=== PATIENT | female | born 1965 | race Caucasian/White ===

== ENCOUNTER 2017-01-22 14:15 | Inpatient (IN) ==
[2017-01-22] MEDS ORDERED: Nitroglycerin 0.4 MG TAB.SUBL SL ONE (14:22)
[2017-01-22 14:42] LABS: Basophils % 0.5 %; Eosinophils # 0.2 K/mcL (0.0-0.6); Eosinophils % 2.8 %; Hematocrit 45.9 % (35.3-44.9); Hemoglobin 15.2 g/dL (11.5-15.4); Immature Granulocytes % 0.4 % (0-4); Lymphocytes # 2.2 K/mcL (0.6-4.6); Lymphocytes % 29.7 %; Mean Corpuscular HGB Conc 33.1 g/dL (31.6-35.5); Mean Corpuscular Hemoglobin 29.3 pg (28.0-33.3); Mean Corpuscular Volume 88.6 fL (83.0-100.0); Mean Platelet Volume 9.5 fL (9.4-12.4); Monocytes # 0.4 K/mcL (0.0-1.3); Monocytes % 5.9 %; Neutrophils # 4.5 K/mcL (1.6-8.9); Platelet Count 253 K/mcL (140-400); Red Blood Count 5.18 M/mcL (3.82-4.97); Red Cell Distribution Width 12.3 % (11.5-14.5); Segmented Neutrophils % 60.7 %
[2017-01-22 14:50] LABS: Prothrombin Time 10.5 Seconds (9.4-12.1)
[2017-01-22 14:53] LABS: Activated Partial Thrombo Time 28.2 Seconds (26.0-36.0)
[2017-01-22 14:57] LABS: BUN/Creatinine Ratio 13 (6-26); Blood Urea Nitrogen 12 mg/dL (7-20); Calcium 9.2 mg/dL (8.6-10.8); Carbon Dioxide 30 mEq/L (19-29); Chloride 104 mEq/L (98-109); Glucose 290 mg/dL (70-99); Osmolality,Calculated 294 (280-300); Potassium 3.9 mEq/L (3.5-4.5); Sodium 137 mEq/L (136-145); eGFR For African Americans > 60 (> 60); eGFR For Non-African Americans > 60 (> 60)
--- NOTE | 2017-01-22 15:24 | Emergency Department Note ---
Disposition Clinical Impression: Chest pain Qualifiers: Chest pain type: unspecified Qualified Code(s): R07.9 - Chest pain, unspecified Disposition: Admitted As Inpatient Condition: Fair Referrals: Ketty Cade CNP [Primary Care Provider] - Forms: ED Satisfaction Letter Time of Disposition: 15:47 Chest Pain HPI - General Chief Complaint: ED Chest Pain Stated Complaint: Chest Pain Time Seen by Provider: 01/22/17 14:19 Source: patient, EMS Limitations: no limitations Vital Signs Reviewed: Yes Nursing Notes Reviewed: Yes - History of Present Illness HPI Narrative: Patient is a 51-year-old female past medical history of hypertension, diabetes, and high cholesterol to the emergency department with intermittent chest pain that has been going on for 2 weeks. The chest pain is a sharp stabbing substernal chest pain that lasts for minutes is worsened by exertion and improves with rest except for today she noticed that the chest pain lingered after resting. States she has had some diaphoresis, nausea, one episode of vomiting, and shortness of breath with exertion. She states she does not have a cardiac history, she has had a stress test in the past but does not remember why or remember the results. Pt complaint: chest pain Onset (ago): week(s) Duration: intermittent Onset: during exertion Pain Location: substernal Severity: moderate Severity scale (1-10): 2 Quality: sharp Pain Radiation: none Improves with: rest Worsens with: exertion Associated symptoms: Reports: nausea, vomiting, diaphoresis, dyspnea. Denies: syncope, palpitations, fever, cough Treatments prior to arrival chest pain: aspirin - Related Data Home Medications Medication Instructions Recorded Confirmed Atorvastatin [Lipitor] 40 mg PO 02/06/16 01/22/17 Lansoprazole [Prevacid] 30 mg PO [facility] 02/06/16 01/22/17 Lisinopril [Zestril] 20 mg PO DAILY 02/06/16 01/22/17 NIFEdipine [Nifedical Xl] 30 mg PO DAILY 02/06/16 01/22/17 Alogliptin Keon/Metformin HCl 1 each PO BID 01/22/17 01/22/17 [Kazano 12.5-1,000 mg Tablet] Insulin Glargine,Hum.rec.anlog 62 unit SQ 01/22/17 01/22/17 [Bakariaglhong Winkler U-100] hydroCHLOROthiazide 12.5 mg PO DAILY 01/22/17 01/22/17 [Hydrochlorothiazide] Allergies Allergy/AdvReac Type Severity Reaction Status Date / Time No Known Allergies Allergy Verified 02/23/16 13:11 All systems ED: reviewed and negative except as stated. Constitutional: Denies: fever, chills Cardiovascular: Reports: chest pain, palpitations, dyspnea on exertion. Denies : orthopnea, edema, paroxysmal nocturnal dyspnea Respiratory: Reports: dyspnea. Denies: cough, wheezes, hemoptysis, sputum production Gastrointestinal: Denies: abdominal pain, nausea, vomiting, diarrhea Genitourinary: Denies: urgency, dysuria Musculoskeletal: Denies: back pain, neck pain Integumentary: Denies: rash Chest Pain PMH - Past Medical History Medical history: Reports: diabetes, GERD, hypertension Surgical history: Reports: orthopedic, other, ADA/BSO Psychiatric history: Reports: no psych history - Social History Smoking Status: Never smoker Alcohol use: Reports: occasionally Drug use: Reports: none Physical Exam Pt is sitting comfortably in bed. - General Limitations: no limitations General appearance: alert, in no apparent distress - Head Head exam: atraumatic, normocephalic - Eye Eye exam: Present: normal appearance, PERRL, EOMI - ENT ENT exam: normal exam, normal oropharynx, mucous membranes moist - Neck Neck exam: Present: normal inspection, full ROM, trachea midline. Absent: tenderness - Chest Chest inspection: Present: normal inspection, symmetric chest wall rise. Absent : tenderness - Respiratory Respiratory exam: Present: normal lung sounds bilaterally. Absent: respiratory distress, wheezes - Cardiovascular Cardiovascular exam: Present: regular rate, normal rhythm - Expanded Cardiovascular Exam Peripheral pulses: 2+: radial (R), radial (L), dorsalis pedis (R), dorsalis pedis (L) - Abdominal Exam Abdominal exam: Present: soft, Non-Tender, normal bowel sounds. Absent: tenderness - Extremities Exam Extremities exam: Present: normal inspection, full ROM. Absent: tenderness, pedal edema, calf tenderness - Back Exam Back exam: Present: normal inspection, full ROM. Absent: tenderness - Neurological Exam Neurological exam: Present: alert, oriented X3 - Psychiatric Psychiatric exam: Present: normal affect, normal mood - Skin Skin exam: Present: warm, dry, intact. Absent: cyanosis, diaphoresis, pallor Course Course Narrative: Patient is a 51-year-old female presents with a complaint of intermittent chest pain that is worse with exertion and normally improves with rest however today it did not improve with rest. She did a cardiac workup on the patient. - Reevaluation(s) Reevaluation #1: The patient's chest pain improved after the nitroglycerin. I discussed that her EKG is unchanged from her prior EKG she did not have elevated troponin. Discussed plan to admit the patient for further ACS rule out. The pt agrees with the plan. Vital Signs Temperature 97.7 F 01/22/17 14:17 Pulse Rate 91 01/22/17 14:17 Respiratory Rate 16 01/22/17 14:17 Blood Pressure 176/103 01/22/17 14:17 O2 Sat by Pulse Oximetry 96 01/22/17 14:17 Temperature 97.7 F 01/22/17 14:17 Pulse Rate 91 01/22/17 16:04 Respiratory Rate 16 01/22/17 16:04 Blood Pressure 174/96 01/22/17 16:04 O2 Sat by Pulse Oximetry 96 01/22/17 16:04 Oxygen Delivery Oxygen Delivery Room Air Chest Pain - Medical Records Medical records reviewed: Yes I reviewed the patient's medical records. - Lab Data Lab results reviewed: Yes I reviewed the patient's lab results. Result diagrams: 01/22/17 14:33 01/22/17 14:33 Lab Results 01/22/17 01/22/17 01/22/17 Range/Units 14:33 14:33 14:33 WBC 7.5 (4.3-11.1) K/mcL RBC 5.18 H (3.82-4.97) M/mcL Hgb 15.2 (11.5-15.4) g/dL Hct 45.9 H (35.3-44.9) % MCV 88.6 (83.0-100.0) fL MCH 29.3 (28.0-33.3) pg MCHC 33.1 (31.6-35.5) g/dL RDW 12.3 (11.5-14.5) % Plt Count 253 (140-400) K/mcL MPV 9.5 (9.4-12.4) fL Immature Gran % 0.4 (0-4) % Seg Neutrophils % 60.7 % Lymphocytes % 29.7 % Monocytes % 5.9 % Eosinophils % 2.8 % Basophils % 0.5 % Neutrophils # 4.5 (1.6-8.9) K/mcL Lymphocytes # 2.2 (0.6-4.6) K/mcL Monocytes # 0.4 (0.0-1.3) K/mcL Eosinophils # 0.2 (0.0-0.6) K/mcL Basophils # 0.0 (0.0-0.2) K/mcL PT 10.5 (9.4-12.1) Seconds INR 1.0 APTT 28.2 (26.0-36.0) Seconds Sodium 137 (136-145) mEq/L Potassium 3.9 (3.5-4.5) mEq/L Chloride 104 (98-109) mEq/L Carbon Dioxide 30 H (19-29) mEq/L BUN 12 (7-20) mg/dL Creatinine 0.96 (0.57-1.11) mg/dL Est GFR ( Amer) > 60 (> 60) Est GFR (Non-Af Amer) > 60 (> 60) BUN/Creatinine Ratio 13 (6-26) Glucose 290 H (70-99) mg/dL Calculated Osmolality 294 (280-300) Calcium 9.2 (8.6-10.8) mg/dL Troponin I (0-0.03) ng/mL 01/22/17 Range/Units 14:33 WBC (4.3-11.1) K/mcL RBC (3.82-4.97) M/mcL Hgb (11.5-15.4) g/dL Hct (35.3-44.9) % MCV (83.0-100.0) fL MCH (28.0-33.3) pg MCHC (31.6-35.5) g/dL RDW (11.5-14.5) % Plt Count (140-400) K/mcL MPV (9.4-12.4) fL Immature Gran % (0-4) % Seg Neutrophils % % Lymphocytes % % Monocytes % % Eosinophils % % Basophils % % Neutrophils # (1.6-8.9) K/mcL Lymphocytes # (0.6-4.6) K/mcL Monocytes # (0.0-1.3) K/mcL Eosinophils # (0.0-0.6) K/mcL Basophils # (0.0-0.2) K/mcL PT (9.4-12.1) Seconds INR APTT (26.0-36.0) Seconds Sodium (136-145) mEq/L Potassium (3.5-4.5) mEq/L Chloride (98-109) mEq/L Carbon Dioxide (19-29) mEq/L BUN (7-20) mg/dL Creatinine (0.57-1.11) mg/dL Est GFR ( Amer) (> 60) Est GFR (Non-Af Amer) (> 60) BUN/Creatinine Ratio (6-26) Glucose (70-99) mg/dL Calculated Osmolality (280-300) Calcium (8.6-10.8) mg/dL Troponin I 0.01 (0-0.03) ng/mL - Radiology Data Radiology results reviewed: Yes I reviewed the patient's radiology results. Chest X-Ray 01/22/17 14:22 IMPRESSION: No acute cardiopulmonary disease. D/ / Reji Wade MD / Reji Wade MD Interpreting Provider: Reji Wade MD - EKG Data EKG attestation: Yes I reviewed and interpreted this EKG. EKG results narrative: I interpreted the EKG. Sinus rhythm with rate of 96. Normal axis. Normal intervals: MN 156, QRS 112, QT/QTc 338/391. Patient has ST changed in lead III that are unchanged from an ekg done one 01/26/2016. EKG shows normal: sinus rhythm Rate: normal Interpretation: unchanged when compared to prior tracing (date) Heart Score - Score History: Moderately Suspicious EKG: Non Specific repolarisation Disturbance Age: 45-65 Risk Factors: 1-2 risk factors Troponin: Less than normal limit HEART Score Total: 4 Attestation Statement - Attestation Attestation: I examined this patient and my medical decision-making was reviewed with the Resident Physician. I agree with the documented findings, disposition and treatment plan as described except to the extent set forth below. Patient presents to the emergency department with a chief complaint of chest pain. Sharp substernal. She has been having intermittent episodes with exertion over the past couple of weeks. Today it was worse. Did not resolve spontaneously so she comes for evaluation. She also admits to some nausea and vomiting and diaphoresis. On exam she is in no acute distress. Heart regular rate and rhythm lungs are clear. Plan. Workup was unremarkable. Her pain resolved with nitroglycerin. She will be admitted for further cardiac workup.
[2017-01-22] MEDS ORDERED: Naloxone 0.4 MG/ML INJ IVP PRN (17:55)
[2017-01-22] MEDS ORDERED: *HR* Morphine 2 MG/ML SYRINGE IVP PRN (17:55)
[2017-01-22] MEDS ORDERED: Acetaminophen 325 MG TABLET PO PRN (17:55)
[2017-01-22] MEDS ORDERED: *HR* HYDROcodone/Acet 5/325 mg TABLET PO PRN (17:55)
[2017-01-22] MEDS ORDERED: Ondansetron 4 MG/2 ML VIAL IVP PRN (17:55)
[2017-01-22] MEDS ORDERED: D5% in Water 1,000 ML IVC PRN (18:04)
[2017-01-22] MEDS ORDERED: *HR* Dextrose 50 % in Water (Syg) 50 ML SYRINGE IVP PRN (18:04)
[2017-01-22] MEDS ORDERED: Dextrose Gel 15 GM PO PRN ×2 (18:04)
[2017-01-22] MEDS ORDERED: Nitroglycerin 0.4 MG TAB.SUBL SL PRN (18:07)
[2017-01-22] MEDS: Pantoprazole 40 MG VIAL IVP SCH (18:16)
--- NOTE | 2017-01-22 18:43 | Internal Med History&Physical ---
<Andrés Snow - Last Filed: 01/22/17 19:18> Date of Encounter: 01/22/17 Time of Encounter: 15:00 Assessment and Plan (1) Chest pain Current visit: Yes Status: Acute Patient presents with acute chest pain that she states has been occurring for the past two weeks and has become progressively worse. She describes the pain as constant stabbing and is accompanied with nausea. Pain becomes with exertion. Patient denies previous cardiac history or issues. She reports she had a stress test quite a while ago and cannot recall where or when. Patient placed on continuous cardiac telemetry with supplemental O2 and continuous SPO2 monitoring. Will trend troponins x2. Nitroglycerin PRN ordered. EV echocardiogram and nuclear stress test ordered. Patient to be placed as nothing by mouth status after midnight for a.m. testing. Will consider cardiology consult based on echocardiogram and stress test results. Will continue patient's statin and hypertension medications. Qualifiers: Chest pain type: unspecified Qualified Code(s): R07.9 - Chest pain, unspecified (2) SOB (shortness of breath) Current visit: Yes Status: Acute Patient presents with acute SOB related to current chest pain symptoms. She states the SOB worsens with exertion like the chest pain. Supplemental O2 with titration if SpO2 < 92% and continuous SpO2 monitoring ordered. DuoNebs Q4 PRN ordered. Patient to be placed as bed rest with bathroom privileges. (3) Nausea Current visit: Yes Status: Acute Patient presents with acute nausea related to current chest pain symptoms. IV Zofran ordered PRN. (4) Diabetes Current visit: Yes Status: Chronic Patient presents with history of chronic diabetes. Will hold patient's home hyperglycemic medications and order low-dose correction insulin sliding scale and hypoglycemic protocol. Blood glucose monitoring ACHS. A1c ordered. Qualifiers: Diabetes mellitus type: type 2 Diabetes mellitus complication status: with unspecified complications Diabetes mellitus automation qa lead insulin use: with automation qa lead use Qualified Code(s): E11.8 - Type 2 diabetes mellitus with unspecified complications; Z79.4 - assisted (current) use of insulin (5) GERD (gastroesophageal reflux disease) Current visit: Yes Status: Chronic Patient presents with history of chronic GERD. IVP Protonix 40 mg daily ordered. Qualifiers: Esophagitis presence: esophagitis presence not specified Qualified Code(s) : K21.9 - Gastro-esophageal reflux disease without esophagitis (6) HTN (hypertension) Current visit: Yes Status: Chronic Patient presents with history of chronic hypertension. Will continue patient's lisinopril, nifedipine, and hydrochlorothiazide. Will monitor patient vital signs. Qualifiers: Hypertension type: essential hypertension Qualified Code(s): I10 - Essential (primary) hypertension (7) HLD (hyperlipidemia) Current visit: Yes Status: Chronic Patient presents with history of chronic hyperlipidemia. Lipid panel ordered. Will continue patient's Lipitor. Qualifiers: Hyperlipidemia type: pure hypercholesterolemia Qualified Code(s): E78.00 - Pure hypercholesterolemia, unspecified; E78.0 - Pure hypercholesterolemia (8) DVT prophylaxis Current visit: Yes Status: Acute Patient to be placed on DVT prophylaxis due to admission protocol and current symptomatology. Heparin 5000 units SQ every 8 ordered. Internal Medicine - H&P: HPI Chief complaint: Chest pain Admitted From: Emergency Dept Plans for Post Hospital Care: Home History of present illness: Mrs. Coyne is a 51 year old female who presents from the ED with chief complaint of chest pain that she reports as occurring for the past two weeks and has become progressively worse. Patient describes the pain as constant and stabbing is accompanied with nausea but no vomiting. She also states that the chest pain becomes worse with exertion. She also reports experiencing shortness of breath and pain that radiates to the mid central back. Patient denies any previous cardiac history or issues. Patient also denies palpitations , orthopnea, edema, cough, abdominal pain, diarrhea, presyncope, syncope, or generalized weakness. Patient states she had a stress test done quite some time ago but cannot remember when or where. Patient has a medical history that includes diabetes with insulin dependency, GERD, hypertension, hyperlipidemia. Patient denies smoking, reports occasional alcohol use, denies illicit drug use. Patient is at moderate risk for cardiac event based on risk factors of obesity, diabetes, hypertension, and hyperlipidemia and will be placed as observation status with continuous cardiac telemetry, supplemental O2 with titration if SPO2 less than 92%, continuous SPO2 monitoring, trending troponins 2, nitroglycerin when necessary, and EV echocardiogram. Patient to be monitored closely for continued signs of cardiac and/or respiratory distress. Will consider cardiology consult based on echocardiogram results. Time spent with patient > 40 minutes. Past Med Surg Social Fam HX - Past Medical History Source: patient Medical history: diabetes, GERD, hyperlipidemia, hypertension Psychiatric history: no psych history - Past Surgical History Surgical History: cholecystectomy, orthopedic, other, ADA/BSO, other (Tubal ligation, tonsillectomy, adenoidectomy) - Social History Smoking Status: Never smoker Smokeless Tobacco Status: No Alcohol use: occasionally Drug use: none Current living situation: Home, With Family Activity Level: Independent ambulation Recent Out of Country Travel Within the Last 8 Weeks: No Exposure or Possible Exposure to Illness During Travel: No - Family History Father Race: Family Member Ethnicity: Non- Living Status: Still Living Hx Family Cardiac Disorders: Yes (HTN) Hx Family Respiratory Disorders: Yes (Asthma) Mother Race: Family Member Ethnicity: Non- Living Status: Still Living Hx Family Cardiac Disorders: Yes (HLD, HTN) Brother Race: Family Member Ethnicity: Non- Living Status: Still Living Hx Family Medical Disorders: No Sister Race: Family Member Ethnicity: Non- Living Status: Still Living Hx Family Cardiac Disorders: Yes (HLD) Hx Family Respiratory Disorders: Yes (Asthma) Hx Family Cancer: Yes (Breast) Internal Medicine - H&P: Meds Atorvastatin [Lipitor] 40 mg PO HS 02/06/16 [History] Lansoprazole [Prevacid] 30 mg PO QAM 02/06/16 [History] Lisinopril [Zestril] 20 mg PO DAILY 02/06/16 [History] NIFEdipine [Nifedical Xl] 30 mg PO DAILY 02/06/16 [History] Alogliptin Keon/Metformin HCl [Kazano 12.5-1,000 mg Tablet] 1 each PO BID [History] Insulin Glargine,Hum.rec.anlog [Basaglar Kwikpen U-100] 62 unit SQ HS 01/22/17 [ History] hydroCHLOROthiazide [Hydrochlorothiazide] 12.5 mg PO DAILY 01/22/17 [History] Allergies No Known Allergies Allergy (Verified 02/23/16 13:11) All Systems PM: A 10-system review of systems was performed and is negative for pertinent findings except as documented above in the HPI. - Constitutional Constitutional: no chills, no fever(s), no night sweats - EENT Eyes: no change in vision, no discharge, no pain, no photophobia Ears: no ear discharge, no ear pain, no tinnitus Nose, mouth and throat: no dysphagia, no nasal discharge, no neck pain, no sore throat - Breasts Breasts: as per HPI - Cardiovascular Cardiovascular ROS IM: as per HPI, chest pain, dyspnea - Respiratory Respiratory: as per HPI, dyspnea - Gastrointestinal Gastrointestinal: as per HPI, nausea, no abdominal pain, no diarrhea, no hematemesis, no hematochezia, no melena, no vomiting - Genitourinary Genitourinary: no change in urinary stream, no dysuria, no flank pain, no hematuria Menstruation: as per HPI - Musculoskeletal Musculoskeletal ROS IM: no numbness, no tingling - Integumentary Integumentary IM: no rash, no unusual bruising - Neurological Neurological ROS: no confusion, no convulsions, no focal weakness, no numbness, no tingling, no tremor(s) - Psychiatric Psychiatric: as per HPI - Endocrine Endocrine IM: as per HPI - Hematologic/Lymphatic Hematologic/Lymphatic: no easy bruising - Allergic/Immunologic Allergic/Immunologic: as per HPI - Constitutional Vitals: Temp Pulse Resp BP Pulse Ox 98.0 F 89 17 166/94 95 01/22/17 17:40 01/22/17 17:40 01/22/17 17:40 01/22/17 17:40 01/22/17 17:40 General appearance: Present: cooperative, A&O X 3, pleasant, no acute distress, obese, answers questions appropriately - Head Head exam: Present: atraumatic, normocephalic - Eye Eye exam: Present: PERRL, conjuntiva pink, sclera anicteric Pupils: Present: PERRL - ENT ENT exam: Present: normal exam, normal external ear exam - Neck Neck exam general surgery: Present: normal inspection, supple, trachea midline - Respiratory Respiratory exam: Present: CTAB. Absent: accessory muscle use, rales, rhonchi, wheezes - Cardiovascular Cardiovascular exam: Present: RRR, +S1, +S2. Absent: diastolic murmur, gallop, rubs, systolic murmur - GI/Abdominal GI/Abdominal exam: Present: normal bowel sounds, soft, no peritoneal signs. Absent: distended, tenderness - Rectal Rectal exam: Present: deferred - Additional comments: exam deferred. - Extremities Exam Extremities exam: Present: warm, radial pulses palpable and symetrical. Absent : calf tenderness, cyanotic, pedal edema - Back Exam Back exam: Present: normal inspection - Neurological Exam Neurological exam: Present: CN II-XII intact, oriented X3, no focal deficits. Absent: pronater drift, facial droop, speech deficit - Psychiatric Psychiatric exam: Present: normal affect, normal mood - Skin Skin exam: Present: dry, intact Internal Med - H&P Results - Labs CBC & Chem 7: 01/22/17 14:33 01/22/17 14:33 - EKG Data EKG shows normal: sinus rhythm - EKG Data Prior EKG available for review: yes When compared to previous EKG: there is no significant change EKG comments: 01/22/17 18:57 EKG dated 01/26/16 shows sinus rhythm with inferior myocardial infarction of indeterminate age. EKG dated 01/22/17 shows sinus rhythm with moderate intraventricular conduction delay and ST deviation and moderate T-wave abnormality. Consider inferior ischemia. - Diagnostic Studies Chest x-ray Additional comments: Impressions Chest X-Ray 01/22/17 14:22 IMPRESSION: No acute cardiopulmonary disease. D/ / Reji Wade MD / Reji Wade MD Interpreting Provider: Reji Wade MD <Jose GuadalupeStella - Last Filed: 01/22/17 19:39> Date of Encounter: 01/22/17 Internal Medicine - H&P: HPI History of present illness: Ms. Coyne is a 51 year old female All Systems PM: A 10-system review of systems was performed and is negative for pertinent findings except as documented above in the HPI. - Constitutional Vitals: Temp Pulse Resp BP Pulse Ox 98.0 F 89 17 166/94 95 01/22/17 17:40 01/22/17 17:40 01/22/17 17:40 01/22/17 17:40 01/22/17 17:40 Internal Med - H&P Results - Labs CBC & Chem 7: 01/22/17 14:33 01/22/17 14:33 - Attending Attestation I have seen and examined pt. I discussed with CHARTERED FINANCIAL ANALYST regarding the management plan. I agree with the documentation. Pt has on and off chest pain. Chest pain improved now. Will check Echo, and stress test in am. Will consult cardio as needed.
[2017-01-22] MEDS ORDERED: Ipratropium/Albuterol Neb 3 ML IH PRN (19:11)
[2017-01-22] MEDS: Insulin LISPRO 300 UNITS/3 ML VIAL SQ SCH (21:33)
[2017-01-23 06:02] LABS: Basophils # 0.1 K/mcL (0.0-0.2); Basophils % 0.6 %; Eosinophils # 0.3 K/mcL (0.0-0.6); Eosinophils % 3.4 %; Immature Granulocytes % 0.5 % (0-4); Lymphocytes # 3.4 K/mcL (0.6-4.6); Lymphocytes % 39.1 %; Mean Corpuscular HGB Conc 33.3 g/dL (31.6-35.5); Mean Corpuscular Hemoglobin 29.7 pg (28.0-33.3); Mean Corpuscular Volume 89.1 fL (83.0-100.0); Mean Platelet Volume 9.7 fL (9.4-12.4); Monocytes # 0.7 K/mcL (0.0-1.3); Monocytes % 7.9 %; Neutrophils # 4.2 K/mcL (1.6-8.9); Platelet Count 268 K/mcL (140-400); Red Blood Count 5.05 M/mcL (3.82-4.97); Red Cell Distribution Width 12.6 % (11.5-14.5); Segmented Neutrophils % 48.5 %
[2017-01-23 06:17] LABS: BUN/Creatinine Ratio 14 (6-26); Blood Urea Nitrogen 10 mg/dL (7-20); Calcium 8.8 mg/dL (8.6-10.8); Carbon Dioxide 31 mEq/L (19-29); Chloride 105 mEq/L (98-109); Chol/HDL Ratio 3.2 (0-4.9); Cholesterol 136 mg/dL (< 200); Glucose 96 mg/dL (70-99); HDL Cholesterol 43 mg/dL (40-59); LDL Cholesterol,Calculated 74 mg/dL (0-99); Magnesium 1.6 mg/dL (1.6-2.6); Osmolality,Calculated 285 (280-300); Potassium 3.6 mEq/L (3.5-4.5); Sodium 138 mEq/L (136-145); Triglycerides 95 mg/dL (< 150); eGFR For African Americans > 60 (> 60); eGFR For Non-African Americans > 60 (> 60)
[2017-01-23] MEDS ORDERED: Regadenoson 0.4 MG/5 ML SYRINGE IVP ONE (07:32)
[2017-01-23] MEDS: Pantoprazole 40 MG VIAL IVP SCH (09:12)
[2017-01-23] MEDS: NIFEdipine XL (24 HR) 30 MG TAB.ER.24 PO SCH (09:12)
[2017-01-23] MEDS: Lisinopril 20 MG TABLET PO SCH (09:12)
[2017-01-23] MEDS: hydroCHLOROthiazide 25 MG TABLET PO SCH (09:12)
[2017-01-23] MEDS: Insulin LISPRO 300 UNITS/3 ML VIAL SQ SCH ×4 (09:16→20:28)
--- NOTE | 2017-01-23 11:19 | Nuclear Medicine Stress Report ---
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 Pharmacologic ECG was non diagnostic for ischemia. Patient had 3/10 chest pain with exercise. Normal hemodynamic response. No arrhythmias noted with stress. Gated EF = 59%. There is visual evidence of TID. Findings communicated to ordering provider. History: Hypertension Diabetes Hypercholesteremia Stress Test Summary: Stress Test Type: Treadmill Protocol: Frandy Baseline Information: Initial Heart Rate: 71 Blood Pressure: 164/88 Stress Information: Stress Time: 6 min 00 sec Test Terminated Due to (primary): Fatigue Maximum Blood Pressure: 174/92 Maximum Heart Rate: 147 Percent Maximum Heart Rate Achieved: 87 Double Product: [id number] METS Reached: 7 Symptoms: Chest pain Nuclear Summary: SPECT myocardial perfusion imaging using [id number] Sestamibi given intravenously was performed at rest and following cardiac stress testing. The resting images were obtained following initial dose of 11.3 mCi. Following stress an additional dose of 31.6 mCi was given at peak exercise or 30 seconds post regadenoson infusion. Medication Given: Time Medication Dose Units Route Findings: Stress Note * Resting ECG demonstrated normal sinus rhythm with IVCD nonspecific ST abnormalities and possible inferior OH appearing old. * Exercise ECG is non diagnostic for ischemia due to non-specific ST and T wave changes. * No arrhythmias were noted during stress. * Patient had 3/10 chest pain during exercise. * The exercise capacity was fair. Hemodynamic responses * Normal hemodynamic responses to exercise. Study Quality * Study quality is good. Gated EF % * Gated EF = 59%. Left Ventricle * The left ventricle is not dilated. TID * There is transient ischemic dilatation. Lung Uptake * There is no evidence of increase lung uptake. PERFUSION * There is a medium sized, mixed perfusion defect demonstrating lack of perfusion in the basal to mid inferior wall and inferoseptum. In the mid to distal segments on stress imaging, perfusion is mild to moderately worse. Findings represent infarct with mild to moderate jony-infarct ischemia. * Other segments demonstrate normal rest and stress perfusion. Updated by Lexy Mendoza on 01/23/2017 11:09:17 AM electronically signed on 01/23/2017 11:14:25 AM with status of Final
--- NOTE | 2017-01-23 11:57 | Cardiology Consult Note ---
Date of Encounter: 01/23/17 Time of Encounter: 11:30 Assessment and Plan (1) Chest pain Current Visit: Yes Status: Acute Per cardiology: -2 week history of intermittent chest pain, mostly with excertion. States chest pain relieved by rest. -Echo 01/23/17 with LVEF 50%, mild LV systolic dysfunction with regional abnormalities, mild LV diastolic dysfunction with borderline elevated in filling pressures, no significant valvular dysfunction, the mid inferior and basal inferior septal mcdonald hypokinetic, basal inferior wall aneurysmal, all other wall segments with normal motion. -Nuclear stress 01/23/17 with inferior and inferoseptal infarct with mild to moderate per-infarct ischemia. Gated EF 59%. Visual evidence of TID. -On statin. -Discussed at length with patient and family regarding chest pain, abnormal test results. -Discussed recommendations for LHC. Educated patient and family regarding risks versus benefits of LHC. Patient states understanding and agreeable to proceed with LHC. -NO ECG to personally review. -Will undergo LHC today. Of note, patient did have a few michelle crackers and water after stress test. updated on oral intake and states ok to proceed with LHC. -Will start asa 81mg. -ECG ordered. -FUrther recommendations pending LHC. Qualifiers: Chest pain type: unspecified Qualified Code(s): R07.9 - Chest pain, unspecified (2) HTN (hypertension) Current Visit: Yes Status: Chronic Per cardiology: -Known HTN. -ON lisinopril and procardia. -BP 120-150s systolic. -Average HR previous 12 hours noted to be 64, minimum noted to be 53 at 0534. -Further recommendations pending LHC. Can consider addition of low dose beta marko. Qualifiers: Hypertension type: essential hypertension Qualified Code(s): I10 - Essential (primary) hypertension Discussion w patient/family: The assessment and plan as outlined above was discussed with the patient and/or family members who expressed understanding and agreement. All questions were answered. Thank you for involving us in the care of your patient. Please call with any questions. Discussed and reviewed with . History of Present Illness Consult date: 01/23/17 Requesting physician: Liset Spann Consult reason: chest pain, abnormal echo and stress Chief complaint: chest pain History of present illness: Ms. Coyne is a 51 year old female with a relevant past medical history of HTN , previous smoking, and DM. Patient presented to [facility] with complaints of chest pain. Patient states pain has been intermittent for the past 2 weeks. Patient states pain typically started during excertion. 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 Patient states pain was midsternal with radiation to back. Patient states pain was typically relieved with rest, however episode prior to admission was not relieved with rest. Patient denies current chest pain. Patient also admits to increased shortness of breath and increased fatigue. Patient states she can perform her normal activities, but becomes extremely fatigued with her normal activities. Past Med Surg Social Fam HX - Past Medical History Attestation: Yes The following information was validated with the patient. Source: patient, obtained from family Medical history: diabetes, GERD, hypertension Psychiatric history: no psych history - Past Surgical History Surgical History: cholecystectomy, orthopedic, other, ADA/BSO, other (Tubal ligation, tonsillectomy, adenoidectomy) - Social History Smoking Status: Never smoker Smokeless Tobacco Status: No Alcohol use: occasionally Drug use: none - Family History Father Race: Family Member Ethnicity: Non- Living Status: Still Living Hx Family Cardiac Disorders: Yes (HTN) Hx Family Respiratory Disorders: Yes (Asthma) Mother Race: Family Member Ethnicity: Non- Living Status: Still Living Hx Family Cardiac Disorders: Yes (HLD, HTN) Brother Race: Family Member Ethnicity: Non- Living Status: Still Living Hx Family Medical Disorders: No Sister Race: Family Member Ethnicity: Non- Living Status: Still Living Hx Family Cardiac Disorders: Yes (HLD) Hx Family Respiratory Disorders: Yes (Asthma) Hx Family Cancer: Yes (Breast) Medications and Allergies Atorvastatin [Lipitor] 40 mg PO HS 02/06/16 [History] Lansoprazole [Prevacid] 30 mg PO QAM 02/06/16 [History] Lisinopril [Zestril] 20 mg PO DAILY 02/06/16 [History] NIFEdipine [Nifedical Xl] 30 mg PO DAILY 02/06/16 [History] Alogliptin Keon/Metformin HCl [Kazano 12.5-1,000 mg Tablet] 1 each PO BID [History] Insulin Glargine,Hum.rec.anlog [Bakariaglhong Winkler U-100] 62 unit SQ HS 01/22/17 [ History] hydroCHLOROthiazide [Hydrochlorothiazide] 12.5 mg PO DAILY 01/22/17 [History] Allergies No Known Allergies Allergy (Verified 02/23/16 13:11) All Systems Review: A 10-system review of systems was performed and is negative for pertinent findings except as documented above in the HPI. - Constitutional Constitutional: fatigue - Cardiovascular Cardiovascular: as per HPI, chest pain at rest, chest pain with exertion, dyspnea on exertion Physical Examination Vital Signs, Last 4 Hours Temp Pulse Resp BP Pulse Ox 01/23/17 09:22 97.6 F 63 16 155/86 97 General: Conversant, No Apparent Distress HEENT: Atraumatic, Normocephaly, Mucus Membranes Moist Neck: No JVD, Normal carotid pulses Cardiac: Reg Rate and Rhythm, Normal S1 and S2, No Murmur Lungs: Normal Breath Sounds, No Wheeze, Rales, Rhonchi Neuro: Alert and responsive, No focal deficits noted Abdomen: Soft, Non-Tender Skin: No rashes noted on visualized skin Musculoskeletal: No Chest Wall Tenderness Extremities: No Clubbing, No Cyanosis, No Edema, Normal Pulses Results 01/23/17 05:22 01/23/17 05:22 Lab Results Impressions Chest X-Ray 01/22/17 14:22 IMPRESSION: No acute cardiopulmonary disease. D/ / Reji Wade MD / Reji Wade MD Interpreting Provider: Reji Wade MD Active Medications Acetaminophen (Tylenol) 650 mg PO Q6HR PRN PRN Reason: Mild Pain (1-3) Stop: 07/24/17 17:56 Hydrocodone Bitart/Acetaminophen ([place] 5-325 Mg) 1 tab PO Q4HR PRN PRN Reason: Moderate Pain (4-6) Stop: 07/24/17 17:56 Albuterol/Ipratropium (Duoneb) 3 ml IH [id number] PRN; Protocol PRN Reason: Shortness Of Breath/Wheezing Stop: 07/24/17 19:12 Atorvastatin Calcium (Lipitor) 40 mg PO HS [facility] Stop: 07/24/17 21:01 Last Admin: 01/22/17 21:34 Dose: 40 mg Dextrose/Water (Dextrose 50% (Syg)) 25 ml IVP AD PRN PRN Reason: Hypoglycemia Stop: 07/24/17 18:05 Glucagon (Glucagen) 1 mg IM ONCE PRN PRN Reason: Hypoglycemia Stop: 07/24/17 18:05 Glucose (Gluctose) 15 gm PO ONCE PRN PRN Reason: Hypoglycemia Stop: 07/24/17 18:05 Glucose (Gluctose) 30 gm PO ONCE PRN PRN Reason: Hypoglycemia Stop: 07/24/17 18:05 Hydrochlorothiazide (Hydrochlorothiazide) 12.5 mg PO DAILY [facility] Stop: 07/25/17 09:01 Last Admin: 01/23/17 09:12 Dose: 12.5 mg Dextrose (Dextrose 5%) 1,000 mls @ 100 mls/hr IVC .Q10H PRN PRN Reason: HYPOGLYCEMIA Stop: 07/24/17 18:05 Insulin Human Lispro (Humalog) 0 units SQ TIDAC [facility] PRN Reason: Protocol Stop: 07/25/17 07:31 Last Admin: 01/23/17 09:16 Dose: Not Given Insulin Human Lispro (Humalog) 0 units SQ [facility] PRN Reason: Protocol Stop: 07/24/17 21:01 Last Admin: 01/22/17 21:33 Dose: 4 units Lisinopril (Zestril) 20 mg PO DAILY [facility] PRN Reason: Protocol Stop: 07/25/17 09:01 Last Admin: 01/23/17 09:12 Dose: 20 mg Morphine Sulfate (Morphine Sulfate) 2 mg IVP Q4HR PRN PRN Reason: Severe Pain (7-10) Stop: 07/24/17 17:56 Naloxone HCl (Narcan) 0.4 mg IVP Q2MIN PRN PRN Reason: Opioid Reversal Stop: 07/24/17 17:56 Nifedipine (Procardia Xl) 30 mg PO DAILY [facility] Stop: 07/25/17 09:01 Last Admin: 01/23/17 09:12 Dose: 30 mg Nitroglycerin (Nitroglycerin) 0.4 mg SL Q5MIN PRN PRN Reason: Chest Pain Stop: 01/18/18 18:08 Ondansetron HCl (Zofran) 4 mg IVP Q8HR PRN PRN Reason: Nausea And Vomiting Stop: 07/24/17 17:56 Pantoprazole Sodium (Protonix) 40 mg IVP DAILY [facility] Stop: 07/24/17 18:01 Last Admin: 01/23/17 09:12 Dose: 40 mg Laboratory Tests 01/22/17 01/22/17 01/23/17 14:33 19:53 05:22 Hgb Potassium Creatinine Troponin I 0.01 0.01 0.01 Triglycerides Cholesterol LDL Cholesterol, Calc HDL Cholesterol 01/23/17 01/23/17 05:22 05:22 Hgb 15.0 Potassium 3.6 Creatinine 0.74 Troponin I Triglycerides 95 Cholesterol 136 LDL Cholesterol, Calc 74 HDL Cholesterol 43 - Imaging and Cardiology Chest Xray: report reviewed Stress Test: report reviewed Echo: report reviewed - EKG Interpretation EKG results cardiology: personally reviewed (NO ECG to personally review, ECG ordered.), other (Telemetry reviewed with average HR 64, sinus rhythm. PVCs and PACs noted. Minimum HR noted to be 53 and 0534.) Consult Discharge Plan - Plan Referrals: Ketty Cade, INTEGRATED CIRCUIT DESIGN ENGINEER [Primary Care Provider] -
[2017-01-23] MEDS ORDERED: 0.9 % Sodium Chloride 1,000 ML ONE ×2 (12:32→12:54)
[2017-01-23] MEDS ORDERED: Verapamil 5 MG/2 ML VIAL ONE (12:32)
[2017-01-23] MEDS ORDERED: Nitroglycerin 1,000 MCG/10 ML VIAL IV ONE (12:32)
[2017-01-23] MEDS ORDERED: *HR* Heparin 10,000 UNIT/10 ML VIAL ONE (12:32)
[2017-01-23] MEDS ORDERED: Heparin 1,000 UNITS/500 mL NS 500 ML ONE (12:32)
[2017-01-23] MEDS ORDERED: *HR* FentaNYL (PF) 100 MCG/2 ML VIAL ONE (12:54)
[2017-01-23] MEDS ORDERED: *HR* Midazolam HCl 2 MG/2 ML VIAL ONE ×2 (12:54→13:13)
--- NOTE | 2017-01-23 13:36 | Pre-Sedation Evaluation ---
Pre-sedation evaluation - Pre-sedation checklist Date of procedure: 01/23/17 Procedure: C Recent Vitals: Last Vital Signs Temp 97.3 F L 01/23/17 11:58 Pulse 73 01/23/17 11:58 Resp 15 01/23/17 11:58 BP 115/71 01/23/17 11:58 Pulse Ox 97 01/23/17 11:58 Previous reaction to sedatives/anesthetics: Unknown Dietary Status: NPO after Midnight Airway Assessment: Patient can open mouth completely, TMJ function normal ASA Classification *see protocol: CLASS II-Mild systemic disease Plan of Care: Pt appropriate candidate for procedure/moderate/conscious sedation , Risks/benefits of procedure/sedation discussed w/ patient/family
--- NOTE | 2017-01-23 13:53 | Invasive Diagnostic Lab Proc ---
Name: Aracely Coyne Date of Study: 01/23/2017 Date: 1965 Ht: 61.0in Medical Record#: [id number] Age: 51 Wt: 196.21lb Gender: Female BSA: 1.87 Order #: [id number] BMI: 37.04 Physicians Procedure Physician: Frandy Escobar MD, [facility] Referring MD: Referring MD: Staff Name Position Time In Sites, Allison RT (R) Scrub 12:29 PM Allison Forman RT (R) Monitor 12:29 PM Micheline Toussaint RN [place] Sewer 12:29 PM Stephanie Ren RN [place] Sewer 12:29 PM Chantale Maxwell RN Nurse 12:29 PM Indications Indication Abnormal Test - Stress Abnormal Test - ECHO Procedures Performed Procedure L HRT ARTERY/VENTRICLE ANGIO Pre-Procedure Checklist Informed consent is complete signed and on chart. H&P is on chart. ID band is on and ID verified with patient. Patient NPO for procedure The procedure was described for the patient and questions were answered. Blood Pressure: 115/71 ECG is on chart. Plan of Care Patient will tolerate the procedure without complications. Adequate level of comfort will be maintained. Hemodynamics will remain stable Patient will recover from procedure without complications. Respiratory function will be maintained. Cardiac rhythm will remain stable. Patient temperature will be maintained. Patient and/or family have verbalized understanding of the procedure. Patient Education Chief Complaint/Reason for Test: Cardiac Cath Developmental Category: Adult (18-64 years) Developmentally Appropriate for Age: Yes Learning Barriers: None Education Needs: Procedure Education Method: Verbal Information Taught: Cardiac Cath Educational Evaluation: Able to repeat information Intravenous Access Time IV Size Location DC'd Fluid/Drip Rate Units RN 12:50 PM 20g 1 1/" Patent On Arrival Lt Hand 0.9NaCl 25 ml/hr Micheline Toussaint RN Allergies No Known Allergies Vital Signs Time BP (mmHg) HR (bpm) O2 Sat. RR (bpm) LOC 115 / 71 73 97 % 16 5 = Fully awake and oriented or at pre-proc level 01:03 PM / % 5 = Fully awake and oriented or at pre-proc level 01:03 PM / % 3 = Answers simple questions/follows commands 01:04 PM 130 / 79 67 95 % 18 12:58 PM 135 / 88 73 98 % 20 01:08 PM 116 / 75 69 96 % 17 01:13 PM 112 / 77 68 96 % 19 01:18 PM 112 / 73 70 96 % 17 01:23 PM 111 / 71 70 97 % 20 01:28 PM 109 / 73 74 95 % 17 01:33 PM 112 / 77 78 99 % 13 01:45 PM / % Procedural Medications Time Medication Dose Units Method Given By 01:02 PM Oxygen 2 L/min nasal cannula Stephanie Ren RN 01:02 PM Versed 2 mg Intravenous Stephanie Ren RN 01:03 PM Fentanyl 50 mcg Intravenous Stephanie Ren RN 01:13 PM Lidocaine 2% 20 ml Subcutaneous Frandy Escobar MD, FACC 01:14 PM Versed 1 mg Intravenous Stephanie Ren RN ASA Classification: CLASS II- Mild systemic disease (i.e. well-controlled diabetes, hypertension, asthma, cigarette smoking) Anneliese Score Preprocedure Postprocedure Activity 2- Moves 4 extremities sustained head lift Activity 2- Moves 4 extremities sustained head lift Circulation 2- SBP +/= 20 points of pre-anesthetic level Circulation 2- SBP +/= 20 points of pre-anesthetic level Consciousness 2- Awake and alert oriented x 3 Consciousness 2- Awake and alert oriented x 3 O2 Saturation 2- Able to maintain O2 satruation of 92% on room air O2 Saturation 2- Able to maintain O2 satruation of 92% on room air Respiratory 2- Able to deep breathe and cough well Respiratory 2- Able to deep breathe and cough well Total Score 10 Total Score 10 Contrast Agent: Isovue Diagnostic Contrast: 62 ml Total Contrast: 62 ml Fluoro Dose: 171 mGy Procedure Log Time Note Enter By 01:04 PM HR=67 bpm, WEOM=255/79 mmhg, SpO2=95.0 %, Resp=18 B/min, Anneliese=2, Comment=Sinus Rhythm 12:29 PM Allison Lloyd RT (R) Position: Scrub Time in: 12:29 tsites 12:29 PM Allison Forman RT (R) Position: Monitor Time in: 12:29 tsites 12:29 PM Micheline Toussaint RN Position: [place]veredge Sewer Time in: 12:29 tsites 12:29 PM Stephanie Ren RN Position: [place] Sewer Time in: 12:29 tsites 12:29 PM Chantale Maxwell RN Position:Monitor/ Nurse Time in: 12:29 tsites 12:29 PM Patient charges- Angio tray pack, Navilyst 3mm J, Pulse Oximetry and ACIST tubing and transducer tsites 12:29 PM Clinical Presentation: Unstable angina tsites 12:30 PM CathStat 12:57 PM Vitals capture started with the following parameters, Patient=Adult, Interval=5 min, Initial Iquqicfu=673 mmHg, Deflation Rate=5 mmHg, Cuff placed on Left Arm 12:58 PM HR=73 bpm, EKUJ=776/88 mmhg, SpO2=98.0 %, Resp=20 B/min, Anneliese=2, Comment=Sinus Rhythm 01:00 PM Pt arrived to laboratory development technician 2 at 12:50 pvannoy 01:00 PM Case Delayed pvannoy 01:01 PM Hair removed from procedure site in procedure lab using clippers. Bilateral groin prepped with Chloraprep by Allison Forman), safety strap applied then patient was draped. Skin intact. pvannoy 01:01 PM Physican paged/called 12:50. pvannoy 01:01 PM Physician arrived 12:55 pvannoy 01:02 PM ASA Class CLASS II- Mild systemic disease (i.e. well-controlled diabetes, hypertension, asthma, cigarette smoking) pvannoy 01:02 PM Sign in performed according to hospital policy. pvannoy 01:02 PM Procedure start 12:26 pvannoy 01:02 PM Time: 13:02 Oxygen on at 2 L/min per nasal cannula by Stephanie Ren RN pvannoy 01:03 PM Time: 13:02 Versed 2 mg Intravenous Given by Stephanie Ren RN pvannoy 01:03 PM Time: 13:03 Fentanyl 50 mcg Intravenous Given by Stephanie Ren RN pvannoy 01:03 PM Time: 13:03 Patient comfortable and pain free: Yes pvannoy 01:03 PM Time: 13:03 LOC: 5 = Fully awake and oriented or at pre-proc level pvannoy 01:07 PM Recorded ECG: HR=71 Condition=Condition 1 01:08 PM HR=69 bpm, CLTA=656/75 mmhg, SpO2=96.0 %, Resp=17 B/min, Comment=Sinus Rhythm 01:10 PM [ Select Channel To Zero ] 01:13 PM Time out performed according to hospital policy pvannoy 01:13 PM Time: 13:13 20 ml Lidocaine 2% to right groin Subcutaneous Given by Frandy Escobar MD, [facility] pvannoy 01:13 PM HR=68 bpm, QFJY=157/77 mmhg, SpO2=96.0 %, Resp=19 B/min, Anneliese=2, Comment=Sinus Rhythm 01:14 PM Time: 13:14 Versed 1 mg Intravenous Given by Stephanie Ren RN pvannoy 01:14 PM Access obtained by percutaneous puncture. 5Fr 10cm Terumo [place] sheath placed in right Femoral artery. [id number] pvannoy 01:14 PM 5Fr FL 4 catheter inserted over the wire [facility] pvannoy 01:15 PM Recorded Pressure: Ao, HR=75, Condition=Condition 1 (Aorta) Ao 97/75/87 01:16 PM LCA angiography performed in multiple views. [email or web address] 01:18 PM Catheter removed pvannoy 01:18 PM 5Fr FR 4 catheter inserted over the wire [facility] pvannoy 01:18 PM HR=70 bpm, PXQU=441/73 mmhg, SpO2=96.0 %, Resp=17 B/min, Anneliese=2, Comment=Sinus Rhythm 01:18 PM Time: 13:03 Patient comfortable and pain free: Yes pvannoy 01:18 PM Time: 13:03LOC: 3 = Answers simple questions/follows commands pvannoy 01:18 PM RCA angiography performed in multiple views. [email or web address] 01:19 PM Catheter removed pvannoy 01:19 PM 5Fr Pigtail catheter inserted over the wire [facility] pvannoy 01:19 PM Catheter selectively placed in left ventricle pvannoy 01:20 PM Recorded Pressure: LV, HR=67, Condition=Condition 1 (Left Ventricle) LV 108/2/19 01:21 PM Recorded Pressure: LV, Ao, HR=72, Condition=Condition 1 (Left Ventricle) LV 117/45/41, (Aorta) Ao 106/70/85 01:21 PM Recorded Pressure: LV, Ao, HR=69, Condition=Condition 1 (Left Ventricle) LV ?/?/?, (Aorta) Ao 6/3/4 01:21 PM Bolus angiogram of left Ventricle complete: 10 ml/sec for a total of 30 mls pvannoy 01:21 PM Catheter removed pvannoy 01:23 PM HR=70 bpm, KHMX=189/71 mmhg, SpO2=97.0 %, Resp=20 B/min, Anneliese=2, Comment=Sinus Rhythm 01:25 PM Procedure completed at 13:25 pvannoy 01:26 PM Arterial sheath pulled, Mynx closure device used and was Successful S/N. pvannoy 01:27 PM Sign out completed: Radiation Dose 171.49 mGy Fluoro Time: 1.6 Isovue 370 - 200ml contrast 62 ml given by Frandy Escobar MD, [facility]. Complications: NoneCardiac Rehab Consult needed: YesConfirmed administered medications: Yes pvannoy 01:27 PM Isovue 370 - 200ml,1 Bottle(s) used. pvannoy 01:27 PM Post ECG NSR pvannoy 01:27 PM Post Blood Pressure 111/71 pvannoy 01:28 PM HR=74 bpm, CLTZ=046/73 mmhg, SpO2=95.0 %, Resp=17 B/min 01:29 PM 13:28 Post Pulses Bilateral DP & PT 1+ pvannoy 01:29 PM Education needs Procedure, Plan of Care, Responsibilities of Patient in Care, and Disease Process pvannoy 01:29 PM Information taught Cardiac Cath and Mynx pvannoy 01:29 PM Learning barriers :None pvannoy 01:29 PM Education Methods Verbal pvannoy 01:29 PM Education evaluation Able to repeat information pvannoy 01:30 PM Site status No bleeding/hematoma - Rt Groin as reported by Sites, Allison RT (R) at 13:30 pvannoy 01:30 PM Opsite applied pvannoy 01:30 PM Family placed in consult room. pvannoy 01:31 PM Coronary Dominance: right pvannoy 01:32 PM Lesion found in Ostial RCA. Pre Stenosis: 90 Pre FEI Flow: pvannoy 01:32 PM Lesion found in Mid RCA. Pre Stenosis: 70 Pre FEI Flow: pvannoy 01:33 PM Lesion found in Ostial LAD. Pre Stenosis: 90 Pre FEI Flow: pvannoy 01:33 PM Lesion found in Mid LAD. Pre Stenosis: 95 Pre FEI Flow: pvannoy 01:33 PM Lesion found in Proximal Circumflex. Pre Stenosis: 90 Pre FEI Flow: pvannoy 01:33 PM HR=78 bpm, ZXRX=663/77 mmhg, SpO2=99 %, Resp=13 B/min 01:33 PM Time: 13:18 Patient comfortable and pain free: Yes pvannoy 01:34 PM Proximal Left Anterior Descending Coronary Artery with 90% stenosis. If graft is supplying this territory, % stenosis. pvannoy 01:34 PM Mid/Distal Left Anterior Descending Coronary Artery and diagonal branches with 95% stenosis. If graft is supplying this area, % stenosis pvannoy 01:34 PM Circumflex, Obtuse Marginal, Left Posterior Descending, and Left Posterolateral Coronary Arteries with 90 % stenosis. If graft is supplying this area, % stenosis pvannoy 01:35 PM Right Coronary, Right Posterior Descending Arteries with Right Posterolateral and Acute Marginal branches with 99 % stenosis. If graft is supplying this area, % stenosis pvannoy 01:45 PM Time: 13:33 Patient comfortable and pain free: pvannoy 01:45 PM Time: 13:45LOC: pvannoy 01:46 PM Report given to Maria Luisa MILLS Pt taken to Room #14. 13:45 pvannoy 01:46 PM Patient out of room: 13:46 pvannoy Complications Complication None Hemodynamics Pressures Site Systolic/A Wave Diastolic/V Wave Mean AO 97 75 87 LV 108 2 19 LV AO 6 3 4 LV 117 45 41 AO 106 70 85 Post Procedure Information Blood Pressure: 111/71 mmHg Rhythm: NSR Post procedural instructions were given Surgery consult for CABG Closure Device Time Device Success/Fail 01/23/2017 1:26:00 PM MynxGrip Successful Site Checks Time Location Status Staff Sheath In? Note 01:30 PM Rt Groin No bleeding/hematoma Sites, Allison RT (R) Pulses Time Site Pre-Procedure Post-Procedure Note 01/23/2017 12:55:00 PM Bilateral DP & PT 1+ 01/23/2017 12:55:00 PM Bilateral radial 2+ 1:28:00 PM Bilateral DP & PT 1+ Updated by Chantale Maxwell RN on 01/23/2017 1:47:53 PM electronically signed on 01/23/2017 1:48:54 PM with status of Final
--- NOTE | 2017-01-23 14:32 | Invasive Diagnostic Lab ---
Name: Aracely Coyne Date of Study: 01/23/2017 Date: 1965 Ht: 155.0 cm /61.0 in Medical Record#: [id number] Age: 51 Wt: 89. kg / 196.21 lb Account/Order#: [id number] Gender: Female BSA: 1.87 Order #: [id number] Fluoro Dose: 171 mGy BMI: 37.04 Procedure Physician: Frandy Escobar MD, FACC Referring MD: Referring MD: Procedures Performed: LEFT HEART CATH Iliofemoral angiography with cath Indications: Abnormal Test - Stress, Abnormal Test - ECHO Impressions: There is severe three vessel coronary artery disease. The left ventricle is normal and has normal contractility EF 60% Diabetes Recommendations: Optimal medical therapy of patient's disease. Aggressive risk factor modification. Suggest patient have Urgent coronary artery bypass surgery. History/Risk Factors: Diabetes Hypertension Dyslipidemia Procedure Access obtained in the right Femoral artery by percutaneous puncture. Iliofemoral angioograhy via sheath. Complications: None Contrast: Isovue 62ml Closure Device: MynxGrip Hemodynamics: Pressures Site Systolic/ A Wave Diastolic/ V Wave End Diastolic/ Mean HR AO 97 75 87 75 LV 108 2 19 67 LV 0 AO 6 3 4 69 LV 117 45 41 72 AO 106 70 85 72 LV Ventriculography Ejection Method: LV Gram Ejection Fraction: 60% Wall Motion: MCGARRY Anterobasal Normal Anterolateral Normal Apical: Normal Inferoapical Normal Inferobasal Normal Coronary Dominance: right Lesion Findings/Interventions * Left Main Coronary Artery The LMCA is angiographically free of disease. * Left Anterior Descending There is a 80% stenosis in the Ostial LAD. There is a 95% stenosis in the Mid LAD. * Circumflex There is a 90% stenosis in the Proximal Circumflex. * Right Coronary Artery There is a 80-90% stenosis in the Ostial RCA. There is a 70% stenosis in the Mid RCA. R iliofemoral angiography shows appropriate sheath placement for closure device. 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 Updated by Chantale Maxwell RN on 01/23/2017 1:47:09 PM Frandy Escobar MD, FACC electronically signed on 01/23/2017 2:27:32 PM with status of Final
[2017-01-23] MEDS: Aspirin Enteric Coated 81 MG Tablet PO SCH (14:35)
--- NOTE | 2017-01-23 15:07 | Electrocardiograph Report ---
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
[2017-01-23 17:37] LABS: Hemoglobin A1C 9.6 %
[2017-01-23] MEDS: Chlorhexidine Rinse 15 ML MOUTHWASH MM SCH (20:28)
[2017-01-24 04:28] LABS: Basophils # 0.1 K/mcL (0.0-0.2); Basophils % 0.5 %; Eosinophils # 0.2 K/mcL (0.0-0.6); Eosinophils % 1.9 %; Immature Granulocytes % 0.5 % (0-4); Lymphocytes # 3.4 K/mcL (0.6-4.6); Lymphocytes % 32.7 %; Mean Corpuscular HGB Conc 32.6 g/dL (31.6-35.5); Mean Corpuscular Hemoglobin 29.4 pg (28.0-33.3); Mean Corpuscular Volume 90.2 fL (83.0-100.0); Mean Platelet Volume 9.7 fL (9.4-12.4); Monocytes # 0.8 K/mcL (0.0-1.3); Monocytes % 7.6 %; Neutrophils # 5.9 K/mcL (1.6-8.9); Platelet Count 275 K/mcL (140-400); Red Cell Distribution Width 12.4 % (11.5-14.5); Segmented Neutrophils % 56.8 %
[2017-01-24 04:39] LABS: BUN/Creatinine Ratio 19 (6-26); Blood Urea Nitrogen 17 mg/dL (7-20); Carbon Dioxide 30 mEq/L (19-29); Chloride 104 mEq/L (98-109); Glucose 189 mg/dL (70-99); Osmolality,Calculated 295 (280-300); Potassium 3.9 mEq/L (3.5-4.5); Sodium 139 mEq/L (136-145); eGFR For African Americans > 60 (> 60); eGFR For Non-African Americans > 60 (> 60)
[2017-01-24] MEDS ORDERED: Aspirin 81 MG TAB.CHEW PO ONE (06:00)
[2017-01-24] MEDS: Chlorhexidine Rinse 15 ML MOUTHWASH MM SCH ×2 (06:13→20:22)
[2017-01-24] MEDS ORDERED: Nitroglycerin 25 MG/250 ML INFUS..BTL IVC ONE ×2 (06:19→08:53)
[2017-01-24] MEDS ORDERED: NiCARdipine 2.5 MG/10 ML Syringe IVPB ONE (06:20)
[2017-01-24] MEDS ORDERED: *HR* Rocuronium Bromide 50 MG/5 ML VIAL ONE (06:25)
[2017-01-24] MEDS ORDERED: *HR* Norepinephrine 4 MG/4 ML VIAL IVC ONE (06:25)
[2017-01-24] MEDS ORDERED: *HR* Phenylephrine 10 MG/ML VIAL ONE (06:25)
[2017-01-24] MEDS ORDERED: Famotidine 20 MG/2 ML VIAL ONE (06:28)
[2017-01-24] MEDS ORDERED: *HR* Etomidate 20 MG/10 ML AMPUL IVP ONE (06:28)
[2017-01-24] MEDS ORDERED: Tranexamic Acid 1,000 MG/10 ML VIAL ONE ×2 (06:30→09:57)
[2017-01-24] MEDS ORDERED: Protamine Sulfate 250 MG/25 ML VIAL IVP ONE (06:30)
[2017-01-24] MEDS ORDERED: *HR* FentaNYL (PF) 1,000 MCG/20 ML VIAL ONE (06:33)
[2017-01-24] MEDS ORDERED: *HR* Midazolam HCl 5 MG/5 ML VIAL IVP ONE (06:33)
[2017-01-24] MEDS ORDERED: D5% in Water 250 ML ONE (06:38)
[2017-01-24] MEDS ORDERED: ceFAZolin 2,000 MG in D5% in Water 100 ML IVPB ONE (07:00)
--- NOTE | 2017-01-24 08:01 | Anesthesia Evaluation PreOp ---
Date of Encounter: 01/24/17 Time of Encounter: 07:59 - Past History Planned Operation: CABG Cardiac History: Angina (unstable), HTN Pulmonary History: Former smoker REGISTERED ART THERAPIST History: Denies Any Significant HX Other Medical History: Diabetes Type II, GERD Anesthesia History: Past Anesthesia (courtney, ADA, ortho, T&A), Problems (PONV) : No Alcohol Use: occasionally Drug use: none Medications and Allergies Atorvastatin [Lipitor] 40 mg PO HS 02/06/16 [History] Lansoprazole [Prevacid] 30 mg PO QAM 02/06/16 [History] Lisinopril [Zestril] 20 mg PO DAILY 02/06/16 [History] NIFEdipine [Nifedical Xl] 30 mg PO DAILY 02/06/16 [History] Alogliptin Keon/Metformin HCl [Kazano 12.5-1,000 mg Tablet] 1 each PO BID [History] Insulin Glargine,Hum.rec.anlog [Basaglar Kwikpen U-100] 62 unit SQ HS 01/22/17 [ History] hydroCHLOROthiazide [Hydrochlorothiazide] 12.5 mg PO DAILY 01/22/17 [History] Allergies No Known Allergies Allergy (Verified 02/23/16 13:11) - Meds/Allergy Pre-op Review Medications Reviewed: Yes Allergies Reviewed: Yes Beta Blockers on Current Med List: Yes If Beta Blockers taken, Date/Time (Last Dose taken): 01/23 @ 2027 Anesthesia Results - Labs 01/24/17 03:41 01/24/17 03:41 - Imaging EKG: report reviewed Additional studies: Stress test shows inferior and inferior septal ischemia, Cath shows severe 3 vessel disease with EF 60% Anesthesia Exam Selected Entries 01/24/17 05:01 Temperature 97.7 F Pulse Rate 64 Respiratory Rate 16 Blood Pressure 120/80 O2 Sat by Pulse Oximetry 98 Oxygen Delivery Method Room Air Weight: 91kg NPO (# of Hours): 8 Pain Scale: 0 Pain Scale Used: Numeric (1 - 10) - HEENT Pupil (Motor): EOMI Mallampati: II Teeth: Normal Oral Opening: Greater than 3 - REGISTERED ART THERAPIST LOC: Oriented REGISTERED ART THERAPIST Motor: Normal RUE, Normal LUE, Normal RLE, Normal LLE, Normal Face REGISTERED ART THERAPIST Sensory: Normal: RUE, LUE, RLE, LLE, Face - Cardiac Rhythm: Regular Murmur: None - Pulmonary Breath Sounds: bilateral Clear Respiratory Effort: Symmetrical Anesthesia Assess/Plan ASA Score: 4 Modified Farnam Scale for Level of Consciousness: Cooperative, oriented, and tranquil Anesthetic Plan: General Monitoring Plan: Standard Monitors, A-Line, PAC, SHER Recovery Plan: ICU (Discussed risks of GA, lines, SHER and blood products. Questions answered and agrees to proceed.)
[2017-01-24] MEDS ORDERED: 0.9 % Sodium Chloride 500 ML ONE (08:53)
[2017-01-24] MEDS ORDERED: *HR* Metoprolol 5 MG/5 ML VIAL IVP ONE (09:07)
--- NOTE | 2017-01-24 10:03 | Anesthesia Procedures ---
Date of Encounter: 01/24/17 Time of Encounter: 08:15 Procedures: Anesthesia - Arterial Line Consent obtained: written consent Time out performed: Yes Sedation: Versed (mg): 2 Sedation: Fentanyl (mcg): 100 Supplemental Oxygen via Nasal Cannula (L/min): 2 Local Anesthetic: Lidocaine 1% Amount of Anesthetic used (mls): 1 Size (Gauge): 20 Length (inches): 5 Technique Used: sterile prep, guide wire technique, direct puncture technique Post-Procedure: line taped into place, dry sterile dressing placed Patient tolerated procedure: well, no complications Complications: none Site: Brachial L (attempted left radial, able to access artery but unable to advance guidewire. Placed a-line in left brachial without issue.) - Central Line Placement Right IJ Consent obtained: written consent Time out performed: Yes Patient placed on monitor/pulse ox: Yes prep: mask, gown, gloves Central line prep: Chlorhexidine scrub Ultrasound used for placement: Yes Technique: Seldinger Lumen Inserted: Introducer Post procedure: sutured in place, good blood return, all ports aspirated, flushed, capped Patient tolerated procedure: well, no complications (attempt x 1, introducer placed easily. [place] passed easily with arrythmia and wedge approx 52cm)
[2017-01-24] MEDS ORDERED: *HR* Amiodarone 150 MG/3 ML VIAL IVPB ONE (10:40)
[2017-01-24] MEDS ORDERED: Amiodarone Premix 360 MG/200 ML BAG IVC ONE (10:40)
[2017-01-24] MEDS: Amiodarone Premix 360 MG/200 ML BAG IVC SCH (10:45)
--- NOTE | 2017-01-24 11:55 | Operative Note ---
Date of procedure: 01/24/17 Pre-op diagnosis: CAD Post-op diagnosis: same Procedure: 1. CABG 4 (FLORES to LAD, sequential SVG to D2 then OM1, SVG to PDA). 2. Endoscopic vein harvesting, greater saphenous vein from right lower extremity. Implants: None. Complications: None. Anesthesia: GENOVEVA Surgeon: Sallie Reynolds [employer] Et[employer] Developer: Gray Simmons Specimen: None. Condition: stable Disposition: ICU Procedure in Detail: INDICATIONS FOR OPERATION: The patient is a 51-year-old type II diabetic, hypertensive, moderately obese lady with a 2 week history of progressive, exertional substernal chest pain rating to the back associated shortness of breath, dyspnea on exertion, diaphoresis, and nausea. She was evaluated [facility] and admitted for further cardiac workup. The exercise nuclear stress test revealed inferior and inferolateral septal ischemia. Subsequent cardiac catheterization revealed severe 3 vessel CAD and an LVEF 60%. She has been recommended for CABG. FINDING AT OPERATION: The aorta was of normal caliber without calcification. The coronary arteries measure approximately 2-3 mm in diameter had mild distal disease. The greater saphenous vein was harvested endoscopically from the right lower extremity from the knee to the groin and was of good quality. The total bypass time was 68 minutes, cross-clamp time 40 minutes, intentional hypothermia of 34C. DESCRIPTION OF OPERATION: After obtaining informed consent from the patient, she was taken to the operating room and satisfactory general endotracheal anesthetic was induced. Appropriate monitoring lines were placed, the patient's chest, abdomen, and lower extremities were prepped and draped in a sterile fashion. The greater saphenous vein was harvested endoscopically from the right lower extremity from the knee to the groin. The vein was removed, distended, and found to be of good quality. The subcutaneous tissue and skin edges were reapproximated using running Vicryl sutures. Simultaneously a standard median sternotomy incision was made and the sternum divided. The FLORES was taken out from its bed and side branches divided between hemoclips. The sternum was and the pericardium opened and reflected laterally. The patient was prepared for cannulation by placing pursestring sutures in the distal ascending aorta, mid-ascending aorta, and right atrial appendage. The patient was heparinized when the ACT was created and 200 seconds , the distal ascending aorta was cannulated followed by placement of a dual stage venous cannula through the right atrial appendage and into the inferior vena cava. A stab-in antegrade metabolic was placed in the mid-ascending aorta. The patient was placed on bypass and the temperature allowed to drift to 34C. The distal targets were identified and the aorta was crossclamped. The patient received 700 mL of cold antegrade crystalloid cardioplegia through the aortic root and the patient's heart obtain rapid diastolic arrest. The PDA was opened to be ablated and the vein was anastomosed in an end-to-side fashion using a running 7-0 Prolene suture. The anastomosis found to be hemostatic. This process was then repeated for the OM1 branch. The anastomosis was found to be hemostatic and the patient stated a final dose cold antegrade crystalloid cardioplegia through the aortic root. The D2 branch was opened with a [place] blade and the vein was opened in longitudinal fashion so the side-to- side anastomosis could be completed using a running 7-0 Prolene suture. The anastomosis were found to be hemostatic. The LAD was opened with a [place] blade and the FLORES was anastomosed in an end-to-side fashion using a running 7-0 Prolene suture. The anastomosis was found to be hemostatic and the mammary pedicle was tacked to the epicardium using interrupted 5-0 silk suture. Rewarming was begun during this anastomosis. The aortic cross-clamp was released and the heart distended. The veins were then measured and cut at appropriate lengths. A partial occluding clamp placed across the midascending aorta and the antegrade cardioplegia cannula was removed. An additional aortotomy incision was made with 11 blade and both sides were enlarged with a 4 mm punch. The veins were anastomosed in an end-to-side fashion to the aorta using a running 5-0 Prolene suture. The vein grafts were occluded with bulldog clamp and de-aired with a 25-gauge needle prior to removing the partial occluding clamp. The proximal distal anastomoses were found to be hemostatic, proximal anastomoses were marked with radiopaque loops. During rewarming the patient's heart rhythm degenerated to ventricular fibrillation and she required two 10 J direct current shocks followed by a 20 J direct current shock in order to regain normal sinus rhythm. The patient received an amiodarone bolus followed by an amiodarone drip. Two right ventricular temporary epicardial pacing leads were placed, and 3 chest suture placed, 2 in the mediastinum and one into the left pleural space. When the patient's systemic temperature reached 36C, she was ventilated and received volume. She was then weaned from bypass required no inotropic support. Protamine was administered and the aortic and venous cannulae were removed. The pursestring sutures were secured. The venous cannulation site was reinforced with a running 4-0 Prolene suture. The pericardium was loosely approximated over the pulmonary artery; however, there was too much tension to reapproximate the pericardium over the right ventricle. The sternum was reapproximated using sternal wires. The pectoralis major fascia, rectus abdominis fascia, subcutaneous tissue, and skin edges were reapproximated using running Vicryl sutures. A negative pressure sterile dressing was applied to the sternotomy incision. The patient was transferred to the ICU in satisfactory postoperative condition. There were no intraoperative complications, and the instrument, needle, and sponge count were correct at end of operation. - Open Heart Detail ЕКАТЕРИНА (Internal Mammary Artery) Usage: Yes Cardiopulmonary Bypass Time (mins): 60 Aortic Cross Clamp Time (mins): 48 Intentional Hypothermia Temperature (C.): 34
[2017-01-24] MEDS: Insulin Human Regular 100 UNIT in 0.9 % Sodium Chloride 100 ML IVC SCH (12:00)
[2017-01-24] MEDS: Albumin Human 5% 50.0 GM/1,000 ML VIAL ONE ×2 (12:35→13:00)
[2017-01-24] MEDS ORDERED: niCARdipine 40 MG/200 ML MLS IVC ONE (12:48)
[2017-01-24] MEDS: Nitroglycerin 25 MG/250 ML INFUS..BTL IVC SCH (12:50)
[2017-01-24 13:09] LABS: ABG Base Excess 0.5 mEq/L (-2.0 to 3.0); ABG Glucose 157 mg/dL (60-95); ABG Hematocrit 43 % (35-51); ABG Ionized Calcium 1.01 mmol/L (1.15-1.35); ABG Oxygen Saturation 100 % (95-98); ABG PCO2 50 mmHg (35-45); ABG PH 7.34 pH Units (7.32-7.45); ABG PO2 288 mmHg (85-104); ABG TCO2 28.5 mEq/L (20-26)
[2017-01-24 13:11] LABS: ABG PCO2 30 mmHg (35-45); ABG PH 7.35 pH Units (7.32-7.45); ABG PO2 68 mmHg (85-104)
[2017-01-24 13:12] LABS: ABG Base Excess -8.1 mEq/L (-2.0 to 3.0); ABG HCO3 16.6 mEQ/L (21-27); ABG Hematocrit 27 % (35-51); ABG Oxygen Saturation 92 % (95-98); ABG TCO2 17.5 mEq/L (20-26)
[2017-01-24 13:13] LABS: ABG Glucose 158 mg/dL (60-95)
[2017-01-24 13:15] LABS: ABG PCO2 33 mmHg (35-45); ABG PH 7.51 pH Units (7.32-7.45); ABG PO2 481 mmHg (85-104)
[2017-01-24 13:16] LABS: ABG Base Excess 3.3 mEq/L (-2.0 to 3.0); ABG Glucose 251 mg/dL (60-95); ABG HCO3 26.3 mEQ/L (21-27); ABG Hematocrit 29 % (35-51); ABG Ionized Calcium 0.92 mmol/L (1.15-1.35); ABG Oxygen Saturation 100 % (95-98); ABG TCO2 27.3 mEq/L (20-26)
[2017-01-24 13:18] LABS: ABG Base Excess 1.6 mEq/L (-2.0 to 3.0); ABG Glucose 228 mg/dL (60-95); ABG HCO3 26.6 mEQ/L (21-27); ABG Hematocrit 27 % (35-51); ABG Ionized Calcium 0.97 mmol/L (1.15-1.35); ABG Oxygen Saturation 100 % (95-98); ABG PCO2 43 mmHg (35-45); ABG PO2 359 mmHg (85-104); ABG TCO2 27.9 mEq/L (20-26)
[2017-01-24 13:20] LABS: ABG Base Excess -0.2 mEq/L (-2.0 to 3.0); ABG Glucose 175 mg/dL (60-95); ABG HCO3 24.8 mEQ/L (21-27); ABG Hematocrit 26 % (35-51); ABG Oxygen Saturation 99 % (95-98); ABG PCO2 41 mmHg (35-45); ABG PH 7.39 pH Units (7.32-7.45); ABG PO2 127 mmHg (85-104); ABG TCO2 26.1 mEq/L (20-26)
[2017-01-24] MEDS ORDERED: *HR* Dextrose 50 % in Water (Syg) 50 ML SYRINGE IVP PRN (13:28)
[2017-01-24] MEDS ORDERED: Potassium Chloride 40 MEQ/200 ML BAG IVPB PRN (13:28)
[2017-01-24] MEDS ORDERED: Insulin Regular, Human 100 UNIT/ML IV PRN (13:28)
[2017-01-24] MEDS ORDERED: Ondansetron 4 MG/2 ML VIAL IVP PRN (13:28)
[2017-01-24] MEDS ORDERED: Calcium Chloride 1,000 MG in 0.9 % Sodium Chloride 100 ML IVPB PRN (13:28)
[2017-01-24] MEDS ORDERED: Amiodarone Premix 360 MG/200 ML BAG IVC SCH (13:30)
[2017-01-24 13:32] LABS: Activated Partial Thrombo Time 29.9 Seconds (26.0-36.0); Basophils # 0.1 K/mcL (0.0-0.2); Basophils % 0.3 %; Eosinophils # 0.2 K/mcL (0.0-0.6); Eosinophils % 0.9 %; Hematocrit 39.1 % (35.3-44.9); Hemoglobin 13.3 g/dL (11.5-15.4); Immature Granulocytes % 0.9 % (0-4); Lymphocytes # 4.2 K/mcL (0.6-4.6); Lymphocytes % 21.1 %; Mean Corpuscular Hemoglobin 29.9 pg (28.0-33.3); Mean Corpuscular Volume 87.9 fL (83.0-100.0); Mean Platelet Volume 9.8 fL (9.4-12.4); Monocytes # 0.4 K/mcL (0.0-1.3); Platelet Count 182 K/mcL (140-400); Red Blood Count 4.45 M/mcL (3.82-4.97); Red Cell Distribution Width 12.4 % (11.5-14.5); Segmented Neutrophils % 74.8 %
[2017-01-24 13:41] LABS: INR 1.5
--- NOTE | 2017-01-24 13:41 | Anesthesia Evaluation Post Op ---
Date of Encounter: 01/24/17 Time of Encounter: 13:38 - Vital Signs Vital Signs: Selected Entries 01/24/17 13:32 Respiratory Rate 14 O2 Sat by Pulse Oximetry 100 Fraction of Inspired Oxygen 50 Oxygen Delivery Method Mechanical Ventilation - Lungs Lungs: Clear Ascult./Percussion (still intubated and ventilated) - Airway Airway: Intubated - Cardiovascular Regular Rate - Mental Status Mental Status: Sedated - Pain Pain Scale: 0 Pain Scale used: Numeric (1 - 10) - Nausea Vomiting Nausea Vomiting: Unable to assess - Hydration Hydration: NPO, Malave catheter Notes: 01/24/17 13:39 Patient is currently intubated and ventilated. Is still sedated. On no pressors or anti hypertensives. Bleeding from chest tubes is minimal. Still receiving amiodarone drip.
[2017-01-24 13:42] LABS: BUN/Creatinine Ratio 18 (6-26); Blood Urea Nitrogen 15 mg/dL (7-20); Calcium 8.7 mg/dL (8.6-10.8); Carbon Dioxide 24 mEq/L (19-29); Chloride 104 mEq/L (98-109); Glucose 190 mg/dL (70-99); Osmolality,Calculated 288 (280-300); Potassium 3.5 mEq/L (3.5-4.5); Prothrombin Time 16.1 Seconds (9.4-12.1); eGFR For African Americans > 60 (> 60); eGFR For Non-African Americans > 60 (> 60)
[2017-01-24 13:45] LABS: Sodium 136 mEq/L (136-145)
[2017-01-24 13:50] LABS: ABG Base Excess 2.4 mEq/L (-2.0 to 3.0); ABG HCO3 26.4 mEQ/L (21-27); ABG Oxygen Saturation 100 % (95-98); ABG PCO2 38 mmHg (35-45); ABG PH 7.45 pH Units (7.32-7.45); ABG PO2 235 mmHg (85-104); ABG TCO2 27.6 mEq/L (20-26)
[2017-01-24 13:51] LABS: Blood Gas FiO2 100 %
[2017-01-24] MEDS ORDERED: Albumin Human 25% 25 GM/100 ML IV.SOLN IV ONE (15:00)
[2017-01-24] MEDS ORDERED: *HR* Heparin 10,000 UNIT/10 ML VIAL IV ONE (15:00)
[2017-01-24] MEDS ORDERED: Lidocaine 2% Syringe 100 MG/5 ML IV ONE (15:00)
[2017-01-24] MEDS ORDERED: *HR* Phenylephrine 10 MG/ML VIAL IVC ONE (15:00)
[2017-01-24] MEDS ORDERED: Sodium Bicarbonate 50 MEQ/50 ML VIAL IVC ONE (15:00)
[2017-01-24] MEDS ORDERED: Mannitol 25% vial 12.5 GM/50 ML VIAL IVP ONE (15:00)
[2017-01-24] MEDS ORDERED: *HR* Magnesium Sulfate 2 GM/50 ML PIGGYBACK IVPB ONE (15:00)
[2017-01-24] MEDS ORDERED: *HR* Acetaminophen w/Cod 300-30 mg 1 TAB TABLET PO PRN (15:21)
--- NOTE | 2017-01-24 16:02 | Electrocardiograph Report ---
[place] [id number] Test Date: 2017-01-24 Pat Name: Aracely Coyne Department: 109 Room: [facility] Gender: F [employer]: YOMI : 1965 Requested By: Nimco Ta Order Number: [id number] Reading MD: Lexy Mendoza Measurements Intervals [place] Rate: 83 P: 44 ID: [id number] QRS: -7 QRSD: 116 T: -11 QT: 409 QTc: 449 Interpretive Statements SINUS RHYTHM INFERIOR MYOCARDIAL INFARCTION, OF INDETERMINATE AGE Electronically Signed On 01-24-2017 16:00:59 EDT by Lexy Mendoza
[2017-01-24] MEDS: 0.9 % Sodium Chloride w KCl 20 MEQ/1,000 ML MLS IVC SCH (16:21)
[2017-01-24 16:23] LABS: ABG Base Excess 6.2 mEq/L (-2.0 to 3.0); ABG HCO3 29.5 mEQ/L (21-27); ABG Oxygen Saturation 99 % (95-98); ABG PCO2 37 mmHg (35-45); ABG PH 7.51 pH Units (7.32-7.45); ABG PO2 129 mmHg (85-104); ABG TCO2 30.6 mEq/L (20-26)
[2017-01-24] MEDS: *HR* Morphine 2 MG/ML SYRINGE IVP PRN ×2 (16:23→22:24)
[2017-01-24 16:24] LABS: Blood Gas FiO2 28 %
[2017-01-24] MEDS: Aspirin Enteric Coated 81 MG Tablet PO SCH (16:29)
[2017-01-24] MEDS: hydroCHLOROthiazide 25 MG TABLET PO SCH (16:29)
[2017-01-24] MEDS: Lisinopril 20 MG TABLET PO SCH (16:29)
[2017-01-24] MEDS: NIFEdipine XL (24 HR) 30 MG TAB.ER.24 PO SCH (16:29)
[2017-01-24] MEDS: Pantoprazole 40 MG VIAL IVP SCH (16:29)
[2017-01-24] MEDS: Ketorolac 15 MG/ML VIAL IVP SCH ×2 (17:37→23:14)
[2017-01-24] MEDS: Metoclopramide 10 MG/2 ML VIAL IVP SCH ×2 (17:37→23:14)
[2017-01-24] MEDS: ceFAZolin 2,000 MG in D5% in Water 100 ML IVPB SCH ×2 (17:38→23:31)
[2017-01-24] MEDS: Magnesium Sulfate 2 GM in D5% in Water 100 ML IVPB PRN (17:39)
--- NOTE | 2017-01-24 19:17 | Internal Med Progress Note ---
Date of Encounter: 01/24/17 Time of Encounter: 07:00 - Assessment and plan (1) Chest pain Current Visit: Yes Status: Acute Assessment and plan: Patient reports 2 week history of chest pain with any exertion. Troponin was negative 3. EKG was unremarkable. 01/23: Stress test showed inferior wall and inferoseptal infarct with mild to moderate jony-infarct ischemia and patient had 3/10 chest pain with exercise. Echocardiogram showed LVEF of 50% with mild diastolic dysfunction and mild systolic dysfunction with regional abnormalities. 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 01/23: Patient underwent left heart catheterization showed severe three-vessel coronary artery disease and urgent CABG was recommended. 01/24: Appreciate cardiothoracic and cardiology services input. Plan for CABG today. Qualifiers: Chest pain type: unspecified Qualified Code(s): R07.9 - Chest pain, unspecified (2) Diabetes Current Visit: Yes Status: Chronic Assessment and plan: A1c is 9.6. continue Sliding scale insulin, before meals at bedtime Accu-Cheks, diabetic cardiac diet. 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 Continue to monitor. Antihypertensive medications home dose. Qualifiers: Hypertension type: essential hypertension Qualified Code(s): I10 - Essential (primary) hypertension - Subjective Interval history: patient denies any chest pain or shortness of breath. - Constitutional Vitals: Temp Pulse Resp BP Pulse Ox 97.7 F 64 14 120/80 99 01/24/17 05:01 01/24/17 05:01 01/24/17 16:26 01/24/17 05:01 01/24/17 16:26 General appearance: Present: cooperative, A&O X 3, pleasant, no acute distress, obese, answers questions appropriately - Neck Neck exam general surgery: Present: supple, trachea midline. Absent: lymphadenopathy - Respiratory Respiratory exam: Present: CTAB - Cardiovascular Cardiovascular exam: Present: RRR - GI/Abdominal GI/Abdominal exam: Present: normal bowel sounds, soft. Absent: distended, tenderness - Extremities Exam Extremities exam: Absent: pedal edema - Neurological Exam Neurological exam: Present: alert, oriented X3 Internal Medicine: Result - Labs CBC & Chem 7: 01/24/17 11:21 01/24/17 11:21 Labs: Short CBC 01/24/17 Range/Units 11:21 WBC 20.1 H D (4.3-11.1) K/mcL Hgb 13.3 D (11.5-15.4) g/dL Hct 39.1 (35.3-44.9) % Plt Count 182 (140-400) K/mcL Neutrophils # 15.0 H (1.6-8.9) K/mcL BMP 01/24/17 11:21 Sodium 136 Potassium 3.5 Chloride 104 Carbon Dioxide 24 BUN 15 Creatinine 0.85 Glucose 190 H Calcium 8.7 - ABG Interpretation ABG results: ABG ABG pH 7.51 pH Units (7.32-7.45) H 01/24/17 16:16 ABG pCO2 37 mmHg (35-45) 01/24/17 16:16 ABG pO2 129 mmHg (85-104) H 01/24/17 16:16 ABG O2 Saturation 99 % (95-98) H 01/24/17 16:16 PT/INR, D-dimer PT 16.1 Seconds (9.4-12.1) H D 01/24/17 11:21 - Impressions Impressions Chest X-Ray 01/24/17 12:11 IMPRESSION: 1. Endotracheal tube in place and its tip appears to be in the right mainstem bronchus proximally 2. Status post median sternotomy 3. Pulmonary vascular congestion The findings were sent to the Radiology Results Communication Center at 12:27 pm on 01/24/2017to be communicated to a licensed caregiver. D/ / Gene Spencer MD / Gene Spencre MD Interpreting Provider: Gene Spencer MD X-Ray 01/24/17 12:17 IMPRESSION: Nasogastric tube in appropriate position with tip in the gastric antrum. D/ / Khai Del Angel MD / Khai Del Angel MD Interpreting Provider: Khai Del Angel MD - VTE Reasons for not Prescribing Prophylaxis: Treatment not Indicated - Low risk for VTE Documentation of Mechanical Device: Graduated compression elastic hosiery Consult Discharge Plan - Plan Referrals: Jeffrey Bolden CNP [Advanced Practice Nurse] - 02/07/17 3:30 pm Sallie Reynolds MD [Partnered Physician] - 02/20/17 1:50 pm Ketty Cade CNP [Primary Care Provider] - (WILL NOT MAKE AN APPOINTMENT UNTIL WE HAVE D/C ORDERS)
[2017-01-24] MEDS: Insulin LISPRO 300 UNITS/3 ML VIAL SQ SCH (20:06)
[2017-01-24 21:58] LABS: ABG Base Excess 5.1 mEq/L (-2.0 to 3.0); ABG HCO3 30.5 mEQ/L (21-27); ABG Oxygen Saturation 97 % (95-98); ABG PCO2 47 mmHg (35-45); ABG PH 7.42 pH Units (7.32-7.45); ABG PO2 91 mmHg (85-104); ABG TCO2 31.9 mEq/L (20-26); Blood Gas FiO2 28 %
[2017-01-24 22:30] LABS: Magnesium 2.3 mg/dL (1.6-2.6); Potassium 3.9 mEq/L (3.5-4.5)
[2017-01-25] MEDS: Magnesium Sulfate 2 GM in D5% in Water 100 ML IVPB PRN (02:42)
[2017-01-25 04:15] LABS: Basophils # 0.1 K/mcL (0.0-0.2); Basophils % 0.3 %; Eosinophils % 0.1 %; Hematocrit 38.3 % (35.3-44.9); Immature Granulocytes % 0.7 % (0-4); Lymphocytes # 1.3 K/mcL (0.6-4.6); Lymphocytes % 7.3 %; Mean Corpuscular HGB Conc 33.9 g/dL (31.6-35.5); Mean Corpuscular Hemoglobin 30.5 pg (28.0-33.3); Mean Corpuscular Volume 89.9 fL (83.0-100.0); Mean Platelet Volume 9.5 fL (9.4-12.4); Monocytes # 1.1 K/mcL (0.0-1.3); Neutrophils # 15.7 K/mcL (1.6-8.9); Platelet Count 184 K/mcL (140-400); Red Blood Count 4.26 M/mcL (3.82-4.97); Red Cell Distribution Width 12.9 % (11.5-14.5); Segmented Neutrophils % 85.6 %
[2017-01-25 04:23] LABS: INR 1.2
[2017-01-25 04:27] LABS: Prothrombin Time 12.5 Seconds (9.4-12.1)
[2017-01-25 04:29] LABS: BUN/Creatinine Ratio 19 (6-26); Blood Urea Nitrogen 16 mg/dL (7-20); Carbon Dioxide 25 mEq/L (19-29); Chloride 104 mEq/L (98-109); Glucose 165 mg/dL (70-99); Osmolality,Calculated 289 (280-300); eGFR For African Americans > 60 (> 60); eGFR For Non-African Americans > 60 (> 60)
[2017-01-25 04:30] LABS: Calcium 8.3 mg/dL (8.6-10.8)
[2017-01-25 04:32] LABS: Sodium 137 mEq/L (136-145)
[2017-01-25] MEDS: *HR* Morphine 2 MG/ML SYRINGE IVP PRN ×4 (04:39→20:49)
[2017-01-25] MEDS: Amiodarone Premix 360 MG/200 ML BAG IVC SCH (05:19)
[2017-01-25] MEDS: Insulin Human Regular 100 UNIT in 0.9 % Sodium Chloride 100 ML IVC SCH (05:25)
[2017-01-25] MEDS: Metoclopramide 10 MG/2 ML VIAL IVP SCH ×3 (06:37→18:24)
[2017-01-25] MEDS: Ketorolac 15 MG/ML VIAL IVP SCH ×3 (06:37→20:35)
--- NOTE | 2017-01-25 07:00 | Cardiothoracic Progress Note ---
Date of Encounter: 01/25/17 Time of Encounter: 06:58 - Assessment and plan (1) CAD (coronary artery disease) Current Visit: Yes Status: Acute The patient is recovering well from her CABG4. She remained hemodynamically stable overnight. She is extubated and breathing comfortably. She has no complaints. The arterial line, [place] catheter, and [place] catheter will be removed. She will be transferred to the stepdown unit later today. The assessment and plan as outlined above was discussed with the patient and/or family members who expressed understanding and agreement. All questions were answered. Qualifiers: Coronary Disease-Associated Artery/Lesion type: [place] artery [place] vs. transplanted heart: [place] heart Associated angina: with unstable angina Qualified Code(s): I25.110 - Atherosclerotic heart disease of [place] coronary artery with unstable angina pectoris - Subjective Procedure(s) Performed: POD#1 S/P CABG4 Interval history: The patient remained hemodynamically stable overnight. She is extubated and breathing comfortably. She has no complaints. Vital Signs, Last 4 Hours Temp Pulse Resp BP Pulse Ox 01/25/17 06:00 97.9 F 81 16 132/70 96 01/25/17 05:00 97.9 F 81 16 104/61 94 01/25/17 04:06 12 115/66 94 01/25/17 04:00 97.7 F 86 12 127/68 94 01/25/17 03:10 80 01/25/17 03:00 97.7 F 80 16 123/68 95 Oxgyen Flow Rate Oxygen Flow Rate (LPM) 4 Clinical Data, last 8 Hours Output, Chest Tube Drainage 90 Amount [Mediastinal #1] Output, Chest Tube Drainage 5 Amount [Mediastinal #1] Output, Chest Tube Drainage 65 Amount [Mediastinal #2] Output, Chest Tube Drainage 5 Amount [Mediastinal #2] Weight 01/23/17 01/24/17 01/25/17 23:59 23:59 23:59 Weight 93.25 kg - Physical Examination General: Conversant, No Apparent Distress Neck: No JVD, Normal carotid pulses Cardiac: Reg Rate and Rhythm, Normal S1 and S2, No Murmur Incision: No signs of infection, Dry/intact dressing Sternum: Stable Chest tubes: Minimal drainage, Other (No air leak.) Lungs: Normal Breath Sounds, No Wheeze, Rales, Rhonchi Neuro: Alert and responsive, No focal deficits noted Vascular: Normal capillary refill Extremities: No Clubbing, No Cyanosis, No Edema, Normal Pulses - Labs 01/25/17 03:48 01/25/17 03:48 Lab Results, Last 24 hours 01/24/17 01/24/17 01/24/17 11:20 11:21 11:21 WBC 20.1 H D Hgb 13.3 D Hct 39.1 Plt Count 182 INR APTT Sodium 136 Potassium 3.5 Chloride 104 Carbon Dioxide 24 BUN 15 Creatinine 0.85 Glucose 190 H Calcium 8.7 Magnesium 2.2 01/24/17 01/24/17 01/25/17 11:21 22:00 03:48 WBC 18.3 H Hgb 13.0 Hct 38.3 Plt Count 184 INR 1.5 APTT 29.9 Sodium Potassium 3.9 Chloride Carbon Dioxide BUN Creatinine Glucose Calcium Magnesium 2.3 01/25/17 01/25/17 03:48 03:48 WBC Hgb Hct Plt Count INR 1.2 APTT 30.0 Sodium 137 Potassium 4.0 Chloride 104 Carbon Dioxide 25 BUN 16 Creatinine 0.86 Glucose 165 H Calcium 8.3 L Magnesium - Imaging Chest Xray: report reviewed (No pneumothorax. Minimal atelectasis/infiltrates.) - VTE Reasons for not Prescribing Prophylaxis: Treatment not Indicated - Low risk for VTE Documentation of Mechanical Device: Graduated compression elastic hosiery Consult Discharge Plan - Plan Referrals: Jeffrey Bolden CNP [Advanced Practice Nurse] - 02/07/17 3:30 pm Sallie Reynolds MD [Partnered Physician] - 02/20/17 1:50 pm Ketty Cade CNP [Primary Care Provider] - (WILL NOT MAKE AN APPOINTMENT UNTIL WE HAVE D/C ORDERS)
[2017-01-25] MEDS: hydroCHLOROthiazide 25 MG TABLET PO SCH (08:17)
[2017-01-25] MEDS: Aspirin Enteric Coated 81 MG Tablet PO SCH (08:17)
[2017-01-25] MEDS: Lisinopril 20 MG TABLET PO SCH (08:17)
[2017-01-25] MEDS: Pantoprazole 40 MG VIAL IVP SCH (08:17)
[2017-01-25] MEDS: Chlorhexidine Rinse 15 ML MOUTHWASH MM SCH ×2 (08:17→20:31)
[2017-01-25] MEDS: NIFEdipine XL (24 HR) 30 MG TAB.ER.24 PO SCH (08:18)
[2017-01-25] MEDS ORDERED: Heparin 1,000 UNITS/500 mL NS 500 ML ONE (08:21)
[2017-01-25] MEDS ORDERED: Naloxone 0.4 MG/ML INJ IVP PRN (10:39)
[2017-01-25] MEDS ORDERED: *HR* Morphine 2 MG/ML SYRINGE IVP PRN (10:39)
[2017-01-25] MEDS ORDERED: Insulin Regular, Human 100 UNIT/ML IV PRN (10:39)
[2017-01-25] MEDS ORDERED: Amiodarone Premix 360 MG/200 ML BAG IVC SCH ×2 (10:39)
[2017-01-25] MEDS ORDERED: Ondansetron 4 MG/2 ML VIAL IVP PRN (10:39)
[2017-01-25] MEDS ORDERED: D5% in Water 1,000 ML IVC PRN (10:39)
[2017-01-25] MEDS ORDERED: Dextrose Gel 15 GM PO PRN ×2 (10:39)
[2017-01-25] MEDS ORDERED: *HR* Dextrose 50 % in Water (Syg) 50 ML SYRINGE IVP PRN (10:39)
[2017-01-25] MEDS ORDERED: Acetaminophen 325 MG TABLET PO PRN (10:39)
[2017-01-25] MEDS ORDERED: Nitroglycerin 0.4 MG TAB.SUBL SL PRN (10:39)
[2017-01-25] MEDS: Furosemide 20 MG/2 ML VIAL IVP SCH ×2 (12:26→20:49)
[2017-01-25] MEDS: *HR* Heparin 5,000 UNIT/ML VIAL SQ SCH ×2 (12:26→20:31)
[2017-01-25] MEDS: ALOGLIPTIN BENZ PO SCH ×2 (12:26→20:31)
[2017-01-25] MEDS: METFORMIN HCL PO SCH ×2 (12:26→20:31)
[2017-01-25] MEDS: Insulin LISPRO 300 UNITS/3 ML VIAL SQ SCH ×5 (12:27→20:48)
[2017-01-25] MEDS: Norepinephrine 4 MG in D5% in Water 250 ML IVC SCH ×3 (13:00→20:38)
[2017-01-25 13:59] LABS: ABG Base Excess 0.8 mEq/L (-2.0 to 3.0); ABG HCO3 25.3 mEQ/L (21-27); ABG Oxygen Saturation 98 % (95-98); ABG PCO2 39 mmHg (35-45); ABG PH 7.42 pH Units (7.32-7.45); ABG PO2 95 mmHg (85-104); ABG TCO2 26.5 mEq/L (20-26)
[2017-01-25] MEDS ORDERED: Furosemide 40 MG/4 ML VIAL ONE (15:57)
[2017-01-25] MEDS: Furosemide 40 MG/4 ML VIAL IVP ONE ×2 (15:59→16:16)
--- NOTE | 2017-01-25 16:07 | Pulmonology Consult Note ---
Date of Encounter: 01/25/17 Time of Encounter: 16:04 Assessment and Plan (1) Hypoxemia Current Visit: Yes Status: Acute Postoperative hypoxemia in this obese female is likely due to atelectasis. A follow-up blood gases currently pending (to verify or refute discrepancy between the calculated saturation value from arterial sample versus pulse oximetry). If the sample from the arterial specimen truly verifies acceptable PaO2 and saturation value then the pulse oximetry saturation value should not be utilized in order to manage the patient. Occasionally, discrepancies in saturation value via pulse oximetry versus arterial blood specimen may be due to inaccuracies in pulse detection (cool extremities, poor peripheral perfusion, nail romanian, tachycardia) but do not of these factors seem to be applicable to this case. In addition methemoglobinemia tends to produce saturation values via pulse oximetry in the mid 80s, discrepant to the saturation values noted from arterial specimen. Continue postoperative measures for enhancement of pulmonary hygiene and minimization for atelectasis. If the patient does in fact have significant hypoxemia verified from arterial bypass, BiPAP can be utilized periodically during the day and at night in order to enhance recovery from postoperative state and restrictive pulmonary physiology. Code(s): R09.02 - Hypoxemia SNOMED Code(s): 930491605 History of Present Illness Consult date: 01/25/17 Chief complaint: Hypoxemia History of present illness: 51-year-old female status post coronary artery bypass graft surgery, nonsmoker, uneventful post operative course extubated earlier today and subsequently noted to display hypoxemia as evidenced by low oxygen saturation values via pulse oximetry determination (note suspect waveform in need for multiple probe changes as well as placement on various appendages and forehead in order to obtain a pulse tracking waveform). Furthermore, an arterial blood gas reportedly obtained commensurate with pulse ox reading of approximately 82% revealed and oxygen saturation calculated value of 98% and a PaO2 of approximately 90 mmHg. Pulmonary consultation requested to assist with evaluation of hypoxemia and respiratory status. Review of the patient's history, she is not receiving any medications that would likely produce methemoglobinemia. Past Med Surg Social Fam HX - Past Medical History Medical history: coronary artery disease, diabetes, GERD, hypertension Psychiatric history: no psych history - Past Surgical History Surgical History: cholecystectomy, orthopedic, other, ADA/BSO, other (Tubal ligation, tonsillectomy/adenoidectomy) - Social History Smoking Status: Former smoker Smokeless Tobacco Status: No Alcohol use: occasionally Drug use: none - Family History Father Race: Family Member Ethnicity: Non- Living Status: Still Living Hx Family Cardiac Disorders: Yes (HTN) Hx Family Respiratory Disorders: Yes (Asthma) Mother Race: Family Member Ethnicity: Non- Living Status: Still Living Hx Family Cardiac Disorders: Yes (HLD, HTN) Brother Race: Family Member Ethnicity: Non- Living Status: Still Living Hx Family Medical Disorders: No Sister Race: Family Member Ethnicity: Non- Living Status: Still Living Hx Family Cardiac Disorders: Yes (HLD) Hx Family Respiratory Disorders: Yes (Asthma) Hx Family Cancer: Yes (Breast) Medications and Allergies Atorvastatin [Lipitor] 40 mg PO HS 02/06/16 [History] Lansoprazole [Prevacid] 30 mg PO QAM 02/06/16 [History] Lisinopril [Zestril] 20 mg PO DAILY 02/06/16 [History] NIFEdipine [Nifedical Xl] 30 mg PO DAILY 02/06/16 [History] Alogliptin Keon/Metformin HCl [Kazano 12.5-1,000 mg Tablet] 1 each PO BID [History] Insulin Glargine,Hum.rec.anlog [Basaglar Kwikpen U-100] 62 unit SQ HS 01/22/17 [ History] hydroCHLOROthiazide [Hydrochlorothiazide] 12.5 mg PO DAILY 01/22/17 [History] Allergies No Known Allergies Allergy (Verified 02/23/16 13:11) All Systems: A 10-system review of systems was performed and is negative for pertinent findings except as documented above in the HPI. - Respiratory Respiratory: other (Patient admits to mild chest discomfort (incisional) denies significant breathlessness, cough.) Physical Examination Vital Signs: Vital Signs, Last 4 Hours Pulse Resp BP Pulse Ox 01/25/17 15:00 80 16 103/82 85 01/25/17 14:00 76 16 76/55 86 General appearance: no acute distress, other (Moderately obese female appears older than her stated age of 51 years she is awake alert and in no acute distress vitals reviewed) Eyes: nonicteric ENT: oropharynx moist Neck: supple Effort: normal, other (The patient is not labored, there is no use of accessory respiratory muscles.) Inspection: kyphosis, other (Healing sternotomy, mediastinal tubes in place) Auscultation: bilateral: diminished breath sounds, rales (Most pronounced over the left base to left mid lung sound.) Cardiovascular: regular rate and rhythm Gastrointestinal: normoactive bowel sounds, non-distended Extremities: no cyanosis, other (The extremities are warm and pulses are intact. ) normal mental status, non-focal exam Results - Laboratory Findings CBC and BMP: 01/25/17 03:48 01/25/17 03:48 ABG ABG pH 7.42 pH Units (7.32-7.45) 01/25/17 Unknown ABG pCO2 39 mmHg (35-45) 01/25/17 Unknown ABG pO2 95 mmHg (85-104) 01/25/17 Unknown ABG O2 Saturation 98 % (95-98) 01/25/17 Unknown PT/INR, D-dimer PT 12.5 Seconds (9.4-12.1) H 01/25/17 03:48 Abnormal lab findings: Abnormal lab results WBC 18.3 K/mcL (4.3-11.1) H 01/25/17 03:48 Neutrophils # 15.7 K/mcL (1.6-8.9) H 01/25/17 03:48 PT 12.5 Seconds (9.4-12.1) H 01/25/17 03:48 ABG Total CO2 26.5 mEq/L (20-26) H 01/25/17 Unknown ABG Hematocrit 26 % (35-51) L 01/24/17 10:49 Potassium 3.3 mEq/L (3.5-5.3) L 01/24/17 10:49 Glucose 175 mg/dL (60-95) H 01/24/17 10:49 Glucose 165 mg/dL (70-99) H 01/25/17 03:48 POC Glucose 126 (58-89) H 01/25/17 12:19 Hemoglobin A1c 9.6 % (-5.6) H 01/23/17 16:30 Calcium 8.3 mg/dL (8.6-10.8) L 01/25/17 03:48 - Diagnostic Findings Chest x-ray: image reviewed (The chest x-ray reveals low lung volumes, mild cardiomegaly, opacity behind the left heart likely atelectasis) Additional studies: Focused bedside ultrasound evaluation of the chest reveals a very small left pleural effusion and atelectasis. Minimal atelectasis of the right base, no significant effusion. - Clinical Findings Intake & Output: Intake & Output 01/25/17 01/25/17 01/25/17 07:59 15:59 23:59 Intake Total 666 / 666 1010 / 1010 Output Total 405 / 405 140 / 140 Balance 261 / 261 870 / 870 Consult Discharge Plan - Plan Referrals: Jeffrey Bolden CNP [Advanced Practice Nurse] - 02/07/17 3:30 pm Sallie Reynolds MD [Partnered Physician] - 02/20/17 1:50 pm Ketty Cade CNP [Primary Care Provider] - (WILL NOT MAKE AN APPOINTMENT UNTIL WE HAVE D/C ORDERS)
[2017-01-25 16:20] LABS: ABG Base Excess -0.8 mEq/L (-2.0 to 3.0); ABG HCO3 24.3 mEQ/L (21-27); ABG Oxygen Saturation 84 % (95-98); ABG PCO2 41 mmHg (35-45); ABG PH 7.38 pH Units (7.32-7.45); ABG TCO2 25.6 mEq/L (20-26)
[2017-01-25 16:22] LABS: ABG PO2 50 mmHg (85-104); Blood Gas FiO2 98 %
[2017-01-25] MEDS: 0.9 % Sodium Chloride w KCl 20 MEQ/1,000 ML MLS IVC SCH (20:35)
[2017-01-25] MEDS: niCARdipine 40 MG/200 ML MLS IVC SCH ×3 (20:36→20:38)
[2017-01-25] MEDS: Nitroglycerin 25 MG/250 ML INFUS..BTL IVC SCH (20:37)
[2017-01-26] MEDS: Metoclopramide 10 MG/2 ML VIAL IVP SCH ×4 (00:08→17:14)
[2017-01-26] MEDS: Ketorolac 15 MG/ML VIAL IVP SCH ×4 (00:09→17:13)
[2017-01-26 04:26] LABS: BUN/Creatinine Ratio 26 (6-26); Blood Urea Nitrogen 24 mg/dL (7-20); Calcium 8.2 mg/dL (8.6-10.8); Carbon Dioxide 31 mEq/L (19-29); Chloride 98 mEq/L (98-109); Glucose 208 mg/dL (70-99); Osmolality,Calculated 290 (280-300); Potassium 3.8 mEq/L (3.5-4.5); Sodium 135 mEq/L (136-145); eGFR For African Americans > 60 (> 60); eGFR For Non-African Americans > 60 (> 60)
[2017-01-26] MEDS: *HR* Heparin 5,000 UNIT/ML VIAL SQ SCH ×2 (05:54→17:14)
--- NOTE | 2017-01-26 08:01 | Cardiothoracic Progress Note ---
Date of Encounter: 01/26/17 Time of Encounter: 07:59 - Assessment and plan (1) CAD (coronary artery disease) Current Visit: Yes Status: Acute The patient is recovering well from her CABG4. She remained hemodynamically stable overnight and the Levophed drip has been weaned off. Her respiratory status is improved although she remains on BiPAP. Her oxygen saturations or improving with less supplemental oxygen need. She will have aggressive pulmonary toilet today. She will be sitting in a chair and walking throughout the day to decrease the atelectasis. The chest tubes were removed. She will be monitored in the ICU today. The assessment and plan as outlined above was discussed with the patient and/or family members who expressed understanding and agreement. All questions were answered. Qualifiers: Coronary Disease-Associated Artery/Lesion type: [place] artery [place] vs. transplanted heart: [place] heart Associated angina: with unstable angina Qualified Code(s): I25.110 - Atherosclerotic heart disease of [place] coronary artery with unstable angina pectoris - Subjective Procedure(s) Performed: POD#2 S/P CABG4 Interval history: The patient remained hemodynamically stable overnight and is off the Levophed drip which had been restarted. She remains on BiPAP; however, her breathing and oxygen saturations have improved. She has no complaints. Vital Signs, Last 4 Hours Temp Pulse Resp BP Pulse Ox 01/26/17 06:00 95 24 125/77 99 01/26/17 05:00 87 19 103/59 100 01/26/17 04:20 23 98/57 100 01/26/17 04:00 98.8 F 72 19 121/84 100 Oxgyen Flow Rate Oxygen Flow Rate (LPM) 15 Clinical Data, last 8 Hours Output, Chest Tube Drainage 30 Amount [Mediastinal #1] Output, Chest Tube Drainage 8 Amount [Mediastinal #2] Weight 01/24/17 01/25/17 01/26/17 23:59 23:59 23:59 Weight 93.25 kg 90.7 kg - Physical Examination General: Conversant, No Apparent Distress Neck: No JVD, Normal carotid pulses Cardiac: Reg Rate and Rhythm, Normal S1 and S2, No Murmur Incision: No signs of infection, Dry/intact dressing Sternum: Stable Chest tubes: Minimal drainage, Other (No air leak.) Lungs: Normal Breath Sounds, No Wheeze, Rales, Rhonchi Neuro: Alert and responsive, No focal deficits noted Vascular: Normal capillary refill Musculoskeletal: No Chest Wall Tenderness Extremities: No Clubbing, No Cyanosis, No Edema - Labs 01/25/17 03:48 01/26/17 04:05 Lab Results, Last 24 hours 01/26/17 04:05 Sodium 135 L Potassium 3.8 Chloride 98 Carbon Dioxide 31 H BUN 24 H Creatinine 0.93 Glucose 208 H Calcium 8.2 L - VTE Reasons for not Prescribing Prophylaxis: Treatment not Indicated - Low risk for VTE Documentation of Mechanical Device: Graduated compression elastic hosiery Consult Discharge Plan - Plan Referrals: Jeffrey Bolden CNP [Advanced Practice Nurse] - 02/07/17 3:30 pm Sallie Reynolds MD [Partnered Physician] - 02/20/17 1:50 pm Ketty Cade CNP [Primary Care Provider] - (WILL NOT MAKE AN APPOINTMENT UNTIL WE HAVE D/C ORDERS)
[2017-01-26] MEDS: Aspirin Enteric Coated 81 MG Tablet PO SCH (08:35)
[2017-01-26] MEDS: Pantoprazole 40 MG VIAL IVP SCH (08:35)
[2017-01-26] MEDS: Furosemide 20 MG/2 ML VIAL IVP SCH ×2 (08:35→19:57)
[2017-01-26] MEDS: Chlorhexidine Rinse 15 ML MOUTHWASH MM SCH ×2 (08:35→19:57)
[2017-01-26] MEDS: ALOGLIPTIN BENZ PO SCH ×2 (08:36→19:52)
[2017-01-26] MEDS: METFORMIN HCL PO SCH ×2 (08:36→19:52)
[2017-01-26] MEDS: Lisinopril 20 MG TABLET PO SCH (08:39)
[2017-01-26] MEDS: Insulin LISPRO 300 UNITS/3 ML VIAL SQ SCH ×4 (08:40→19:52)
--- NOTE | 2017-01-26 08:57 | Pulmonology Progress Note ---
Date of Encounter: 01/26/17 Time of Encounter: 08:53 Assessment and Plan (1) Hypoxemia Current Visit: Yes Status: Acute Patient had postoperative hypoxemia status post coronary bypass surgery. Likely related to atelectasis in the postoperative setting. There is some discrepancy between the pulse oximeter and oxygenation on the ABG. Pulse oximeter changed and patient is satting in the high 90s. Patient has tolerated BiPAP well. Continue BiPAP as needed, particularly at night. Methemoglobin was unremarkable, this is unlikely related to methemoglobinemia. Continue pulmonary hygiene and encourage incentive spirometer if the patient is not wearing BiPAP. Subjective Principal diagnosis: CAD Interval history: Patient seen and examined at bedside. Patient is currently on BiPAP and appears to be resting comfortably. She has no complaints at this time. No acute events overnight. Objective PUL Vital signs: Last Vital Signs Temp 99.4 F 01/26/17 08:00 Pulse 94 01/26/17 08:00 Resp 16 01/26/17 08:08 BP 96/62 01/26/17 08:00 Pulse Ox 94 01/26/17 08:08 General appearance: no acute distress ENT: oropharynx moist Effort: normal Auscultation: left: rales, bilateral: diminished breath sounds Cardiovascular: regular rate and rhythm Gastrointestinal: normoactive bowel sounds, soft, non-tender Extremities: no cyanosis, no clubbing normal mental status, non-focal exam Results - Laboratory Findings CBC and BMP: 01/25/17 03:48 01/26/17 04:05 ABG ABG pH 7.42 pH Units (7.32-7.45) 01/25/17 Unknown ABG pCO2 39 mmHg (35-45) 01/25/17 Unknown ABG pO2 95 mmHg (85-104) 01/25/17 Unknown ABG O2 Saturation 98 % (95-98) 01/25/17 Unknown PT/INR, D-dimer PT 12.5 Seconds (9.4-12.1) H 01/25/17 03:48 Abnormal lab findings: Abnormal lab results WBC 18.3 K/mcL (4.3-11.1) H 01/25/17 03:48 Neutrophils # 15.7 K/mcL (1.6-8.9) H 01/25/17 03:48 PT 12.5 Seconds (9.4-12.1) H 01/25/17 03:48 ABG Total CO2 26.5 mEq/L (20-26) H 01/25/17 Unknown ABG Hematocrit 26 % (35-51) L 01/24/17 10:49 Potassium 3.3 mEq/L (3.5-5.3) L 01/24/17 10:49 Glucose 175 mg/dL (60-95) H 01/24/17 10:49 Sodium 135 mEq/L (136-145) L 01/26/17 04:05 Carbon Dioxide 31 mEq/L (19-29) H 01/26/17 04:05 BUN 24 mg/dL (7-20) H 01/26/17 04:05 Glucose 208 mg/dL (70-99) H 01/26/17 04:05 POC Glucose 206 (58-89) H 01/26/17 07:54 Hemoglobin A1c 9.6 % (-5.6) H 01/23/17 16:30 Calcium 8.2 mg/dL (8.6-10.8) L 01/26/17 04:05 - Clinical Findings Intake & Output: Intake & Output 01/25/17 01/26/17 01/26/17 23:59 07:59 15:59 Intake Total 485 / 485 33 / 33 Output Total 1658 / 1658 538 / 538 Balance -1173 / -1173 -505 / -505 Weight 90.7 kg - VTE Reasons for not Prescribing Prophylaxis: Treatment not Indicated - Low risk for VTE Documentation of Mechanical Device: Graduated compression elastic hosiery Consult Discharge Plan - Plan Referrals: Jeffrey Bolden CNP [Advanced Practice Nurse] - 02/07/17 3:30 pm Sallie Reynolds MD [Partnered Physician] - 02/20/17 1:50 pm Ketty Cade CNP [Primary Care Provider] - (WILL NOT MAKE AN APPOINTMENT UNTIL WE HAVE D/C ORDERS)
--- NOTE | 2017-01-26 08:59 | Pulmonology Progress Note ---
Date of Encounter: 01/26/17 Time of Encounter: 08:57 Assessment and Plan (1) Hypoxemia Current Visit: Yes Status: Acute Hypoxemia in this particular individual is secondary to postoperative atelectasis. The patient will transition off BiPAP to physiologic tolerance. Aggressive pulmonary hygiene measures will be provided including early mobilization and use of volurex. An EZPAP device for lung recruitment may also provide benefit if available. Otherwise, intermittent BiPAP can be utilized throughout the daytime and overnight in order to maintain lung recruitment and mitigate hypoxemia. Continue all other medical measures as provided by primary service. Management was reviewed with the primary service as well as the nursing and respiratory therapy staff. Code(s): R09.02 - Hypoxemia SNOMED Code(s): 782674641 Subjective Principal diagnosis: Acute respiratory failure with hypoxia Interval history: No new events were reported overnight per discussion with the nursing staff. Patient is on BiPAP late afternoon yesterday and has tolerated use of the same overnight. With the use of BiPAP, the patient's FiO2 requirement has fallen to 30% (pulse oximetry saturation 98% with appropriate wave form). The patient's hemodynamics remain acceptable and she is currently free of pressor agent. The patient has had a favorable response to diuretic therapy. As morning, the patient admits to mild fatigue chest discomfort over the anterior sternum at site of recent sternotomy but no other specific complaints per comprehensive review of systems. Objective PUL Vital signs: Last Vital Signs Temp 99.4 F 01/26/17 08:00 Pulse 94 01/26/17 08:00 Resp 16 01/26/17 08:08 BP 96/62 01/26/17 08:00 Pulse Ox 94 01/26/17 08:08 General appearance: no acute distress, other (Obese female extenuation of kyphotic curvature awake no distress vitals reviewed no sinus rhythm.) Eyes: nonicteric ENT: other (Unable to perform oral pharyngeal examination due to presence of facemask device) Neck: no JVD, other (Right IJ CVC) Auscultation: bilateral: diminished breath sounds, rales (Especially over the left base to mid lung zone, improved versus prior auscultatory examination.), other (Healing sternotomy, mediastinal tubes remain in place.) Cardiovascular: regular rate and rhythm Gastrointestinal: normoactive bowel sounds, non-distended Extremities: no cyanosis, no edema, pink and warm normal mental status, non-focal exam Results - Laboratory Findings CBC and BMP: 01/25/17 03:48 01/26/17 04:05 ABG ABG pH 7.42 pH Units (7.32-7.45) 01/25/17 Unknown ABG pCO2 39 mmHg (35-45) 01/25/17 Unknown ABG pO2 95 mmHg (85-104) 01/25/17 Unknown ABG O2 Saturation 98 % (95-98) 01/25/17 Unknown PT/INR, D-dimer PT 12.5 Seconds (9.4-12.1) H 01/25/17 03:48 Abnormal lab findings: Abnormal lab results WBC 18.3 K/mcL (4.3-11.1) H 01/25/17 03:48 Neutrophils # 15.7 K/mcL (1.6-8.9) H 01/25/17 03:48 PT 12.5 Seconds (9.4-12.1) H 01/25/17 03:48 ABG Total CO2 26.5 mEq/L (20-26) H 01/25/17 Unknown ABG Hematocrit 26 % (35-51) L 01/24/17 10:49 Potassium 3.3 mEq/L (3.5-5.3) L 01/24/17 10:49 Glucose 175 mg/dL (60-95) H 01/24/17 10:49 Sodium 135 mEq/L (136-145) L 01/26/17 04:05 Carbon Dioxide 31 mEq/L (19-29) H 01/26/17 04:05 BUN 24 mg/dL (7-20) H 01/26/17 04:05 Glucose 208 mg/dL (70-99) H 01/26/17 04:05 POC Glucose 206 (58-89) H 01/26/17 07:54 Hemoglobin A1c 9.6 % (-5.6) H 01/23/17 16:30 Calcium 8.2 mg/dL (8.6-10.8) L 01/26/17 04:05 - Clinical Findings Intake & Output: Intake & Output 01/25/17 01/26/17 01/26/17 23:59 07:59 15:59 Intake Total 485 / 485 33 / 33 Output Total 1658 / 1658 538 / 538 Balance -1173 / -1173 -505 / -505 Weight 90.7 kg - VTE Reasons for not Prescribing Prophylaxis: Treatment not Indicated - Low risk for VTE Documentation of Mechanical Device: Graduated compression elastic hosiery Consult Discharge Plan - Plan Referrals: Jeffrey Bolden CNP [Advanced Practice Nurse] - 02/07/17 3:30 pm Sallie Reynolds MD [Partnered Physician] - 02/20/17 1:50 pm Ketty Cade CNP [Primary Care Provider] - (WILL NOT MAKE AN APPOINTMENT UNTIL WE HAVE D/C ORDERS)
[2017-01-26] MEDS: *HR* HYDROcodone/Acet 5/325 mg TABLET PO PRN (15:33)
[2017-01-26] MEDS: Norepinephrine 4 MG in D5% in Water 250 ML IVC SCH (19:51)
[2017-01-27] MEDS: Ketorolac 15 MG/ML VIAL IVP SCH ×4 (00:01→18:25)
[2017-01-27] MEDS: Metoclopramide 10 MG/2 ML VIAL IVP SCH ×4 (00:01→18:25)
[2017-01-27 03:16] LABS: Basophils % 0.4 %; Eosinophils # 0.3 K/mcL (0.0-0.6); Eosinophils % 2.3 %; Hematocrit 34.4 % (35.3-44.9); Hemoglobin 11.2 g/dL (11.5-15.4); Immature Granulocytes % 0.5 % (0-4); Immature Platelets 3.1 % (1.1-6.1); Lymphocytes # 1.5 K/mcL (0.6-4.6); Lymphocytes % 13.5 %; Mean Corpuscular HGB Conc 32.6 g/dL (31.6-35.5); Mean Corpuscular Hemoglobin 30.1 pg (28.0-33.3); Mean Corpuscular Volume 92.5 fL (83.0-100.0); Mean Platelet Volume 10.1 fL (9.4-12.4); Monocytes # 0.9 K/mcL (0.0-1.3); Monocytes % 7.9 %; Neutrophils # 8.4 K/mcL (1.6-8.9); Platelet Count 152 K/mcL (140-400); Red Blood Count 3.72 M/mcL (3.82-4.97); Red Cell Distribution Width 12.5 % (11.5-14.5); Segmented Neutrophils % 75.4 %
[2017-01-27 03:48] LABS: BUN/Creatinine Ratio 38 (6-26); Blood Urea Nitrogen 30 mg/dL (7-20); Calcium 8.2 mg/dL (8.6-10.8); Carbon Dioxide 27 mEq/L (19-29); Chloride 101 mEq/L (98-109); Glucose 204 mg/dL (70-99); Osmolality,Calculated 294 (280-300); Potassium 3.9 mEq/L (3.5-4.5); Sodium 136 mEq/L (136-145); eGFR For African Americans > 60 (> 60); eGFR For Non-African Americans > 60 (> 60)
[2017-01-27] MEDS: *HR* Heparin 5,000 UNIT/ML VIAL SQ SCH ×2 (05:03→18:27)
[2017-01-27] MEDS: *HR* HYDROcodone/Acet 5/325 mg TABLET PO PRN ×3 (06:37→23:15)
--- NOTE | 2017-01-27 07:21 | Cardiothoracic Progress Note ---
Date of Encounter: 01/27/17 Time of Encounter: 07:19 - Assessment and plan (1) CAD (coronary artery disease) Current Visit: Yes Status: Acute The patient is recovering well from her CABG4. Her respiratory status is improved to her baseline. Currently she is on supplemental oxygen 4 L/m via nasal cannula and saturating well. She will be transferred to the stepdown unit later today. The assessment and plan as outlined above was discussed with the patient and/or family members who expressed understanding and agreement. All questions were answered. Qualifiers: Coronary Disease-Associated Artery/Lesion type: [place] artery [place] vs. transplanted heart: [place] heart Associated angina: with unstable angina Qualified Code(s): I25.110 - Atherosclerotic heart disease of [place] coronary artery with unstable angina pectoris - Subjective Procedure(s) Performed: POD#3 S/P CABG4 Interval history: The patient remained hemodynamically stable overnight. Her breathing has returned to her baseline. Currently she is on 4 L oxygen via nasal cannula and is saturating well. She has no complaints. Vital Signs, Last 4 Hours Temp Pulse Resp BP Pulse Ox 01/27/17 06:52 95 16 130/81 90 01/27/17 05:54 92 16 109/65 95 01/27/17 04:53 83 18 113/66 96 01/27/17 03:54 98.5 F 92 20 97/65 97 01/27/17 03:47 98.8 F Oxgyen Flow Rate Oxygen Flow Rate (LPM) 4 Clinical Data, last 8 Hours Output, Urine Amount 200 Weight 01/25/17 01/26/17 01/27/17 23:59 23:59 23:59 Weight 90.7 kg 90.8 kg - Physical Examination General: Conversant, No Apparent Distress Neck: No JVD, Normal carotid pulses Cardiac: Reg Rate and Rhythm, Normal S1 and S2, No Murmur Incision: No signs of infection, Dry/intact dressing Sternum: Stable Pacing Wires: In place Lungs: Normal Breath Sounds, No Wheeze, Rales, Rhonchi Neuro: Alert and responsive, No focal deficits noted Vascular: Normal capillary refill Musculoskeletal: No Chest Wall Tenderness Extremities: No Clubbing, No Cyanosis, No Edema - Labs 01/27/17 03:07 01/27/17 03:07 Lab Results, Last 24 hours 07/24/17 07/24/17 03:07 03:07 WBC 11.1 Hgb 11.2 L D Hct 34.4 L Plt Count 152 Sodium 136 Potassium 3.9 Chloride 101 Carbon Dioxide 27 BUN 30 H Creatinine 0.78 Glucose 204 H Calcium 8.2 L - Imaging Chest Xray: image reviewed (No pneumothorax. Improved aeration in both bases.) - VTE Reasons for not Prescribing Prophylaxis: Treatment not Indicated - Low risk for VTE Documentation of Mechanical Device: Graduated compression elastic hosiery Consult Discharge Plan - Plan Referrals: Jeffrey Bolden CNP [Advanced Practice Nurse] - 02/07/17 3:30 pm Sallie Reynolds MD [Partnered Physician] - 02/20/17 1:50 pm Ketty Cade CNP [Primary Care Provider] - (WILL NOT MAKE AN APPOINTMENT UNTIL WE HAVE D/C ORDERS)
--- NOTE | 2017-01-27 07:52 | Pulmonology Progress Note ---
<Gene Ray - Last Filed: 01/27/17 07:51> Date of Encounter: 01/27/17 Time of Encounter: 07:51 Assessment and Plan (1) Hypoxemia Current Visit: Yes Status: Acute Patient had postoperative hypoxemia status post coronary bypass surgery. Likely related to atelectasis in the postoperative setting. There is some discrepancy between the pulse oximeter and oxygenation on the ABG. Pulse oximeter changed and patient is satting in the high 90s. Patient has tolerated BiPAP well. Continue BiPAP as needed, particularly at night. Methemoglobin was unremarkable, this is unlikely related to methemoglobinemia. Continue pulmonary hygiene and encourage incentive spirometer if the patient is not wearing BiPAP. Subjective Principal diagnosis: Acute respiratory failure with hypoxia Interval history: Patient seen and examined at bedside. Patient is currently on BiPAP and appears to be resting comfortably. She has no complaints at this time. No acute events overnight. Objective PUL Vital signs: Last Vital Signs Temp 98.5 F 01/27/17 03:54 Pulse 95 01/27/17 06:52 Resp 16 01/27/17 06:52 BP 130/81 01/27/17 06:52 Pulse Ox 90 01/27/17 06:52 Results - Laboratory Findings CBC and BMP: 01/27/17 03:07 01/27/17 03:07 ABG ABG pH 7.42 pH Units (7.32-7.45) 01/25/17 Unknown ABG pCO2 39 mmHg (35-45) 01/25/17 Unknown ABG pO2 95 mmHg (85-104) 01/25/17 Unknown ABG O2 Saturation 98 % (95-98) 01/25/17 Unknown PT/INR, D-dimer PT 12.5 Seconds (9.4-12.1) H 01/25/17 03:48 Abnormal lab findings: Abnormal lab results RBC 3.72 M/mcL (3.82-4.97) L 01/27/17 03:07 Hgb 11.2 g/dL (11.5-15.4) L D 01/27/17 03:07 Hct 34.4 % (35.3-44.9) L 01/27/17 03:07 PT 12.5 Seconds (9.4-12.1) H 01/25/17 03:48 ABG Total CO2 26.5 mEq/L (20-26) H 01/25/17 Unknown ABG Hematocrit 26 % (35-51) L 01/24/17 10:49 Potassium 3.3 mEq/L (3.5-5.3) L 01/24/17 10:49 Glucose 175 mg/dL (60-95) H 01/24/17 10:49 BUN 30 mg/dL (7-20) H 01/27/17 03:07 BUN/Creatinine Ratio 38 (6-26) H 01/27/17 03:07 Glucose 204 mg/dL (70-99) H 01/27/17 03:07 POC Glucose 188 (58-89) H 01/27/17 07:42 Hemoglobin A1c 9.6 % (-5.6) H 01/23/17 16:30 Calcium 8.2 mg/dL (8.6-10.8) L 01/27/17 03:07 - Clinical Findings Intake & Output: Intake & Output 01/26/17 01/26/17 01/27/17 15:59 23:59 07:59 Intake Total 120 / 120 360 / 360 0 / 0 Output Total 600 / 600 400 / 400 500 / 500 Balance -480 / -480 -40 / -40 -500 / -500 Weight 90.8 kg - VTE Reasons for not Prescribing Prophylaxis: Treatment not Indicated - Low risk for VTE Documentation of Mechanical Device: Graduated compression elastic hosiery Consult Discharge Plan - Plan Referrals: Jeffrey Bolden CNP [Advanced Practice Nurse] - 02/07/17 3:30 pm Sallie Reynolds MD [Partnered Physician] - 02/20/17 1:50 pm Ketty Cade CNP [Primary Care Provider] - (WILL NOT MAKE AN APPOINTMENT UNTIL WE HAVE D/C ORDERS) <Cyril Gracia W - Last Filed: 01/27/17 13:24> Date of Encounter: 01/27/17 Objective PUL Vital signs: Last Vital Signs Temp 98.2 F 01/27/17 08:07 Pulse 95 01/27/17 06:52 Resp 18 01/27/17 08:28 BP 130/81 01/27/17 06:52 Pulse Ox 97 01/27/17 08:28 Results - Laboratory Findings CBC and BMP: 01/27/17 03:07 01/27/17 03:07 ABG ABG pH 7.42 pH Units (7.32-7.45) 01/25/17 Unknown ABG pCO2 39 mmHg (35-45) 01/25/17 Unknown ABG pO2 95 mmHg (85-104) 01/25/17 Unknown ABG O2 Saturation 98 % (95-98) 01/25/17 Unknown PT/INR, D-dimer PT 12.5 Seconds (9.4-12.1) H 01/25/17 03:48 Abnormal lab findings: Abnormal lab results RBC 3.72 M/mcL (3.82-4.97) L 01/27/17 03:07 Hgb 11.2 g/dL (11.5-15.4) L D 01/27/17 03:07 Hct 34.4 % (35.3-44.9) L 01/27/17 03:07 PT 12.5 Seconds (9.4-12.1) H 01/25/17 03:48 ABG Total CO2 26.5 mEq/L (20-26) H 01/25/17 Unknown ABG Hematocrit 26 % (35-51) L 01/24/17 10:49 Potassium 3.3 mEq/L (3.5-5.3) L 01/24/17 10:49 Glucose 175 mg/dL (60-95) H 01/24/17 10:49 BUN 30 mg/dL (7-20) H 01/27/17 03:07 BUN/Creatinine Ratio 38 (6-26) H 01/27/17 03:07 Glucose 204 mg/dL (70-99) H 01/27/17 03:07 POC Glucose 188 (58-89) H 01/27/17 07:42 Hemoglobin A1c 9.6 % (-5.6) H 01/23/17 16:30 Calcium 8.2 mg/dL (8.6-10.8) L 01/27/17 03:07 - Clinical Findings Intake & Output: Intake & Output 01/26/17 01/27/17 01/27/17 23:59 07:59 15:59 Intake Total 360 / 360 0 / 0 480 / 480 Output Total 400 / 400 500 / 500 Balance -40 / -40 -500 / -500 480 / 480 Weight 90.8 kg - Attending Attestation I examined this patient and my medical decision-making was reviewed with the Resident Physician. I agree with the documented findings, disposition and treatment plan as described except to the extent set forth below. Patient seen and examined at bedside Labs, radiology, chart personally reviewed. All lines examined without evidence of infection. Management was reviewed during multidisciplinary critical care rounds. Patient presenting status post CABG with postoperative hypoxia likely secondary to atelectasis with minor component of cardiogenic pulmonary edema. Overall she continues to improve and can be weaned off supplemental oxygen. Would continue aggressive incentive spirometry and out of bed to chair and ambulation as tolerated. May need gentle diuresis down the line do not feel that this represents an intrinsic lung pathology.
[2017-01-27] MEDS: Insulin LISPRO 300 UNITS/3 ML VIAL SQ SCH ×4 (08:15→20:17)
[2017-01-27] MEDS: Chlorhexidine Rinse 15 ML MOUTHWASH MM SCH ×2 (08:16→20:17)
[2017-01-27] MEDS: Pantoprazole 40 MG VIAL IVP SCH (08:16)
[2017-01-27] MEDS: Aspirin Enteric Coated 81 MG Tablet PO SCH (08:16)
[2017-01-27] MEDS: Lisinopril 20 MG TABLET PO SCH (08:17)
[2017-01-27] MEDS: METFORMIN HCL PO SCH ×2 (08:29→20:18)
[2017-01-27] MEDS: ALOGLIPTIN BENZ PO SCH ×2 (08:29→20:18)
[2017-01-27] MEDS: Furosemide 20 MG/2 ML VIAL IVP SCH ×2 (11:00→20:17)
[2017-01-27] MEDS: Norepinephrine 4 MG in D5% in Water 250 ML IVC SCH (19:17)
[2017-01-28] MEDS: Ketorolac 15 MG/ML VIAL IVP SCH ×5 (00:08→23:42)
[2017-01-28] MEDS: *HR* HYDROcodone/Acet 5/325 mg TABLET PO PRN ×4 (04:02→20:00)
[2017-01-28] MEDS: *HR* Heparin 5,000 UNIT/ML VIAL SQ SCH ×2 (06:19→16:46)
[2017-01-28] MEDS ORDERED: Insulin DETEMIR 100 UNIT/ML X5UNITS SQ ONE (07:43)
[2017-01-28] MEDS: Chlorhexidine Rinse 15 ML MOUTHWASH MM SCH ×2 (08:24→20:00)
[2017-01-28] MEDS: Aspirin Enteric Coated 81 MG Tablet PO SCH (08:24)
[2017-01-28] MEDS: METFORMIN HCL PO SCH (08:28)
[2017-01-28] MEDS: ALOGLIPTIN BENZ PO SCH (08:28)
[2017-01-28] MEDS: Lisinopril 20 MG TABLET PO SCH (08:28)
[2017-01-28] MEDS: Insulin LISPRO 300 UNITS/3 ML VIAL SQ SCH ×4 (08:28→20:17)
--- NOTE | 2017-01-28 08:37 | Cardiothoracic Progress Note ---
Date of Encounter: 01/28/17 Time of Encounter: 08:35 - Assessment and plan (1) CAD (coronary artery disease) Current Visit: Yes Status: Acute The patient is recovering well from her CABG4. Her respiratory status is improved to her baseline. She has begun ambulating in her room without difficulty. Aggressive pulmonary toilet will continue. The assessment and plan as outlined above was discussed with the patient and/or family members who expressed understanding and agreement. All questions were answered. Qualifiers: Coronary Disease-Associated Artery/Lesion type: [place] artery [place] vs. transplanted heart: [place] heart Associated angina: with unstable angina Qualified Code(s): I25.110 - Atherosclerotic heart disease of [place] coronary artery with unstable angina pectoris - Subjective Procedure(s) Performed: POD#4 S/P CABG4 Interval history: The patient remained hemodynamically stable overnight. Her breathing has returned to her baseline. Currently she is on room air without respiratory complaints. She was able to walk in her room yesterday without difficulty. Vital Signs, Last 4 Hours Temp Pulse Resp BP Pulse Ox 01/28/17 08:19 98.4 F 88 18 122/94 94 Oxgyen Flow Rate Oxygen Flow Rate (LPM) 0 Weight 01/26/17 01/27/17 01/28/17 23:59 23:59 23:59 Weight 90.7 kg 90.8 kg 89.2 kg - Physical Examination General: Conversant, No Apparent Distress Neck: No JVD, Normal carotid pulses Cardiac: Reg Rate and Rhythm, Normal S1 and S2, No Murmur Incision: No signs of infection, Dry/intact dressing Sternum: Stable Pacing Wires: In place Lungs: Normal Breath Sounds (Right lung chavez.), Decreased breath sounds (Left lung base.), No Wheeze, Rales, Rhonchi Neuro: Alert and responsive, No focal deficits noted Vascular: Normal capillary refill Musculoskeletal: No Chest Wall Tenderness Extremities: No Clubbing, No Cyanosis, No Edema - Labs 01/27/17 03:07 01/27/17 03:07 - VTE Reasons for not Prescribing Prophylaxis: Treatment not Indicated - Low risk for VTE Documentation of Mechanical Device: Graduated compression elastic hosiery Consult Discharge Plan - Plan Referrals: Jeffrey Bolden CNP [Advanced Practice Nurse] - 02/07/17 3:30 pm Sallie Reynolds MD [Partnered Physician] - 02/20/17 1:50 pm Ketty Cade, RESPIRATORY THERAPY ASSISTANT [Primary Care Provider] - (WILL NOT MAKE AN APPOINTMENT UNTIL WE HAVE D/C ORDERS)
[2017-01-28] MEDS: *HR* Morphine 2 MG/ML SYRINGE IVP PRN ×2 (10:08→17:47)
[2017-01-28] MEDS: Norepinephrine 4 MG in D5% in Water 250 ML IVC SCH (11:30)
--- NOTE | 2017-01-28 13:23 | Internal Med Progress Note ---
Date of Encounter: 01/28/17 Time of Encounter: 10:00 - Assessment and plan (1) Chest pain Current Visit: Yes Status: Acute Assessment and plan: Patient reports 2 week history of chest pain with any exertion. Troponin was negative 3. EKG was unremarkable. 01/23: Stress test showed inferior wall and inferoseptal infarct with mild to moderate jony-infarct ischemia and patient had 3/10 chest pain with exercise. Echocardiogram showed LVEF of 50% with mild diastolic dysfunction and mild systolic dysfunction with regional abnormalities. 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 Patient underwent left heart catheterization showed severe three-vessel coronary artery disease and urgent CABG was recommended. Post CABG. No further chest pain. Qualifiers: Chest pain type: chest pain due to myocardial ischemia Ischemic chest pain type: unstable angina pectoris Qualified Code(s): I20.0 - Unstable angina (2) Diabetes Current Visit: Yes Status: Chronic Assessment and plan: A1c is 9.6. continue basal insulin and Sliding scale insulin, before meals at bedtime Accu-Cheks, diabetic cardiac diet. Qualifiers: Diabetes mellitus type: type 2 Diabetes mellitus complication status: with unspecified complications Diabetes mellitus bed bug exterminator insulin use: with bed bug exterminator use Qualified Code(s): E11.8 - Type 2 diabetes mellitus with unspecified complications; Z79.4 - shelter (current) use of insulin (3) HTN (hypertension) Current Visit: Yes Status: Chronic Assessment and plan: Chronic. Continue to monitor. Antihypertensive medications home dose. Qualifiers: Hypertension type: essential hypertension Qualified Code(s): I10 - Essential (primary) hypertension (4) DVT prophylaxis Current Visit: Yes Status: Acute Assessment and plan: Heparin subcutaneously (5) CAD (coronary artery disease) Current Visit: Yes Status: Acute Assessment and plan: S/P CABG, continue aspirin, Statin, add beta marko Qualifiers: Coronary Disease-Associated Artery/Lesion type: [place] artery [place] vs. transplanted heart: [place] heart Associated angina: with unstable angina Qualified Code(s): I25.110 - Atherosclerotic heart disease of [place] coronary artery with unstable angina pectoris - Time Spent With Patient 25 - 35 minutes - Subjective Interval history: Patient is a 51-year-old female admitted for chest pain. LHC shows stenosis. CABG has been done. Patient was seen and examined. Denies chest pain or shortness of breath. Minimal incision pain. Vitals are stable. Chest tube has been removed. Elevated glucose level, insulin regimen has been adjusted. - Constitutional Vitals: Temp Pulse Resp BP Pulse Ox 98.3 F 87 16 99/69 90 01/28/17 11:14 01/28/17 11:14 01/28/17 11:14 01/28/17 11:14 01/28/17 11:14 General appearance: Present: cooperative, A&O X 3, pleasant, no acute distress, obese, answers questions appropriately - Head Head exam: Present: atraumatic, normocephalic - Eye Eye exam: Present: PERRL, conjuntiva pink, sclera anicteric Pupils: Present: PERRL - Neck Neck exam general surgery: Present: supple, trachea midline. Absent: lymphadenopathy - Respiratory Respiratory exam: Present: CTAB. Absent: accessory muscle use, rales, rhonchi, wheezes Additional comments: Mid chest incision, well dressed. - Cardiovascular Cardiovascular exam: Present: RRR, +S1, +S2. Absent: diastolic murmur, gallop, rubs, systolic murmur - GI/Abdominal GI/Abdominal exam: Present: normal bowel sounds, soft, no peritoneal signs. Absent: distended, tenderness - Extremities Exam Extremities exam: Present: warm, radial pulses palpable and symetrical. Absent : calf tenderness, cyanotic, pedal edema - Neurological Exam Neurological exam: Present: CN II-XII intact, oriented X3, no focal deficits. Absent: pronater drift, facial droop, speech deficit - Skin Skin exam: Present: dry, intact Internal Medicine: Result - Labs CBC & Chem 7: 01/27/17 03:07 01/27/17 03:07 - ABG Interpretation ABG results: ABG ABG pH 7.42 pH Units (7.32-7.45) 01/25/17 Unknown ABG pCO2 39 mmHg (35-45) 01/25/17 Unknown ABG pO2 95 mmHg (85-104) 01/25/17 Unknown ABG O2 Saturation 98 % (95-98) 01/25/17 Unknown PT/INR, D-dimer PT 12.5 Seconds (9.4-12.1) H 01/25/17 03:48 - VTE Reasons for not Prescribing Prophylaxis: Treatment not Indicated - Low risk for VTE Documentation of Mechanical Device: Graduated compression elastic hosiery Consult Discharge Plan - Plan Referrals: Jeffrey Bolden CNP [Advanced Practice Nurse] - 02/07/17 3:30 pm Sallie Reynolds MD [Partnered Physician] - 02/20/17 1:50 pm Ketty Cade CNP [Primary Care Provider] - (WILL NOT MAKE AN APPOINTMENT UNTIL WE HAVE D/C ORDERS)
[2017-01-28] MEDS: Metoprolol XL (24 HR) Succ 25 MG TAB.ER.24H PO SCH (14:28)
[2017-01-28] MEDS ORDERED: Insulin DETEMIR 100 UNIT/ML X5UNITS SQ SCH (21:00)
[2017-01-29] MEDS: *HR* HYDROcodone/Acet 5/325 mg TABLET PO PRN ×5 (01:44→21:33)
[2017-01-29] MEDS: *HR* Morphine 2 MG/ML SYRINGE IVP PRN ×3 (03:56→15:58)
[2017-01-29] MEDS: Ketorolac 15 MG/ML VIAL IVP SCH (06:10)
[2017-01-29] MEDS: *HR* Heparin 5,000 UNIT/ML VIAL SQ SCH ×2 (06:11→16:05)
[2017-01-29 06:33] LABS: Basophils % 0.6 %; Eosinophils # 0.4 K/mcL (0.0-0.6); Eosinophils % 4.9 %; Hematocrit 29.4 % (35.3-44.9); Hemoglobin 9.6 g/dL (11.5-15.4); Immature Granulocytes % 0.8 % (0-4); Lymphocytes % 22.9 %; Mean Corpuscular HGB Conc 32.7 g/dL (31.6-35.5); Mean Corpuscular Hemoglobin 29.9 pg (28.0-33.3); Mean Corpuscular Volume 91.6 fL (83.0-100.0); Mean Platelet Volume 9.7 fL (9.4-12.4); Monocytes # 0.6 K/mcL (0.0-1.3); Monocytes % 8.7 %; Platelet Count 193 K/mcL (140-400); Red Blood Count 3.21 M/mcL (3.82-4.97); Red Cell Distribution Width 12.4 % (11.5-14.5); Segmented Neutrophils % 62.1 %
[2017-01-29 06:38] LABS: BUN/Creatinine Ratio 42 (6-26); Blood Urea Nitrogen 26 mg/dL (7-20); Calcium 7.4 mg/dL (8.6-10.8); Carbon Dioxide 28 mEq/L (19-29); Chloride 108 mEq/L (98-109); Glucose 116 mg/dL (70-99); Osmolality,Calculated 294 (280-300); Potassium 3.2 mEq/L (3.5-4.5); Sodium 139 mEq/L (136-145); eGFR For African Americans > 60 (> 60); eGFR For Non-African Americans > 60 (> 60)
[2017-01-29 06:46] LABS: Lymphocytes # 1.7 K/mcL (0.6-4.6); Neutrophils # 4.5 K/mcL (1.6-8.9)
[2017-01-29] MEDS: Chlorhexidine Rinse 15 ML MOUTHWASH MM SCH ×2 (07:31→20:46)
[2017-01-29] MEDS: Metoprolol XL (24 HR) Succ 25 MG TAB.ER.24H PO SCH (07:32)
[2017-01-29] MEDS: Aspirin Enteric Coated 81 MG Tablet PO SCH (07:32)
[2017-01-29] MEDS: Lisinopril 20 MG TABLET PO SCH (07:32)
[2017-01-29] MEDS: Insulin LISPRO 300 UNITS/3 ML VIAL SQ SCH ×4 (07:35→20:47)
--- NOTE | 2017-01-29 09:14 | Cardiothoracic Progress Note ---
Date of Encounter: 01/29/17 Time of Encounter: 09:12 - Assessment and plan (1) CAD (coronary artery disease) Current Visit: Yes Status: Acute The patient is recovering well from her CABG4. Her respiratory status is improved to her baseline. She is ambulating without difficulty. The assessment and plan as outlined above was discussed with the patient and/or family members who expressed understanding and agreement. All questions were answered. Qualifiers: Coronary Disease-Associated Artery/Lesion type: [place] artery [place] vs. transplanted heart: [place] heart Associated angina: with unstable angina Qualified Code(s): I25.110 - Atherosclerotic heart disease of [place] coronary artery with unstable angina pectoris - Subjective Procedure(s) Performed: POD#5 S/P CABG4 Interval history: The patient remained hemodynamically stable overnight. She was able to walk in her room yesterday without difficulty. Vital Signs, Last 4 Hours Temp Pulse Resp BP Pulse Ox 01/29/17 08:28 97.8 F 82 16 124/87 92 01/29/17 07:50 19 91 Oxgyen Flow Rate Oxygen Flow Rate (LPM) 2 Clinical Data, last 8 Hours Output, Urine Amount 0 Output, Urine Amount 75 Weight 01/27/17 01/28/17 01/29/17 23:59 23:59 23:59 Weight 90.8 kg 89.2 kg 90.4 kg - Physical Examination General: Conversant, No Apparent Distress Neck: No JVD, Normal carotid pulses Cardiac: Reg Rate and Rhythm, Normal S1 and S2, No Murmur Incision: No signs of infection, Dry/intact dressing Sternum: Stable Pacing Wires: In place Lungs: Normal Breath Sounds (Right lung chavez), Decreased breath sounds (Left lung base.) Neuro: Alert and responsive, No focal deficits noted Vascular: Normal capillary refill Musculoskeletal: No Chest Wall Tenderness Extremities: No Clubbing, No Cyanosis, No Edema - Labs 01/29/17 06:10 01/29/17 06:10 Lab Results, Last 24 hours 01/29/17 01/29/17 06:10 06:10 WBC 7.2 Hgb 9.6 L D Hct 29.4 L Plt Count 193 Sodium 139 Potassium 3.2 L Chloride 108 Carbon Dioxide 28 BUN 26 H Creatinine 0.62 Glucose 116 H Calcium 7.4 L - Imaging Chest Xray: image reviewed (No pneumothorax. Left lower lobe atelectasis/small effusion.) - VTE Reasons for not Prescribing Prophylaxis: Treatment not Indicated - Low risk for VTE Documentation of Mechanical Device: Graduated compression elastic hosiery Consult Discharge Plan - Plan Referrals: Jeffrey Bolden CNP [Advanced Practice Nurse] - 02/07/17 3:30 pm Sallie Reynolds MD [Partnered Physician] - 02/20/17 1:50 pm Ketty Cade CNP [Primary Care Provider] - (WILL NOT MAKE AN APPOINTMENT UNTIL WE HAVE D/C ORDERS)
--- NOTE | 2017-01-29 15:12 | Internal Med Progress Note ---
Date of Encounter: 01/29/17 Time of Encounter: 10:00 - Assessment and plan (1) Chest pain Current Visit: Yes Status: Acute Assessment and plan: Patient reports 2 week history of chest pain with any exertion. Troponin was negative 3. EKG was unremarkable. 01/23: Stress test showed inferior wall and inferoseptal infarct with mild to moderate jony-infarct ischemia and patient had 3/10 chest pain with exercise. Echocardiogram showed LVEF of 50% with mild diastolic dysfunction and mild systolic dysfunction with regional abnormalities. 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 Patient underwent left heart catheterization showed severe three-vessel coronary artery disease and urgent CABG was recommended. Post CABG. No further chest pain. Qualifiers: Chest pain type: chest pain due to myocardial ischemia Ischemic chest pain type: unstable angina pectoris Qualified Code(s): I20.0 - Unstable angina (2) Diabetes Current Visit: Yes Status: Chronic Assessment and plan: A1c is 9.6. continue basal insulin and Sliding scale insulin, before meals at bedtime Accu-Cheks, diabetic cardiac diet. 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 Continue to monitor. Antihypertensive medications home dose. Qualifiers: Hypertension type: essential hypertension Qualified Code(s): I10 - Essential (primary) hypertension (4) DVT prophylaxis Current Visit: Yes Status: Acute Assessment and plan: Heparin subcutaneously (5) CAD (coronary artery disease) Current Visit: Yes Status: Acute Assessment and plan: S/P CABG, continue aspirin, Statin, add beta marko Qualifiers: Coronary Disease-Associated Artery/Lesion type: [place] artery [place] vs. transplanted heart: [place] heart Associated angina: with unstable angina Qualified Code(s): I25.110 - Atherosclerotic heart disease of [place] coronary artery with unstable angina pectoris - Time Spent With Patient 25 - 35 minutes - Subjective Interval history: Patient is a 51-year-old female admitted for chest pain. LHC shows stenosis. CABG has been done. Patient was seen and examined. Denies chest pain or shortness of breath. Minimal incision pain. Vitals are stable. Chest tube has been removed. Patient can Ambulate in room. - Constitutional Vitals: Temp Pulse Resp BP Pulse Ox 98.1 F 79 18 139/87 97 01/29/17 12:06 01/29/17 12:06 01/29/17 12:06 01/29/17 12:06 01/29/17 12:06 General appearance: Present: cooperative, A&O X 3, pleasant, no acute distress, obese, answers questions appropriately - Head Head exam: Present: atraumatic, normocephalic - Eye Eye exam: Present: PERRL, conjuntiva pink, sclera anicteric Pupils: Present: PERRL - Neck Neck exam general surgery: Present: supple, trachea midline. Absent: lymphadenopathy - Respiratory Respiratory exam: Present: CTAB. Absent: accessory muscle use, rales, rhonchi, wheezes - Cardiovascular Cardiovascular exam: Present: RRR, +S1, +S2. Absent: diastolic murmur, gallop, rubs, systolic murmur - GI/Abdominal GI/Abdominal exam: Present: normal bowel sounds, soft, no peritoneal signs. Absent: distended, tenderness - Extremities Exam Extremities exam: Present: warm, radial pulses palpable and symetrical. Absent : calf tenderness, cyanotic, pedal edema - Neurological Exam Neurological exam: Present: CN II-XII intact, oriented X3, no focal deficits. Absent: pronater drift, facial droop, speech deficit - Skin Skin exam: Present: dry, intact Internal Medicine: Result - Labs CBC & Chem 7: 01/29/17 06:10 01/29/17 06:10 Labs: Short CBC 01/29/17 Range/Units 06:10 WBC 7.2 (4.3-11.1) K/mcL Hgb 9.6 L D (11.5-15.4) g/dL Hct 29.4 L (35.3-44.9) % Plt Count 193 (140-400) K/mcL Neutrophils # 4.5 (1.6-8.9) K/mcL BMP 01/29/17 06:10 Sodium 139 Potassium 3.2 L Chloride 108 Carbon Dioxide 28 BUN 26 H Creatinine 0.62 Glucose 116 H Calcium 7.4 L - ABG Interpretation ABG results: ABG ABG pH 7.42 pH Units (7.32-7.45) 01/25/17 Unknown ABG pCO2 39 mmHg (35-45) 01/25/17 Unknown ABG pO2 95 mmHg (85-104) 01/25/17 Unknown ABG O2 Saturation 98 % (95-98) 01/25/17 Unknown PT/INR, D-dimer PT 12.5 Seconds (9.4-12.1) H 01/25/17 03:48 - Impressions Impressions Chest X-Ray 01/29/17 06:00 IMPRESSION: Progression of left lower lobe opacification and probable effusion. No pneumothorax. D/ / Khai Del Angel MD / Khai Del Angel MD Interpreting Provider: Khai Del Angel MD - VTE Reasons for not Prescribing Prophylaxis: Treatment not Indicated - Low risk for VTE Documentation of Mechanical Device: Graduated compression elastic hosiery Consult Discharge Plan - Plan Referrals: Jeffrey Bolden CNP [Advanced Practice Nurse] - 02/07/17 3:30 pm Sallie Reynolds MD [Partnered Physician] - 02/20/17 1:50 pm Ketty Cade CNP [Primary Care Provider] - (WILL NOT MAKE AN APPOINTMENT UNTIL WE HAVE D/C ORDERS)
[2017-01-29] MEDS ORDERED: Insulin DETEMIR 100 UNIT/ML X5UNITS SQ SCH (21:00)
[2017-01-30] MEDS: *HR* HYDROcodone/Acet 5/325 mg TABLET PO PRN ×3 (01:22→10:11)
[2017-01-30 04:36] LABS: Basophils # 0.1 K/mcL (0.0-0.2); Basophils % 0.6 %; Eosinophils # 0.4 K/mcL (0.0-0.6); Eosinophils % 4.6 %; Hematocrit 37.1 % (35.3-44.9); Immature Granulocytes % 0.7 % (0-4); Lymphocytes # 1.8 K/mcL (0.6-4.6); Mean Corpuscular HGB Conc 31.8 g/dL (31.6-35.5); Mean Corpuscular Hemoglobin 29.1 pg (28.0-33.3); Mean Corpuscular Volume 91.6 fL (83.0-100.0); Mean Platelet Volume 9.8 fL (9.4-12.4); Monocytes # 0.8 K/mcL (0.0-1.3); Monocytes % 8.7 %; Neutrophils # 5.9 K/mcL (1.6-8.9); Platelet Count 257 K/mcL (140-400); Red Blood Count 4.05 M/mcL (3.82-4.97); Red Cell Distribution Width 12.4 % (11.5-14.5); Segmented Neutrophils % 65.4 %
[2017-01-30 04:50] LABS: BUN/Creatinine Ratio 33 (6-26); Blood Urea Nitrogen 26 mg/dL (7-20); Carbon Dioxide 29 mEq/L (19-29); Chloride 104 mEq/L (98-109); Glucose 172 mg/dL (70-99); Osmolality,Calculated 295 (280-300); Sodium 138 mEq/L (136-145); eGFR For African Americans > 60 (> 60); eGFR For Non-African Americans > 60 (> 60)
[2017-01-30] MEDS: *HR* Heparin 5,000 UNIT/ML VIAL SQ SCH (04:51)
[2017-01-30 04:52] LABS: Hemoglobin 11.8 g/dL (11.5-15.4)
[2017-01-30 04:55] LABS: Calcium 9.1 mg/dL (8.6-10.8); Potassium 4.5 mEq/L (3.5-4.5)
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
[2017-01-30 07:32] VITALS: BP 131/84
[2017-01-30] MEDS: Chlorhexidine Rinse 15 ML MOUTHWASH MM SCH (07:44)
[2017-01-30] MEDS: Aspirin Enteric Coated 81 MG Tablet PO SCH (07:45)
[2017-01-30] MEDS: Lisinopril 20 MG TABLET PO SCH (07:45)
[2017-01-30] MEDS: Metoprolol XL (24 HR) Succ 25 MG TAB.ER.24H PO SCH (07:45)
[2017-01-30] MEDS: Insulin LISPRO 300 UNITS/3 ML VIAL SQ SCH (07:48)
--- NOTE | 2017-01-30 10:38 | Internal Med Progress Note ---
Date of Encounter: 01/30/17 Time of Encounter: 09:00 - Assessment and plan (1) Chest pain Current Visit: Yes Status: Acute Assessment and plan: Patient reports 2 week history of chest pain with any exertion. Troponin was negative 3. EKG was unremarkable. 01/23: Stress test showed inferior wall and inferoseptal infarct with mild to moderate jony-infarct ischemia and patient had 3/10 chest pain with exercise. Echocardiogram showed LVEF of 50% with mild diastolic dysfunction and mild systolic dysfunction with regional abnormalities. 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 Patient underwent left heart catheterization showed severe three-vessel coronary artery disease and urgent CABG was recommended. Post CABG. No further chest pain. Will be discharged home today Qualifiers: Chest pain type: chest pain due to myocardial ischemia Ischemic chest pain type: unstable angina pectoris Qualified Code(s): I20.0 - Unstable angina (2) Diabetes Current Visit: Yes Status: Chronic Assessment and plan: A1c is 9.6. continue basal insulin and Sliding scale insulin, before meals at bedtime Accu-Cheks, diabetic cardiac diet. 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 Continue to monitor. Antihypertensive medications home dose. Qualifiers: Hypertension type: essential hypertension Qualified Code(s): I10 - Essential (primary) hypertension (4) DVT prophylaxis Current Visit: Yes Status: Acute Assessment and plan: Heparin subcutaneously (5) CAD (coronary artery disease) Current Visit: Yes Status: Acute Assessment and plan: S/P CABG, continue aspirin, Statin, add beta marko Qualifiers: Coronary Disease-Associated Artery/Lesion type: [place] artery [place] vs. transplanted heart: [place] heart Associated angina: with unstable angina Qualified Code(s): I25.110 - Atherosclerotic heart disease of [place] coronary artery with unstable angina pectoris - Subjective Interval history: Patient is a 51-year-old female admitted for chest pain. LHC shows stenosis. CABG has been done. Patient was seen and examined. Denies chest pain or shortness of breath. Vitals are stable. Patient will be discharged by cardiothoracic surgeon. - Constitutional Vitals: Temp Pulse Resp BP Pulse Ox 98.3 F 85 20 131/84 95 01/30/17 07:55 01/30/17 07:55 01/30/17 07:55 01/30/17 07:55 01/30/17 07:55 General appearance: Present: cooperative, A&O X 3, pleasant, no acute distress, obese, answers questions appropriately - Head Head exam: Present: atraumatic, normocephalic - Eye Eye exam: Present: PERRL, conjuntiva pink, sclera anicteric Pupils: Present: PERRL - Neck Neck exam general surgery: Present: supple, trachea midline. Absent: lymphadenopathy - Respiratory Respiratory exam: Present: CTAB. Absent: accessory muscle use, rales, rhonchi, wheezes - Cardiovascular Cardiovascular exam: Present: RRR, +S1, +S2. Absent: diastolic murmur, gallop, rubs, systolic murmur - GI/Abdominal GI/Abdominal exam: Present: normal bowel sounds, soft, no peritoneal signs. Absent: distended, tenderness - Extremities Exam Extremities exam: Present: warm, radial pulses palpable and symetrical. Absent : calf tenderness, cyanotic, pedal edema - Neurological Exam Neurological exam: Present: CN II-XII intact, oriented X3, no focal deficits. Absent: pronater drift, facial droop, speech deficit - Skin Skin exam: Present: dry, intact Internal Medicine: Result - Labs CBC & Chem 7: 01/30/17 03:43 01/30/17 03:43 Labs: Short CBC 01/30/17 Range/Units 03:43 WBC 9.0 (4.3-11.1) K/mcL Hgb 11.8 D (11.5-15.4) g/dL Hct 37.1 (35.3-44.9) % Plt Count 257 (140-400) K/mcL Neutrophils # 5.9 (1.6-8.9) K/mcL BMP 01/30/17 03:43 Sodium 138 Potassium 4.5 D Chloride 104 Carbon Dioxide 29 BUN 26 H Creatinine 0.79 Glucose 172 H Calcium 9.1 D - ABG Interpretation ABG results: ABG ABG pH 7.42 pH Units (7.32-7.45) 07/22/17 Unknown ABG pCO2 39 mmHg (35-45) 01/25/17 Unknown ABG pO2 95 mmHg (85-104) 01/25/17 Unknown ABG O2 Saturation 98 % (95-98) 01/25/17 Unknown PT/INR, D-dimer PT 12.5 Seconds (9.4-12.1) H 01/25/17 03:48 - VTE Reasons for not Prescribing Prophylaxis: Treatment not Indicated - Low risk for VTE Documentation of Mechanical Device: Graduated compression elastic hosiery Consult Discharge Plan - Plan Instructions: Metoprolol (By mouth), Hydrocodone/Acetaminophen (By mouth), Coronary Artery Bypass Graft (DC), Diabetes Mellitus Type 2 in Adults (DC), Sternal Precautions, Base Filler (GEN) Referrals: Jeffrey Bolden CNP [Advanced Practice Nurse] - 02/07/17 3:30 pm Sallie Reynolds MD [Partnered Physician] - 02/20/17 1:50 pm Ketty Cade CNP [Primary Care Provider] - 02/11/17 8:00 am () Prescriptions: RX: HYDROcodone/Acet 5/325 mg [[place] 5-325 mg] 1 tab PO Q4HR PRN #50 tab PRN Reason: Moderate Pain (4-6) RX: Metoprolol XL (24 HR) Succ [Toprol Xl] 25 mg PO DAILY #30
== END 2017-01-30 10:26 | disposition home or self-care (01) | DRG 233 ==
LOC: EMEROO 14:15 → 3BNU 14:15 → SUATTDRO 16:40 → 3BNU 17:28 → 2NNU 01-23 13:47 → ICNU 01-24 08:34 → SUATTDRO 01-24 08:43 → 2NNU 01-27 10:41
PROVIDERS: ADMIT Thoracic Surgery (Cardiothoracic Vascular Surgery); ATTEND Internal Medicine

== ENCOUNTER 2017-02-25 10:25 | Inpatient (IN) ==
[2017-02-25] MEDS ORDERED: Vancomycin 1,000 MG in D5% in Water 250 ML IVPB ONE (10:47)
[2017-02-25] MEDS ORDERED: Piperacillin/Tazobactam 3.375 GM in D5% in Water (Mini-Bag+) 100 ML IVPB ONE (10:47)
[2017-02-25] MEDS ORDERED: 0.9 % Sodium Chloride 1,000 ML IVC ONE (10:47)
--- NOTE | 2017-02-25 11:05 | Emergency Department Note ---
Disposition Clinical Impression: Sepsis Qualifiers: Sepsis type: sepsis due to unspecified organism Qualified Code(s): A41.9 - Sepsis, unspecified organism Disposition: Home, Self-Care Condition: Fair Referrals: NONE,PCP [Primary Care Provider] - Forms: ED Satisfaction Letter Time of Disposition: 11:18 General Adult HPI - General Chief complaint: ED Recheck/Abnormal Lab/Rx Stated complaint: Hypotension from [place] office Time Seen by Provider: 02/25/17 10:42 Source: patient Mode of arrival: ambulatory Limitations: no limitations Nursing Notes Reviewed: Yes Vital Signs Reviewed: Yes - History of Present Illness HPI Narrative: 51-year-old ill-appearing female presents to the emergency department from her primary care provider's office for evaluation of hypotension and weakness. The patient was sent directly to the emergency department after vitals were obtained in her PCPs office. The patient complains of ongoing generalized weakness and chills. She underwent a CABG by Dr. Reynolds here at this hospital on 01/24/17. She complains of drainage that is seeping from the incisions where her drain tubes were placed from her sternotomy status post cabbage. She states that she has followed up with her primary care provider as well as her surgeon however has not been yet placed on antibiotics. She denies any abdominal pain, nausea, or vomiting but does complain of several episodes of diarrhea over the past several days. Pain Scale: 0 Associated symptoms: Reports: fever/chills, weakness, other (Low blood pressure) - Related Data Home Medications Medication Instructions Recorded Confirmed Atorvastatin [Lipitor] 40 mg PO HS 02/06/16 01/22/17 Lansoprazole [Prevacid] 30 mg PO [facility] 02/06/16 01/22/17 Lisinopril [Zestril] 20 mg PO DAILY 02/06/16 01/22/17 NIFEdipine [Nifedical Xl] 30 mg PO DAILY 02/06/16 01/22/17 Alogliptin Keon/Metformin HCl 1 each PO BID 01/22/17 01/22/17 [Kazano 12.5-1,000 mg Tablet] Insulin Glargine,Hum.rec.anlog 62 unit SQ 01/22/17 01/22/17 [Basaglar Kwikpen U-100] hydroCHLOROthiazide 12.5 mg PO DAILY 01/22/17 01/22/17 [Hydrochlorothiazide] Previous Rx's Medication Instructions Recorded HYDROcodone/Acet 5/325 mg [[place] 1 tab PO Q4HR PRN #50 tab 01/30/17 5-325 mg] Metoprolol XL (24 HR) Succ [Toprol 25 mg PO DAILY #30 01/30/17 Xl] Allergies Allergy/AdvReac Type Severity Reaction Status Date / Time No Known Allergies Allergy Verified 02/25/17 10:33 All systems ED: reviewed and negative except as stated. Constitutional: Reports: as per HPI, chills. Denies: fever, weakness, weight change Eyes: Denies: eye pain, eye discharge, vision change ENT ED: Denies: ear pain, throat pain, dental pain, hearing loss, epistaxis, congestion, dysphagia Cardiovascular: Denies: chest pain, palpitations, dyspnea on exertion, edema, syncope Respiratory: Denies: cough, dyspnea, wheezes, hemoptysis, stridor Gastrointestinal: Denies: abdominal pain, nausea, vomiting, diarrhea, constipation, hematemesis, melena, hematochezia Genitourinary: Denies: dysuria, frequency, hematuria, discharge Musculoskeletal: Denies: back pain, neck pain, arthralgia, myalgia Integumentary: Reports: as per HPI, other (Drainage from surgical site). Denies : rash, abrasion, lesions Neurological: Reports: as per HPI, weakness (Generalized). Denies: headache, numbness, paresthesias, confusion, abnormal gait, vertigo Psychiatric: Denies: anxiety, depression, suicidal thoughts, homicidal thoughts , auditory hallucinations, visual hallucinations Endocrine: Denies: fatigue Hematological/Lymphatic: Denies: easy bleeding, easy bruising Allergic/Immunologic: Denies: facial swelling, urticaria Past Medical History - Past Medical History Attestation: Yes The following information was validated with the patient. Source: patient, nursing notes reviewed Medical history: Reports: coronary artery disease, diabetes, GERD, hypertension Surgical history: Reports: cholecystectomy, orthopedic, other, ADA/BSO, other ( Tubal ligation, tonsillectomy/adenoidectomy) Psychiatric history: Reports: no psych history - Social History Smoking Status: Former smoker Smokeless Tobacco Status: No Alcohol use: Reports: occasionally Drug use: Reports: none Physical Exam - General Limitations: no limitations General appearance: alert, in no apparent distress - Head Head exam: atraumatic, normocephalic, normal inspection - Eye Eye exam: Present: normal appearance, PERRL, EOMI. Absent: nystagmus - ENT ENT exam: mucous membranes moist - Neck Neck exam: Present: normal inspection, full ROM, trachea midline - Chest Chest inspection: Present: symmetric chest wall rise, other (Healing sternotomy incision noted.) - Respiratory Respiratory exam: Present: normal lung sounds bilaterally. Absent: respiratory distress, wheezes, stridor, accessory muscle use, prolonged expiratory phase - Cardiovascular Cardiovascular exam: Present: normal rhythm, tachycardia, normal heart sounds - Abdominal Exam Abdominal exam: Present: soft, Non-Tender, normal bowel sounds, other (Multiple surgical incisions noted to the patient's abdomen. All incisions are surrounded with a mild degree of erythema. At least to the incisions are draining a yellowish/greenish or yellow discharge) - Extremities Exam Extremities exam: Present: normal inspection, full ROM. Absent: tenderness, pedal edema - Neurological Exam Neurological exam: Present: alert, oriented X3 - Psychiatric Psychiatric exam: Present: normal affect, normal mood - Skin Skin exam: Present: warm, dry, intact, normal color Course Vital Signs Temperature 100.5 F H 02/25/17 10:31 Pulse Rate 147 02/25/17 10:31 Respiratory Rate 18 02/25/17 10:31 Blood Pressure 119/76 02/25/17 10:31 O2 Sat by Pulse Oximetry 95 02/25/17 10:31 Temperature 100.5 F H 02/25/17 10:31 Pulse Rate 141 02/25/17 11:00 Respiratory Rate 20 02/25/17 11:00 Blood Pressure 98/69 02/25/17 11:00 O2 Sat by Pulse Oximetry 97 02/25/17 11:11 Oxygen Delivery Oxygen Delivery Room Air Medical Decision Making - Medical Records Medical records reviewed: Yes I reviewed the patient's medical records. [place] - S.[place] Situation: Demographics, MOA Background: Presenting Complaint, Relevant PMH, Meds, & Allergies Assessment: Vital Signs, Course and respsone to treatment, Exam Concerns, Patient/Family Expectation, Pertinant Lab Results, Outstanding Labs Recommendation: Barrier(s) to disposition, Recommendation based on pending studies, treatments, or consults S.B.A.R. Report Given to: Dr. Nuha Guillaume Repor Time: 11:18 (Care of this patient will be assumed by Dr. Rg due to mid-level shift change.)
[2017-02-25 11:33] LABS: INR 1.3; Prothrombin Time 14.4 Seconds (9.4-12.1)
[2017-02-25 11:35] LABS: Activated Partial Thrombo Time 29.2 Seconds (26.0-36.0)
[2017-02-25 11:41] LABS: Hematocrit 36.5 % (35.3-44.9); Hemoglobin 11.8 g/dL (11.5-15.4); Mean Corpuscular HGB Conc 32.3 g/dL (31.6-35.5); Mean Corpuscular Hemoglobin 28.8 pg (28.0-33.3); Mean Platelet Volume 10.2 fL (9.4-12.4); Platelet Count 154 K/mcL (140-400); Red Cell Distribution Width 12.5 % (11.5-14.5)
[2017-02-25 11:43] LABS: Albumin 2.4 g/dL (3.5-5.0); Albumin/Globulin Ratio 0.5 (1.1-2.2); Bilirubin,Direct 0.6 mg/dL (0.0-0.5); Bilirubin,Indirect 0.4 mg/dL (0.0-1.2); Calcium 9.2 mg/dL (8.6-10.8); Globulin 5.3 g/dL (2.4-3.5); Potassium 4.5 mEq/L (3.5-4.5); Total Protein 7.7 g/dL (6.0-8.3)
[2017-02-25] MEDS ORDERED: Aspirin 325 MG TABLET PO ONE (12:06)
--- NOTE | 2017-02-25 12:21 | Emergency Department Note ---
Disposition Clinical Impression: Splenic infarct Sepsis Qualifiers: Sepsis type: sepsis due to unspecified organism Qualified Code(s): A41.9 - Sepsis, unspecified organism Infected sternotomy closure wire Qualifiers: Encounter type: initial encounter Qualified Code(s): T84.7XXA - Infection and inflammatory reaction due to other internal orthopedic prosthetic devices, implants and grafts, initial encounter Adrenal adenoma Qualifiers: Laterality: unspecified laterality Qualified Code(s): D35.00 - Benign neoplasm of unspecified adrenal gland Disposition: Admitted As Inpatient Condition: Fair Referrals: NONE,PCP [Non-Partnered Physician] - Forms: ED Satisfaction Letter Time of Disposition: 13:45 General Adult HPI - General Chief complaint: ED Recheck/Abnormal Lab/Rx Stated complaint: Hypotension from [place] office Time Seen by Provider: 02/25/17 10:42 Source: patient Mode of arrival: ambulatory Limitations: no limitations Nursing Notes Reviewed: Yes Vital Signs Reviewed: Yes - History of Present Illness HPI Narrative: 51 year old female s/p CABG from Dr. Jones on January 24, 2017. I accepted sign out from the PA (Christal). Shanice is likley in severe sepsis secondary to infection in her chest/abdomen from drainage of where her previous drains were placed status post surgery. Ptinets and family at bedside states that she most recently followed up Dr. Jones office this past and it had minimal drainage then howevr now there are great deal more of drainage with a foul smell and she had been feverish with chills and decreased appetite at home. Shanice states that she has also been nauseated without vomitting. She is denies chest pain or abdominla pain at this time. She is ill-appearing my I agree with the previous assessment for severe sepsis. Shanice states that she tried cleaning the wounds with peroxide as recommedned but it has not helped. Pain Scale: 0 Associated symptoms: Reports: fever/chills, weakness, other (Low blood pressure) - Related Data Home Medications Medication Instructions Recorded Confirmed Atorvastatin [Lipitor] 40 mg PO HS 02/06/16 01/22/17 Lansoprazole [Prevacid] 30 mg PO QAM 02/06/16 01/22/17 Lisinopril [Zestril] 20 mg PO DAILY 02/06/16 01/22/17 NIFEdipine [Nifedical Xl] 30 mg PO DAILY 02/06/16 01/22/17 Alogliptin Keon/Metformin HCl 1 each PO BID 01/22/17 01/22/17 [Kazano 12.5-1,000 mg Tablet] Insulin Glargine,Hum.rec.anlog 62 unit SQ HS 01/22/17 01/22/17 [Basaglar Kwikpen U-100] hydroCHLOROthiazide 12.5 mg PO DAILY 01/22/17 01/22/17 [Hydrochlorothiazide] Previous Rx's Medication Instructions Recorded HYDROcodone/Acet 5/325 mg [[place] 1 tab PO Q4HR PRN #50 tab 01/30/17 5-325 mg] Metoprolol XL (24 HR) Succ [Toprol 25 mg PO DAILY #30 01/30/17 Xl] Allergies Allergy/AdvReac Type Severity Reaction Status Date / Time No Known Allergies Allergy Verified 02/25/17 10:33 Constitutional: Reports: as per HPI, chills. Denies: fever, weakness, weight change Eyes: Denies: eye pain, eye discharge, vision change ENT ED: Denies: ear pain, throat pain, dental pain, hearing loss, epistaxis, congestion, dysphagia Cardiovascular: Denies: chest pain, palpitations, dyspnea on exertion, edema, syncope Respiratory: Denies: cough, dyspnea, wheezes, hemoptysis, stridor Gastrointestinal: Denies: abdominal pain, nausea, vomiting, diarrhea, constipation, hematemesis, melena, hematochezia Genitourinary: Denies: dysuria, frequency, hematuria, discharge Musculoskeletal: Denies: back pain, neck pain, arthralgia, myalgia Integumentary: Reports: as per HPI, other (Drainage from surgical site). Denies : rash, abrasion, lesions Neurological: Reports: as per HPI, weakness (Generalized). Denies: headache, numbness, paresthesias, confusion, abnormal gait, vertigo Psychiatric: Denies: anxiety, depression, suicidal thoughts, homicidal thoughts , auditory hallucinations, visual hallucinations Endocrine: Denies: fatigue Hematological/Lymphatic: Denies: easy bleeding, easy bruising Allergic/Immunologic: Denies: facial swelling, urticaria Past Medical History - Past Medical History Medical history: Reports: coronary artery disease, diabetes, GERD, hypertension Surgical history: Reports: cholecystectomy, orthopedic, other, ADA/BSO, other ( Tubal ligation, tonsillectomy/adenoidectomy) Psychiatric history: Reports: no psych history - Social History Smoking Status: Former smoker Smokeless Tobacco Status: No Alcohol use: Reports: occasionally Drug use: Reports: none Physical Exam - General Limitations: no limitations General appearance: alert, in no apparent distress, other (ill-appearing) - Head Head exam: atraumatic, normocephalic, normal inspection - Eye Eye exam: Present: normal appearance, PERRL, EOMI - Expanded Eye Exam Pupils: Left: reactive - ENT ENT exam: normal exam, normal oropharynx, mucous membranes moist - Expanded ENT Exam External ear exam: Present: normal external inspection Mouth exam: Present: normal external inspection Teeth exam: Present: normal inspection Throat exam: Present: normal inspection - Neck Neck exam: Present: normal inspection, full ROM, trachea midline - Chest Chest inspection: Present: normal inspection, symmetric chest wall rise - Respiratory Respiratory exam: Present: normal lung sounds bilaterally - Cardiovascular Cardiovascular exam: Present: normal rhythm, tachycardia, normal heart sounds - Abdominal Exam Abdominal exam: Present: soft, Non-Tender, other (four areas of drainge in th epigatrium what appear to have increased green-yellow drainainge and foul smell with surrounding cellulitis. ). Absent: tenderness, distention, guarding, rebound, rigidity - Extremities Exam Extremities exam: Present: normal inspection, full ROM. Absent: tenderness, pedal edema - Expanded Upper Extremity Exam Shoulder exam: Present: normal inspection, full ROM Arm exam: Present: normal inspection, full ROM Elbow exam: Present: normal inspection, full ROM Forearm/Wrist exam: Present: normal inspection, full ROM Hand exam: Present: normal inspection, full ROM Vascular exam: Normal: capillary refill, radial pulse - Expanded Lower Extremity Exam Hip/Pelvis exam: Present: normal inspection, full ROM Upper leg exam: Present: normal inspection, full ROM Knee exam: Present: normal inspection, full ROM Lower leg exam: Present: normal inspection, full ROM Ankle exam: Present: normal inspection, full ROM Foot/toe exam: Present: normal inspection, full ROM Neurovascular/Tendon exam: Absent: motor deficit, sensory deficit, tendon deficit - Back Exam Back exam: Present: normal inspection, full ROM. Absent: tenderness - Neurological Exam Neurological exam: Present: alert, oriented X3 - Expanded Neurological Exam Patient oriented to: Present: person, place, time Coma Scale Eye Opening: Spontaneous Coma Scale Motor Response: Obeys Commands Coma Scale Verbal Response: Oriented Coma Scale Total: 15 - Psychiatric Psychiatric exam: Present: normal affect, normal mood - Skin Skin exam: Present: warm, dry, intact, normal color, other (As describe with the four drain site, no active bleeding but there is active drainage) Course Course Narrative: we will admit to medicine for severe sepsis and continue IVF and ABX therapy. Patient will also recieve cardizem 10IV push to bring HR down from 140s. ASA therapy for elevated troponin and CT of chest of [facility] for absecss assessment. - Consultations Consultation #1: discussed case with Dr. Zambrano (CT surgeon) and he acceps patient as consult ith admission to medicine. He would like an ID consult added. Time: 13:33 Vital Signs Temperature 100.5 F H 02/25/17 10:31 Pulse Rate 147 02/25/17 10:31 Respiratory Rate 18 02/25/17 10:31 Blood Pressure 119/76 02/25/17 10:31 O2 Sat by Pulse Oximetry 95 02/25/17 10:31 Temperature 100.5 F H 02/25/17 10:31 Pulse Rate 139 02/25/17 13:30 Respiratory Rate 20 02/25/17 13:30 Blood Pressure 116/78 02/25/17 13:30 O2 Sat by Pulse Oximetry 96 02/25/17 13:30 Oxygen Delivery Oxygen Delivery Room Air Medical Decision Making - Lab Data Result diagrams: 02/25/17 11:10 02/25/17 11:10 Lab Results 02/25/17 02/25/17 02/25/17 Range/Units 11:10 11:10 11:10 WBC 11.2 H (4.3-11.1) K/mcL RBC 4.10 (3.82-4.97) M/mcL Hgb 11.8 (11.5-15.4) g/dL Hct 36.5 (35.3-44.9) % MCV 89.0 (83.0-100.0) fL MCH 28.8 (28.0-33.3) pg MCHC 32.3 (31.6-35.5) g/dL RDW 12.5 (11.5-14.5) % Plt Count 154 (140-400) K/mcL MPV 10.2 (9.4-12.4) fL Seg Neutrophils % 92.0 % Band Neutrophils % 6.0 H (0-4) % Lymphocytes % 2.0 % Neutrophils # 11.0 H (1.6-8.9) K/mcL Lymphocytes # 0.2 L (0.6-4.6) K/mcL Platelet Estimate Normal (Normal) PT 14.4 H (9.4-12.1) Seconds INR 1.3 APTT 29.2 (26.0-36.0) Seconds Sodium 126 L (136-145) mEq/L Potassium 4.5 (3.5-4.5) mEq/L Chloride 90 L (98-109) mEq/L Carbon Dioxide 22 (19-29) mEq/L BUN 31 H (7-20) mg/dL Creatinine 1.36 H (0.57-1.11) mg/dL Est GFR ( Amer) 50 L (> 60) Est GFR (Non-Af Amer) 41 L (> 60) BUN/Creatinine Ratio 23 (6-26) Glucose 367 H (70-99) mg/dL Calculated Osmolality 283 (280-300) Lactic Acid (0.5-2.2) mmol/L Calcium 9.2 (8.6-10.8) mg/dL Total Bilirubin 1.0 (0.2-1.2) mg/dL Direct Bilirubin 0.6 H (0.0-0.5) mg/dL Indirect Bilirubin 0.4 (0.0-1.2) mg/dL AST 60 H (5-34) Units/L ALT 25 (0-55) Units/L Alkaline Phosphatase 140 H (38-126) Units/L Troponin I (0-0.03) ng/mL Serum Total Protein 7.7 (6.0-8.3) g/dL Albumin 2.4 L (3.5-5.0) g/dL Globulin 5.3 H (2.4-3.5) g/dL Albumin/Globulin Ratio 0.5 L (1.1-2.2) Lipase 10 (8-78) Units/L 02/25/17 02/25/17 Range/Units 11:10 11:10 WBC (4.3-11.1) K/mcL RBC (3.82-4.97) M/mcL Hgb (11.5-15.4) g/dL Hct (35.3-44.9) % MCV (83.0-100.0) fL MCH (28.0-33.3) pg MCHC (31.6-35.5) g/dL RDW (11.5-14.5) % Plt Count (140-400) K/mcL MPV (9.4-12.4) fL Seg Neutrophils % % Band Neutrophils % (0-4) % Lymphocytes % % Neutrophils # (1.6-8.9) K/mcL Lymphocytes # (0.6-4.6) K/mcL Platelet Estimate (Normal) PT (9.4-12.1) Seconds INR APTT (26.0-36.0) Seconds Sodium (136-145) mEq/L Potassium (3.5-4.5) mEq/L Chloride (98-109) mEq/L Carbon Dioxide (19-29) mEq/L BUN (7-20) mg/dL Creatinine (0.57-1.11) mg/dL Est GFR ( Amer) (> 60) Est GFR (Non-Af Amer) (> 60) BUN/Creatinine Ratio (6-26) Glucose (70-99) mg/dL Calculated Osmolality (280-300) Lactic Acid 2.9 H (0.5-2.2) mmol/L Calcium (8.6-10.8) mg/dL Total Bilirubin (0.2-1.2) mg/dL Direct Bilirubin (0.0-0.5) mg/dL Indirect Bilirubin (0.0-1.2) mg/dL AST (5-34) Units/L ALT (0-55) Units/L Alkaline Phosphatase (38-126) Units/L Troponin I 0.39 H* (0-0.03) ng/mL Serum Total Protein (6.0-8.3) g/dL Albumin (3.5-5.0) g/dL Globulin (2.4-3.5) g/dL Albumin/Globulin Ratio (1.1-2.2) Lipase (8-78) Units/L - EKG Data EKG #1 EKG attestation: Yes I reviewed and interpreted this EKG. EKG results narrative: sinus tachycardia with rate of 141. NO STEMI. normal intervals. changed from . 1049
[2017-02-25 13:31] LABS: Lymphocytes # 0.2 K/mcL (0.6-4.6); Platelet Estimate Normal (Normal)
[2017-02-25] MEDS: 0.9 % Sodium Chloride 1,000 ML IVC SCH ×3 (13:44→17:37)
[2017-02-25] MEDS ORDERED: Ondansetron 4 MG/2 ML VIAL IVP PRN (14:16)
[2017-02-25] MEDS ORDERED: *HR* Morphine 2 MG/ML SYRINGE IVP PRN (14:16)
[2017-02-25] MEDS ORDERED: Naloxone 0.4 MG/ML INJ IVP PRN (14:16)
[2017-02-25 14:22] LABS: Bilirubin,Urine Small (Negative); Blood,Urine Small (Negative); Clarity,Urine Turbid (Clear); Color,Urine Dark Yellow (Yellow); Glucose,Urine (UA) >=1000 mg/dL (Normal); Ketones,Urine 15 mg/dL (Negative); Leukocyte Esterase,Urine Trace (Negative); Nitrite,Urine Negative (Negative); PH,Urine 5.5 pH Units (5.0-8.0); Protein,Urine 100 mg/dL (Neg-Trace); Specific Gravity,Urine > 1.030 (1.010-1.025); Urobilinogen,Urine Normal (Normal)
[2017-02-25 14:24] LABS: Bacteria,Urine Few per hpf (None-Few); Squamous Epithelial Cell,Urine Many per lpf (None-Few); WBC,Urine 15-30 per hpf (0-3)
[2017-02-25] MEDS ORDERED: *HR* Heparin 5,000 UNIT/ML VIAL IVP ONE (14:26)
[2017-02-25] MEDS ORDERED: *HR* Heparin 5,000 UNIT/ML VIAL IVP PRN ×2 (14:26)
[2017-02-25] MEDS ORDERED: 0.9 % Sodium Chloride 1,000 ML IVC SCH (14:30)
[2017-02-25] MEDS ORDERED: Heparin 25,000 UNIT/500 ML D5W 25,000 UNIT/500 ML MLS IVC SCH (14:30)
[2017-02-25 14:38] LABS: RBC,Urine 0-3 per hpf (0-3)
[2017-02-25 14:40] LABS: Amorphous Sediment,Urine Few (Few); Granular Casts,Urine Few per lpf (None Seen)
--- NOTE | 2017-02-25 14:59 | Cardiothoracic Consult Note ---
Date of Encounter: 02/25/17 Time of Encounter: 14:56 Assessment and Plan (1) Diabetes Current Visit: No Status: Chronic The assessment and plan as outlined above was discussed with the patient and/or family members who expressed understanding and agreement. All questions were answered. The CT scan of the chest Eales an abscess of the manubrium she will require IV antibiotics. I will schedule her for tomorrow for sternal debridement and rewiring. She may also require a wound VAC. If we're unable to close the sternum and soft tissue she may eventually require muscle flaps. We will culture the area at the time of surgery. The procedure, its risks benefits and alternatives were explained and she does wish to proceed. Risks of surgery include , recurrent infection, myocardial infarction, stroke, sepsis, renal or respiratory failure and an inability to close the wound. The patient and her family are agreeable and have no questions. We will schedule her for tomorrow. 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 Coyne is a 51 year old female History of present illness. The patient is a 51-year-old female who underwent coronary artery bypass grafting by Dr. Reynolds on January 24, 2017. He had seen her approximately 1 week ago when she was doing well. However she developed some drainage from the lower part of the incision. She also had hypotension and low grade fever. In the emergency room her temperature was 100.5. CT scan of the chest revealed dehiscence of the manubrium of the sternum with a sternal abscess. The body of the sternum is intact. She is being admitted for IV antibiotics and will require sternal debridement, drainage and rewiring. Past medical history is notable for diabetes on insulin and oral agents. No history of angina since the surgery. Social history. She lives in [place] with her daughter. Does not smoke and does not drink. Family history is negative for coronary artery disease. Review of systems is negative for stroke or TIA. Past Med Surg Social Fam HX - Past Medical History Medical history: coronary artery disease, diabetes, GERD, hypertension Psychiatric history: no psych history - Past Surgical History Surgical History: cholecystectomy, orthopedic, other, ADA/BSO, other (Tubal ligation, tonsillectomy/adenoidectomy) - Social History Smoking Status: Former smoker Smokeless Tobacco Status: No Alcohol use: occasionally Drug use: none - Family History Father Family Member Ethnicity: Non- Living Status: Still Living Hx Family Cardiac Disorders: Yes (HTN) Hx Family Respiratory Disorders: Yes (Asthma) Mother Family Member Ethnicity: Non- Living Status: Still Living Hx Family Cardiac Disorders: Yes (HLD, HTN) Brother Family Member Ethnicity: Non- Living Status: Still Living Sister Family Member Ethnicity: Non- Living Status: Still Living Hx Family Cardiac Disorders: Yes (HLD) Hx Family Respiratory Disorders: Yes (Asthma) Hx Family Cancer: Yes (Breast) Medications and Allergies Atorvastatin [Lipitor] 40 mg PO HS 02/06/16 [History] Lansoprazole [Prevacid] 30 mg PO QAM 02/06/16 [History] Alogliptin Keon/Metformin HCl [[place] 12.5-1,000 mg Tablet] 1 each PO BID [History] Insulin Glargine,Hum.rec.anlog [Basaglar Kwikpen U-100] 62 unit SQ HS 01/22/17 [ History] hydroCHLOROthiazide [Hydrochlorothiazide] 12.5 mg PO DAILY 01/22/17 [History] HYDROcodone/Acet 5/325 mg [[place] 5-325 mg] 1 tab PO Q4HR PRN #50 tab 01/30/17 [ Rx] Metoprolol XL (24 HR) Succ [Toprol Xl] 25 mg PO DAILY #30 01/30/17 [Rx] Lisinopril [Zestril] 10 mg PO DAILY 02/25/17 [History] 3 Allergy/AdvReac Type Severity Reaction Status Date / Time No Known Allergies Allergy Verified 02/25/17 10:33 All Systems Review: A 10-system review of systems was performed and is negative for pertinent findings except as documented above in the HPI. Physical Examination Pupils are equal, round and reactive to light and accommodation. No oral lesions. Neck is supple. Trachea in the midline. No thyromegaly or carotid bruits. Lungs are clear to percussion and auscultation. Heart is in a sinus tachycardia. No murmurs, gallops or rubs. There appears to be faint cellulitis over the manubrium of the sternum. The body of the sternum feels intact. There are several small open areas over the lower part of the incision that appear purulent. The chest tube sites appear well healed. Abdomen is benign. No tenderness, rebound or guarding. Extremities without edema. 1+ pulses. Cranial nerves, motor and sensory intact. Results 02/25/17 11:10 02/25/17 11:10 Consult Discharge Plan - Plan Referrals: Ketty Cade, [employer] ENGINEER [Primary Care Provider] -
[2017-02-25] MEDS ORDERED: *HR* Dextrose 50 % in Water (Syg) 50 ML SYRINGE IVP PRN (15:02)
[2017-02-25] MEDS ORDERED: D5% in Water 1,000 ML IVC PRN (15:02)
[2017-02-25] MEDS ORDERED: Dextrose Gel 15 GM PO PRN ×2 (15:02)
--- NOTE | 2017-02-25 15:13 | Cardiology Consult Note ---
Date of Encounter: 02/25/17 Time of Encounter: 15:11 Assessment and Plan (1) Elevated troponin Current Visit: Yes Status: Acute Troponin elevation at 0.39. Likely demand ischemia in the setting of sepsis rather than ACS. Continue to trend. S/p recent 4V CABG. 01/24/17. (2) CAD (coronary artery disease) Current Visit: Yes Status: Acute S/p CABG 01/24/[address] Reynolds. Denies chest pain. Continue asa, statin, and bb. Cardiac rehab once able from CT surgery standpoint. Qualifiers: Coronary Disease-Associated Artery/Lesion type: [place] artery [place] vs. transplanted heart: [place] heart Associated angina: without angina Qualified Code(s): I25.10 - Atherosclerotic heart disease of [place] coronary artery without angina pectoris (3) Infected surgical wound Current Visit: Yes Status: Acute Sternal wound with drainage and redness starting over the last week. Discussed with Dr. Zambrano, planning for sternal wound debridement and re-wiring. Qualifiers: Encounter type: initial encounter Qualified Code(s): T81.4XXA - Infection following a procedure, initial encounter Discussion w patient/family: The assessment and plan as outlined above was discussed with the patient and/or family members who expressed understanding and agreement. All questions were answered. Thank you for involving us in the care of your patient. Please call with any questions. History of Present Illness Consult date: 02/25/17 Requesting physician: Vivien Beal Consult reason: Elevated troponin Chief complaint: sternal wound History of present illness: Ms. Coyne is a 51 year old female with past medical history significant for CABG (FLORES-LAD, SVG-D1-OM1, SVG-PDA) with Dr. Reynolds on 01/24/17, DM type II, HTN , tobacco use and HLD who presented with sternal wound and low grade fever and fatigue for the last two days. Reports she was doinq well until one week ago. Cardiology consulted for elevated troponin at 0.39. She denies chest pain. Denies palpitation, dizziness, or syncope. Previous cardiac testing: Echo 01/23/17 with LVEF 50%, mild LV systolic dysfunction with regional abnormalities, mild LV diastolic dysfunction with borderline elevated in filling pressures, no significant valvular dysfunction, the mid inferior and basal inferior septal mcdonald hypokinetic, basal inferior wall aneurysmal, all other wall segments with normal motion. Nuclear stress 01/23/17 with inferior and inferoseptal infarct with mild to moderate per-infarct ischemia. Gated EF 59%. Visual evidence of TID. [facility] 01/23/17- severe three vessel CAD. EF 60%. Past Med Surg Social Fam HX - Past Medical History Medical history: coronary artery disease, diabetes, GERD, hypertension Psychiatric history: no psych history - Past Surgical History Surgical History: cholecystectomy, coronary bypass (CABG), orthopedic, other, ADA/BSO, other (Tubal ligation, tonsillectomy/adenoidectomy) - Social History Smoking Status: Former smoker Smokeless Tobacco Status: No Alcohol use: occasionally Drug use: none - Family History Father Family Member Ethnicity: Non- Living Status: Still Living Hx Family Cardiac Disorders: Yes (HTN) Hx Family Respiratory Disorders: Yes (Asthma) Mother Family Member Ethnicity: Non- Living Status: Still Living Hx Family Cardiac Disorders: Yes (HLD, HTN) Brother Family Member Ethnicity: Non- Living Status: Still Living Sister Family Member Ethnicity: Non- Living Status: Still Living Hx Family Cardiac Disorders: Yes (HLD) Hx Family Respiratory Disorders: Yes (Asthma) Hx Family Cancer: Yes (Breast) Medications and Allergies Atorvastatin [Lipitor] 40 mg PO HS 02/06/16 [History] Lansoprazole [Prevacid] 30 mg PO QAM 02/06/16 [History] Alogliptin Keon/Metformin HCl [[place] 12.5-1,000 mg Tablet] 1 each PO BID [History] Insulin Glargine,Hum.rec.anlog [Basaglar Kwikpen U-100] 62 unit SQ HS 01/22/17 [ History] hydroCHLOROthiazide [Hydrochlorothiazide] 12.5 mg PO DAILY 01/22/17 [History] HYDROcodone/Acet 5/325 mg [[place] 5-325 mg] 1 tab PO Q4HR PRN #50 tab 01/30/17 [ Rx] Metoprolol XL (24 HR) Succ [Toprol Xl] 25 mg PO DAILY #30 01/30/17 [Rx] Lisinopril [Zestril] 10 mg PO DAILY 02/25/17 [History] 3 Allergy/AdvReac Type Severity Reaction Status Date / Time No Known Allergies Allergy Verified 02/25/17 10:33 All Systems Review: A 10-system review of systems was performed and is negative for pertinent findings except as documented above in the HPI. Physical Examination Vital Signs Temp Pulse Resp BP Pulse Ox 02/25/17 15:25 20 115/64 02/25/17 13:30 139 20 116/78 96 02/25/17 13:15 137 20 116/73 96 02/25/17 13:00 137 20 141/75 95 02/25/17 12:45 139 20 137/80 96 02/25/17 12:30 139 20 132/78 96 02/25/17 12:02 133 20 123/77 95 02/25/17 11:45 141 20 128/82 99 02/25/17 11:30 144 20 120/76 98 02/25/17 11:15 142 20 117/70 99 02/25/17 11:11 97 02/25/17 11:00 141 20 98/69 98 02/25/17 10:45 141 20 107/74 98 02/25/17 10:38 139 20 99/74 98 02/25/17 10:31 100.5 F H 147 18 119/76 95 Intake and Output 02/24/17 02/25/17 02/25/17 23:59 07:59 15:59 Intake Total 2350 / 2350 Balance 2350 / 2350 Intake: IV Fluids 2350 / 2350 0.9 % Sodium Chloride 1, 2000 / 2000 000 ML @ 3750 mls/hr IVC .Q16M [facility] Rx#:[id number] Zosyn 3.375 GM In 100 / 100 Dextrose 5% (Minibag+) 100 ML 100 ML @ 25 mls/hr IVPB ONCE ONE Rx#: [id number] Vancocin 1,000 MG In 250 / 250 Dextrose 5% 250 ML @ 167 mls/hr IVPB ONCE ONE Rx#: [id number] Other: Weight 82.554 kg Patient Weight 02/25/17 23:59 Weight 82.554 kg General: Conversant, No Apparent Distress, Other (Ill appearing) HEENT: Atraumatic, Normocephaly, Mucus Membranes Moist Neck: No JVD, Normal carotid pulses Cardiac: Reg Rate and Rhythm, Normal S1 and S2, No Murmur, Other (tachycardia) Lungs: Normal Breath Sounds, No Wheeze, Rales, Rhonchi Neuro: Alert and responsive, No focal deficits noted Abdomen: Soft, Non-Tender Skin: No rashes noted on visualized skin Musculoskeletal: No Chest Wall Tenderness, Other (genral weakness. ) Extremities: No Clubbing, No Cyanosis, No Edema, Normal Pulses Results 02/25/17 11:10 02/25/17 11:10 - Imaging and Cardiology Stress Test: report reviewed Echo: report reviewed Cardiac cath: report reviewed - EKG Interpretation EKG results cardiology: personally reviewed (St with HR 140, PVC) Consult Discharge Plan - Plan Referrals: Ketty Cade, TIER OVER [Primary Care Provider] -
--- NOTE | 2017-02-25 15:15 | Internal Med History&Physical ---
Date of Encounter: 02/25/17 Time of Encounter: 14:10 Assessment and Plan (1) Sepsis Current visit: Yes Status: Acute Secondary to infected surgical site (s/p CABG on 01/24/17), substernal incision site draining purulent discharge continue IV abx IV fluids follow up blood and wound cultures cardiothoracic surgery consultation appreciated-scheduled for sternal debridement in am NPO after midnight pain control ID consultation requested Qualifiers: Sepsis type: sepsis due to unspecified organism Qualified Code(s): A41.9 - Sepsis, unspecified organism (2) Infected surgical wound Current visit: Yes Status: Acute plan as listed above Qualifiers: Encounter type: initial encounter Qualified Code(s): T81.4XXA - Infection following a procedure, initial encounter (3) NSTEMI (non-ST elevated myocardial infarction) Current visit: Yes Status: Acute Elevated TNI with Aflutter started on Heparin gtt cardiology evaluation requested will monitor serial TNI continue ASA, statin, BB (4) Diabetes Current visit: No Status: Chronic continue home insulin dosage sliding scale insulin algorithm as needed monitor FS and BG ADA diet Qualifiers: Diabetes mellitus type: type 2 Diabetes mellitus complication status: with unspecified complications Diabetes mellitus 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 insulin use: with 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 use Qualified Code(s): E11.8 - Type 2 diabetes mellitus with unspecified complications; Z79.4 - adjunct faculty for medical terminology (current) use of insulin (5) HTN (hypertension) Current visit: No Status: Chronic BP within acceptable range continue home medications Qualifiers: Hypertension type: essential hypertension Qualified Code(s): I10 - Essential (primary) hypertension (6) Hyponatremia Current visit: Yes Status: Acute Euvolemic hyponatremia IV fluids given sepsis will closely monitor Na (do not correct Na levels more than 6-8meq in 24 hours) (7) HLD (hyperlipidemia) Current visit: No Status: Chronic continue statin therapy Qualifiers: Hyperlipidemia type: pure hypercholesterolemia Qualified Code(s): E78.00 - Pure hypercholesterolemia, unspecified; E78.0 - Pure hypercholesterolemia (8) DVT prophylaxis Current visit: No Status: Acute anticoagulation with heparin (9) Acute kidney injury Current visit: Yes Status: Acute secondary to underlying infection hold nephrotoxic agents at this time monitor renal function closely Internal Medicine - H&P: HPI Chief complaint: sent by PCP for infected surgical wound Admitted From: Home Plans for Post Hospital Care: Home History of present illness: Ms. Coyne is a 51 year old female with PMH of CAD, s/p CABG, DM, HTN, obesity admitted for management of sepsis secondary to infected surgical site. Patient underwent coronary artery bypass grafting on January 24, 2017 and is noted to have developed drainage from the lower part of the incision. She was also noted to have elevated TNI along with tachycardia in the ER. She is resting in bed and states her wound has been draining for over a week. She was initially noted to have Aflutter, however currently is in sinus rhythm. Patient states she is feeling better since her hospitalization and denies any chest pain, shortness of breath, abd pain, n/v, fever, or chills. Given her elevated TNI, cardiology consultation was requested. As per cardiology , heparin gtt was recommended due to her elevated TNI given her cardiac history. Cardiothoracic surgery consultation was requested due to infected surgical wound. Pt is scheduled for sternal debridement in am. Past Med Surg Social Fam HX - Past Medical History Medical history: coronary artery disease, diabetes, GERD, hypertension Psychiatric history: no psych history - Past Surgical History Surgical History: cholecystectomy, orthopedic, other, ADA/BSO, other (Tubal ligation, tonsillectomy/adenoidectomy) - Social History Smoking Status: Former smoker Smokeless Tobacco Status: No Alcohol use: occasionally Drug use: none - Family History Father Family Member Ethnicity: Non- Living Status: Still Living Hx Family Cardiac Disorders: Yes (HTN) Hx Family Respiratory Disorders: Yes (Asthma) Mother Family Member Ethnicity: Non- Living Status: Still Living Hx Family Cardiac Disorders: Yes (HLD, HTN) Brother Family Member Ethnicity: Non- Living Status: Still Living Sister Family Member Ethnicity: Non- Living Status: Still Living Hx Family Cardiac Disorders: Yes (HLD) Hx Family Respiratory Disorders: Yes (Asthma) Hx Family Cancer: Yes (Breast) Internal Medicine - H&P: Meds Atorvastatin [Lipitor] 40 mg PO HS 02/06/16 [History] Lansoprazole [Prevacid] 30 mg PO QAM 02/06/16 [History] Alogliptin Keon/Metformin HCl [[place]az[place] 12.5-1,000 mg Tablet] 1 each PO BID [History] Insulin Glargine,Hum.rec.anlog [Basaglar Kwikpen U-100] 62 unit SQ HS 01/22/17 [ History] hydroCHLOROthiazide [Hydrochlorothiazide] 12.5 mg PO DAILY 01/22/17 [History] HYDROcodone/Acet 5/325 mg [[place] 5-325 mg] 1 tab PO Q4HR PRN #50 tab 01/30/17 [ Rx] Metoprolol XL (24 HR) Succ [Toprol Xl] 25 mg PO DAILY #30 01/30/17 [Rx] Lisinopril [Zestril] 10 mg PO DAILY 02/25/17 [History] 3 Allergy/AdvReac Type Severity Reaction Status Date / Time No Known Allergies Allergy Verified 02/25/17 10:33 All Systems PM: A 10-system review of systems was performed and is negative for pertinent findings except as documented above in the HPI. - Constitutional Constitutional: as per HPI - Constitutional Vitals: Temp Pulse Resp BP Pulse Ox 100.5 F H 139 20 116/78 96 02/25/17 10:31 02/25/17 13:30 02/25/17 13:30 02/25/17 13:30 02/25/17 13:30 General appearance: Present: A&O X 3, no acute distress, obese, answers questions appropriately - Head Head exam: Present: atraumatic, normocephalic - Eye Eye exam: Present: conjuntiva pink, sclera anicteric - Respiratory Respiratory exam: Absent: respiratory distress, wheezes - Cardiovascular Cardiovascular exam: Present: +S1, +S2, tachycardia Additional comments: lower incision site draining purulent discharge. chest tube sites-healed scars - GI/Abdominal GI/Abdominal exam: Present: normal bowel sounds, soft, no peritoneal signs. Absent: distended, tenderness - Extremities Exam Extremities exam: Present: warm, radial pulses palpable and symmetrical. Absent : calf tenderness - Neurological Exam Neurological exam: Present: alert, oriented X3 - Psychiatric Psychiatric exam: Present: normal affect, normal mood Internal Med - H&P Results - Labs CBC & Chem 7: 02/25/17 11:10 02/25/17 11:10
[2017-02-25 16:09] LABS: Hematocrit 30.2 % (35.3-44.9); Mean Corpuscular HGB Conc 33.4 g/dL (31.6-35.5); Mean Corpuscular Hemoglobin 29.8 pg (28.0-33.3); Mean Corpuscular Volume 89.1 fL (83.0-100.0); Mean Platelet Volume 10.2 fL (9.4-12.4); Platelet Count 118 K/mcL (140-400); Red Blood Count 3.39 M/mcL (3.82-4.97); Red Cell Distribution Width 12.5 % (11.5-14.5)
[2017-02-25] MEDS: Piperacillin/Tazobactam 3.375 GM in D5% in Water (Mini-Bag+) 100 ML IVPB SCH ×2 (16:15→23:37)
[2017-02-25] MEDS: Insulin LISPRO 300 UNITS/3 ML VIAL SQ SCH ×2 (16:15→20:49)
[2017-02-25 16:18] LABS: Hemoglobin 10.1 g/dL (11.5-15.4)
[2017-02-25 16:20] LABS: INR 1.4; Prothrombin Time 15.4 Seconds (9.4-12.1)
[2017-02-25 16:21] LABS: BUN/Creatinine Ratio 26 (6-26); Blood Urea Nitrogen 26 mg/dL (7-20); Carbon Dioxide 22 mEq/L (19-29); Chloride 99 mEq/L (98-109); Glucose 303 mg/dL (70-99); Osmolality,Calculated 282 (280-300); Potassium 3.7 mEq/L (3.5-4.5); Sodium 128 mEq/L (136-145); eGFR For African Americans > 60 (> 60); eGFR For Non-African Americans 59 (> 60)
[2017-02-25 16:26] LABS: Calcium 7.4 mg/dL (8.6-10.8)
[2017-02-25] MEDS ORDERED: Acetaminophen 325 MG TABLET PO PRN (16:48)
[2017-02-25] MEDS ORDERED: Insulin DETEMIR 100 UNIT/ML X5UNITS SQ SCH (21:00)
[2017-02-25] MEDS ORDERED: Vancomycin 1,000 MG in D5% in Water 250 ML IVPB SCH (22:00)
[2017-02-25 22:11] LABS: Acinetobacter baumannii by PCR Not Detected (Not Detect); Candida albicans by PCR Not Detected (Not Detect); Candida glabrata by PCR Not Detected (Not Detect); Candida krusei by PCR Not Detected (Not Detect); Candida parapsilosis by PCR Not Detected (Not Detect); Candida tropicalis by PCR Not Detected (Not Detect); Enterococcus by PCR Not Detected (Not Detect); Escherichia coli by PCR Not Detected (Not Detect); Klebsiella oxytoca by PCR Not Detected (Not Detect); Klebsiella pneumoniae by PCR Not Detected (Not Detect); Pseudomonas aeruginosa by PCR Not Detected (Not Detect); Serratia marcescens by PCR Not Detected (Not Detect); Staphylococcus aureus by PCR ***DETECTED*** (Not Detect); Streptococcus agalactiae(B)PCR Not Detected (Not Detect); Streptococcus by PCR Not Detected (Not Detect); Streptococcus pneumoniae PCR Not Detected (Not Detect); Streptococcus pyogenes (A) PCR Not Detected (Not Detect); blaKPC Carbapenem-Resist Gene Not Detected (Not Detect); mecA Methicillin-Resist Gene Not Detected (Not Detect); vanA/B Vancomycin-Resist Genes Not Detected (Not Detect)
[2017-02-25] MEDS ORDERED: 0.9 % Sodium Chloride 500 ML IVC ONE (22:17)
[2017-02-26] MEDS ORDERED: ceFAZolin 2,000 MG in D5% in Water (Mini-Bag+) 100 ML IVPB ONE (07:00)
[2017-02-26] MEDS ORDERED: *HR* Rocuronium Bromide 50 MG/5 ML VIAL ONE (07:13)
[2017-02-26] MEDS ORDERED: *HR* Phenylephrine 10 MG/ML VIAL ONE (07:13)
[2017-02-26] MEDS ORDERED: *HR* Propofol 200 MG/20 ML VIAL IVP ONE (07:14)
[2017-02-26] MEDS ORDERED: Lidocaine 2% Syringe 100 MG/5 ML ONE (07:15)
[2017-02-26] MEDS ORDERED: Heparin 1,000 UNITS/500 mL NS 500 ML ONE (07:35)
--- NOTE | 2017-02-26 07:37 | Anesthesia Evaluation PreOp ---
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 obesity) Anesthesia History: No Prior Anesthetic Complications Alcohol Use: occasionally Drug use: none Medications and Allergies Atorvastatin [Lipitor] 40 mg PO HS 02/06/16 [History] Lansoprazole [Prevacid] 30 mg PO QAM 02/06/16 [History] Alogliptin Keon/Metformin HCl [Kazano 12.5-1,000 mg Tablet] 1 each PO BID [History] Insulin Glargine,Hum.rec.anlog [Basaglar Kwikpen U-100] 62 unit SQ HS 01/22/17 [ History] hydroCHLOROthiazide [Hydrochlorothiazide] 12.5 mg PO DAILY 01/22/17 [History] HYDROcodone/Acet 5/325 mg [[place] 5-325 mg] 1 tab PO Q4HR PRN #50 tab 01/30/17 [ Rx] Metoprolol XL (24 HR) Succ [Toprol Xl] 25 mg PO DAILY #30 01/30/17 [Rx] Lisinopril [Zestril] 10 mg PO DAILY 02/25/17 [History] 3 Allergy/AdvReac Type Severity Reaction Status Date / Time No Known Allergies Allergy Verified 02/25/17 10:33 - Meds/Allergy Pre-op Review Medications Reviewed: Yes Allergies Reviewed: Yes Beta Blockers on Current Med List: Yes If Beta Blockers taken, Date/Time (Last Dose taken): 1615 02/25/2017 Anesthesia Results - Labs 02/25/17 15:59 02/25/17 15:59 Laboratory Tests 01/25/17 02/25/17 02/25/17 Unknown 11:10 15:59 WBC 11.2 H 9.5 Hgb 11.8 PT ABG pH 7.42 Sodium 02/25/17 02/25/17 15:59 15:59 WBC Hgb PT 15.4 H ABG pH Sodium 128 L - Imaging Additional studies: 01/25/2017 Echo Impressions: Technically sub-optimal due to clinical status and limited echo windows. LVEF 50-55%. The basal inferior wall is akinetic. Not all myocardial segments were well visualized. Atypical septal motion consistent with prior cardiac surgery. Mild concentric left ventricular hypertrophy. Moderate left ventricular diastolic dysfunction. Normal right ventricular size. Low-normal RV systolic function. No significant valvular dysfunction. No evidence of pulmonary hypertension. There is no pericardial effusion present. Anesthesia Exam Vital Signs/O2 Sat/Glucose, Most Recent Temp Pulse Resp BP Pulse Ox 101.0 F H 128 19 119/77 93 02/26/17 04:02/26/17 04:02/26/17 04:02/26/17 04:02/26/17 04:19 Blood Glucose* 226 Height: 1.55 m Weight: 83 kg NPO (# of Hours): > 8 hours - HEENT Mallampati: I Teeth: Normal Oral Opening: Greater than 3 - MATHEMATICS TEACHER LOC: Oriented MATHEMATICS TEACHER Motor: Normal RUE, Normal LUE, Normal RLE, Normal LLE, Normal Face MATHEMATICS TEACHER Sensory: Normal: RUE, LUE, RLE, LLE, Face - Cardiac Rhythm: Regular Murmur: None JVD: No Carotid Bruit: No - Pulmonary Breath Sounds: bilateral Clear Respiratory Effort: Symmetrical Anesthesia Assess/Plan ASA Score: 4 Modified [place] Scale for Level of Consciousness: Cooperative, oriented, and tranquil Anesthetic Plan: General Autologous Blood: No Monitoring Plan: A-Line Recovery Plan: ICU
[2017-02-26] MEDS ORDERED: *HR* FentaNYL (PF) 250 MCG/5 ML VIAL ONE (07:51)
[2017-02-26] MEDS ORDERED: *HR* Midazolam HCl 5 MG/5 ML VIAL IVP ONE (07:52)
--- NOTE | 2017-02-26 08:09 | Electrocardiograph Report ---
[address] [place], [place] [address] Test Date: 2017-02-25 Pat Name: Aracely Coyne Department: 102 Room: 2N15 Gender: F Maintainer Operator: : 1965 Requested By: Mauricio Garrett Order Number: [id number] Reading MD: Frandy Escobar MD Measurements Intervals [place] Rate: 141 P: 17 VT: 108 QRS: -19 QRSD: 112 T: -14 QT: 279 QTc: 361 Interpretive Statements SINUS TACHYCARDIA WITH SHORT VT INTERVAL WITH FREQUENT ECTOPIC PREMATURE COMPLEXES Poor R wave progression INFERIOR MYOCARDIAL INFARCTION, OF INDETERMINATE AGE Electronically Signed On 02-26-2017 8:07:23 EDT by Frandy Escobar MD
[2017-02-26] MEDS ORDERED: Insulin Regular, Human 100 UNIT/ML ONE (08:24)
[2017-02-26] MEDS ORDERED: Ondansetron 4 MG/2 ML VIAL ONE (08:46)
[2017-02-26] MEDS ORDERED: Dexamethasone 4 MG/ML VIAL ONE (08:46)
[2017-02-26] MEDS ORDERED: *HR* OxyCODONE/APAP 5/325 TABLET PO PRN (10:02)
[2017-02-26] MEDS ORDERED: Naloxone 0.4 MG/ML INJ IVP PRN (10:02)
--- NOTE | 2017-02-26 10:13 | Operative Note ---
Date of procedure: 02/26/17 Procedure in Detail: Preoperative diagnosis. Sternal infection. Postoperative diagnosis. Same. Procedures. Incision and drainage of sternal abscess with debridement of the sternum and sternal rewiring. Surgeon. Dr. Bruno Zambrano. The patient is a 51- year-old female with history of diabetes who underwent open heart surgery on January 24, 2017. She had done well but was admitted yesterday with hypotension and low grade fever. CT scan of the chest done in the emergency room revealed dehiscence of the manubrium of the sternum with a sternal abscess. She was started on IV antibiotics and referred for surgery. She was brought to the operating room today where she underwent a general anesthetic. The incision was prepped and draped in standard fashion. The old incision was opened. The area over the manubrium was opened and a large amount of creamy, yellow pus was obtained. This was cultured both aerobically and anaerobically and also was cultured for TB and fungus. Lower down there was similar pus over the body of the sternum. This was also cultured. All lesions sternal wires were removed and the sternum fell apart easily. There were several fractures on either side area and the mediastinum appeared to be clear of infection. The sternum was debrided and I used a curet to debride the marrow. 2 chest tubes were left including a 32 right angle chest tube to the right pleural space which was opened and a 42 mediastinal chest tube. The sternum was closed using a combination of simple and figure of 8 sutures with heavy wire. The soft tissues above the sternum were debrided. The deep layer was closed with a #1 Vicryl. The subcutaneous case tissues with a 2-0 Vicryl. Skin was closed with a 3-0 Vicryl subcuticular stitch. The patient tolerated procedure well and was returned intensive care unit in improved condition.
[2017-02-26] MEDS: Piperacillin/Tazobactam 3.375 GM in D5% in Water (Mini-Bag+) 100 ML IVPB SCH ×2 (10:17→15:45)
[2017-02-26] MEDS: Insulin LISPRO 300 UNITS/3 ML VIAL SQ SCH ×4 (10:17→22:47)
--- NOTE | 2017-02-26 10:21 | Anesthesia Procedures ---
Date of Encounter: 02/26/17 Time of Encounter: 08:00 Procedures: Anesthesia - Arterial Line Consent obtained: written consent Time out performed: Yes Sedation: Versed (mg): 3 Sedation: Fentanyl (mcg): 150 Local Anesthetic: Lidocaine 1% Amount of Anesthetic used (mls): 0.1 Size (Gauge): 20 Length (inches): 1 3/4 Technique Used: sterile prep Post-Procedure: dry sterile dressing placed Patient tolerated procedure: no complications Complications: none Site: Radial R
--- NOTE | 2017-02-26 10:25 | Anesthesia Evaluation Post Op ---
Date of Encounter: 02/26/17 Time of Encounter: 10:15 - Vital Signs Vital Signs: Vital Signs/O2 Sat/Glucose, Most Recent Temp Pulse Resp BP Pulse Ox 98.5 F 118 18 122/51 90 02/26/17 10:00 02/26/17 10:15 02/26/17 10:15 02/26/17 10:15 02/26/17 10:15 blood glucose 86 - Lungs Lungs: Clear Ascult./Percussion - Airway Airway: Non-obstructed - Cardiovascular Regular Rate - Mental Status Mental Status: Sedated - Pain Pain Scale: 4 - Nausea Vomiting Nausea Vomiting: Not Present - Hydration Hydration: Unable to tolerate oral fluids (sedated) - Discharge PostOp Status: Transfer Patient to floor (ICU) Attestation: Patient transported to ICU with cardiac team. vital signs monitored and stable. Handoff given to ICU team.
[2017-02-26 10:33] LABS: ABG Base Excess -2.2 mEq/L (-2.0 to 3.0); ABG HCO3 23.2 mEQ/L (21-27); ABG Oxygen Saturation 84 % (95-98); ABG PCO2 41 mmHg (35-45); ABG PH 7.36 pH Units (7.32-7.45); ABG PO2 51 mmHg (85-104); ABG TCO2 24.5 mEq/L (20-26)
[2017-02-26 10:36] LABS: Blood Gas Liter Flow 4 L/MIN
--- NOTE | 2017-02-26 10:41 | Event Note ---
Date of Encounter: 02/26/17 Time of Encounter: 10:38 Patient has been to OR for sternal infection. Mild, flat troponin elevated likely secondary to infection/sepsis. Recommend continue aspirin, statin, ACEi, and BB as tolerated. Heparin drip has been stopped. Will start DVT prophylaxis. No further cardiology intervention appears necessary at this time. Cardiology will sign off if no significant changes on limited TTE. Call with questions or concerns. Thanks, Jose Love
[2017-02-26 10:54] LABS: Hematocrit 29.5 % (35.3-44.9); Hemoglobin 9.6 g/dL (11.5-15.4); Mean Corpuscular HGB Conc 32.5 g/dL (31.6-35.5); Mean Corpuscular Hemoglobin 29.3 pg (28.0-33.3); Mean Corpuscular Volume 89.9 fL (83.0-100.0); Mean Platelet Volume 10.6 fL (9.4-12.4); Platelet Count 107 K/mcL (140-400); Red Blood Count 3.28 M/mcL (3.82-4.97); Red Cell Distribution Width 12.9 % (11.5-14.5)
[2017-02-26] MEDS ORDERED: Vancomycin 1,250 MG in D5% in Water 250 ML IVPB SCH (11:00)
[2017-02-26 11:07] LABS: BUN/Creatinine Ratio 23 (6-26); Blood Urea Nitrogen 18 mg/dL (7-20); Calcium 7.7 mg/dL (8.6-10.8); Carbon Dioxide 25 mEq/L (19-29); Chloride 103 mEq/L (98-109); Glucose 100 mg/dL (70-99); LDL Cholesterol,Calculated 14 mg/dL (0-99); Magnesium 1.5 mg/dL (1.6-2.6); Osmolality,Calculated 278 (280-300); Phosphorous 1.9 mg/dL (2.3-4.7); Potassium 3.3 mEq/L (3.5-4.5); Sodium 133 mEq/L (136-145); Triglycerides 135 mg/dL (< 150); eGFR For African Americans > 60 (> 60); eGFR For Non-African Americans > 60 (> 60)
[2017-02-26 11:08] LABS: Cholesterol 46 mg/dL (< 200); HDL Cholesterol < 5 mg/dL (40-59)
[2017-02-26] MEDS: Albuterol 2.5 MG/3 ML NEBULIZER IH SCH ×4 (11:08→23:31)
[2017-02-26 11:46] LABS: Lymphocytes # 0.4 K/mcL (0.6-4.6); Monocytes # 0.8 K/mcL (0.0-1.3); Neutrophils # 8.5 K/mcL (1.6-8.9); Platelet Estimate Decreased (Normal)
--- NOTE | 2017-02-26 12:00 | Infectious Disease Consult ---
Date of Encounter: 02/26/17 Time of Encounter: 11:58 Assessment and Plan (1) Severe sepsis Status: Acute Assessment and plan: The patient had three SIRS criteria with lactic acidosis plus hypotension responsive to IVF resuscitation. Likely secondary to bacteremia and sternal wound infection. Improved. Patient is less tachycardic. She continues to have bandemia and fevers. Lactic acid has normalized. Blood cultures drawn 02/25/17 are positive 2/2 sets for MSSA. (2) Bacteremia Status: Acute Assessment and plan: Causative organism: MSSA. Source: Sternal wound infection. Complicated due to the presence of sternal wires. Unsure if the patient has any additional hardware. Blood cultures drawn 02/25/17 are positive 2/2 sets for GPC. No endocarditis stigmata noted on exam. The patient has one major and one minor Modified Jessica's Criteria. TTE completed and report is pending. If negative, the patient will likely require SHER prior to discharge. Repeat blood cultures x 2 sets in the AM. Continue Vancomycin IV for now. Pharmacy to dose. Goal trough ~15. Continue Zosyn 3.375 grams IV Q8H for now. Duration of treatment depends on the clinical picture. Monitor renal function and dose-adjust antibiotics. (3) Sternal wound infection Status: Acute Assessment and plan: Causative organism likely MSSA. Secondary to recent surgical procedure. CT of the chest showed dehiscence of the intact manubrial sternal wires with widening of the sternotomy. There was also an abscess within the open manubrial portion of the sternotomy. CTS team consulted. Status post incision and drainage of sternal abscess with debridement of the sternum and sternal re-wiring. Operative note reviewed. Pus noted over the manubrium and over the body of the sternum. No mention of bone abnormalities on the intra-op report. Will discuss with Dr. Zambrano. Intra- operative cultures obtained and are pending (aerobic, anaerobic, TB, fungal). Await culture results. Continue wound care as outlined by the CTS team. Continue antibiotics as above for now. Will de-escalate if/when able based on culture results. (4) Acute kidney injury Status: Resolved Assessment and plan: Likely secondary to sepsis. Resolved. (5) Lactic acidosis Status: Resolved Assessment and plan: Secondary to sepsis. Resolved. (6) Hyponatremia Status: Acute Assessment and plan: Euvolemic hyponatremia. Improved. Management per the primary team. (7) Elevated troponin Status: Acute Assessment and plan: Cardiology consulted --> likes demand ischemia. (8) CAD (coronary artery disease) Status: Acute Assessment and plan: Status post CABG 01/24/[address] Reynolds. Qualifiers: Coronary Disease-Associated Artery/Lesion type: [place] artery [place] vs. transplanted heart: [place] heart Associated angina: without angina Qualified Code(s): I25.10 - Atherosclerotic heart disease of [place] coronary artery without angina pectoris Infectious Disease HPI - Data of Consult Patient: new to practice Consult date: 02/26/17 Requesting Physician: Vero Olmos MD Primary Care Provider: Ketty Cade CNP - Consult Narrative Reason for consult: Sternotomy infection History of present illness: Ms. Coyne is a 51 year old female with a past medical history of CAD status post CABG on January 24, 2017, diabetes, GERD, and hypertension. The patient was admitted to the hospital February 25 for sternal wound infection. We are consulted February 26 for further evaluation and treatment recommendations regarding sternal wound infection. The patient is a 51-year-old female with past medical history as stated above. She returned to the ICU after surgery and is somewhat still sedated. She is unable to provide me with much information, therefore, most of the information is obtained from the medical record. The patient underwent a CABG 4 (FLORES to the LAD, sequential SVG to D2 and OM1, SVG to PDA) [address] Reynolds. The patient and well postoperatively until a couple of days prior to admission she began to experience some drainage from the wound. She was seen at her PCPs office earlier that day and was subsequently advised to go to the emergency department for low blood pressure. Upon arrival, the patient was febrile and tachycardic and hypotensive. Laboratory studies revealed a mildly elevated white blood cell count with bandemia. She also had an acute kidney injury and lactic acidosis. Her troponin was elevated. His started on IV fluids to which her blood pressure responded. A chest x-ray showed cardiomegaly with left basilar atelectasis. A CT the abdomen and pelvis and chest showed dehiscence of the intact manubrial sternal wires with widening of the sternotomy. There is also noted to be an abscess within the open manubrial portion of the sternotomy. Blood cultures were obtained 2 sets. The patient was started empiric on IV vancomycin and IV Zosyn. She was admitted to the hospital for further evaluation and treatment. Since admission, the patient continues to have intermittent fevers with a MAXIMUM TEMPERATURE of 102.1. Her WBC has normalized, but she continues to have bandemia and tachycardia. Cardiothoracic surgery was consulted and saw the patient took the patient to the operating room today where she underwent incision and drainage of sternal abscess with debridement of the sternum and sternal rewiring. Intra-operative cultures were collected and are pending. Early , the patient is on IV vancomycin and IV Zosyn. We've been asked to evaluate and make further recommendations. During my exam today, the patient remained somewhat sedated postoperatively. She is unable to provide me with very much information regarding her current status with events leading up to her hospitalization. The patient does complain of pain at the midsternal incision. She is unable to provide me with any information. CC: Vero Olmos MD Past Med Surg Social Fam HX - Past Medical History Source: patient, old records reviewed, nursing notes reviewed Medical history: coronary artery disease, diabetes, GERD, hypertension Psychiatric history: no psych history - Past Surgical History Surgical History: cholecystectomy, coronary bypass (CABG), orthopedic, other, ADA/BSO, other (Tubal ligation, tonsillectomy/adenoidectomy) - Social History Smoking Status: Former smoker Smokeless Tobacco Status: No Alcohol use: occasionally Drug use: none - Family History Father Family Member Ethnicity: Non- Living Status: Still Living Hx Family Cardiac Disorders: Yes (HTN) Hx Family Respiratory Disorders: Yes (Asthma) Mother Family Member Ethnicity: Non- Living Status: Still Living Hx Family Cardiac Disorders: Yes (HLD, HTN) Brother Family Member Ethnicity: Non- Living Status: Still Living Sister Family Member Ethnicity: Non- Living Status: Still Living Hx Family Cardiac Disorders: Yes (HLD) Hx Family Respiratory Disorders: Yes (Asthma) Hx Family Cancer: Yes (Breast) Infectious Disease-CN:Meds Atorvastatin [Lipitor] 40 mg PO HS 02/06/16 [History] Lansoprazole [Prevacid] 30 mg PO QAM 02/06/16 [History] Alogliptin Keon/Metformin HCl [[place]azano 12.5-1,000 mg Tablet] 1 each PO BID [History] Insulin Glargine,Hum.rec.anlog [Bakariaglar Pr[place] U-100] 62 unit SQ HS 01/22/17 [ History] hydroCHLOROthiazide [Hydrochlorothiazide] 12.5 mg PO DAILY 01/22/17 [History] HYDROcodone/Acet 5/325 mg [[place] 5-325 mg] 1 tab PO Q4HR PRN #50 tab 01/30/17 [ Rx] Metoprolol XL (24 HR) Succ [Toprol Xl] 25 mg PO DAILY #30 01/30/17 [Rx] Lisinopril [Zestril] 10 mg PO DAILY 02/25/17 [History] 3 Allergy/AdvReac Type Severity Reaction Status Date / Time No Known Allergies Allergy Verified 02/25/17 10:33 ROS unobtainable: due to mental status (Patient is post-op and is somewhat sedated. She is unable to provide me with much information.) Exam - Constitutional Vitals: Temp Pulse Resp BP Pulse Ox 97.8 F 117 18 120/59 90 02/26/17 11:54 02/26/17 11:00 02/26/17 11:00 02/26/17 11:00 02/26/17 11:00 General appearance: cooperative, no acute distress, obese - Head Head exam: Present: atraumatic, normal inspection, normocephalic - Eye Eye exam: Present: EOMI, normal appearance, PERRL Pupils: Present: normal accommodation Additional comments: No subconjunctival hemorrhage noted. - ENT ENT exam: Present: mucous membranes dry - Neck Neck exam: Present: normal inspection - Respiratory Respiratory exam: Present: CTAB. Absent: rales, respiratory distress, rhonchi, wheezes Additional comments: Substernal chest tubes x 2 noted with sanguinous drainage. No crepitus or air leak noted. - Cardiovascular Cardiovascular exam: Present: +S1, +S2, tachycardia. Absent: irregular rhythm Additional comments: Midline sternotomy incision with SAMIRA dressing C/D/I. - GI/Abdominal GI/Abdominal exam: Present: normal bowel sounds, soft. Absent: distended, tenderness Additional comments: Malave catheter noted to be draining clear yellow urine. - Extremities Exam Extremities exam: Present: normal inspection. Absent: joint swelling, pedal edema, tenderness - Back Exam Additional comments: Unable to assess at this time. Patient denies back pain. - Neurological Exam Neurological exam: Present: alert, altered, oriented X3, no focal deficits - Psychiatric Psychiatric exam: Present: normal affect, normal mood - Skin Skin exam: Present: dry, intact, normal color, warm - Additional findings Additional findings: A-line noted to the right radial artery. Infectious Disease CN: Results - Labs CBC & Chem 7: 02/26/17 10:17 02/26/17 10:17 Cultures: Cultures 02/25/17 11:17 Blood Culture - Preliminary Peripheral Venipuncture Gram Positive Cocci 02/25/17 11:10 Blood Culture - Preliminary Peripheral Venipuncture Gram Positive Cocci Consult Discharge Plan - Plan Referrals: Ketty Cade, SMALL ENGINE MECHANIC [Primary Care Provider] -
[2017-02-26] MEDS: *HR* HYDROcodone/Acet 5/325 mg TABLET PO PRN ×2 (14:06→18:09)
[2017-02-26] MEDS: hydroCHLOROthiazide 25 MG TABLET PO SCH (14:07)
[2017-02-26] MEDS: Aspirin Enteric Coated 81 MG Tablet PO SCH (14:07)
[2017-02-26] MEDS: 0.9 % Sodium Chloride 1,000 ML IVC SCH ×11 (14:10→22:48)
[2017-02-26] MEDS: *HR* Heparin 5,000 UNIT/ML VIAL SQ SCH ×2 (14:13→22:46)
[2017-02-26] MEDS: Vancomycin 1,000 MG in D5% in Water 250 ML IVPB SCH (15:52)
[2017-02-26] MEDS: ceFAZolin 2,000 MG in D5% in Water 100 ML IVPB SCH ×2 (17:41→23:14)
[2017-02-26] MEDS ORDERED: Albumin Human 5% 25.0 GM/500 ML VIAL ONE (20:26)
[2017-02-26] MEDS ORDERED: 0.9 % Sodium Chloride 500 ML IVC ONE (21:00)
[2017-02-26] MEDS: Norepinephrine 4 MG in D5% in Water 250 ML IVC SCH (22:46)
[2017-02-26] MEDS: *HR* Morphine 2 MG/ML SYRINGE IVP PRN (22:46)
--- NOTE | 2017-02-26 23:16 | Event Note ---
Date of Encounter: 02/26/17 Time of Encounter: 23:10 Procedure note: Right internal jugular CVC placement Indication: Persistent hypotension, need for pressors, possible septic shock Consent: Consent was obtained from the patient after discussing the risks benefits and alternatives of this procedure. Timeout was performed at 2159 A time-out was completed verifying correct patient, procedure, site, positioning , and special equipment including SonoSite ultrasound machine. The patient was placed in a supine position and Trendelenburg. The patients right anterior cervical area was prepped and draped in sterile fashion. 1% Lidocaine was used to anesthetize the surrounding skin area. The right internal jugular vein was identified and visualized on the ultrasound. A triple lumen catheter was introduced into the the right internal jugular vein using the Seldinger technique under ultrasound guidance. The catheter was threaded smoothly over the guide wire and appropriate blood return was obtained. Each lumen of the catheter was evacuated of air and flushed with sterile saline. The catheter was then sutured in place to the skin and a sterile dressing applied. Estimated Blood Loss: 5 mL The patient tolerated the procedure well and there were no complications. A chest x-ray was obtained and personally reviewed at the bedside. Chest x-ray shows right IJ central line with tip ending in the SVC. There is no pneumothorax.
[2017-02-27] MEDS: Piperacillin/Tazobactam 3.375 GM in D5% in Water (Mini-Bag+) 100 ML IVPB SCH ×2 (00:02→08:46)
[2017-02-27] MEDS: *HR* HYDROcodone/Acet 5/325 mg TABLET PO PRN ×3 (02:55→20:24)
[2017-02-27] MEDS: Albuterol 2.5 MG/3 ML NEBULIZER IH SCH ×6 (04:17→23:28)
[2017-02-27 04:26] LABS: ABG Base Excess -9.4 mEq/L (-2.0 to 3.0); ABG HCO3 17.1 mEQ/L (21-27); ABG Oxygen Saturation 88 % (95-98); ABG PCO2 39 mmHg (35-45); ABG PH 7.25 pH Units (7.32-7.45); ABG PO2 64 mmHg (85-104); ABG TCO2 18.3 mEq/L (20-26)
[2017-02-27 04:27] LABS: Blood Gas FiO2 44 %; Blood Gas Liter Flow 6 L/MIN
[2017-02-27] MEDS: Vancomycin 1,000 MG in D5% in Water 250 ML IVPB SCH (04:27)
[2017-02-27] MEDS: 0.9 % Sodium Chloride 1,000 ML IVC SCH ×3 (04:27→15:31)
[2017-02-27 05:12] LABS: Hematocrit 25.5 % (35.3-44.9); Hemoglobin 8.3 g/dL (11.5-15.4); Mean Corpuscular HGB Conc 32.5 g/dL (31.6-35.5); Mean Corpuscular Hemoglobin 29.5 pg (28.0-33.3); Mean Corpuscular Volume 90.7 fL (83.0-100.0); Mean Platelet Volume 10.6 fL (9.4-12.4); Platelet Count 130 K/mcL (140-400); Red Blood Count 2.81 M/mcL (3.82-4.97); Red Cell Distribution Width 13.4 % (11.5-14.5)
[2017-02-27] MEDS: *HR* Heparin 5,000 UNIT/ML VIAL SQ SCH ×3 (05:35→20:22)
[2017-02-27] MEDS: Norepinephrine 4 MG in D5% in Water 250 ML IVC SCH ×2 (05:36→21:56)
[2017-02-27 05:45] LABS: Calcium 7.2 mg/dL (8.6-10.8); Potassium 3.8 mEq/L (3.5-4.5)
[2017-02-27 06:34] LABS: Hypochromasia Present (Not Present); Lymphocytes # 0.4 K/mcL (0.6-4.6); Microcytosis Present (Not Present); Monocytes # 0.4 K/mcL (0.0-1.3); Neutrophils # 17.8 K/mcL (1.6-8.9); Platelet Estimate Slight Decrease (Normal)
[2017-02-27] MEDS ORDERED: Aminoglycoside Consult 1 EACH MC ONE (07:27)
[2017-02-27] MEDS: Insulin LISPRO 300 UNITS/3 ML VIAL SQ SCH ×4 (08:46→20:22)
[2017-02-27] MEDS: Aspirin Enteric Coated 81 MG Tablet PO SCH (08:47)
[2017-02-27] MEDS: *HR* Morphine 2 MG/ML SYRINGE IVP PRN (08:47)
--- NOTE | 2017-02-27 09:00 | Cardiothoracic Progress Note ---
Date of Encounter: 02/27/17 Time of Encounter: 08:57 - Assessment and plan (1) Diabetes Current Visit: No Status: Chronic The patient had hypotension last evening and required IV fluid boluses and low- dose norepinephrine. This is most likely due to drainage of her abscess. We will restart her on Levemir insulin 20 mg subcutaneous twice a day. We will transfer her to the floor. We will leave her Malave until the chest tubes are removed. Qualifiers: Diabetes mellitus type: type 2 Diabetes mellitus complication status: with unspecified complications Diabetes mellitus termite control servicer insulin use: with halfway use Qualified Code(s): E11.8 - Type 2 diabetes mellitus with unspecified complications; Z79.4 - group home (current) use of insulin - Subjective Interval history: The patient has no complaints. She does request that we leave her Malave until the chest tubes are out. Vital Signs, Last 4 Hours Temp Pulse Resp BP Pulse Ox 02/27/17 07:57 97.7 F 02/27/17 07:56 16 98 02/27/17 05:57 85 20 115/44 96 02/27/17 05:00 91 28 112/42 94 Oxgyen Flow Rate Oxygen Flow Rate (LPM) 6 Clinical Data, last 8 Hours Output, Chest Tube Drainage 12 Amount [Mediastinal #1] Output, Chest Tube Drainage 15 Amount [Mediastinal #2] Weight 02/25/17 02/26/17 02/27/17 23:59 23:59 23:59 Weight 83.2 kg 91.2 kg Lungs are clear to percussion and auscultation. Heart is in a normal sinus rhythm. Her incision is healing well without signs of infection and her sternum is stable. Chest tube drainage is minimal and is serosanguineous. - Labs 02/27/17 04:53 02/27/17 04:53 Lab Results, Last 24 hours 02/26/17 02/26/17 02/26/17 10:17 10:17 10:17 WBC Hgb Hct Plt Count APTT 36.2 H D Sodium 133 L Potassium 3.3 L Chloride 103 Carbon Dioxide 25 BUN 18 Creatinine 0.80 Glucose 100 H Calcium 7.7 L Magnesium 1.5 L Troponin I 0.41 H* 02/26/17 02/27/17 02/27/17 10:17 04:53 04:53 WBC 9.7 18.5 H D Hgb 9.6 L 8.3 L Hct 29.5 L 25.5 L Plt Count 107 L 130 L APTT Sodium 127 L Potassium 3.8 Chloride 100 Carbon Dioxide 16 L BUN 29 H D Creatinine 1.35 H D Glucose 426 H Calcium 7.2 L Magnesium Troponin I - VTE Documentation of Mechanical Device: Graduated compression elastic hosiery Consult Discharge Plan - Plan Referrals: Ketty Cade, CUSTOMER SPECIALIST [Primary Care Provider] -
--- NOTE | 2017-02-27 12:00 | Infectious Disease Progress No ---
Date of Encounter: 02/27/17 Time of Encounter: 11:57 - Assessment and Plan (1) Severe sepsis Current Visit: Yes Status: Acute The patient had three SIRS criteria with lactic acidosis plus hypotension responsive to IVF resuscitation. Overnight, she required low-dose vasopressores , but these have been weaned off this morning. Likely secondary to bacteremia and sternal wound infection. Improved. Tachycardia has resolved. She has been afebrile overnight. Her WBC is worse this morning, but this is likely reactive from her recent surgical procedure. Bandemia is improved. Blood cultures drawn 02/25/17 are positive 2/2 sets for MSSA. Repeat blood cultures ordered to be drawn now. (2) Bacteremia Current Visit: Yes Status: Acute Causative organism: MSSA. Source: Sternal wound infection. Complicated due to the presence of sternal wires. Blood cultures drawn 02/25/17 are positive 2/2 sets for MSSA. No endocarditis stigmata noted on exam. The patient has one major and one minor Modified Jessica's Criteria. TTE completed. No mention of valvular vegetations. The patient will likely require SHER prior to discharge. Repeat blood cultures x 2 sets now. Discontinue Vanc and Zosyn. Start cefazolin 2 grams IV Q8H. Duration of treatment depends on the clinical picture, but likely at least 4-6 weeks of IV antibiotics. Monitor renal function and dose-adjust antibiotics. (3) Sternal wound infection Current Visit: Yes Status: Acute Causative organism MSSA. Secondary to recent surgical procedure. CT of the chest showed dehiscence of the intact manubrial sternal wires with widening of the sternotomy. There was also an abscess within the open manubrial portion of the sternotomy. CTS team consulted. Status post incision and drainage of sternal abscess with debridement of the sternum and sternal re-wiring. Operative note reviewed. Pus noted over the manubrium and over the body of the sternum. No mention of bone abnormalities on the intra-op report. Will discuss with Dr. Zambrano. Intra- operative cultures obtained and are pending (aerobic, anaerobic, TB, fungal). Intra-operative cultures positive for MSSA. Continue wound care as outlined by the CTS team. Continue antibiotics as above. (4) Acute kidney injury Current Visit: Yes Status: Resolved Likely secondary to sepsis. Serum creatinine back up this morning, but likely secondary to hypotension and poor renal perfusion. Continue to trend. Dose-adjust antibiotics. Avoid nephrotoxins as able. (5) Lactic acidosis Current Visit: Yes Status: Resolved Secondary to sepsis. Resolved. (6) Hyponatremia Current Visit: Yes Status: Acute Euvolemic hyponatremia. Improved. Management per the primary team. (7) Elevated troponin Current Visit: Yes Status: Acute Cardiology consulted --> likes demand ischemia. (8) CAD (coronary artery disease) Current Visit: Yes Status: Acute Status post CABG 01/24/[address] Reynolds. Qualifiers: Coronary Disease-Associated Artery/Lesion type: [place] artery [place] vs. transplanted heart: [place] heart Associated angina: without angina Qualified Code(s): I25.10 - Atherosclerotic heart disease of [place] coronary artery without angina pectoris - Subjective Interval history: Patient seen and examined. Patient became hypotensive and required placement of a central line and administration of low-dose Levophed overnight. She denies any fevers or chills or rigors. She complains of pain at the surgical site, denies any shortness of breath. She does report a dry cough. She denies any nausea, vomiting, diarrhea, or constipation. She denies any abdominal pain and states she ate a little bit of cereal this morning. She is a Malave catheter that remains patent and she denies any urinary complaints at this time. She denies any oral thrush or new skin lesions. Infect Dis PN-Objective Data - Labs CBC & Chem 7: 02/27/17 04:53 02/27/17 04:53 Labs: Laboratory Results - last 24 hr 02/26/17 02/26/17 02/27/17 15:49 20:04 04:19 WBC RBC Hgb Hct MCV MCH MCHC RDW Plt Count MPV Seg Neutrophils % Band Neutrophils % Lymphocytes % Monocytes % Neutrophils # Lymphocytes # Monocytes # Platelet Estimate Hypochromasia Microcytosis ABG pH 7.25 L ABG pCO2 39 ABG pO2 64 L ABG HCO3 17.1 L ABG Total CO2 18.3 L ABG O2 Saturation 88 L ABG Base Excess -9.4 L Liter Flow 6 Blood Gas Modality [place] Inspired O2 44 Sodium Potassium Chloride Carbon Dioxide BUN Creatinine Est GFR ( Amer) Est GFR (Non-Af Amer) BUN/Creatinine Ratio Glucose POC Glucose 159 H 283 H Calculated Osmolality Calcium 02/27/17 02/27/17 02/27/17 04:53 04:53 07:36 WBC 18.5 H D RBC 2.81 L Hgb 8.3 L Hct 25.5 L MCV 90.7 MCH 29.5 MCHC 32.5 RDW 13.4 Plt Count 130 L MPV 10.6 Seg Neutrophils % 94.0 Band Neutrophils % 2.0 Lymphocytes % 2.0 Monocytes % 2.0 Neutrophils # 17.8 H Lymphocytes # 0.4 L Monocytes # 0.4 Platelet Estimate Slight Decrease L Hypochromasia Present A Microcytosis Present A ABG pH ABG pCO2 ABG pO2 ABG HCO3 ABG Total CO2 ABG O2 Saturation ABG Base Excess Liter Flow Blood Gas Modality Inspired O2 Sodium 127 L Potassium 3.8 Chloride 100 Carbon Dioxide 16 L BUN 29 H D Creatinine 1.35 H D Est GFR ( Amer) 50 L Est GFR (Non-Af Amer) 41 L BUN/Creatinine Ratio 21 Glucose 426 H POC Glucose 389 H Calculated Osmolality 288 Calcium 7.2 L 02/27/17 11:05 WBC RBC Hgb Hct MCV MCH MCHC RDW Plt Count MPV Seg Neutrophils % Band Neutrophils % Lymphocytes % Monocytes % Neutrophils # Lymphocytes # Monocytes # Platelet Estimate Hypochromasia Microcytosis ABG pH ABG pCO2 ABG pO2 ABG HCO3 ABG Total CO2 ABG O2 Saturation ABG Base Excess Liter Flow Blood Gas Modality Inspired O2 Sodium Potassium Chloride Carbon Dioxide BUN Creatinine Est GFR ( Amer) Est GFR (Non-Af Amer) BUN/Creatinine Ratio Glucose POC Glucose 373 H Calculated Osmolality Calcium Cultures: Cultures 02/25/17 11:17 Wound Culture - Final Abdomen Staphylococcus aureus 02/25/17 11:10 Blood Culture - Preliminary Peripheral Venipuncture Staphylococcus aureus 02/25/17 11:17 Blood Culture - Preliminary Peripheral Venipuncture Gram Positive Cocci 02/25/17 14:06 Urine Culture - Final Urine,Clean Catch - Impressions Impressions Chest X-Ray 02/26/17 22:19 IMPRESSION: A right internal jugular venous catheter has been placed in good position. Interval/recent sternal splitting procedure with mediastinal tube and right chest tube. No pneumothorax. [id number]-right bibasilar postoperative atelectasis with left retrocardiac consolidation. D/ / Joseph Pan MD / Joseph Pan MD Interpreting Provider: Jospeh Pan MD Chest X-Ray 02/27/17 06:00 IMPRESSION: Stable portable chest. D/ / Pako Gonzáles MD / Pako Gonzáles MD Interpreting Provider: Pako Gonzáles MD Exam - Constitutional Vitals: Temp Pulse Resp BP Pulse Ox 97.7 F 95 16 102/46 97 02/27/17 07:57 02/27/17 09:00 02/27/17 11:25 02/27/17 09:00 02/27/17 11:25 General appearance: cooperative, no acute distress, obese - Head Head exam: Present: atraumatic, normal inspection, normocephalic - Eye Eye exam: Present: EOMI, normal appearance, PERRL Pupils: Present: normal accommodation Additional comments: No subconjunctival hemorrhage noted. - ENT ENT exam: Present: mucous membranes moist - Neck Neck exam: Present: normal inspection Additional comments: Triple lumen right IJ CVC noted with transparent dressing intact. Small amount of bloody discharge noted. - Respiratory Respiratory exam: Present: CTAB. Absent: rales, respiratory distress, rhonchi, wheezes Additional comments: Midline sternotomy incision with SAMIRA dressing with scant amount of sanguinous drainage noted. Mediastinal chest tubes x 2 with sanguinous drainage noted in the [place]. No crepitus or air leak noted. - Cardiovascular Cardiovascular exam: Present: RRR, +S1, +S2 - GI/Abdominal GI/Abdominal exam: Present: normal bowel sounds, soft. Absent: distended, tenderness Additional comments: Malave catheter noted to be draining clear yellow urine. - Extremities Exam Extremities exam: Present: normal inspection. Absent: joint swelling, pedal edema, tenderness Additional comments: No endocarditis stigmata noted. - Back Exam Additional comments: Unable to assess at this time. - Neurological Exam Neurological exam: Present: alert, oriented X3, no focal deficits - Psychiatric Psychiatric exam: Present: normal affect, normal mood - Skin Skin exam: Present: dry, intact, normal color, warm - VTE Documentation of Mechanical Device: Graduated compression elastic hosiery Consult Discharge Plan - Plan Referrals: Ketty Cade, MILITARY SCIENCE TEACHER [Primary Care Provider] -
[2017-02-27] MEDS: Insulin DETEMIR 100 UNIT/ML X5UNITS SQ SCH ×2 (12:56→21:56)
[2017-02-27] MEDS: hydroCHLOROthiazide 25 MG TABLET PO SCH (12:56)
[2017-02-27] MEDS: ceFAZolin 2,000 MG in D5% in Water 100 ML IVPB SCH ×2 (15:31→23:15)
[2017-02-27] MEDS ORDERED: Amiodarone 150 MG in D5% in Water 100 ML IVPB ONE (23:04)
[2017-02-27] MEDS ORDERED: Amiodarone Premix 360 MG/200 ML BAG IVC ONE (23:10)
[2017-02-27] MEDS ORDERED: Amiodarone Premix 150 MG/100 ML BAG IVPB ONE (23:15)
[2017-02-28 01:16] LABS: Basophils % 0.1 %; Eosinophils # 0.1 K/mcL (0.0-0.6); Eosinophils % 0.5 %; Hematocrit 26.8 % (35.3-44.9); Hemoglobin 8.8 g/dL (11.5-15.4); Immature Granulocytes % 1.3 % (0-4); Lymphocytes # 1.5 K/mcL (0.6-4.6); Lymphocytes % 6.3 %; Mean Corpuscular HGB Conc 32.8 g/dL (31.6-35.5); Mean Corpuscular Hemoglobin 29.5 pg (28.0-33.3); Mean Corpuscular Volume 89.9 fL (83.0-100.0); Mean Platelet Volume 10.5 fL (9.4-12.4); Monocytes # 1.3 K/mcL (0.0-1.3); Monocytes % 5.4 %; Neutrophils # 20.8 K/mcL (1.6-8.9); Platelet Count 174 K/mcL (140-400); Red Blood Count 2.98 M/mcL (3.82-4.97); Red Cell Distribution Width 13.7 % (11.5-14.5); Segmented Neutrophils % 86.4 %
[2017-02-28 01:27] LABS: Calcium 7.3 mg/dL (8.6-10.8)
[2017-02-28] MEDS: Albuterol 2.5 MG/3 ML NEBULIZER IH SCH ×6 (03:46→23:47)
[2017-02-28] MEDS: Amiodarone Premix 360 MG/200 ML BAG IVC SCH ×3 (05:10→17:48)
[2017-02-28] MEDS: 0.9 % Sodium Chloride 1,000 ML IVC SCH ×2 (05:13→17:47)
[2017-02-28] MEDS: *HR* Heparin 5,000 UNIT/ML VIAL SQ SCH ×3 (05:13→22:35)
[2017-02-28] MEDS: Norepinephrine 4 MG in D5% in Water 250 ML IVC SCH ×2 (06:58→16:54)
[2017-02-28] MEDS: Insulin DETEMIR 100 UNIT/ML X5UNITS SQ SCH (08:13)
[2017-02-28] MEDS: Insulin LISPRO 300 UNITS/3 ML VIAL SQ SCH ×4 (08:13→19:57)
[2017-02-28] MEDS: ceFAZolin 2,000 MG in D5% in Water 100 ML IVPB SCH (08:14)
[2017-02-28] MEDS: Aspirin Enteric Coated 81 MG Tablet PO SCH (08:14)
[2017-02-28] MEDS: *HR* HYDROcodone/Acet 5/325 mg TABLET PO PRN ×2 (08:24→13:04)
--- NOTE | 2017-02-28 09:17 | Cardiothoracic Progress Note ---
Date of Encounter: 02/28/17 Time of Encounter: 09:14 - Assessment and plan (1) Sternal wound infection Current Visit: Yes Status: Acute The patient is recovering well from her sternal debridement with rewiring. She had an episode of ventricular tachycardia last night which converted to normal sinus rhythm with amiodarone drip. She remains on a Levophed drip for vascular tone and this is being slowly weaned. The chest tube output is minimal. The patient will remain in the ICU today for close observation of her cardiac rhythm and respiratory status. The assessment and plan as outlined above was discussed with the patient and/or family members who expressed understanding and agreement. All questions were answered. - Subjective Procedure(s) Performed: POD#2 S/P Sternal debridement with rewiring Interval history: The patient remained hemodynamically stable overnight, though she did have an episode of ventricular tachycardia which converted to sinus rhythm with amiodarone. She has no complaints. Vital Signs, Last 4 Hours Temp Pulse Resp BP Pulse Ox 02/28/17 08:27 16 99 02/28/17 08:16 94.3 F L 02/28/17 08:00 81 20 114/68 100 02/28/17 07:00 67 16 107/50 99 02/28/17 05:50 72 20 105/41 98 Oxgyen Flow Rate Oxygen Flow Rate (LPM) 5 Clinical Data, last 8 Hours Output, Chest Tube Drainage 0 Amount [Mediastinal #1] Output, Chest Tube Drainage 15 Amount [Mediastinal #1] Output, Chest Tube Drainage 0 Amount [Mediastinal #1] Output, Chest Tube Drainage 0 Amount [Mediastinal #2] Output, Chest Tube Drainage 40 Amount [Mediastinal #2] Output, Chest Tube Drainage 0 Amount [Mediastinal #2] Weight 02/26/17 02/27/17 02/28/17 23:59 23:59 23:59 Weight 83.2 kg 91.2 kg - Physical Examination General: Conversant, No Apparent Distress Neck: No JVD, Normal carotid pulses Cardiac: Reg Rate and Rhythm, Normal S1 and S2, No Murmur Incision: Dry/intact dressing Sternum: Stable Chest tubes: Minimal drainage, Other (No air leak.) Lungs: Normal Breath Sounds, No Wheeze, Rales, Rhonchi Neuro: Alert and responsive, No focal deficits noted Vascular: Normal capillary refill Extremities: No Clubbing, No Cyanosis, No Edema - Labs 02/28/17 01:00 02/28/17 01:00 Lab Results, Last 24 hours 02/28/17 02/28/17 01:00 01:00 WBC 24.1 H Hgb 8.8 L Hct 26.8 L Plt Count 174 Sodium 127 L Potassium 3.0 L Chloride 101 Carbon Dioxide 18 L BUN 36 H Creatinine 1.74 H Glucose 342 H Calcium 7.3 L - VTE Documentation of Mechanical Device: Intermittent pneumatic compression device Consult Discharge Plan - Plan Referrals: Ketty Cade, FIELD NURSE [Primary Care Provider] -
[2017-02-28] MEDS ORDERED: Insulin DETEMIR 100 UNIT/ML X5UNITS SQ ONE (09:30)
[2017-02-28] MEDS ORDERED: Potassium Chloride 40 MEQ/200 ML BAG IVPB PRN (09:50)
--- NOTE | 2017-02-28 10:44 | Infectious Disease Progress No ---
Date of Encounter: 02/28/17 Time of Encounter: 10:42 - Assessment and Plan (1) Severe sepsis Current Visit: Yes Status: Acute The patient had three SIRS criteria with lactic acidosis plus hypotension responsive to IVF resuscitation. She has required the initiation of vasopressor support post-operatively. Likely secondary to bacteremia and sternal wound infection. Improved. Tachycardia has resolved. She has been afebrile, but has had one episode of hypothermia, but there is a fan blowing directly on her so I'm not sure how accurate this is.. Her WBC is worse this morning, but this is likely reactive from her recent surgical procedure. Bandemia has resolved. Blood cultures drawn 02/25/17 are positive 2/2 sets for MSSA. Repeat blood cultures drawn 02/28/17 are pending x 2 sets. (2) Bacteremia Current Visit: Yes Status: Acute Causative organism: MSSA. Source: Sternal wound infection. Complicated due to the presence of sternal wires. Blood cultures drawn 02/25/17 are positive 2/2 sets for MSSA. No endocarditis stigmata noted on exam. The patient has one major and one minor Modified Jessica's Criteria. TTE completed. No mention of valvular vegetations. The patient will likely require SHER prior to discharge. Repeat blood cultures x 2 sets drawn 02/28/17 are pending x 2 sets. Continue cefazolin 2 grams IV Q12H, dose-adjusted for decreased CrCl. Duration of treatment depends on the clinical picture, but likely at least 4-6 weeks of IV antibiotics. Monitor renal function and dose-adjust antibiotics. (3) Sternal wound infection Current Visit: Yes Status: Acute Causative organism MSSA. Secondary to recent surgical procedure. CT of the chest showed dehiscence of the intact manubrial sternal wires with widening of the sternotomy. There was also an abscess within the open manubrial portion of the sternotomy. CTS team consulted. Status post incision and drainage of sternal abscess with debridement of the sternum and sternal re-wiring. Operative note reviewed. Pus noted over the manubrium and over the body of the sternum. No mention of bone abnormalities on the intra-op report. Will discuss with Dr. Zambrano. Intra- operative cultures obtained and are positive for MSSA. Anaerobic and fungal cultures are pending. AFB negative. Intra-operative cultures positive for MSSA. Continue wound care as outlined by the CTS team. Continue antibiotics as above. (4) Acute kidney injury Current Visit: Yes Status: Resolved Likely secondary to sepsis initially. Serum creatinine continues to trend up this morning. Likely secondary to hypotension and poor renal perfusion. Continue to trend. Dose-adjust antibiotics. Avoid nephrotoxins as able. (5) Lactic acidosis Current Visit: Yes Status: Resolved Secondary to sepsis. Resolved. (6) Hyponatremia Current Visit: Yes Status: Acute Euvolemic hyponatremia. Persists. Management per the primary team. (7) Elevated troponin Current Visit: Yes Status: Acute Cardiology consulted --> likes demand ischemia. (8) CAD (coronary artery disease) Current Visit: Yes Status: Acute Status post CABG 01/24/[address] Reynolds. Qualifiers: Coronary Disease-Associated Artery/Lesion type: [place] artery [place] vs. transplanted heart: [place] heart Associated angina: without angina Qualified Code(s): I25.10 - Atherosclerotic heart disease of [place] coronary artery without angina pectoris - Subjective Interval history: Patient seen and examined. Review of the record reveals that the patient has had sustained, asymptomatic v-tach overnight requiring the initiated of amiodarone. She continues to require low-dose vasopressors. She has had intermittent hypothermia overnight as well, but the patient is noted to have a fan blowing directly on her during my exam. She denies any fevers or chills or rigors. She denies pain or surgical site pain. She does report a dry cough. She denies any nausea, vomiting, diarrhea, or constipation. She denies any abdominal pain and states she ate a little bit of breakfast this morning despite not having much of an appetite. She is a Malave catheter that remains patent and she denies any urinary complaints at this time. She denies any oral thrush or new skin lesions. Infect Dis PN-Objective Data - Labs CBC & Chem 7: 02/28/17 01:00 02/28/17 01:00 Labs: Laboratory Results - last 24 hr 02/27/17 02/27/17 02/27/17 11:05 15:10 20:02 WBC RBC Hgb Hct MCV MCH MCHC RDW Plt Count MPV Immature Gran % Seg Neutrophils % Lymphocytes % Monocytes % Eosinophils % Basophils % Neutrophils # Lymphocytes # Monocytes # Eosinophils # Basophils # Sodium Potassium Chloride Carbon Dioxide BUN Creatinine Est GFR ( Amer) Est GFR (Non-Af Amer) BUN/Creatinine Ratio Glucose POC Glucose 373 H 369 H 364 H Calculated Osmolality Calcium Magnesium 02/27/17 02/28/17 02/28/17 22:53 01:00 01:00 WBC 24.1 H RBC 2.98 L Hgb 8.8 L Hct 26.8 L MCV 89.9 MCH 29.5 MCHC 32.8 RDW 13.7 Plt Count 174 MPV 10.5 Immature Gran % 1.3 Seg Neutrophils % 86.4 Lymphocytes % 6.3 Monocytes % 5.4 Eosinophils % 0.5 Basophils % 0.1 Neutrophils # 20.8 H Lymphocytes # 1.5 Monocytes # 1.3 Eosinophils # 0.1 Basophils # 0.0 Sodium 127 L Potassium 3.0 L Chloride 101 Carbon Dioxide 18 L BUN 36 H Creatinine 1.74 H Est GFR ( Amer) 37 L Est GFR (Non-Af Amer) 31 L BUN/Creatinine Ratio 21 Glucose 342 H POC Glucose 304 H Calculated Osmolality 286 Calcium 7.3 L Magnesium 02/28/17 02/28/17 07:48 09:54 WBC RBC Hgb Hct MCV MCH MCHC RDW Plt Count MPV Immature Gran % Seg Neutrophils % Lymphocytes % Monocytes % Eosinophils % Basophils % Neutrophils # Lymphocytes # Monocytes # Eosinophils # Basophils # Sodium Potassium Chloride Carbon Dioxide BUN Creatinine Est GFR ( Amer) Est GFR (Non-Af Amer) BUN/Creatinine Ratio Glucose POC Glucose 298 H Calculated Osmolality Calcium Magnesium 2.1 Cultures: Cultures 02/26/17 08:42 Acid Fast Stain - Final Other-Specify in Comments 02/26/17 08:30 Wound Culture - Preliminary Other-Specify in Comments Staphylococcus aureus Exam - Constitutional Vitals: Temp Pulse Resp BP Pulse Ox 94.3 F L 83 20 102/50 97 02/28/17 08:16 02/28/17 10:00 02/28/17 10:00 02/28/17 10:00 02/28/17 10:00 General appearance: cooperative, no acute distress, obese - Head Head exam: Present: atraumatic, normal inspection, normocephalic - Eye Eye exam: Present: EOMI, normal appearance, PERRL Pupils: Present: normal accommodation Additional comments: No subconjunctival hemorrhage noted. - ENT ENT exam: Present: mucous membranes moist - Neck Neck exam: Present: normal inspection Additional comments: Triple lumen CVC noted to the right IJ with transparent dressing intact. - Respiratory Respiratory exam: Present: CTAB. Absent: rales, respiratory distress, rhonchi, wheezes Additional comments: Midsternal incision with SAMIRA dressing with scant old bloody drainage noted. No erythema or warmth of the skin surrounding the dressing. Mediastinal chest tubes x 2 noted with be draining serosanguinous drainage. - Cardiovascular Cardiovascular exam: Present: irregular rhythm. Absent: tachycardia - GI/Abdominal GI/Abdominal exam: Present: distended (obese), normal bowel sounds, soft. Absent: tenderness Additional comments: Malave catheter noted to be draining clear yellow urine. - Extremities Exam Extremities exam: Present: normal inspection. Absent: joint swelling, pedal edema, tenderness Additional comments: No endocarditis stigmata noted. - Back Exam Back exam: Present: normal inspection. Absent: paraspinal tenderness, vertebral tenderness - Neurological Exam Neurological exam: Present: alert, oriented X3, no focal deficits - Psychiatric Psychiatric exam: Present: normal affect, normal mood - Skin Skin exam: Present: dry, intact, normal color, warm - VTE Documentation of Mechanical Device: Intermittent pneumatic compression device Consult Discharge Plan - Plan Referrals: Ketty Cade, GRUBBER [Primary Care Provider] -
[2017-02-28] MEDS ORDERED: ceFAZolin 2,000 MG in D5% in Water 100 ML IVPB SCH (20:00)
[2017-02-28] MEDS ORDERED: Insulin DETEMIR 100 UNIT/ML X5UNITS SQ SCH (21:00)
[2017-02-28] MEDS ORDERED: Dextrose Gel 15 GM PO PRN ×2 (22:39)
[2017-02-28] MEDS ORDERED: Ondansetron 4 MG/2 ML VIAL IVP PRN (22:39)
[2017-02-28] MEDS ORDERED: *HR* Morphine 2 MG/ML SYRINGE IVP PRN ×2 (22:39)
[2017-02-28] MEDS ORDERED: *HR* Dextrose 50 % in Water (Syg) 50 ML SYRINGE IVP PRN (22:39)
[2017-02-28] MEDS ORDERED: D5% in Water 1,000 ML IVC PRN (22:39)
[2017-02-28] MEDS ORDERED: Naloxone 0.4 MG/ML INJ IVP PRN (22:39)
[2017-03-01] MEDS: Albuterol 2.5 MG/3 ML NEBULIZER IH SCH ×6 (03:58→23:52)
[2017-03-01] MEDS: Norepinephrine 4 MG in D5% in Water 250 ML IVC SCH (05:08)
[2017-03-01 05:20] LABS: Basophils % 0.1 %; Eosinophils # 0.2 K/mcL (0.0-0.6); Eosinophils % 0.9 %; Hematocrit 24.1 % (35.3-44.9); Hemoglobin 8.1 g/dL (11.5-15.4); Immature Granulocytes % 1.5 % (0-4); Lymphocytes # 1.3 K/mcL (0.6-4.6); Lymphocytes % 7.5 %; Mean Corpuscular HGB Conc 33.6 g/dL (31.6-35.5); Mean Corpuscular Hemoglobin 29.7 pg (28.0-33.3); Mean Corpuscular Volume 88.3 fL (83.0-100.0); Mean Platelet Volume 10.3 fL (9.4-12.4); Monocytes # 0.7 K/mcL (0.0-1.3); Monocytes % 3.7 %; Platelet Count 138 K/mcL (140-400); Red Blood Count 2.73 M/mcL (3.82-4.97); Red Cell Distribution Width 13.8 % (11.5-14.5); Segmented Neutrophils % 86.3 %
[2017-03-01] MEDS: *HR* Heparin 5,000 UNIT/ML VIAL SQ SCH ×3 (05:56→21:09)
[2017-03-01] MEDS: Insulin LISPRO 300 UNITS/3 ML VIAL SQ SCH ×4 (07:36→19:46)
[2017-03-01] MEDS: hydroCHLOROthiazide 25 MG TABLET PO SCH (07:36)
[2017-03-01] MEDS: 0.9 % Sodium Chloride 1,000 ML IVC SCH (07:53)
[2017-03-01] MEDS: Aspirin Enteric Coated 81 MG Tablet PO SCH (07:53)
[2017-03-01 08:37] LABS: Calcium 7.4 mg/dL (8.6-10.8); Potassium 3.3 mEq/L (3.5-4.5)
[2017-03-01] MEDS ORDERED: Magnesium Sulfate 2 GM in D5% in Water 100 ML IVPB ONE (09:17)
[2017-03-01] MEDS ORDERED: Potassium Chloride 40 MEQ/200 ML BAG IVPB PRN (09:17)
--- NOTE | 2017-03-01 09:30 | Cardiothoracic Progress Note ---
Date of Encounter: 03/01/17 Time of Encounter: 09:28 - Assessment and plan (1) Sternal wound infection Current Visit: Yes Status: Acute The patient is recovering well from her sternal debridement with rewiring. The Levophed drip has been discontinued and the patient is maintaining a normal blood pressure. Her renal function is improving. The chest tube output is minimal. The patient will remain in the ICU today for close observation of her cardiac rhythm and respiratory status. The assessment and plan as outlined above was discussed with the patient and/or family members who expressed understanding and agreement. All questions were answered. - Subjective Procedure(s) Performed: POD#3 S/P Sternal debridement with rewiring Interval history: The patient remained hemodynamically stable overnight. She is off the Levophed drip currently. She has no complaints. Vital Signs, Last 4 Hours Temp Pulse Resp BP Pulse Ox 03/01/17 08:00 114 20 123/54 100 03/01/17 07:45 16 99 03/01/17 07:30 98.3 F 03/01/17 07:00 113 20 97/49 100 03/01/17 06:00 115 16 98/50 97 Oxgyen Flow Rate Oxygen Flow Rate (LPM) 3 Clinical Data, last 8 Hours Output, Chest Tube Drainage 0 Amount [Mediastinal #1] Output, Chest Tube Drainage 0 Amount [Mediastinal #1] Output, Chest Tube Drainage 0 Amount [Mediastinal #2] Output, Chest Tube Drainage 10 Amount [Mediastinal #2] Output, Chest Tube Drainage 0 Amount [Mediastinal #2] Weight 02/27/17 02/28/17 03/01/17 23:59 23:59 23:59 Weight 91.2 kg 99 kg - Physical Examination General: Conversant, No Apparent Distress Neck: No JVD, Normal carotid pulses Cardiac: Reg Rate and Rhythm, Normal S1 and S2, No Murmur Incision: No signs of infection, Dry/intact dressing Sternum: Stable Chest tubes: Minimal drainage, Other (No airleak.) Lungs: Normal Breath Sounds, No Wheeze, Rales, Rhonchi Neuro: Alert and responsive, No focal deficits noted Vascular: Normal capillary refill Extremities: No Clubbing, No Cyanosis, No Edema - Labs 03/01/17 04:55 03/01/17 04:55 Lab Results, Last 24 hours 02/28/17 03/01/17 03/01/17 09:54 04:55 04:55 WBC 17.4 H Hgb 8.1 L Hct 24.1 L Plt Count 138 L Sodium Potassium Chloride Carbon Dioxide BUN Creatinine Glucose Calcium Magnesium 2.1 1.5 L 03/01/17 04:55 WBC Hgb Hct Plt Count Sodium 130 L Potassium 3.3 L Chloride 104 Carbon Dioxide 20 BUN 36 H Creatinine 1.52 H Glucose 47 L Calcium 7.4 L Magnesium - VTE Documentation of Mechanical Device: Intermittent pneumatic compression device Consult Discharge Plan - Plan Referrals: Ketty Cade, [employer] [Primary Care Provider] -
[2017-03-01] MEDS: *HR* HYDROcodone/Acet 5/325 mg TABLET PO PRN ×2 (10:02→21:09)
[2017-03-01] MEDS: ceFAZolin 2,000 MG in D5% in Water 100 ML IVPB SCH ×2 (10:28→16:44)
[2017-03-02] MEDS: 0.9 % Sodium Chloride 1,000 ML IVC SCH (00:01)
[2017-03-02] MEDS: ceFAZolin 2,000 MG in D5% in Water 100 ML IVPB SCH ×3 (00:02→15:14)
[2017-03-02 03:41] LABS: Basophils % 0.1 %; Eosinophils # 0.1 K/mcL (0.0-0.6); Eosinophils % 0.9 %; Hematocrit 23.4 % (35.3-44.9); Hemoglobin 7.6 g/dL (11.5-15.4); Immature Granulocytes % 1.8 % (0-4); Immature Platelets 2.8 % (1.1-6.1); Lymphocytes # 1.9 K/mcL (0.6-4.6); Lymphocytes % 13.4 %; Mean Corpuscular HGB Conc 32.5 g/dL (31.6-35.5); Mean Corpuscular Hemoglobin 28.9 pg (28.0-33.3); Mean Platelet Volume 9.8 fL (9.4-12.4); Monocytes # 0.8 K/mcL (0.0-1.3); Monocytes % 5.5 %; Neutrophils # 10.9 K/mcL (1.6-8.9); Platelet Count 179 K/mcL (140-400); Red Blood Count 2.63 M/mcL (3.82-4.97); Red Cell Distribution Width 14.1 % (11.5-14.5); Segmented Neutrophils % 78.3 %
[2017-03-02] MEDS: Albuterol 2.5 MG/3 ML NEBULIZER IH SCH ×5 (03:49→20:26)
[2017-03-02 03:53] LABS: Calcium 7.6 mg/dL (8.6-10.8); Potassium 3.8 mEq/L (3.5-4.5)
[2017-03-02] MEDS: *HR* Heparin 5,000 UNIT/ML VIAL SQ SCH ×3 (06:20→21:38)
[2017-03-02] MEDS: *HR* HYDROcodone/Acet 5/325 mg TABLET PO PRN (07:07)
[2017-03-02] MEDS: Insulin LISPRO 300 UNITS/3 ML VIAL SQ SCH ×4 (07:56→21:36)
[2017-03-02] MEDS: Aspirin Enteric Coated 81 MG Tablet PO SCH (08:02)
[2017-03-02] MEDS: Norepinephrine 4 MG in D5% in Water 250 ML IVC SCH (08:16)
--- NOTE | 2017-03-02 08:39 | Cardiothoracic Progress Note ---
Date of Encounter: 03/02/17 Time of Encounter: 08:37 - Assessment and plan (1) Sternal wound infection Current Visit: Yes Status: Acute The patient is recovering well from her sternal debridement with rewiring. The Levophed drip has been discontinued and the patient is maintaining a normal blood pressure. Her renal function is improving. The chest tube output is minimal. The patient will be transferred to the stepdown unit later today. The assessment and plan as outlined above was discussed with the patient and/or family members who expressed understanding and agreement. All questions were answered. - Subjective Procedure(s) Performed: POD#4 S/P Sternal debridement with rewiring Interval history: The patient remained hemodynamically stable overnight. She remains off the Levophed drip. She has no complaints. Vital Signs, Last 4 Hours Pulse Resp BP Pulse Ox 03/02/17 08:00 105 18 120/53 98 03/02/17 07:00 99 20 122/52 97 03/02/17 06:00 101 24 117/56 97 03/02/17 05:00 97 16 118/57 96 Oxgyen Flow Rate Oxygen Flow Rate (LPM) 2 Clinical Data, last 8 Hours Output, Chest Tube Drainage 10 Amount [Mediastinal #1] Output, Chest Tube Drainage 10 Amount [Mediastinal #1] Output, Chest Tube Drainage 0 Amount [Mediastinal #2] Output, Chest Tube Drainage 5 Amount [Mediastinal #2] Output, Urine Amount 100 Output, Urine Amount 0 Weight 02/28/17 03/01/17 03/02/17 23:59 23:59 23:59 Weight 99 kg 99.5 kg - Physical Examination General: Conversant, No Apparent Distress Neck: No JVD, Normal carotid pulses Cardiac: Reg Rate and Rhythm, Normal S1 and S2, No Murmur Incision: No signs of infection, Dry/intact dressing Sternum: Stable Chest tubes: Minimal drainage, Other (No air leak.) Lungs: Normal Breath Sounds, No Wheeze, Rales, Rhonchi Neuro: Alert and responsive, No focal deficits noted Vascular: Normal capillary refill Extremities: No Clubbing, No Cyanosis, No Edema - Labs 03/02/17 03:35 03/02/17 03:35 Lab Results, Last 24 hours 03/01/17 03/02/17 03/02/17 04:55 03:35 03:35 WBC 13.9 H Hgb 7.6 L Hct 23.4 L Plt Count 179 Sodium 130 L 132 L Potassium 3.3 L 3.8 Chloride 104 107 Carbon Dioxide 20 18 L BUN 36 H 33 H Creatinine 1.52 H 1.19 H Glucose 47 L 136 H Calcium 7.4 L 7.6 L - Imaging Chest Xray: image reviewed (No pneumothorax. Bibasilar atelectasis.) - VTE Documentation of Mechanical Device: Intermittent pneumatic compression device Consult Discharge Plan - Plan Referrals: Ketty Cade, KILN SETTER [Primary Care Provider] -
[2017-03-02] MEDS: hydroCHLOROthiazide 25 MG TABLET PO SCH (10:16)
[2017-03-02 21:13] LABS: Acinetobacter baumannii by PCR Not Detected (Not Detect); Candida albicans by PCR Not Detected (Not Detect); Candida glabrata by PCR Not Detected (Not Detect); Candida krusei by PCR Not Detected (Not Detect); Candida parapsilosis by PCR Not Detected (Not Detect); Candida tropicalis by PCR Not Detected (Not Detect); Enterococcus by PCR Not Detected (Not Detect); Escherichia coli by PCR Not Detected (Not Detect); Klebsiella oxytoca by PCR Not Detected (Not Detect); Klebsiella pneumoniae by PCR Not Detected (Not Detect); Pseudomonas aeruginosa by PCR Not Detected (Not Detect); Serratia marcescens by PCR Not Detected (Not Detect); Staphylococcus aureus by PCR ***DETECTED*** (Not Detect); Streptococcus agalactiae(B)PCR Not Detected (Not Detect); Streptococcus by PCR Not Detected (Not Detect); Streptococcus pneumoniae PCR Not Detected (Not Detect); Streptococcus pyogenes (A) PCR Not Detected (Not Detect); blaKPC Carbapenem-Resist Gene Not Detected (Not Detect); mecA Methicillin-Resist Gene Not Detected (Not Detect); vanA/B Vancomycin-Resist Genes Not Detected (Not Detect)
[2017-03-03] MEDS: ceFAZolin 2,000 MG in D5% in Water 100 ML IVPB SCH ×4 (00:17→23:25)
[2017-03-03] MEDS: Albuterol 2.5 MG/3 ML NEBULIZER IH SCH ×6 (00:20→19:51)
[2017-03-03 04:05] LABS: Basophils % 0.2 %; Eosinophils # 0.1 K/mcL (0.0-0.6); Hematocrit 23.1 % (35.3-44.9); Hemoglobin 7.7 g/dL (11.5-15.4); Immature Granulocytes % 2.5 % (0-4); Lymphocytes # 1.6 K/mcL (0.6-4.6); Lymphocytes % 12.1 %; Mean Corpuscular HGB Conc 33.3 g/dL (31.6-35.5); Mean Corpuscular Hemoglobin 29.7 pg (28.0-33.3); Mean Corpuscular Volume 89.2 fL (83.0-100.0); Mean Platelet Volume 10.1 fL (9.4-12.4); Monocytes # 0.8 K/mcL (0.0-1.3); Monocytes % 6.1 %; Neutrophils # 10.3 K/mcL (1.6-8.9); Platelet Count 217 K/mcL (140-400); Red Blood Count 2.59 M/mcL (3.82-4.97); Red Cell Distribution Width 14.3 % (11.5-14.5); Segmented Neutrophils % 78.1 %
[2017-03-03 04:20] LABS: BUN/Creatinine Ratio 33 (6-26); Blood Urea Nitrogen 34 mg/dL (7-20); Calcium 7.7 mg/dL (8.6-10.8); Carbon Dioxide 19 mEq/L (19-29); Chloride 107 mEq/L (98-109); Glucose 193 mg/dL (70-99); Osmolality,Calculated 289 (280-300); Potassium 3.9 mEq/L (3.5-4.5); Sodium 133 mEq/L (136-145); eGFR For African Americans > 60 (> 60); eGFR For Non-African Americans 57 (> 60)
[2017-03-03] MEDS: *HR* Heparin 5,000 UNIT/ML VIAL SQ SCH ×3 (06:21→21:09)
[2017-03-03] MEDS: *HR* HYDROcodone/Acet 5/325 mg TABLET PO PRN ×2 (07:44→17:31)
[2017-03-03] MEDS: Aspirin Enteric Coated 81 MG Tablet PO SCH (07:44)
[2017-03-03] MEDS: hydroCHLOROthiazide 25 MG TABLET PO SCH (07:45)
[2017-03-03] MEDS: Insulin LISPRO 300 UNITS/3 ML VIAL SQ SCH ×4 (08:27→21:01)
--- NOTE | 2017-03-03 09:09 | Cardiothoracic Progress Note ---
Date of Encounter: 03/03/17 Time of Encounter: 09:06 - Assessment and plan (1) Diabetes Current Visit: No Status: Chronic The chest tubes were removed. We will check a stat portable chest x-ray. I will increase her Lopressor dosage. The patient does have the usual, expected acute postoperative blood loss anemia. Hemoglobin is stable at 7.7 and she is asymptomatic. I will consult urology for urinary retention. Qualifiers: Diabetes mellitus type: type 2 Diabetes mellitus complication status: with unspecified complications Diabetes mellitus terminal press operator insulin use: with terminal press operator use Qualified Code(s): E11.8 - Type 2 diabetes mellitus with unspecified complications; Z79.4 - halfway (current) use of insulin - Subjective Interval history: Patient has no complaints. She has had some urinary retention. Vital Signs, Last 4 Hours Temp Pulse Resp BP Pulse Ox 03/03/17 07:42 16 93 03/03/17 07:40 116 03/03/17 07:21 98.9 F 119 16 148/87 96 Oxgyen Flow Rate Oxygen Flow Rate (LPM) 2 Clinical Data, last 8 Hours Output, Chest Tube Drainage 0 Amount [Mediastinal #1] Output, Chest Tube Drainage 0 Amount [Mediastinal #1] Output, Chest Tube Drainage 0 Amount [Mediastinal #1] Output, Chest Tube Drainage 0 Amount [Mediastinal #1] Output, Chest Tube Drainage 0 Amount [Mediastinal #2] Output, Chest Tube Drainage 0 Amount [Mediastinal #2] Output, Chest Tube Drainage 0 Amount [Mediastinal #2] Output, Chest Tube Drainage 0 Amount [Mediastinal #2] Output, Urine Amount 0 Output, Urine Amount 0 Weight 03/01/17 03/02/17 03/03/17 23:59 23:59 23:59 Weight 99 kg 99.5 kg 98.1 kg Lungs are clear to percussion and auscultation. Heart is in a normal sinus rhythm. All incisions are healing well without signs of infection and the sternum is stable. Chest tube drainage is minimal. - Labs 03/03/17 04:00 03/03/17 04:00 Lab Results, Last 24 hours 03/03/17 03/03/17 04:00 04:00 WBC 13.2 H Hgb 7.7 L Hct 23.1 L Plt Count 217 Sodium 133 L Potassium 3.9 Chloride 107 Carbon Dioxide 19 BUN 34 H Creatinine 1.02 Glucose 193 H Calcium 7.7 L - VTE Documentation of Mechanical Device: Intermittent pneumatic compression device Consult Discharge Plan - Plan Referrals: Ketyt Cade, DIRECTOR OF MANUFACTURING OPERATIONS [Primary Care Provider] -
--- NOTE | 2017-03-03 10:58 | Internal Med Progress Note ---
Date of Encounter: 03/03/17 Time of Encounter: 10:54 - Assessment and plan (1) Sepsis Current Visit: Yes Status: Acute Assessment and plan: Patient admitted with fever, tachycardia, leukocytosis and noted to have surgical sternal wound infection after recent CABG. Currently improving. Remaining plan as below. Qualifiers: Sepsis type: methicillin susceptible Staphylococcus aureus Qualified Code(s ): A41.01 - Sepsis due to Methicillin susceptible Staphylococcus aureus (2) Infected surgical wound Current Visit: Yes Status: Acute Assessment and plan: Patient admitted with infected postoperative sternal wound after undergoing CABG on 01/24/2017. Cardiothoracic surgery consulted and patient underwent Incision and drainage of sternal abscess with debridement of the sternum and sternal rewiring on February 26. Chest tube was removed today. Local wound care per cardiothoracic surgery. 2 out of 2 initial blood cultures and operative wound culture grew MSSA. Infectious diseases is on board and patient is on IV cefazolin. One out of 2 repeat blood cultures from February 27 grew gram- positive cocci. Transthoracic echocardiogram showed no evidence of valvular vegetations. Blood cultures repeated today, continue to monitor. Physical and occupational therapy evaluation. Patient would benefit from rehabilitation placement. Qualifiers: Encounter type: initial encounter Qualified Code(s): T81.4XXA - Infection following a procedure, initial encounter (3) Acute kidney injury Current Visit: Yes Status: Resolved (4) Diabetes Current Visit: Yes Status: Chronic Assessment and plan: Continue Accu-Chek blood glucose monitoring with sliding scale insulin. Diabetic diet. Qualifiers: Diabetes mellitus type: type 2 Diabetes mellitus complication status: with unspecified complications Diabetes mellitus longterm insulin use: with longterm use Qualified Code(s): E11.8 - Type 2 diabetes mellitus with unspecified complications; Z79.4 - terminologist (current) use of insulin (5) GERD (gastroesophageal reflux disease) Current Visit: Yes Status: Chronic Qualifiers: Esophagitis presence: esophagitis presence not specified Qualified Code(s) : K21.9 - Gastro-esophageal reflux disease without esophagitis (6) HTN (hypertension) Current Visit: Yes Status: Chronic Assessment and plan: Blood pressure noted to be well controlled. Patient continues to be mildly tachycardic, will increase beta marko. Continue to monitor. Qualifiers: Hypertension type: essential hypertension Qualified Code(s): I10 - Essential (primary) hypertension (7) HLD (hyperlipidemia) Current Visit: Yes Status: Chronic Qualifiers: Hyperlipidemia type: unspecified Qualified Code(s): E78.5 - Hyperlipidemia , unspecified (8) CAD (coronary artery disease) Current Visit: Yes Status: Chronic Qualifiers: Coronary Disease-Associated Artery/Lesion type: [place] artery [place] vs. transplanted heart: [place] heart Associated angina: without angina Qualified Code(s): I25.10 - Atherosclerotic heart disease of [place] coronary artery without angina pectoris - Subjective Interval history: Reports feeling weak all over; has chest pain from recent surgery, somewhat controlled by pain meds; has not been seen by PT yet; had chest tubes removed today; - Constitutional Vitals: Temp Pulse Resp BP Pulse Ox 98.9 F 96 16 111/74 93 03/03/17 07:21 03/03/17 10:13 03/03/17 07:42 03/03/17 10:13 03/03/17 07:42 General appearance: Present: mild distress (due to pain), A&O X 3, obese, answers questions appropriately - Respiratory Respiratory exam: Present: CTAB. Absent: accessory muscle use, rales, rhonchi, wheezes - Cardiovascular Cardiovascular exam: Present: RRR, +S1, +S2, tachycardia. Absent: diastolic murmur, gallop, rubs, systolic murmur - GI/Abdominal GI/Abdominal exam: Present: normal bowel sounds, soft, no peritoneal signs. Absent: distended, tenderness - Extremities Exam Extremities exam: Present: pedal edema, warm, radial pulses palpable and symmetrical. Absent: calf tenderness, cyanotic - Neurological Exam Neurological exam: Present: CN II-XII intact, oriented X3, no focal deficits. Absent: pronater drift, facial droop, speech deficit Internal Medicine: Result - Labs CBC & Chem 7: 03/03/17 04:00 03/03/17 04:00 Labs: Short CBC 03/03/17 Range/Units 04:00 WBC 13.2 H (4.3-11.1) K/mcL Hgb 7.7 L (11.5-15.4) g/dL Hct 23.1 L (35.3-44.9) % Plt Count 217 (140-400) K/mcL Neutrophils # 10.3 H (1.6-8.9) K/mcL BMP 03/03/17 04:00 Sodium 133 L Potassium 3.9 Chloride 107 Carbon Dioxide 19 BUN 34 H Creatinine 1.02 Glucose 193 H Calcium 7.7 L - ABG Interpretation ABG results: ABG ABG pH 7.25 pH Units (7.32-7.45) L 02/27/17 04:19 ABG pCO2 39 mmHg (35-45) 02/27/17 04:19 ABG pO2 64 mmHg (85-104) L 02/27/17 04:19 ABG O2 Saturation 88 % (95-98) L 02/27/17 04:19 PT/INR, D-dimer PT 15.4 Seconds (9.4-12.1) H 02/25/17 15:59 - Impressions Impressions Chest X-Ray 03/03/17 06:00 IMPRESSION: Stable small bilateral pleural effusions Interval removal of the right IJ catheter. Stable right chest tubes. D/ / 03/03/2017 07:51:33 Zach Duffy MD / venessa Interpreting Provider: Zach Duffy MD Chest X-Ray 03/03/17 09:11 IMPRESSION: 1. No pneumothorax status post removal of the right-sided chest tube. 2. Stable small pleural effusions. D/ / Jer Moctezuma MD / Jer Moctezuma MD Interpreting Provider: Jre Moctezuma MD - VTE Documentation of Mechanical Device: Intermittent pneumatic compression device Consult Discharge Plan - Plan Referrals: Ketty Cade, FATMATA [Primary Care Provider] - (PATIENT IS GOING TO [facility] FOR ANTIBIOTICS, NO PCP APPOINTMENT NEEDED) Bruno Zambrano MD [Partnered Physician] - (SENT WEB REQUEST ON 03-03-17 @ 0432)
--- NOTE | 2017-03-03 13:03 | Infectious Disease Progress No ---
Date of Encounter: 03/03/17 Time of Encounter: 13:01 - Assessment and Plan (1) Severe sepsis Current Visit: Yes Status: Acute The patient had three SIRS criteria with lactic acidosis plus hypotension responsive to IVF resuscitation. Sherequired the initiation of vasopressor support post-operatively, but these have since been discontinued. Likely secondary to bacteremia and sternal wound infection. Improved. She continues to have some intermittent tachycardia. She has been afebrile and has had no further episodes of hypothermia. Her WBC is improving. Blood cultures drawn 02/25/17 are positive 2/2 sets for MSSA. Repeat blood cultures drawn 02/27/17 are positive 1/2 sets. (2) Bacteremia Current Visit: Yes Status: Acute Causative organism: MSSA. Source: Sternal wound infection. Complicated due to the presence of sternal wires. Blood cultures drawn 02/25/17 are positive 2/2 sets for MSSA. Repeat blood cultures drawn 02/27/17 are positive 1/2 sets. No endocarditis stigmata noted on exam. The patient has one major and one minor Modified Jessica's Criteria. TTE completed. No mention of valvular vegetations. The patient will likely require SHER prior to discharge. Repeat blood cultures x 2 sets drawn this morning are pending. Continue cefazolin 2 grams IV Q8H. Duration of treatment depends on the clinical picture, but likely at least 4-6 weeks of IV antibiotics. Monitor renal function and dose-adjust antibiotics. (3) Sternal wound infection Current Visit: Yes Status: Acute Causative organism MSSA. Secondary to recent surgical procedure. CT of the chest showed dehiscence of the intact manubrial sternal wires with widening of the sternotomy. There was also an abscess within the open manubrial portion of the sternotomy. CTS team consulted. Status post incision and drainage of sternal abscess with debridement of the sternum and sternal re-wiring. Operative note reviewed. Pus noted over the manubrium and over the body of the sternum. No mention of bone abnormalities on the intra-op report. Will discuss with Dr. Zambrano. Intra- operative cultures obtained and are positive for MSSA. Anaerobic and fungal cultures are pending. AFB negative. Intra-operative cultures positive for MSSA. Continue wound care as outlined by the CTS team. Continue antibiotics as above. (4) Acute kidney injury Current Visit: Yes Status: Resolved Likely secondary to sepsis initially, worsened by hypotension and poor renal perfusion. Resolved. Continue to trend. Dose-adjust antibiotics. Avoid nephrotoxins as able. (5) Lactic acidosis Current Visit: Yes Status: Resolved Secondary to sepsis. Resolved. (6) Hyponatremia Current Visit: Yes Status: Acute Euvolemic hyponatremia. Improved. Management per the primary team. (7) Elevated troponin Current Visit: Yes Status: Acute Cardiology consulted --> likes demand ischemia. (8) CAD (coronary artery disease) Current Visit: Yes Status: Chronic Status post CABG 01/24/[address] Reynolds. Qualifiers: Coronary Disease-Associated Artery/Lesion type: [place] artery [place] vs. transplanted heart: [place] heart Associated angina: without angina Qualified Code(s): I25.10 - Atherosclerotic heart disease of [place] coronary artery without angina pectoris (9) Anemia Current Visit: Yes Status: Acute Hgb 7.7 this morning. No evidence of acute bleeding on exam. Workup and mangement per the primary and CTS teams. Qualifiers: Anemia type: other cause Other causes of anemia: other cause, not classified Qualified Code(s): D64.89 - Other specified anemias - Subjective Interval history: Patient seen and examined. Weekend notes reviewed. No acute events noted. Status post chest tube removal this morning. Per staff, the patient has had some difficulty urinating since having her segal discontinued. She voided yesterday, but has been unable to void today. Overall, the patient reports feeling weak. She denies any fevers or chills or rigors. She denies pain at the surgical site or shortness of breath. She does report a dry cough. She denies any nausea, vomiting, diarrhea, or constipation. She denies any abdominal pain and states she ate a little bit of breakfast this morning despite not having much of an appetite. She denies any oral thrush or new skin lesions. Infect Dis PN-Objective Data - Labs CBC & Chem 7: 03/04/17 08:02 03/03/17 04:00 Labs: Laboratory Results - last 24 hr 02/27/17 03/02/17 03/02/17 12:45 12:11 16:23 WBC RBC Hgb Hct MCV MCH MCHC RDW Plt Count MPV Immature Gran % Seg Neutrophils % Lymphocytes % Monocytes % Eosinophils % Basophils % Neutrophils # Lymphocytes # Monocytes # Eosinophils # Basophils # Sodium Potassium Chloride Carbon Dioxide BUN Creatinine Est GFR ( Amer) Est GFR (Non-Af Amer) BUN/Creatinine Ratio Glucose POC Glucose 223 H 220 H Calculated Osmolality Calcium A. baumannii (PCR) Not Detected Harriet albicans (PCR) Not Detected C. glabrata (PCR) Not Detected C. krusei (PCR) Not Detected C. parapsilosis (PCR) Not Detected C. tropicalis (PCR) Not Detected Enterobacteriac sp PCR Not Detected E. cloacae complex PCR Not Detected Enterococcus sp PCR Not Detected E. coli (PCR) Not Detected H. influenzae (PCR) Not Detected Klebsiella oxytoca PCR Not Detected Klebsiella pneumoniae Not Detected List. monocytogenes PCR Not Detected N. meningitidis (PCR) Not Detected Proteus species (PCR) Not Detected Serratia marcescens PCR Not Detected Staphylococcus sp PCR DETECTED A Staph aureus (PCR) DETECTED A mecA-Methicil Res Gene Not Detected Streptococcus sp PCR Not Detected Group A Strep DNA Not Detected Group B Strep (PCR) Not Detected Strep pneumoniae (PCR) Not Detected P. aeruginosa (PCR) Not Detected Vicente/B-Vanco Res Genes Not Detected KPC (blaKPC) Detect PCR Not Detected 03/02/17 03/03/17 03/03/17 20:36 04:00 04:00 WBC 13.2 H RBC 2.59 L Hgb 7.7 L Hct 23.1 L MCV 89.2 MCH 29.7 MCHC 33.3 RDW 14.3 Plt Count 217 MPV 10.1 Immature Gran % 2.5 Seg Neutrophils % 78.1 Lymphocytes % 12.1 Monocytes % 6.1 Eosinophils % 1.0 Basophils % 0.2 Neutrophils # 10.3 H Lymphocytes # 1.6 Monocytes # 0.8 Eosinophils # 0.1 Basophils # 0.0 Sodium 133 L Potassium 3.9 Chloride 107 Carbon Dioxide 19 BUN 34 H Creatinine 1.02 Est GFR ( Amer) > 60 Est GFR (Non-Af Amer) 57 L BUN/Creatinine Ratio 33 H Glucose 193 H POC Glucose 185 H Calculated Osmolality 289 Calcium 7.7 L A. baumannii (PCR) Harriet albicans (PCR) C. glabrata (PCR) C. krusei (PCR) C. parapsilosis (PCR) C. tropicalis (PCR) Enterobacteriac sp PCR E. cloacae complex PCR Enterococcus sp PCR E. coli (PCR) H. influenzae (PCR) Klebsiella oxytoca PCR Klebsiella pneumoniae List. monocytogenes PCR N. meningitidis (PCR) Proteus species (PCR) Serratia marcescens PCR Staphylococcus sp PCR Staph aureus (PCR) mecA-Methicil Res Gene Streptococcus sp PCR Group A Strep DNA Group B Strep (PCR) Strep pneumoniae (PCR) P. aeruginosa (PCR) Vicente/B-Vanco Res Genes KPC (blaKPC) Detect PCR Cultures: Cultures 02/26/17 08:42 Anaerobic Culture - Final Other-Specify in Comments No anaerobes were recovered. 02/27/17 12:45 Blood Culture - Preliminary Peripheral Venipuncture Gram Positive Cocci 02/27/17 12:28 Blood Culture - Preliminary Peripheral Venipuncture No growth. 02/26/17 08:30 Wound Culture - Final Other-Specify in Comments Staphylococcus aureus 02/26/17 08:42 Acid Fast Stain - Final Other-Specify in Comments Serology 02/27/17 Range/Units 12:45 A. baumannii (PCR) Not Detected (Not Detect) Harriet albicans (PCR) Not Detected (Not Detect) C. glabrata (PCR) Not Detected (Not Detect) C. krusei (PCR) Not Detected (Not Detect) C. parapsilosis (PCR) Not Detected (Not Detect) C. tropicalis (PCR) Not Detected (Not Detect) Enterobacteriac sp PCR Not Detected (Not Detect) E. cloacae complex PCR Not Detected (Not Detect) Enterococcus sp PCR Not Detected (Not Detect) E. coli (PCR) Not Detected (Not Detect) H. influenzae (PCR) Not Detected (Not Detect) Klebsiella oxytoca PCR Not Detected (Not Detect) Klebsiella pneumoniae Not Detected (Not Detect) List. monocytogenes PCR Not Detected (Not Detect) N. meningitidis (PCR) Not Detected (Not Detect) Proteus species (PCR) Not Detected (Not Detect) Serratia marcescens PCR Not Detected (Not Detect) Staphylococcus sp PCR DETECTED A (Not Detect) Staph aureus (PCR) DETECTED A (Not Detect) mecA-Methicil Res Gene Not Detected (Not Detect) Streptococcus sp PCR Not Detected (Not Detect) Group A Strep DNA Not Detected (Not Detect) Group B Strep (PCR) Not Detected (Not Detect) Strep pneumoniae (PCR) Not Detected (Not Detect) P. aeruginosa (PCR) Not Detected (Not Detect) Vicente/B-Vanco Res Genes Not Detected (Not Detect) KPC (blaKPC) Detect PCR Not Detected (Not Detect) - Impressions Impressions Chest X-Ray 03/03/17 06:00 IMPRESSION: Stable small bilateral pleural effusions Interval removal of the right IJ catheter. Stable right chest tubes. D/ / 03/03/2017 07:51:33 Zach Duffy MD / earnold Interpreting Provider: Zach Duffy MD Chest X-Ray 03/03/17 09:11 IMPRESSION: 1. No pneumothorax status post removal of the right-sided chest tube. 2. Stable small pleural effusions. D/ / Jer Moctezuma MD / Jer Moctezuma MD Interpreting Provider: Jer Moctezuma MD Exam - Constitutional Vitals: Temp Pulse Resp BP Pulse Ox 97.9 F 102 16 114/74 92 03/03/17 11:54 03/03/17 11:54 03/03/17 11:00 03/03/17 11:54 03/03/17 11:00 General appearance: cooperative, no acute distress, obese - Head Head exam: Present: atraumatic, normal inspection, normocephalic - Eye Eye exam: Present: EOMI, normal appearance, PERRL Pupils: Present: normal accommodation Additional comments: No subconjunctival hemorrhage noted. - ENT ENT exam: Present: mucous membranes moist - Neck Neck exam: Present: normal inspection - Respiratory Respiratory exam: Present: CTAB. Absent: rales, respiratory distress, rhonchi, wheezes - Cardiovascular Cardiovascular exam: Present: +S1, +S2, tachycardia. Absent: irregular rhythm Additional comments: Midline sternal incision with SAMIRA dressing intact. Scant old drainage noted on the dressing. No erythema, warmth, or tenderness of the skin surrounding the surgical dressing. Substernal dressing at site of previous chest tubes C/D/I. - GI/Abdominal GI/Abdominal exam: Present: normal bowel sounds, soft. Absent: distended, tenderness - Extremities Exam Extremities exam: Present: normal inspection. Absent: joint swelling, pedal edema, tenderness - Back Exam Back exam: Present: normal inspection. Absent: paraspinal tenderness, vertebral tenderness - Neurological Exam Neurological exam: Present: alert, oriented X3, no focal deficits - Psychiatric Psychiatric exam: Present: normal affect, normal mood - Skin Skin exam: Present: dry, intact, normal color, warm Additional comments: No endocarditis stigmata noted. - Additional findings Additional findings: EPIV noted to the LUE with transparent dressing C/D/I. - VTE Documentation of Mechanical Device: Intermittent pneumatic compression device Consult Discharge Plan - Plan Referrals: Ketty Cade CNP [Primary Care Provider] - ([facility]ING [facility], NO PCP APPOINTMENT NEEDED) Bruno Zambrano MD [Partnered Physician] - (SENT WEB REQUEST ON 03-03-17 @ [phone])
--- NOTE | 2017-03-03 17:38 | Urology - Consult Note ---
Date of Encounter: 03/03/17 Time of Encounter: 17:36 - Assessment and Plan (1) Urinary retention Current Visit: Yes Status: Acute Assessment and plan: will have patient only be straight cath'd tonight if she develops discomfort. will reeval tomorrow. Urology CN:CELINA Consult date: 03/03/17 Reason for consult Urology: Other (possible urinary retention) Requesting physician: Bruno Zambrano History of present illness: Aracely is a 51 y/o female recently admitted with sternal wound infection. She has had some difficulties with emptying her bladder. STraight cath last night had total volume of 500ml. this morning at 10 only 350. patient states that normally she voids ok. she does admit to having poorly controlled DM at home. Past Med Surg Social Fam HX - Past Medical History Medical history: coronary artery disease, diabetes, GERD, hypertension Psychiatric history: no psych history - Past Surgical History Surgical History: cholecystectomy, coronary bypass (CABG), orthopedic, other, ADA/BSO, other (Tubal ligation, tonsillectomy/adenoidectomy) - Social History Smoking Status: Former smoker Smokeless Tobacco Status: No Alcohol use: occasionally Drug use: none - Family History Father Family Member Ethnicity: Non- Living Status: Still Living Hx Family Cardiac Disorders: Yes (HTN) Hx Family Respiratory Disorders: Yes (Asthma) Mother Family Member Ethnicity: Non- Living Status: Still Living Hx Family Cardiac Disorders: Yes (HLD, HTN) Brother Family Member Ethnicity: Non- Living Status: Still Living Sister Family Member Ethnicity: Non- Living Status: Still Living Hx Family Cardiac Disorders: Yes (HLD) Hx Family Respiratory Disorders: Yes (Asthma) Hx Family Cancer: Yes (Breast) Medications and Allergies Atorvastatin [Lipitor] 40 mg PO HS 02/06/16 [History] Lansoprazole [Prevacid] 30 mg PO QAM 02/06/16 [History] Alogliptin Keon/Metformin HCl [Kazano 12.5-1,000 mg Tablet] 1 each PO BID [History] Insulin Glargine,Hum.rec.anlog [Basaglar Billyikpen U-100] 62 unit SQ HS 01/22/17 [ History] hydroCHLOROthiazide [Hydrochlorothiazide] 12.5 mg PO DAILY 01/22/17 [History] HYDROcodone/Acet 5/325 mg [[place] 5-325 mg] 1 tab PO Q4HR PRN #50 tab 01/30/17 [ Rx] Metoprolol XL (24 HR) Succ [Toprol Xl] 25 mg PO DAILY #30 01/30/17 [Rx] Lisinopril [Zestril] 10 mg PO DAILY 02/25/17 [History] 3 Allergy/AdvReac Type Severity Reaction Status Date / Time Oxycodone AdvReac Depression Verified 02/28/17 11:48 Review of Systems - Constitutional no chills - EENT Nose, mouth and throat: no dizziness - Gastrointestinal no abdominal pain Exam Initial Vital Signs Temp Pulse Resp BP Pulse Ox 100.5 F H 147 18 119/76 95 02/25/17 10:31 02/25/17 10:31 02/25/17 10:31 02/25/17 10:31 02/25/17 10:31 - General physical appearance Present: well developed - Eyes Present: PERRL - Abdomen Abdomen: Present: soft Urology Results - Labs 03/03/17 04:00 03/03/17 04:00 Abnormal lab results WBC 13.2 K/mcL (4.3-11.1) H 03/03/17 04:00 RBC 2.59 M/mcL (3.82-4.97) L 03/03/17 04:00 Hgb 7.7 g/dL (11.5-15.4) L 03/03/17 04:00 Hct 23.1 % (35.3-44.9) L 03/03/17 04:00 Neutrophils # 10.3 K/mcL (1.6-8.9) H 03/03/17 04:00 Platelet Estimate Slight Decrease (Normal) L 02/27/17 04:53 Hypochromasia Present (Not Present) A 02/27/17 04:53 Microcytosis Present (Not Present) A 02/27/17 04:53 PT 15.4 Seconds (9.4-12.1) H 02/25/17 15:59 APTT 36.2 Seconds (26.0-36.0) H D 02/26/17 10:17 ABG pH 7.25 pH Units (7.32-7.45) L 02/27/17 04:19 ABG pO2 64 mmHg (85-104) L 02/27/17 04:19 ABG HCO3 17.1 mEQ/L (21-27) L 02/27/17 04:19 ABG Total CO2 18.3 mEq/L (20-26) L 02/27/17 04:19 ABG O2 Saturation 88 % (95-98) L 02/27/17 04:19 ABG Base Excess -9.4 mEq/L (-2.0 to 3.0) L 02/27/17 04:19 Sodium 133 mEq/L (136-145) L 03/03/17 04:00 BUN 34 mg/dL (7-20) H 03/03/17 04:00 Est GFR (Non-Af Amer) 57 (> 60) L 03/03/17 04:00 BUN/Creatinine Ratio 33 (6-26) H 03/03/17 04:00 Glucose 193 mg/dL (70-99) H 03/03/17 04:00 POC Glucose 193 (58-89) H 03/03/17 11:46 Calcium 7.7 mg/dL (8.6-10.8) L 03/03/17 04:00 Ionized Calcium 1.10 mmol/L (1.15-1.35) L 02/26/17 10:17 Phosphorus 1.9 mg/dL (2.3-4.7) L 02/26/17 10:17 Magnesium 1.5 mg/dL (1.6-2.6) L 03/01/17 04:55 Direct Bilirubin 0.6 mg/dL (0.0-0.5) H 02/25/17 11:10 AST 60 Units/L (5-34) H 02/25/17 11:10 Alkaline Phosphatase 140 Units/L (38-126) H 02/25/17 11:10 Troponin I 0.41 ng/mL (0-0.03) H* 02/26/17 10:17 Albumin 2.4 g/dL (3.5-5.0) L 02/25/17 11:10 Globulin 5.3 g/dL (2.4-3.5) H 02/25/17 11:10 Albumin/Globulin Ratio 0.5 (1.1-2.2) L 02/25/17 11:10 HDL Cholesterol < 5 mg/dL (40-59) L 02/26/17 10:17 Urine Clarity Turbid (Clear) A 02/25/17 14:06 Ur Specific [place] > 1.030 (1.010-1.025) H 02/25/17 14:06 Urine Protein 100 mg/dL (Neg-Trace) H 02/25/17 14:06 Urine Glucose (UA) >=1000 mg/dL (Normal) H 02/25/17 14:06 Urine Ketones 15 mg/dL (Negative) H 02/25/17 14:06 Urine Blood Small (Negative) H 02/25/17 14:06 Urine Bilirubin Small (Negative) H 02/25/17 14:06 Ur Leukocyte Esterase Trace (Negative) H 02/25/17 14:06 Urine Microscopic WBC 15-30 per hpf (0-3) H 02/25/17 14:06 Ur Squamous Epith Cells Many per lpf (None-Few) H 02/25/17 14:06 Granular Casts Few per lpf (None Seen) H 02/25/17 14:06 Ur Culture Indicated? YES (NO) A 02/25/17 14:06 Staphylococcus sp PCR DETECTED (Not Detect) A 02/27/17 12:45 Staph aureus (PCR) DETECTED (Not Detect) A 02/27/17 12:45 Diabetes panel 03/03/17 Range/Units 04:00 Sodium 133 L (136-145) mEq/L Potassium 3.9 (3.5-4.5) mEq/L Chloride 107 (98-109) mEq/L Carbon Dioxide 19 (19-29) mEq/L BUN 34 H (7-20) mg/dL Creatinine 1.02 (0.57-1.11) mg/dL Glucose 193 H (70-99) mg/dL Calcium 7.7 L (8.6-10.8) mg/dL Calcium panel 03/03/17 Range/Units 04:00 Calcium 7.7 L (8.6-10.8) mg/dL Pituitary panel 03/03/17 Range/Units 04:00 Sodium 133 L (136-145) mEq/L Potassium 3.9 (3.5-4.5) mEq/L Chloride 107 (98-109) mEq/L Carbon Dioxide 19 (19-29) mEq/L BUN 34 H (7-20) mg/dL Creatinine 1.02 (0.57-1.11) mg/dL Glucose 193 H (70-99) mg/dL Calcium 7.7 L (8.6-10.8) mg/dL Adrenal panel 03/03/17 Range/Units 04:00 Sodium 133 L (136-145) mEq/L Potassium 3.9 (3.5-4.5) mEq/L Chloride 107 (98-109) mEq/L Carbon Dioxide 19 (19-29) mEq/L BUN 34 H (7-20) mg/dL Creatinine 1.02 (0.57-1.11) mg/dL Glucose 193 H (70-99) mg/dL Calcium 7.7 L (8.6-10.8) mg/dL All other labs normal. Consult Discharge Plan - Plan Referrals: Ketty Cade CNP [Primary Care Provider] - ([facility]ING [facility], NO PCP APPOINTMENT NEEDED) Bruno Zambrano MD [Partnered Physician] - (SENT WEB REQUEST ON 03-03-17 @ [phone])
[2017-03-04] MEDS: Albuterol 2.5 MG/3 ML NEBULIZER IH SCH ×6 (00:14→20:54)
[2017-03-04] MEDS: *HR* HYDROcodone/Acet 5/325 mg TABLET PO PRN ×2 (03:36→13:54)
[2017-03-04] MEDS: *HR* Heparin 5,000 UNIT/ML VIAL SQ SCH ×3 (06:07→22:08)
--- NOTE | 2017-03-04 07:37 | Cardiothoracic Progress Note ---
Date of Encounter: 03/04/17 Time of Encounter: 07:36 - Assessment and plan (1) Diabetes Current Visit: Yes Status: Chronic I will increase her Lopressor dosage to 50 mg by mouth twice a day. I will place her on IV Lasix. 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 Vital Signs, Last 4 Hours Temp Pulse Resp BP Pulse Ox 03/04/17 07:15 98.0 F 106 18 140/78 96 03/04/17 04:42 14 96 03/04/17 04:00 107 03/04/17 03:44 98.0 F 106 19 146/77 95 Oxgyen Flow Rate Oxygen Flow Rate (LPM) 0 Weight 03/02/17 03/03/17 03/04/17 23:59 23:59 23:59 Weight 99.5 kg 98.1 kg 97.1 kg Lungs are clear to percussion and auscultation. Heart is in a normal sinus rhythm. All incisions are healing well without signs of infection and the sternum is stable. She does have 2+ peripheral pitting edema in both lower extremities. - Labs 03/03/17 04:00 03/03/17 04:00 - VTE Documentation of Mechanical Device: Intermittent pneumatic compression device Consult Discharge Plan - Plan Referrals: Ketty Cade CNP [Primary Care Provider] - (PATIENT IS GOING TO [facility] FOR [facility], NO PCP APPOINTMENT NEEDED) Bruno Zambrano MD [Partnered Physician] - (SENT WEB REQUEST ON 03-03-17 @ [phone])
[2017-03-04 08:20] LABS: Basophils % 0.2 %; Eosinophils # 0.1 K/mcL (0.0-0.6); Eosinophils % 1.1 %; Hematocrit 22.7 % (35.3-44.9); Hemoglobin 7.4 g/dL (11.5-15.4); Immature Granulocytes % 4.1 % (0-4); Lymphocytes # 1.4 K/mcL (0.6-4.6); Lymphocytes % 13.6 %; Mean Corpuscular HGB Conc 32.6 g/dL (31.6-35.5); Mean Corpuscular Hemoglobin 29.7 pg (28.0-33.3); Mean Corpuscular Volume 91.2 fL (83.0-100.0); Mean Platelet Volume 9.7 fL (9.4-12.4); Monocytes % 9.4 %; Neutrophils # 7.5 K/mcL (1.6-8.9); Platelet Count 248 K/mcL (140-400); Red Blood Count 2.49 M/mcL (3.82-4.97); Red Cell Distribution Width 14.2 % (11.5-14.5); Segmented Neutrophils % 71.6 %
[2017-03-04] MEDS: Insulin LISPRO 300 UNITS/3 ML VIAL SQ SCH ×4 (08:22→22:06)
[2017-03-04] MEDS: Furosemide 20 MG/2 ML VIAL IVP SCH ×2 (08:23→16:58)
[2017-03-04] MEDS: Aspirin Enteric Coated 81 MG Tablet PO SCH (08:24)
[2017-03-04] MEDS: hydroCHLOROthiazide 25 MG TABLET PO SCH (08:24)
[2017-03-04 08:36] LABS: BUN/Creatinine Ratio 34 (6-26); Blood Urea Nitrogen 36 mg/dL (7-20); Calcium 7.7 mg/dL (8.6-10.8); Carbon Dioxide 18 mEq/L (19-29); Chloride 106 mEq/L (98-109); Glucose 187 mg/dL (70-99); Osmolality,Calculated 287 (280-300); Potassium 3.7 mEq/L (3.5-4.5); Sodium 132 mEq/L (136-145); eGFR For African Americans > 60 (> 60); eGFR For Non-African Americans 55 (> 60)
[2017-03-04 08:37] LABS: BUN/Creatinine Ratio 34 (6-26); Blood Urea Nitrogen 36 mg/dL (7-20); Calcium 7.7 mg/dL (8.6-10.8); Carbon Dioxide 18 mEq/L (19-29); Chloride 107 mEq/L (98-109); Glucose 189 mg/dL (70-99); Osmolality,Calculated 289 (280-300); Potassium 3.8 mEq/L (3.5-4.5); Sodium 133 mEq/L (136-145); eGFR For African Americans > 60 (> 60); eGFR For Non-African Americans 55 (> 60)
[2017-03-04] MEDS: ceFAZolin 2,000 MG in D5% in Water 100 ML IVPB SCH ×2 (08:37→15:47)
--- NOTE | 2017-03-04 09:49 | Internal Med Progress Note ---
Date of Encounter: 03/04/17 Time of Encounter: 09:47 - Assessment and plan (1) Severe sepsis Current Visit: Yes Status: Acute Assessment and plan: Secondary to MSSA bacteremia and sternal surgical wound infection Continue cefazolin day 7 Followed by cardiothoracic surgery and infectious diseases Transthoracic echocardiogram showed no evidence of valvular vegetations Will require 4-6 weeks of IV antibiotics, infectious diseases considering SHER Chest tubes removed, wound VAC in place Blood cultures drawn 02/25/17 are positive 2/2 sets for MSSA. Repeat blood cultures drawn 02/27/17 are positive 1/2 sets. (2) HTN (hypertension) Current Visit: Yes Status: Chronic Assessment and plan: Blood pressure noted to be well controlled. Patient continues to be mildly tachycardic, increased beta marko. Continue to monitor. Qualifiers: Hypertension type: essential hypertension Qualified Code(s): I10 - Essential (primary) hypertension (3) Infected sternotomy closure wire Current Visit: Yes Status: Acute Qualifiers: Encounter type: initial encounter Qualified Code(s): T84.7XXA - Infection and inflammatory reaction due to other internal orthopedic prosthetic devices, implants and grafts, initial encounter (4) Acute kidney injury Current Visit: Yes Status: Resolved Assessment and plan: Secondary to sepsis, resolved (5) CAD (coronary artery disease) Current Visit: Yes Status: Chronic Qualifiers: Coronary Disease-Associated Artery/Lesion type: [place] artery [place] vs. transplanted heart: [place] heart Associated angina: without angina Qualified Code(s): I25.10 - Atherosclerotic heart disease of [place] coronary artery without angina pectoris (6) Bacteremia Current Visit: Yes Status: Acute (7) Sternal wound infection Current Visit: Yes Status: Acute Assessment and plan: Secondary to recent surgical procedure. CT of the chest showed dehiscence of the intact manubrial sternal wires with widening of the sternotomy. There was also an abscess within the open manubrial portion of the sternotomy. CTS team following. Status post incision and drainage of sternal abscess with debridement of the sternum and sternal re-wiring. Pus noted over the manubrium and over the body of the sternum. No mention of bone abnormalities on the intra- op report. Intra-operative cultures obtained and are positive for MSSA. Anaerobic and fungal cultures are pending. AFB negative. Intra-operative cultures positive for MSSA. Continue wound care as outlined by the CTS team. (8) Anemia Current Visit: Yes Status: Acute Assessment and plan: Stable, no evidence of bleeding Qualifiers: Anemia type: other cause Other causes of anemia: other cause, not classified Qualified Code(s): D64.89 - Other specified anemias (9) Urinary retention Current Visit: Yes Status: Acute Assessment and plan: Followed by urology, straight catheter (10) Diabetes Current Visit: Yes Status: Chronic Assessment and plan: Continue Accu-Chek blood glucose monitoring with sliding scale insulin. Diabetic diet. 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 Denies any cough or headaches - Constitutional Vitals: Temp Pulse Resp BP Pulse Ox 98.0 F 103 18 140/78 95 03/04/17 07:15 03/04/17 07:38 03/04/17 08:05 03/04/17 07:15 03/04/17 08:05 General appearance: Present: mild distress (due to pain), A&O X 3, obese, answers questions appropriately - Head Head exam: Present: atraumatic, normocephalic - Eye Eye exam: Present: PERRL, conjuntiva pink, sclera anicteric Pupils: Present: PERRL - Neck Neck exam general surgery: Present: supple, trachea midline. Absent: lymphadenopathy - Respiratory Respiratory exam: Present: decreased breath sounds, CTAB. Absent: accessory muscle use, rales, rhonchi, wheezes - Cardiovascular Cardiovascular exam: Present: RRR, +S1, +S2, tachycardia. Absent: diastolic murmur, gallop, rubs, systolic murmur Additional comments: Mid sternal surgical wound covered by dressing, draining evidenced - GI/Abdominal GI/Abdominal exam: Present: distended, normal bowel sounds, soft, no peritoneal signs. Absent: tenderness - Extremities Exam Extremities exam: Present: pedal edema (+2 pitting edema in both lower extremities), warm, radial pulses palpable and symmetrical. Absent: calf tenderness, cyanotic - Neurological Exam Neurological exam: Present: CN II-XII intact, oriented X3, no focal deficits. Absent: pronater drift, facial droop, speech deficit - Skin Skin exam: Present: dry. Absent: intact, mottled Internal Medicine: Result - Labs CBC & Chem 7: 03/04/17 08:02 03/04/17 08:02 Labs: Short CBC 03/04/17 Range/Units 08:02 WBC 10.5 (4.3-11.1) K/mcL Hgb 7.4 L (11.5-15.4) g/dL Hct 22.7 L (35.3-44.9) % Plt Count 248 (140-400) K/mcL Neutrophils # 7.5 (1.6-8.9) K/mcL BMP 03/04/17 03/04/17 08:02 08:02 Sodium 132 L 133 L Potassium 3.7 3.8 Chloride 106 107 Carbon Dioxide 18 L 18 L BUN 36 H 36 H Creatinine 1.05 1.05 Glucose 187 H 189 H Calcium 7.7 L 7.7 L - ABG Interpretation ABG results: ABG ABG pH 7.25 pH Units (7.32-7.45) L 02/27/17 04:19 ABG pCO2 39 mmHg (35-45) 02/27/17 04:19 ABG pO2 64 mmHg (85-104) L 02/27/17 04:19 ABG O2 Saturation 88 % (95-98) L 02/27/17 04:19 PT/INR, D-dimer PT 15.4 Seconds (9.4-12.1) H 02/25/17 15:59 - VTE Documentation of Mechanical Device: Intermittent pneumatic compression device Consult Discharge Plan - Plan Referrals: Ketty Cade CNP [Primary Care Provider] - (PATIENT IS GOING TO ECF FOR ANTIBIOTICS, NO PCP APPOINTMENT NEEDED) Bruno Zambrano MD [Partnered Physician] - (SENT WEB REQUEST ON 03-03-17 @ 1432)
--- NOTE | 2017-03-04 12:54 | Discharge Summary ---
Outpatient Proc Discharge Plan - Plan Home Medications: Atorvastatin [Lipitor] 40 mg PO HS 02/06/16 [History] Lansoprazole [Prevacid] 30 mg PO QAM 02/06/16 [History] Alogliptin Keon/Metformin HCl [Kazano 12.5-1,000 mg Tablet] 1 each PO BID [History] Insulin Glargine,Hum.rec.anlog [Bakariaglhong Winkler U-100] 62 unit SQ HS 01/22/17 [ History] hydroCHLOROthiazide [Hydrochlorothiazide] 12.5 mg PO DAILY 01/22/17 [History] HYDROcodone/Acet 5/325 mg [[place] 5-325 mg] 1 tab PO Q4HR PRN #50 tab 01/30/17 [ Rx] Metoprolol XL (24 HR) Succ [Toprol Xl] 25 mg PO DAILY #30 01/30/17 [Rx] Lisinopril [Zestril] 10 mg PO DAILY 02/25/17 [History]
--- NOTE | 2017-03-04 14:41 | Infectious Disease Progress No ---
Date of Encounter: 03/04/17 Time of Encounter: 14:38 - Assessment and Plan (1) Severe sepsis Current Visit: Yes Status: Acute The patient had three SIRS criteria with lactic acidosis plus hypotension responsive to IVF resuscitation. She required the initiation of vasopressor support post-operatively, but these have since been discontinued. Likely secondary to bacteremia and sternal wound infection. Improved. She continues to have some intermittent tachycardia. She has been afebrile and has had no further episodes of hypothermia. Her WBC has normalized. Blood cultures drawn 02/25/17 are positive 2/2 sets for MSSA. Repeat blood cultures drawn 02/27/17 are positive 1/2 sets. Additional blood cultures drawn 03/03/17 are NGTD x 2 sets. (2) Bacteremia Current Visit: Yes Status: Acute Causative organism: MSSA. Source: Sternal wound infection. Complicated due to the presence of sternal wires. Blood cultures drawn 02/25/17 are positive 2/2 sets for MSSA. Repeat blood cultures drawn 02/27/17 are positive 1/2 sets. Additional blood cultures drawn 03/03/17 are NGTD x 2 sets. No endocarditis stigmata noted on exam. The patient has one major and one minor Modified Jessica's Criteria. TTE completed. No mention of valvular vegetations. Recommend SHER prior to discharge. Continue cefazolin 2 grams IV Q8H. Duration of treatment depends on the clinical picture, but likely at least 4-6 weeks of IV antibiotics. Monitor renal function and dose-adjust antibiotics. (3) Sternal wound infection Current Visit: Yes Status: Acute Causative organism MSSA. Secondary to recent surgical procedure. CT of the chest showed dehiscence of the intact manubrial sternal wires with widening of the sternotomy. There was also an abscess within the open manubrial portion of the sternotomy. CTS team consulted. Status post incision and drainage of sternal abscess with debridement of the sternum and sternal re-wiring. Operative note reviewed. Pus noted over the manubrium and over the body of the sternum. No mention of bone abnormalities on the intra-op report. Intra-operative cultures obtained and are positive for MSSA. Anaerobic and fungal cultures are pending. AFB negative. Continue wound care as outlined by the CTS team. Continue antibiotics as above. (4) Acute kidney injury Current Visit: Yes Status: Resolved Likely secondary to sepsis initially, worsened by hypotension and poor renal perfusion. Resolved. Continue to trend. Dose-adjust antibiotics. Avoid nephrotoxins as able. (5) Lactic acidosis Current Visit: Yes Status: Resolved Secondary to sepsis. Resolved. (6) Hyponatremia Current Visit: Yes Status: Acute Euvolemic hyponatremia. Improved. Management per the primary team. (7) Elevated troponin Current Visit: Yes Status: Acute Cardiology consulted --> likes demand ischemia. (8) CAD (coronary artery disease) Current Visit: Yes Status: Chronic Status post CABG 01/24/[address] Reynolds. Qualifiers: Coronary Disease-Associated Artery/Lesion type: [place] artery [place] vs. transplanted heart: [place] heart Associated angina: without angina Qualified Code(s): I25.10 - Atherosclerotic heart disease of [place] coronary artery without angina pectoris (9) Anemia Current Visit: Yes Status: Acute Hgb 7.4 this morning. No evidence of acute bleeding on exam. Workup and mangement per the primary and CTS teams. Qualifiers: Anemia type: other cause Other causes of anemia: other cause, not classified Qualified Code(s): D64.89 - Other specified anemias - Subjective Interval history: Patient seen and examined. No acute events noted. Overall, the patient reports feeling weak, but states she feels a little better today. She denies any fevers or chills or rigors. She denies pain at the surgical site or shortness of breath. She does report a dry cough. She denies any nausea, vomiting, diarrhea, or constipation. She denies any abdominal pain and states she ate a little bit of breakfast this morning despite not having much of an appetite. She denies any oral thrush or new skin lesions. She reports being able to void today without a problem. Infect Dis PN-Objective Data - Labs CBC & Chem 7: 03/04/17 08:02 03/04/17 08:02 Labs: Laboratory Results - last 24 hr 03/03/17 03/03/17 03/03/17 07:58 11:46 16:33 WBC RBC Hgb Hct MCV MCH MCHC RDW Plt Count MPV Immature Gran % Seg Neutrophils % Lymphocytes % Monocytes % Eosinophils % Basophils % Neutrophils # Lymphocytes # Monocytes # Eosinophils # Basophils # Sodium Potassium Chloride Carbon Dioxide BUN Creatinine Est GFR ( Amer) Est GFR (Non-Af Amer) BUN/Creatinine Ratio Glucose POC Glucose 216 H 193 H 205 H Calculated Osmolality Calcium 03/03/17 03/04/17 03/04/17 19:49 08:02 08:02 WBC 10.5 RBC 2.49 L Hgb 7.4 L Hct 22.7 L MCV 91.2 MCH 29.7 MCHC 32.6 RDW 14.2 Plt Count 248 MPV 9.7 Immature Gran % 4.1 H Seg Neutrophils % 71.6 Lymphocytes % 13.6 Monocytes % 9.4 Eosinophils % 1.1 Basophils % 0.2 Neutrophils # 7.5 Lymphocytes # 1.4 Monocytes # 1.0 Eosinophils # 0.1 Basophils # 0.0 Sodium 132 L Potassium 3.7 Chloride 106 Carbon Dioxide 18 L BUN 36 H Creatinine 1.05 Est GFR ( Amer) > 60 Est GFR (Non-Af Amer) 55 L BUN/Creatinine Ratio 34 H Glucose 187 H POC Glucose 181 H Calculated Osmolality 287 Calcium 7.7 L 03/04/17 08:02 WBC RBC Hgb Hct MCV MCH MCHC RDW Plt Count MPV Immature Gran % Seg Neutrophils % Lymphocytes % Monocytes % Eosinophils % Basophils % Neutrophils # Lymphocytes # Monocytes # Eosinophils # Basophils # Sodium 133 L Potassium 3.8 Chloride 107 Carbon Dioxide 18 L BUN 36 H Creatinine 1.05 Est GFR ( Amer) > 60 Est GFR (Non-Af Amer) 55 L BUN/Creatinine Ratio 34 H Glucose 189 H POC Glucose Calculated Osmolality 289 Calcium 7.7 L Cultures: Cultures 03/03/17 09:55 Blood Culture - Preliminary Peripheral Venipuncture No growth. 03/03/17 10:15 Blood Culture - Preliminary Peripheral Venipuncture No growth. 02/27/17 12:45 Blood Culture - Preliminary Peripheral Venipuncture Staphylococcus aureus 02/26/17 08:42 Anaerobic Culture - Final Other-Specify in Comments No anaerobes were recovered. 02/27/17 12:28 Blood Culture - Preliminary Peripheral Venipuncture No growth. 02/26/17 08:30 Wound Culture - Final Other-Specify in Comments Staphylococcus aureus 02/26/17 08:42 Acid Fast Stain - Final Other-Specify in Comments Serology 02/27/17 Range/Units 12:45 A. baumannii (PCR) Not Detected (Not Detect) Harriet albicans (PCR) Not Detected (Not Detect) C. glabrata (PCR) Not Detected (Not Detect) C. krusei (PCR) Not Detected (Not Detect) C. parapsilosis (PCR) Not Detected (Not Detect) C. tropicalis (PCR) Not Detected (Not Detect) Enterobacteriac sp PCR Not Detected (Not Detect) E. cloacae complex PCR Not Detected (Not Detect) Enterococcus sp PCR Not Detected (Not Detect) E. coli (PCR) Not Detected (Not Detect) H. influenzae (PCR) Not Detected (Not Detect) Klebsiella oxytoca PCR Not Detected (Not Detect) Klebsiella pneumoniae Not Detected (Not Detect) List. monocytogenes PCR Not Detected (Not Detect) N. meningitidis (PCR) Not Detected (Not Detect) Proteus species (PCR) Not Detected (Not Detect) Serratia marcescens PCR Not Detected (Not Detect) Staphylococcus sp PCR DETECTED A (Not Detect) Staph aureus (PCR) DETECTED A (Not Detect) mecA-Methicil Res Gene Not Detected (Not Detect) Streptococcus sp PCR Not Detected (Not Detect) Group A Strep DNA Not Detected (Not Detect) Group B Strep (PCR) Not Detected (Not Detect) Strep pneumoniae (PCR) Not Detected (Not Detect) P. aeruginosa (PCR) Not Detected (Not Detect) Vicente/B-Vanco Res Genes Not Detected (Not Detect) KPC (blaKPC) Detect PCR Not Detected (Not Detect) Exam - Constitutional Vitals: Temp Pulse Resp BP Pulse Ox 98.3 F 102 16 138/86 93 03/04/17 11:08 03/04/17 11:08 03/04/17 11:09 03/04/17 11:08 03/04/17 11:09 General appearance: cooperative, no acute distress, obese - Head Head exam: Present: atraumatic, normal inspection, normocephalic - Eye Eye exam: Present: EOMI, normal appearance, PERRL Pupils: Present: normal accommodation Additional comments: No subconjunctival hemorrhage noted. - ENT ENT exam: Present: mucous membranes moist - Neck Neck exam: Present: normal inspection Additional comments: Dressing to the right neck C/D/I. - Respiratory Respiratory exam: Present: CTAB. Absent: rales, respiratory distress, rhonchi, wheezes Additional comments: Midsternal chest incision with SAMIRA dressing. Small amount of old bloody drainage noted. Substernal dressing over previous chest tube site C/D/I. - Cardiovascular Cardiovascular exam: Present: +S1, +S2, tachycardia. Absent: irregular rhythm - GI/Abdominal GI/Abdominal exam: Present: distended (obese), normal bowel sounds, soft. Absent: tenderness - Extremities Exam Extremities exam: Present: normal inspection. Absent: joint swelling, pedal edema, tenderness Additional comments: No endocarditis stigmata noted. - Neurological Exam Neurological exam: Present: alert, oriented X3, no focal deficits - Psychiatric Psychiatric exam: Present: normal affect, normal mood - Skin Skin exam: Present: dry, intact, normal color, warm - VTE Documentation of Mechanical Device: Intermittent pneumatic compression device Consult Discharge Plan - Plan Referrals: Ketty Cade CNP [Primary Care Provider] - (PATIENT IS GOING TO ECF FOR ANTIBIOTICS, NO PCP APPOINTMENT NEEDED) Bruno Zambrano MD [Partnered Physician] - (SENT WEB REQUEST ON 03-03-17 @ [phone])
--- NOTE | 2017-03-04 15:08 | Urology Progress Note ---
Date of Encounter: 03/04/17 Time of Encounter: 15:07 - Assessment and Plan (1) Urinary retention Current Visit: Yes Status: Acute Assessment and plan: voiding at this time. will f/u tomorrow morning. will repeat pvr tomorrow likely. Progress Note Narrative: patient seen. patient has voided a small amount today. she also was incontinent in the bed this afternoon. Objective Initial Vital Signs Temp Pulse Resp BP Pulse Ox 100.5 F H 147 18 119/76 95 02/25/17 10:31 02/25/17 10:31 02/25/17 10:31 02/25/17 10:31 02/25/17 10:31 - General physical appearance Present: well developed - Abdomen Present: soft - Labs 03/04/17 08:02 03/04/17 08:02 Diabetes panel 03/04/17 03/04/17 Range/Units 08:02 08:02 Sodium 132 L 133 L (136-145) mEq/L Potassium 3.7 3.8 (3.5-4.5) mEq/L Chloride 106 107 (98-109) mEq/L Carbon Dioxide 18 L 18 L (19-29) mEq/L BUN 36 H 36 H (7-20) mg/dL Creatinine 1.05 1.05 (0.57-1.11) mg/dL Glucose 187 H 189 H (70-99) mg/dL Calcium 7.7 L 7.7 L (8.6-10.8) mg/dL Calcium panel 03/04/17 03/04/17 Range/Units 08:02 08:02 Calcium 7.7 L 7.7 L (8.6-10.8) mg/dL Pituitary panel 03/04/17 03/04/17 Range/Units 08:02 08:02 Sodium 132 L 133 L (136-145) mEq/L Potassium 3.7 3.8 (3.5-4.5) mEq/L Chloride 106 107 (98-109) mEq/L Carbon Dioxide 18 L 18 L (19-29) mEq/L BUN 36 H 36 H (7-20) mg/dL Creatinine 1.05 1.05 (0.57-1.11) mg/dL Glucose 187 H 189 H (70-99) mg/dL Calcium 7.7 L 7.7 L (8.6-10.8) mg/dL Adrenal panel 03/04/17 03/04/17 Range/Units 08:02 08:02 Sodium 132 L 133 L (136-145) mEq/L Potassium 3.7 3.8 (3.5-4.5) mEq/L Chloride 106 107 (98-109) mEq/L Carbon Dioxide 18 L 18 L (19-29) mEq/L BUN 36 H 36 H (7-20) mg/dL Creatinine 1.05 1.05 (0.57-1.11) mg/dL Glucose 187 H 189 H (70-99) mg/dL Calcium 7.7 L 7.7 L (8.6-10.8) mg/dL - VTE Documentation of Mechanical Device: Intermittent pneumatic compression device Consult Discharge Plan - Plan Referrals: Ketty Cade CNP [Primary Care Provider] - (PATIENT IS GOING TO ECF FOR ANTIBIOTICS, NO PCP APPOINTMENT NEEDED) Bruno Zambrano MD [Partnered Physician] - (SENT WEB REQUEST ON 03-03-17 @ 1262)
[2017-03-05] MEDS: Albuterol 2.5 MG/3 ML NEBULIZER IH SCH ×6 (00:18→20:56)
[2017-03-05] MEDS: ceFAZolin 2,000 MG in D5% in Water 100 ML IVPB SCH ×4 (00:51→23:21)
[2017-03-05] MEDS: *HR* Heparin 5,000 UNIT/ML VIAL SQ SCH ×3 (06:04→21:15)
--- NOTE | 2017-03-05 07:21 | Cardiothoracic Progress Note ---
Date of Encounter: 03/05/17 Time of Encounter: 07:20 - Assessment and plan (1) Diabetes Current Visit: Yes Status: Chronic The patient will be ready for transfer to an extended care facility soon. 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 She was able to urinate on her own yesterday. Vital Signs, Last 4 Hours Temp Pulse Resp BP Pulse Ox 03/05/17 04:51 98.6 F 103 18 156/77 95 03/05/17 04:09 18 94 Oxgyen Flow Rate Oxygen Flow Rate (LPM) 0 Clinical Data, last 8 Hours Output, Urine Amount 200 Weight 03/03/17 03/04/17 03/05/17 23:59 23:59 23:59 Weight 98.1 kg 97.1 kg 97.9 kg Lungs are clear to percussion and auscultation. Heart is in a normal sinus rhythm. All incisions are healing well without signs of infection and the sternum is stable. - Labs 03/04/17 08:02 03/04/17 08:02 Lab Results, Last 24 hours 03/04/17 03/04/17 03/04/17 08:02 08:02 08:02 WBC 10.5 Hgb 7.4 L Hct 22.7 L Plt Count 248 Sodium 132 L 133 L Potassium 3.7 3.8 Chloride 106 107 Carbon Dioxide 18 L 18 L BUN 36 H 36 H Creatinine 1.05 1.05 Glucose 187 H 189 H Calcium 7.7 L 7.7 L Magnesium 03/05/17 05:34 WBC Hgb Hct Plt Count Sodium Potassium Chloride Carbon Dioxide BUN Creatinine Glucose Calcium Magnesium 1.8 - VTE Documentation of Mechanical Device: Intermittent pneumatic compression device Consult Discharge Plan - Plan Referrals: Ketty Cade CNP [Primary Care Provider] - (PATIENT IS GOING TO [facility] FOR ANTIBIOTICS, NO PCP APPOINTMENT NEEDED) Bruno Zambrano MD [Partnered Physician] - (SENT WEB REQUEST ON 03-03-17 @ 0039)
[2017-03-05] MEDS: hydroCHLOROthiazide 25 MG TABLET PO SCH (08:21)
[2017-03-05] MEDS: Furosemide 20 MG/2 ML VIAL IVP SCH (08:21)
[2017-03-05] MEDS: Aspirin Enteric Coated 81 MG Tablet PO SCH (08:22)
[2017-03-05] MEDS: Insulin LISPRO 300 UNITS/3 ML VIAL SQ SCH ×4 (08:23→20:42)
--- NOTE | 2017-03-05 09:49 | Urology Progress Note ---
Date of Encounter: 03/05/17 Time of Encounter: 09:48 - Assessment and Plan (1) Urinary retention Current Visit: Yes Status: Acute Assessment and plan: emptying well at this time. f/u as needed. Progress Note Narrative: patient seen. voiding on own. Objective Initial Vital Signs Temp Pulse Resp BP Pulse Ox 100.5 F H 147 18 119/76 95 02/25/17 10:31 02/25/17 10:31 02/25/17 10:31 02/25/17 10:31 02/25/17 10:31 - General physical appearance Present: well developed - Abdomen Present: soft - Labs 03/04/17 08:02 03/04/17 08:02 - VTE Documentation of Mechanical Device: Intermittent pneumatic compression device Consult Discharge Plan - Plan Referrals: Ketty Cade CNP [Primary Care Provider] - (PATIENT IS GOING TO ECF FOR ANTIBIOTICS, NO PCP APPOINTMENT NEEDED) Bruno Zambrano MD [Partnered Physician] - (SENT WEB REQUEST ON 03-03-17 @ [phone])
--- NOTE | 2017-03-05 09:53 | Internal Med Progress Note ---
Date of Encounter: 03/05/17 Time of Encounter: 09:50 - Assessment and plan (1) Severe sepsis Current Visit: Yes Status: Acute Assessment and plan: Secondary to MSSA bacteremia and sternal surgical wound infection Continue cefazolin day 8 Followed by cardiothoracic surgery and infectious diseases Transthoracic echocardiogram showed no evidence of valvular vegetations Will require 4-6 weeks of IV antibiotics, infectious diseases considering SHER Chest tubes removed, wound VAC in place Blood cultures drawn 02/25/17 are positive 2/2 sets for MSSA. Repeat blood cultures drawn 02/27/17 are positive 1/2 sets. (2) HTN (hypertension) Current Visit: Yes Status: Chronic Assessment and plan: Blood pressure noted to be well controlled. Patient continues to be mildly tachycardic, increased beta marko. Continue to monitor. Qualifiers: Hypertension type: essential hypertension Qualified Code(s): I10 - Essential (primary) hypertension (3) Infected sternotomy closure wire Current Visit: Yes Status: Acute Qualifiers: Encounter type: initial encounter Qualified Code(s): T84.7XXA - Infection and inflammatory reaction due to other internal orthopedic prosthetic devices, implants and grafts, initial encounter (4) Acute kidney injury Current Visit: Yes Status: Resolved Assessment and plan: Secondary to sepsis, resolved (5) CAD (coronary artery disease) Current Visit: Yes Status: Chronic Qualifiers: Coronary Disease-Associated Artery/Lesion type: [place] artery [place] vs. transplanted heart: [place] heart Associated angina: without angina Qualified Code(s): I25.10 - Atherosclerotic heart disease of [place] coronary artery without angina pectoris (6) Bacteremia Current Visit: Yes Status: Acute (7) Sternal wound infection Current Visit: Yes Status: Acute Assessment and plan: Secondary to recent surgical procedure. CT of the chest showed dehiscence of the intact manubrial sternal wires with widening of the sternotomy. There was also an abscess within the open manubrial portion of the sternotomy. CTS team following. Status post incision and drainage of sternal abscess with debridement of the sternum and sternal re-wiring. Pus noted over the manubrium and over the body of the sternum. No mention of bone abnormalities on the intra- op report. Intra-operative cultures obtained and are positive for MSSA. Anaerobic and fungal cultures are pending. AFB negative. Intra-operative cultures positive for MSSA. Continue wound care as outlined by the CTS team. (8) Anemia Current Visit: Yes Status: Acute Assessment and plan: Stable, no evidence of bleeding Qualifiers: Anemia type: other cause Other causes of anemia: other cause, not classified Qualified Code(s): D64.89 - Other specified anemias (9) Urinary retention Current Visit: Yes Status: Acute Assessment and plan: Followed by urology, straight catheter used (10) Diabetes Current Visit: Yes Status: Chronic Assessment and plan: Continue Accu-Chek blood glucose monitoring with sliding scale insulin. Diabetic diet. Qualifiers: Diabetes mellitus type: type 2 Diabetes mellitus complication status: with unspecified complications Diabetes mellitus terminal carman insulin use: with terminal carman use Qualified Code(s): E11.8 - Type 2 diabetes mellitus with unspecified complications; Z79.4 - terminal gauger supervisor (current) use of insulin (11) GERD (gastroesophageal reflux disease) Current Visit: Yes Status: Chronic Qualifiers: Esophagitis presence: esophagitis presence not specified Qualified Code(s) : K21.9 - Gastro-esophageal reflux disease without esophagitis - Subjective Interval history: Tachycardic still, feeling less weak, no fevers, no abdominal pain, no dysuria, no diarrhea. Denies any cough or headaches - Constitutional Vitals: Temp Pulse Resp BP Pulse Ox 98.3 F 102 16 145/84 93 03/05/17 07:35 03/05/17 07:35 03/05/17 07:58 03/05/17 07:35 03/05/17 07:58 General appearance: Present: mild distress (due to pain), A&O X 3, obese, answers questions appropriately Exam: - Head Head exam: Present: atraumatic, normocephalic - Eye Eye exam: Present: PERRL, conjuntiva pink, sclera anicteric Pupils: Present: PERRL - Neck Neck exam general surgery: Present: supple, trachea midline. Absent: lymphadenopathy - Respiratory Respiratory exam: Present: decreased breath sounds, CTAB. Absent: accessory muscle use, rales, rhonchi, wheezes - Cardiovascular Cardiovascular exam: Present: RRR, +S1, +S2, tachycardia. Absent: diastolic murmur, gallop, rubs, systolic murmur Additional comments: Mid sternal surgical wound covered by dressing, draining evidenced - GI/Abdominal GI/Abdominal exam: Present: distended, normal bowel sounds, soft, no peritoneal signs. Absent: tenderness - Extremities Exam Extremities exam: Present: pedal edema (+2 pitting edema in both lower extremities), warm, radial pulses palpable and symmetrical. Absent: calf tenderness, cyanotic Left upper extremity PICC line - Neurological Exam Neurological exam: Present: CN II-XII intact, oriented X3, no focal deficits. Absent: pronater drift, facial droop, speech deficit - Skin Skin exam: Present: dry. Absent: intact, mottled Internal Medicine: Result - Labs CBC & Chem 7: 03/04/17 08:02 03/04/17 08:02 - ABG Interpretation ABG results: ABG ABG pH 7.25 pH Units (7.32-7.45) L 02/27/17 04:19 ABG pCO2 39 mmHg (35-45) 02/27/17 04:19 ABG pO2 64 mmHg (85-104) L 02/27/17 04:19 ABG O2 Saturation 88 % (95-98) L 02/27/17 04:19 PT/INR, D-dimer PT 15.4 Seconds (9.4-12.1) H 02/25/17 15:59 - VTE Documentation of Mechanical Device: Intermittent pneumatic compression device Consult Discharge Plan - Plan Referrals: Ketty Cade CNP [Primary Care Provider] - ([facility] GOING [facility], NO PCP APPOINTMENT NEEDED) Bruno Zambrano MD [Partnered Physician] - (SENT WEB REQUEST ON 03-03-17 @ [id number])
--- NOTE | 2017-03-05 14:03 | Infectious Disease Progress No ---
Date of Encounter: 03/05/17 Time of Encounter: 14:01 - Assessment and Plan (1) Severe sepsis Current Visit: Yes Status: Acute The patient had three SIRS criteria with lactic acidosis plus hypotension responsive to IVF resuscitation. She required the initiation of vasopressor support post-operatively, but these have since been discontinued. Likely secondary to bacteremia and sternal wound infection. Improved. She continues to have some intermittent tachycardia, but less frequent. She has been afebrile and has had no further episodes of hypothermia. Her WBC has normalized. Blood cultures drawn 02/25/17 are positive 2/2 sets for MSSA. Repeat blood cultures drawn 02/27/17 are positive 1/2 sets. Additional blood cultures drawn 03/03/17 are NGTD x 2 sets. (2) Bacteremia Current Visit: Yes Status: Acute Causative organism: MSSA. Source: Sternal wound infection. Complicated due to the presence of sternal wires. Blood cultures drawn 02/25/17 are positive 2/2 sets for MSSA. Repeat blood cultures drawn 02/27/17 are positive 1/2 sets. Additional blood cultures drawn 03/03/17 are NGTD x 2 sets. No endocarditis stigmata noted on exam. The patient has one major and one minor Modified Jessica's Criteria. TTE completed. No mention of valvular vegetations. Recommend SHER prior to discharge --> scheduled for tomorrow. Continue cefazolin 2 grams IV Q8H. Duration of treatment depends on the clinical picture, but likely at least 4-6 weeks of IV antibiotics. Monitor renal function and dose-adjust antibiotics. (3) Sternal wound infection Current Visit: Yes Status: Acute Causative organism MSSA. Secondary to recent surgical procedure. CT of the chest showed dehiscence of the intact manubrial sternal wires with widening of the sternotomy. There was also an abscess within the open manubrial portion of the sternotomy. CTS team consulted. Status post incision and drainage of sternal abscess with debridement of the sternum and sternal re-wiring. Operative note reviewed. Pus noted over the manubrium and over the body of the sternum. No mention of bone abnormalities on the intra-op report. Intra-operative cultures obtained and are positive for MSSA. Anaerobic and fungal cultures are pending. AFB negative. Continue wound care as outlined by the CTS team. Continue antibiotics as above. (4) Acute kidney injury Current Visit: Yes Status: Resolved Likely secondary to sepsis initially, worsened by hypotension and poor renal perfusion. Resolved. Continue to trend. Dose-adjust antibiotics. Avoid nephrotoxins as able. (5) Lactic acidosis Current Visit: Yes Status: Resolved Secondary to sepsis. Resolved. (6) Hyponatremia Current Visit: Yes Status: Acute Euvolemic hyponatremia. Improved. Management per the primary team. (7) Elevated troponin Current Visit: Yes Status: Acute Cardiology consulted --> likes demand ischemia. (8) CAD (coronary artery disease) Current Visit: Yes Status: Chronic Status post CABG 01/24/[address] Reynolds. Qualifiers: Coronary Disease-Associated Artery/Lesion type: [place] artery [place] vs. transplanted heart: [place] heart Associated angina: without angina Qualified Code(s): I25.10 - Atherosclerotic heart disease of [place] coronary artery without angina pectoris (9) Anemia Current Visit: Yes Status: Acute No evidence of acute bleeding on exam. Workup and mangement per the primary and CTS teams. Qualifiers: Anemia type: other cause Other causes of anemia: other cause, not classified Qualified Code(s): D64.89 - Other specified anemias - Subjective Interval history: Patient seen and examined. No acute events noted overnight. Overall, the patient reports feeling weak, but states she feels a little better today. She denies any fevers or chills or rigors. She denies pain at the surgical site or shortness of breath. She denies cough. She denies any nausea, vomiting, diarrhea , or constipation. She denies any abdominal pain. She states she continues to not have much of an appetite. She denies any oral thrush or new skin lesions. She reports being able to void today without a problem. Infect Dis PN-Objective Data - Labs CBC & Chem 7: 03/04/17 08:02 03/04/17 08:02 Labs: Laboratory Results - last 24 hr 03/04/17 03/04/17 03/04/17 07:15 11:08 16:27 POC Glucose 191 H 178 H 279 H Magnesium 03/04/17 03/05/17 03/05/17 20:41 05:34 07:42 POC Glucose 183 H 193 H Magnesium 1.8 03/05/17 11:52 POC Glucose 174 H Magnesium Cultures: Cultures 02/27/17 12:28 Blood Culture - Final Peripheral Venipuncture No growth. 02/27/17 12:45 Blood Culture - Final Peripheral Venipuncture Staphylococcus aureus 03/03/17 09:55 Blood Culture - Preliminary Peripheral Venipuncture No growth. 03/03/17 10:15 Blood Culture - Preliminary Peripheral Venipuncture No growth. 02/26/17 08:42 Anaerobic Culture - Final Other-Specify in Comments No anaerobes were recovered. 02/26/17 08:30 Wound Culture - Final Other-Specify in Comments Staphylococcus aureus 02/26/17 08:42 Acid Fast Stain - Final Other-Specify in Comments Serology 02/27/17 Range/Units 12:45 A. baumannii (PCR) Not Detected (Not Detect) Harriet albicans (PCR) Not Detected (Not Detect) C. glabrata (PCR) Not Detected (Not Detect) C. krusei (PCR) Not Detected (Not Detect) C. parapsilosis (PCR) Not Detected (Not Detect) C. tropicalis (PCR) Not Detected (Not Detect) Enterobacteriac sp PCR Not Detected (Not Detect) E. cloacae complex PCR Not Detected (Not Detect) Enterococcus sp PCR Not Detected (Not Detect) E. coli (PCR) Not Detected (Not Detect) H. influenzae (PCR) Not Detected (Not Detect) Klebsiella oxytoca PCR Not Detected (Not Detect) Klebsiella pneumoniae Not Detected (Not Detect) List. monocytogenes PCR Not Detected (Not Detect) N. meningitidis (PCR) Not Detected (Not Detect) Proteus species (PCR) Not Detected (Not Detect) Serratia marcescens PCR Not Detected (Not Detect) Staphylococcus sp PCR DETECTED A (Not Detect) Staph aureus (PCR) DETECTED A (Not Detect) mecA-Methicil Res Gene Not Detected (Not Detect) Streptococcus sp PCR Not Detected (Not Detect) Group A Strep DNA Not Detected (Not Detect) Group B Strep (PCR) Not Detected (Not Detect) Strep pneumoniae (PCR) Not Detected (Not Detect) P. aeruginosa (PCR) Not Detected (Not Detect) Vicente/B-Vanco Res Genes Not Detected (Not Detect) KPC (blaKPC) Detect PCR Not Detected (Not Detect) Exam - Constitutional Vitals: Temp Pulse Resp BP Pulse Ox 98.1 F 93 22 133/84 93 03/05/17 11:48 03/05/17 11:48 03/05/17 11:48 03/05/17 11:48 03/05/17 11:48 General appearance: cooperative, no acute distress, obese - Head Head exam: Present: atraumatic, normal inspection, normocephalic - Eye Eye exam: Present: EOMI, normal appearance, PERRL Pupils: Present: normal accommodation Additional comments: No subconjunctival hemorrhage noted. - ENT ENT exam: Present: mucous membranes moist - Neck Neck exam: Present: normal inspection - Respiratory Respiratory exam: Present: CTAB. Absent: rales, respiratory distress, rhonchi, wheezes Additional comments: Midsternal chest incision with SAMIRA dressing intact. Dressing with small amount of old bloody drainage noted on the dressing. Substernal dressing C/D/I. - Cardiovascular Cardiovascular exam: Present: RRR, +S1, +S2 - GI/Abdominal GI/Abdominal exam: Present: distended (obese), normal bowel sounds, soft. Absent: tenderness - Extremities Exam Extremities exam: Present: pedal edema (1+ BLE). Absent: joint swelling, tenderness - Neurological Exam Neurological exam: Present: alert, oriented X3, no focal deficits - Psychiatric Psychiatric exam: Present: normal affect, normal mood - Skin Skin exam: Present: dry, intact, normal color, warm Additional comments: No endocarditis stigmata noted. - VTE Documentation of Mechanical Device: Intermittent pneumatic compression device Consult Discharge Plan - Plan Referrals: Ketty Cade, [employer] [Primary Care Provider] - (PATIENT IS GOING TO [facility] FOR ANTIBIOTICS, NO PCP APPOINTMENT NEEDED) Bruno Zambrano MD [Partnered Physician] - (SENT WEB REQUEST ON 03-03-17 @ [phone]) Prescriptions: Cefazolin Sodium/D5w [Cefazolin 2 G/50 ml-D5w Bag] 2 gm IV Q8H #102 piggyback
[2017-03-05] MEDS ORDERED: Insulin DETEMIR 100 UNIT/ML X5UNITS SQ SCH (21:00)
[2017-03-06] MEDS: Albuterol 2.5 MG/3 ML NEBULIZER IH SCH ×6 (00:48→20:15)
[2017-03-06 04:47] LABS: Hemoglobin 7.3 g/dL (11.5-15.4); Immature Platelets 2.2 % (1.1-6.1); Mean Corpuscular HGB Conc 31.7 g/dL (31.6-35.5); Mean Corpuscular Hemoglobin 28.9 pg (28.0-33.3); Mean Corpuscular Volume 90.9 fL (83.0-100.0); Mean Platelet Volume 9.5 fL (9.4-12.4); Red Blood Count 2.53 M/mcL (3.82-4.97); Red Cell Distribution Width 14.2 % (11.5-14.5)
[2017-03-06] MEDS: *HR* Heparin 5,000 UNIT/ML VIAL SQ SCH ×3 (06:08→21:21)
[2017-03-06] MEDS ORDERED: 0.9 % Sodium Chloride 500 ML IVC ONE (07:22)
[2017-03-06] MEDS ORDERED: Tetracaine/Benzocaine/Butamben 200MG/SPRAY (100SPY/BOT) MM ONE (07:22)
[2017-03-06] MEDS: *HR* FentaNYL (PF) 100 MCG/2 ML VIAL IVP PRN ×4 (08:25→08:45)
[2017-03-06] MEDS: *HR* Midazolam HCl 5 MG/5 ML VIAL IVP PRN ×5 (08:25→08:45)
--- NOTE | 2017-03-06 08:42 | Cardiothoracic Progress Note ---
Date of Encounter: 03/06/17 Time of Encounter: 08:41 - Assessment and plan (1) Diabetes Current Visit: Yes Status: Chronic The patient will get a SHER today. Qualifiers: Diabetes mellitus type: type 2 Diabetes mellitus complication status: with unspecified complications Diabetes mellitus extermination inspector insulin use: with extermination inspector use Qualified Code(s): E11.8 - Type 2 diabetes mellitus with unspecified complications; Z79.4 - USP (current) use of insulin - Subjective Interval history: The patient has no complaints. Vital Signs, Last 4 Hours Temp Pulse Resp BP Pulse Ox 03/06/17 07:52 97.8 F 102 26 130/65 95 Oxgyen Flow Rate Oxygen Flow Rate (LPM) 0 Clinical Data, last 8 Hours Output, Urine Amount 50 Output, Urine Amount 200 Weight 03/04/17 03/05/17 03/06/17 23:59 23:59 23:59 Weight 97.1 kg 97.9 kg 85.729 kg Lungs are clear to percussion and auscultation. Heart is in a normal sinus rhythm. All incisions are healing well without signs of infection and the sternum is stable. - Labs 03/06/17 04:30 03/06/17 04:30 Lab Results, Last 24 hours 03/06/17 03/06/17 04:30 04:30 WBC 16.4 H D Hgb 7.3 L Hct 23.0 L Plt Count 370 Sodium 132 L Potassium 4.0 Chloride 105 Carbon Dioxide 21 BUN 43 H Creatinine 1.23 H Glucose 212 H Calcium 8.0 L - VTE Documentation of Mechanical Device: Graduated compression elastic hosiery Consult Discharge Plan - Plan Referrals: Ketty Cade CNP [Primary Care Provider] - (PATIENT IS GOING TO [facility] FOR ANTIBIOTICS, NO PCP APPOINTMENT NEEDED) Bruno Zambrano MD [Partnered Physician] - (SENT WEB REQUEST ON 03-03-17 @ [phone]) Prescriptions: Cefazolin Sodium/D5w [Cefazolin 2 G/50 ml-D5w Bag] 2 gm IV Q8H #102 piggyback
[2017-03-06] MEDS ORDERED: Furosemide 40 MG TABLET PO SCH (09:00)
[2017-03-06] MEDS: Insulin LISPRO 300 UNITS/3 ML VIAL SQ SCH ×4 (10:47→21:22)
[2017-03-06] MEDS: ceFAZolin 2,000 MG in D5% in Water 100 ML IVPB SCH ×2 (11:33→17:19)
[2017-03-06] MEDS: Aspirin Enteric Coated 81 MG Tablet PO SCH (11:34)
[2017-03-06] MEDS: hydroCHLOROthiazide 25 MG TABLET PO SCH (11:34)
[2017-03-06] MEDS: *HR* HYDROcodone/Acet 5/325 mg TABLET PO PRN (11:41)
--- NOTE | 2017-03-06 12:24 | Internal Med Progress Note ---
Date of Encounter: 03/06/17 Time of Encounter: 12:21 - Assessment and plan (1) Severe sepsis Current Visit: Yes Status: Acute Assessment and plan: Secondary to MSSA bacteremia and sternal surgical wound infection Continue cefazolin day 9 Followed by cardiothoracic surgery and infectious diseases Transthoracic echocardiogram showed no evidence of valvular vegetations butn SHER showed a small mobile echodensity associated with the right coronary cusp of the aortic valve suggestive of a vegetation. Will require 4-6 weeks of IV antibiotics, infectious disease service recommendations appreciated Chest tubes removed, wound VAC in place Blood cultures drawn 02/25/17 are positive 2/2 sets for MSSA. Repeat blood cultures drawn 02/27/17 are positive 1/2 sets. (2) HTN (hypertension) Current Visit: Yes Status: Chronic Assessment and plan: Blood pressure noted to be well controlled. Patient continues to be mildly tachycardic, increased beta marko. Continue to monitor. Qualifiers: Hypertension type: essential hypertension Qualified Code(s): I10 - Essential (primary) hypertension (3) Infected sternotomy closure wire Current Visit: Yes Status: Acute Qualifiers: Encounter type: initial encounter Qualified Code(s): T84.7XXA - Infection and inflammatory reaction due to other internal orthopedic prosthetic devices, implants and grafts, initial encounter (4) Acute kidney injury Current Visit: Yes Status: Resolved Assessment and plan: Secondary to sepsis, resolved (5) CAD (coronary artery disease) Current Visit: Yes Status: Chronic Qualifiers: Coronary Disease-Associated Artery/Lesion type: [place] artery [place] vs. transplanted heart: [place] heart Associated angina: without angina Qualified Code(s): I25.10 - Atherosclerotic heart disease of [place] coronary artery without angina pectoris (6) Bacteremia Current Visit: Yes Status: Acute (7) Sternal wound infection Current Visit: Yes Status: Acute Assessment and plan: Secondary to recent surgical procedure. CT of the chest showed dehiscence of the intact manubrial sternal wires with widening of the sternotomy. There was also an abscess within the open manubrial portion of the sternotomy. CTS team following. Status post incision and drainage of sternal abscess with debridement of the sternum and sternal re-wiring. Pus noted over the manubrium and over the body of the sternum. No mention of bone abnormalities on the intra- op report. Intra-operative cultures obtained and are positive for MSSA. Anaerobic and fungal cultures are pending. AFB negative. Intra-operative cultures positive for MSSA. Continue wound care as outlined by the CTS team. (8) Anemia Current Visit: Yes Status: Acute Assessment and plan: Stable, no evidence of bleeding Qualifiers: Anemia type: other cause Other causes of anemia: other cause, not classified Qualified Code(s): D64.89 - Other specified anemias (9) Urinary retention Current Visit: Yes Status: Acute Assessment and plan: Followed by urology, straight catheter used (10) Diabetes Current Visit: Yes Status: Chronic Assessment and plan: Continue Accu-Chek blood glucose monitoring with sliding scale insulin. Diabetic diet. Qualifiers: Diabetes mellitus type: type 2 Diabetes mellitus complication status: with unspecified complications Diabetes mellitus buttermaker insulin use: with buttermaker use Qualified Code(s): E11.8 - Type 2 diabetes mellitus with unspecified complications; Z79.4 - jail (current) use of insulin (11) GERD (gastroesophageal reflux disease) Current Visit: Yes Status: Chronic Qualifiers: Esophagitis presence: esophagitis presence not specified Qualified Code(s) : K21.9 - Gastro-esophageal reflux disease without esophagitis (12) Pleural effusion Current Visit: Yes Status: Acute Assessment and plan: right pleural effusion start IV lasix again (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 Denies any cough or headaches - Constitutional Vitals: Temp Pulse Resp BP Pulse Ox 97.6 F 101 24 129/81 96 03/06/17 12:03 03/06/17 12:03 03/06/17 12:03 03/06/17 12:03 03/06/17 12:03 General appearance: Present: mild distress (due to pain), A&O X 3, obese, answers questions appropriately Exam: Head Head exam: Present: atraumatic, normocephalic - Eye Eye exam: Present: PERRL, conjuntiva pink, sclera anicteric Pupils: Present: PERRL - Neck Neck exam general surgery: Present: supple, trachea midline. Absent: lymphadenopathy - Respiratory Respiratory exam: Present: decreased breath sounds, CTAB. Absent: accessory muscle use, rales, rhonchi, wheezes - Cardiovascular Cardiovascular exam: Present: RRR, +S1, +S2, tachycardia. Absent: diastolic murmur, gallop, rubs, systolic murmur Additional comments: Mid sternal surgical wound covered by dressing, draining evidenced - GI/Abdominal GI/Abdominal exam: Present: distended, normal bowel sounds, soft, no peritoneal signs. Absent: tenderness - Extremities Exam Extremities exam: Present: pedal edema (+2 pitting edema in both lower extremities), warm, radial pulses palpable and symmetrical. Absent: calf tenderness, cyanotic Left upper extremity PICC line - Neurological Exam Neurological exam: Present: CN II-XII intact, oriented X3, no focal deficits. Absent: pronater drift, facial droop, speech deficit - Skin Skin exam: Present: dry. Absent: intact, mottled Internal Medicine: Result - Labs CBC & Chem 7: 03/06/17 04:30 03/06/17 04:30 Labs: Short CBC 03/06/17 Range/Units 04:30 WBC 16.4 H D (4.3-11.1) K/mcL Hgb 7.3 L (11.5-15.4) g/dL Hct 23.0 L (35.3-44.9) % Plt Count 370 (140-400) K/mcL BMP 03/06/17 04:30 Sodium 132 L Potassium 4.0 Chloride 105 Carbon Dioxide 21 BUN 43 H Creatinine 1.23 H Glucose 212 H Calcium 8.0 L - ABG Interpretation ABG results: ABG ABG pH 7.25 pH Units (7.32-7.45) L 02/27/17 04:19 ABG pCO2 39 mmHg (35-45) 02/27/17 04:19 ABG pO2 64 mmHg (85-104) L 02/27/17 04:19 ABG O2 Saturation 88 % (95-98) L 02/27/17 04:19 PT/INR, D-dimer PT 15.4 Seconds (9.4-12.1) H 02/25/17 15:59 - Impressions Impressions Chest X-Ray 03/06/17 10:30 IMPRESSION: 1. Cardiomegaly with mild vascular congestion. 2. Bilateral pleural effusions with increase in size of the right pleural effusion. D/ / Norbert Atkinson MD / Norbert Atkinson MD Interpreting Provider: Norbert Atkinson MD - VTE Documentation of Mechanical Device: Graduated compression elastic hosiery Consult Discharge Plan - Plan Referrals: Ketty Cade, [employer] [Primary Care Provider] - ([facility] IS [facility]ING [facility], NO PCP APPOINTMENT NEEDED) Bruno Zambrano MD [Partnered Physician] - 04/03/17 2:30 pm () Prescriptions: Cefazolin Sodium/D5w [Cefazolin 2 G/50 ml-D5w Bag] 2 gm IV Q8H #102 piggyback
--- NOTE | 2017-03-06 13:00 | Infectious Disease Progress No ---
Date of Encounter: 03/06/17 Time of Encounter: 12:58 - Assessment and Plan (1) Severe sepsis Current Visit: Yes Status: Acute The patient had three SIRS criteria with lactic acidosis plus hypotension responsive to IVF resuscitation. She required the initiation of vasopressor support post-operatively, but these have since been discontinued. Likely secondary to endocarditis, bacteremia and sternal wound infection. Improved. She continues to have some intermittent tachycardia, but less frequent. She has been afebrile and has had no further episodes of hypothermia. Her WBC went back up this morning. Blood cultures drawn 02/25/17 are positive 2/2 sets for MSSA. Repeat blood cultures drawn 02/27/17 are positive 1/2 sets. Additional blood cultures drawn 03/03/17 are NGTD x 2 sets. Repeat CBC in the AM. 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 SHER completed 03/06/17 shows a small, mobile echodensity on the aortic valve consistent with a vegetation. Likely secondary to bacteremia and sternal wound infection. No endocarditis stigmata on exam. The patient has two major and one minor Modified Jessica's Criteria. Continue antibiotics as below. Duration of treatment depends on the clinical picture, but likely 6 weeks of IV antibiotics. The patient will need weekly CBC, BUN/Cr, ESR, CRP every Friday for the duration of treatment. Weekly midline care. Follow up with ID two weeks after discharge. (3) Bacteremia Current Visit: Yes Status: Acute Causative organism: MSSA. Source: Sternal wound infection. Complicated due to the presence of sternal wires. Blood cultures drawn 02/25/17 are positive 2/2 sets for MSSA. Repeat blood cultures drawn 02/27/17 are positive 1/2 sets. Additional blood cultures drawn 03/03/17 are NGTD x 2 sets. No endocarditis stigmata noted on exam. The patient has two major and one minor Modified Jessica's Criteria. TTE completed. No mention of valvular vegetations. SHER indicative of IE. Continue cefazolin 2 grams IV Q8H. Duration of treatment depends on the clinical picture, but likely at least 6 weeks of IV antibiotics. Monitor renal function and dose-adjust antibiotics. (4) Sternal wound infection Current Visit: Yes Status: Acute Causative organism MSSA. Secondary to recent surgical procedure. CT of the chest showed dehiscence of the intact manubrial sternal wires with widening of the sternotomy. There was also an abscess within the open manubrial portion of the sternotomy. CTS team consulted. Status post incision and drainage of sternal abscess with debridement of the sternum and sternal re-wiring. Operative note reviewed. Pus noted over the manubrium and over the body of the sternum. No mention of bone abnormalities on the intra-op report. Intra-operative cultures obtained and are positive for MSSA. Anaerobic and fungal cultures are pending. AFB negative. Continue wound care as outlined by the CTS team. Continue antibiotics as above. (5) Pleural effusion Current Visit: Yes Status: Acute Etiology unclear, but likely secondary to volume overload. The patient is positive 14 liters over the course of her hospital stay. Further evaluation and management per the primary team. (6) Acute kidney injury Current Visit: Yes Status: Acute Likely secondary to sepsis initially, worsened by hypotension and poor renal perfusion. Serum creatinine back up this morning. Continue to trend. Dose-adjust antibiotics. Avoid nephrotoxins as able. (7) Lactic acidosis Current Visit: Yes Status: Resolved Secondary to sepsis. Resolved. (8) Hyponatremia Current Visit: Yes Status: Acute Euvolemic hyponatremia. Improved. Management per the primary team. (9) Elevated troponin Current Visit: Yes Status: Acute Cardiology consulted --> likes demand ischemia. (10) CAD (coronary artery disease) Current Visit: Yes Status: Chronic Status post CABG 01/24/[address] Reynolds. Qualifiers: Coronary Disease-Associated Artery/Lesion type: [place] artery [place] vs. transplanted heart: [place] heart Associated angina: without angina Qualified Code(s): I25.10 - Atherosclerotic heart disease of [place] coronary artery without angina pectoris (11) Anemia Current Visit: Yes Status: Acute No evidence of acute bleeding on exam. Workup and mangement per the primary and CTS teams. Qualifiers: Anemia type: other cause Other causes of anemia: other cause, not classified Qualified Code(s): D64.89 - Other specified anemias - Subjective Interval history: Patient seen and examined. No acute events noted overnight. Status post SHER this morning that showed a small vegetation on the aortic valve. Overall, the patient states she feels better today. She denies any fevers or chills or rigors. She denies pain at the surgical site or shortness of breath. She denies cough. She denies any nausea, vomiting, diarrhea, or constipation. She denies any abdominal pain. She states she continues to not have much of an appetite, but is eating cereal during my exam. She denies any oral thrush or new skin lesions. She reports being able to void today without a problem. Infect Dis PN-Objective Data - Labs CBC & Chem 7: 03/06/17 04:30 03/06/17 04:30 Labs: Laboratory Results - last 24 hr 03/05/17 03/05/17 03/06/17 16:36 20:23 04:30 WBC 16.4 H D RBC 2.53 L Hgb 7.3 L Hct 23.0 L MCV 90.9 MCH 28.9 MCHC 31.7 RDW 14.2 Plt Count 370 MPV 9.5 Immature Plt Fraction 2.2 Sodium Potassium Chloride Carbon Dioxide BUN Creatinine Est GFR ( Amer) Est GFR (Non-Af Amer) BUN/Creatinine Ratio Glucose POC Glucose 165 H 180 H Calculated Osmolality Calcium 03/06/17 04:30 WBC RBC Hgb Hct MCV MCH MCHC RDW Plt Count MPV Immature Plt Fraction Sodium 132 L Potassium 4.0 Chloride 105 Carbon Dioxide 21 BUN 43 H Creatinine 1.23 H Est GFR ( Amer) 56 L Est GFR (Non-Af Amer) 46 L BUN/Creatinine Ratio 35 H Glucose 212 H POC Glucose Calculated Osmolality 291 Calcium 8.0 L Cultures: Cultures 02/27/17 12:28 Blood Culture - Final Peripheral Venipuncture No growth. 02/27/17 12:45 Blood Culture - Final Peripheral Venipuncture Staphylococcus aureus 03/03/17 09:55 Blood Culture - Preliminary Peripheral Venipuncture No growth. 03/03/17 10:15 Blood Culture - Preliminary Peripheral Venipuncture No growth. 02/26/17 08:42 Anaerobic Culture - Final Other-Specify in Comments No anaerobes were recovered. 02/26/17 08:30 Wound Culture - Final Other-Specify in Comments Staphylococcus aureus 02/26/17 08:42 Acid Fast Stain - Final Other-Specify in Comments Serology 02/27/17 Range/Units 12:45 A. baumannii (PCR) Not Detected (Not Detect) Harriet albicans (PCR) Not Detected (Not Detect) C. glabrata (PCR) Not Detected (Not Detect) C. krusei (PCR) Not Detected (Not Detect) C. parapsilosis (PCR) Not Detected (Not Detect) C. tropicalis (PCR) Not Detected (Not Detect) Enterobacteriac sp PCR Not Detected (Not Detect) E. cloacae complex PCR Not Detected (Not Detect) Enterococcus sp PCR Not Detected (Not Detect) E. coli (PCR) Not Detected (Not Detect) H. influenzae (PCR) Not Detected (Not Detect) Klebsiella oxytoca PCR Not Detected (Not Detect) Klebsiella pneumoniae Not Detected (Not Detect) List. monocytogenes PCR Not Detected (Not Detect) N. meningitidis (PCR) Not Detected (Not Detect) Proteus species (PCR) Not Detected (Not Detect) Serratia marcescens PCR Not Detected (Not Detect) Staphylococcus sp PCR DETECTED A (Not Detect) Staph aureus (PCR) DETECTED A (Not Detect) mecA-Methicil Res Gene Not Detected (Not Detect) Streptococcus sp PCR Not Detected (Not Detect) Group A Strep DNA Not Detected (Not Detect) Group B Strep (PCR) Not Detected (Not Detect) Strep pneumoniae (PCR) Not Detected (Not Detect) P. aeruginosa (PCR) Not Detected (Not Detect) Vicente/B-Vanco Res Genes Not Detected (Not Detect) KPC (blaKPC) Detect PCR Not Detected (Not Detect) - Impressions Impressions Chest X-Ray 03/06/17 10:30 IMPRESSION: 1. Cardiomegaly with mild vascular congestion. 2. Bilateral pleural effusions with increase in size of the right pleural effusion. D/ / Norbert Atkinson MD / Norbert Atkinson MD Interpreting Provider: Norbert Atkinson MD Exam - Constitutional Vitals: Temp Pulse Resp BP Pulse Ox 97.6 F 101 24 129/81 96 03/06/17 12:03 03/06/17 12:03 03/06/17 12:03 03/06/17 12:03 03/06/17 12:03 General appearance: cooperative, no acute distress, obese - Head Head exam: Present: atraumatic, normal inspection, normocephalic - Eye Eye exam: Present: EOMI, normal appearance, PERRL Pupils: Present: normal accommodation Additional comments: No subconjunctival hemorrhage noted. - ENT ENT exam: Present: mucous membranes moist - Neck Neck exam: Present: normal inspection - Respiratory Respiratory exam: Present: decreased breath sounds (bilateral bases), CTAB. Absent: rales, respiratory distress, rhonchi, wheezes - Cardiovascular Cardiovascular exam: Present: RRR, +S1, +S2 Additional comments: Midsternal chest surgical incision with SAMIRA dressing intact with moderate amount of old, dried blood noted. Chest tube site dressing C/D/I. Dressing removed. Midsternal incision with 0.5cm area of wound weakness to the distal pole of the incision. - GI/Abdominal GI/Abdominal exam: Present: distended (obese), normal bowel sounds, soft. Absent: tenderness - Extremities Exam Extremities exam: Present: normal inspection. Absent: joint swelling, pedal edema, tenderness Additional comments: No endocarditis stigmata noted. - Back Exam Back exam: Present: normal inspection. Absent: paraspinal tenderness, vertebral tenderness - Neurological Exam Neurological exam: Present: alert, oriented X3, no focal deficits - Psychiatric Psychiatric exam: Present: normal affect, normal mood - Skin Skin exam: Present: dry, intact, normal color, warm - VTE Documentation of Mechanical Device: Graduated compression elastic hosiery Consult Discharge Plan - Plan Referrals: Ketty Cade, BROADCAST TRANSMITTER OPERATOR [Primary Care Provider] - (PATIENT IS GOING TO [facility] FOR ANTIBIOTICS, NO PCP APPOINTMENT NEEDED) Bruno Zambrano MD [Partnered Physician] - 04/03/17 2:30 pm () Prescriptions: Cefazolin Sodium/D5w [Cefazolin 2 G/50 ml-D5w Bag] 2 gm IV Q8H #102 piggyback
[2017-03-06] MEDS: Furosemide 40 MG/4 ML VIAL IVP SCH ×2 (13:43→21:21)
--- NOTE | 2017-03-06 15:02 | Event Note ---
Date of Encounter: 03/06/17 Time of Encounter: 14:58 SHER done today revealed a possible small vegetation on the aortic valve. I did inspect the incision. The sternum is intact. The top part of the incision is healing well. There are 2 or 3 small openings of the wound below the sternum there draining a small amount of clear fluid. No fluctuance, no cellulitis and no evidence of undrained infection. The patient will require 6 weeks of IV antibiotics both for the vegetation and for the sternum bone. Chest x-ray done today revealed bilateral pleural effusions, larger on the right. I agree with the increased Lasix dose. I also discussed the x-ray with Dr. Moctezuma in invasive radiology and he felt that sono guided bilateral thoracentesis was reasonable. I will schedule this for tomorrow. I would send any fluid obtained for culture. The patient should be okay for discharge tomorrow afternoon [facility] with 6 weeks of IV antibiotics.
[2017-03-06 15:59] LABS: INR 1.6; Prothrombin Time 16.9 Seconds (9.4-12.1)
[2017-03-06 16:01] LABS: Activated Partial Thrombo Time 31.9 Seconds (26.0-36.0)
[2017-03-06] MEDS ORDERED: Insulin DETEMIR 100 UNIT/ML X5UNITS SQ SCH (21:00)
[2017-03-07] MEDS: ceFAZolin 2,000 MG in D5% in Water 100 ML IVPB SCH ×3 (00:09→17:36)
[2017-03-07] MEDS: Albuterol 2.5 MG/3 ML NEBULIZER IH SCH ×5 (00:22→16:25)
[2017-03-07] MEDS: *HR* HYDROcodone/Acet 5/325 mg TABLET PO PRN ×3 (03:51→17:36)
[2017-03-07] MEDS: *HR* Heparin 5,000 UNIT/ML VIAL SQ SCH ×2 (03:52→14:31)
[2017-03-07 04:04] LABS: Hematocrit 21.9 % (35.3-44.9); Hemoglobin 6.9 g/dL (11.5-15.4); Mean Corpuscular HGB Conc 31.5 g/dL (31.6-35.5); Mean Platelet Volume 9.4 fL (9.4-12.4); Platelet Count 299 K/mcL (140-400); Red Blood Count 2.38 M/mcL (3.82-4.97); Red Cell Distribution Width 14.2 % (11.5-14.5)
[2017-03-07 04:24] LABS: BUN/Creatinine Ratio 41 (6-26); Blood Urea Nitrogen 44 mg/dL (7-20); Calcium 7.8 mg/dL (8.6-10.8); Carbon Dioxide 19 mEq/L (19-29); Chloride 108 mEq/L (98-109); Glucose 147 mg/dL (70-99); Osmolality,Calculated 296 (280-300); Potassium 3.7 mEq/L (3.5-4.5); Sodium 136 mEq/L (136-145); eGFR For African Americans > 60 (> 60); eGFR For Non-African Americans 53 (> 60)
--- NOTE | 2017-03-07 07:28 | Cardiothoracic Progress Note ---
Date of Encounter: 03/07/17 Time of Encounter: 07:26 - Assessment and plan (1) Diabetes Current Visit: Yes Status: Chronic The patient will get bilateral thoracenteses in interventional radiology today. We will give HER-2 units of packed red blood cells for hemoglobin of 6.9. She does have the usual, expected acute postoperative blood loss anemia. Qualifiers: Diabetes mellitus type: type 2 Diabetes mellitus complication status: with unspecified complications Diabetes mellitus lobsterman insulin use: with penitentiary use Qualified Code(s): E11.8 - Type 2 diabetes mellitus with unspecified complications; Z79.4 - alf (current) use of insulin - Subjective Interval history: The patient has no complaints. Vital Signs, Last 4 Hours Temp Pulse Resp BP Pulse Ox 03/07/17 04:20 16 94 03/07/17 04:00 104 03/07/17 03:30 98.1 F 104 18 148/81 95 Oxgyen Flow Rate Oxygen Flow Rate (LPM) 0 Clinical Data, last 8 Hours Output, Urine Amount 0 Weight 03/05/17 03/06/17 03/07/17 23:59 23:59 23:59 Weight 97.9 kg 85.729 kg 97.3 kg Lungs have decreased breath sounds in the right base. Heart is in a normal sinus rhythm. Her incision has several small openings below the sternum with minimal drainage. No cellulitis. Her sternum is stable. - Labs 03/07/17 04:00 03/07/17 04:00 Lab Results, Last 24 hours 03/06/17 03/07/17 03/07/17 15:45 04:00 04:00 WBC 13.4 H Hgb 6.9 L Hct 21.9 L Plt Count 299 INR 1.6 APTT 31.9 Sodium 136 Potassium 3.7 Chloride 108 Carbon Dioxide 19 BUN 44 H Creatinine 1.08 Glucose 147 H Calcium 7.8 L - VTE Documentation of Mechanical Device: Graduated compression elastic hosiery Consult Discharge Plan - Plan Referrals: Ketty Cade CNP [Primary Care Provider] - ([facility]ING [facility], NO PCP APPOINTMENT NEEDED) Bruno Zambrano MD [Partnered Physician] - 04/03/17 2:30 pm () Prescriptions: Cefazolin Sodium/D5w [Cefazolin 2 G/50 ml-D5w Bag] 2 gm IV Q8H #102 piggyback
[2017-03-07] MEDS: hydroCHLOROthiazide 25 MG TABLET PO SCH (08:47)
[2017-03-07] MEDS: Aspirin Enteric Coated 81 MG Tablet PO SCH (08:48)
[2017-03-07] MEDS: Furosemide 40 MG/4 ML VIAL IVP SCH (08:48)
[2017-03-07] MEDS: Insulin LISPRO 300 UNITS/3 ML VIAL SQ SCH ×3 (08:50→17:37)
--- NOTE | 2017-03-07 09:39 | Infectious Disease Progress No ---
Date of Encounter: 03/07/17 Time of Encounter: 09:36 - Assessment and Plan (1) Severe sepsis Current Visit: Yes Status: Acute The patient had three SIRS criteria with lactic acidosis plus hypotension responsive to IVF resuscitation. She required the initiation of vasopressor support post-operatively, but these have since been discontinued. Likely secondary to endocarditis, bacteremia and sternal wound infection. Improved. She continues to have some intermittent tachycardia, but less frequent. She has been afebrile and has had no further episodes of hypothermia. Her WBC is improved today. Blood cultures drawn 02/25/17 are positive 2/2 sets for MSSA. Repeat blood cultures drawn 02/27/17 are positive 1/2 sets. Additional blood cultures drawn 03/03/17 are NGTD x 2 sets. 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 SHER completed 03/06/17 shows a small, mobile echodensity on the aortic valve consistent with a vegetation. Likely secondary to bacteremia and sternal wound infection. No endocarditis stigmata on exam. The patient has two major and one minor Modified Jessica's Criteria. Continue antibiotics as below. Duration of treatment depends on the clinical picture, but likely 6 weeks of IV antibiotics. The patient will need weekly CBC, BUN/Cr, ESR, CRP every Friday for the duration of treatment. Weekly midline care. Follow up with ID 03/24/17 at 0930. (3) Bacteremia Current Visit: Yes Status: Acute Causative organism: MSSA. Source: Sternal wound infection. Complicated due to the presence of sternal wires. Blood cultures drawn 02/25/17 are positive 2/2 sets for MSSA. Repeat blood cultures drawn 02/27/17 are positive 1/2 sets. Additional blood cultures drawn 03/03/17 are NGTD x 2 sets. No endocarditis stigmata noted on exam. The patient has two major and one minor Modified Jessica's Criteria. TTE completed. No mention of valvular vegetations. SHER indicative of IE. Continue cefazolin 2 grams IV Q8H. Duration of treatment depends on the clinical picture, but likely at least 6 weeks of IV antibiotics. Monitor renal function and dose-adjust antibiotics. (4) Sternal wound infection Current Visit: Yes Status: Acute Causative organism MSSA. Secondary to recent surgical procedure. CT of the chest showed dehiscence of the intact manubrial sternal wires with widening of the sternotomy. There was also an abscess within the open manubrial portion of the sternotomy. CTS team consulted. Status post incision and drainage of sternal abscess with debridement of the sternum and sternal re-wiring. Operative note reviewed. Pus noted over the manubrium and over the body of the sternum. Discussed with Dr. Zambrano. Concern for OM of the sternum. Intra-operative cultures obtained and are positive for MSSA. Anaerobic and fungal cultures are pending. AFB negative. Continue wound care as outlined by the CTS team. Continue antibiotics as above. Add ESR and CRP to AM labs. (5) Pleural effusion Current Visit: Yes Status: Acute Etiology unclear, but likely secondary to volume overload. The patient is positive 14 liters over the course of her hospital stay. Scheduled for thoracentesis later today. Please send fluid for cell count with differential, LDH, protein, and culture (aerobic, anaerobic, fungal, and AFB). Further evaluation and management per the primary team. (6) Acute kidney injury Current Visit: Yes Status: Resolved Likely secondary to sepsis initially, worsened by hypotension and poor renal perfusion. Serum creatinine improved today. Continue to trend. Dose-adjust antibiotics. Avoid nephrotoxins as able. (7) Lactic acidosis Current Visit: Yes Status: Resolved Secondary to sepsis. Resolved. (8) Hyponatremia Current Visit: Yes Status: Acute Euvolemic hyponatremia. Improved. Management per the primary team. (9) Elevated troponin Current Visit: Yes Status: Acute Cardiology consulted --> likes demand ischemia. (10) CAD (coronary artery disease) Current Visit: Yes Status: Chronic Status post CABG 01/24/[address] Reynolds. Qualifiers: Coronary Disease-Associated Artery/Lesion type: [place] artery [place] vs. transplanted heart: [place] heart Associated angina: without angina Qualified Code(s): I25.10 - Atherosclerotic heart disease of [place] coronary artery without angina pectoris (11) Anemia Current Visit: Yes Status: Acute No evidence of acute bleeding on exam. Hgb 6.9 this morning. Likely secondary to blood loss during surgery. Workup and mangement per the primary and CTS teams. Qualifiers: Anemia type: other cause Other causes of anemia: other cause, not classified Qualified Code(s): D64.89 - Other specified anemias - Subjective Interval history: Patient seen and examined. No acute events noted overnight. Patient sitting up on bedside commode this morning. Overall, the patient states she feels better today and is less weak. She denies any fevers or chills or rigors. She denies pain at the surgical site or cough. She does report some mild dyspnea on exertion. She denies any nausea, vomiting, diarrhea, or constipation. She denies any abdominal pain. She states her appetite is getting better. She denies any oral thrush or new skin lesions. She reports being able to void today without a problem. Infect Dis PN-Objective Data - Labs CBC & Chem 7: 03/07/17 04:00 03/07/17 04:00 Labs: Laboratory Results - last 24 hr 03/06/17 03/06/17 03/06/17 10:01 12:10 15:40 WBC RBC Hgb Hct MCV MCH MCHC RDW Plt Count MPV PT INR APTT Sodium Potassium Chloride Carbon Dioxide BUN Creatinine Est GFR ( Amer) Est GFR (Non-Af Amer) BUN/Creatinine Ratio Glucose POC Glucose 205 H 230 H 217 H Calculated Osmolality Calcium 03/06/17 03/06/17 03/07/17 15:45 21:15 04:00 WBC 13.4 H RBC 2.38 L Hgb 6.9 L Hct 21.9 L MCV 92.0 MCH 29.0 MCHC 31.5 L RDW 14.2 Plt Count 299 MPV 9.4 PT 16.9 H INR 1.6 APTT 31.9 Sodium Potassium Chloride Carbon Dioxide BUN Creatinine Est GFR ( Amer) Est GFR (Non-Af Amer) BUN/Creatinine Ratio Glucose POC Glucose 215 H Calculated Osmolality Calcium 03/07/17 04:00 WBC RBC Hgb Hct MCV MCH MCHC RDW Plt Count MPV PT INR APTT Sodium 136 Potassium 3.7 Chloride 108 Carbon Dioxide 19 BUN 44 H Creatinine 1.08 Est GFR ( Amer) > 60 Est GFR (Non-Af Amer) 53 L BUN/Creatinine Ratio 41 H Glucose 147 H POC Glucose Calculated Osmolality 296 Calcium 7.8 L Cultures: Cultures 02/27/17 12:28 Blood Culture - Final Peripheral Venipuncture No growth. 02/27/17 12:45 Blood Culture - Final Peripheral Venipuncture Staphylococcus aureus 03/03/17 09:55 Blood Culture - Preliminary Peripheral Venipuncture No growth. 03/03/17 10:15 Blood Culture - Preliminary Peripheral Venipuncture No growth. 02/26/17 08:42 Anaerobic Culture - Final Other-Specify in Comments No anaerobes were recovered. 02/26/17 08:30 Wound Culture - Final Other-Specify in Comments Staphylococcus aureus 02/26/17 08:42 Acid Fast Stain - Final Other-Specify in Comments Serology 02/27/17 Range/Units 12:45 A. baumannii (PCR) Not Detected (Not Detect) Harriet albicans (PCR) Not Detected (Not Detect) C. glabrata (PCR) Not Detected (Not Detect) C. krusei (PCR) Not Detected (Not Detect) C. parapsilosis (PCR) Not Detected (Not Detect) C. tropicalis (PCR) Not Detected (Not Detect) Enterobacteriac sp PCR Not Detected (Not Detect) E. cloacae complex PCR Not Detected (Not Detect) Enterococcus sp PCR Not Detected (Not Detect) E. coli (PCR) Not Detected (Not Detect) H. influenzae (PCR) Not Detected (Not Detect) Klebsiella oxytoca PCR Not Detected (Not Detect) Klebsiella pneumoniae Not Detected (Not Detect) List. monocytogenes PCR Not Detected (Not Detect) N. meningitidis (PCR) Not Detected (Not Detect) Proteus species (PCR) Not Detected (Not Detect) Serratia marcescens PCR Not Detected (Not Detect) Staphylococcus sp PCR DETECTED A (Not Detect) Staph aureus (PCR) DETECTED A (Not Detect) mecA-Methicil Res Gene Not Detected (Not Detect) Streptococcus sp PCR Not Detected (Not Detect) Group A Strep DNA Not Detected (Not Detect) Group B Strep (PCR) Not Detected (Not Detect) Strep pneumoniae (PCR) Not Detected (Not Detect) P. aeruginosa (PCR) Not Detected (Not Detect) Vicente/B-Vanco Res Genes Not Detected (Not Detect) KPC (blaKPC) Detect PCR Not Detected (Not Detect) - Impressions Impressions Chest X-Ray 03/06/17 10:30 IMPRESSION: 1. Cardiomegaly with mild vascular congestion. 2. Bilateral pleural effusions with increase in size of the right pleural effusion. D/ / Norbert Atkinson MD / Norbert Atkinson MD Interpreting Provider: Norbert Atkinson MD Exam - Constitutional Vitals: Temp Pulse Resp BP Pulse Ox 97.9 F 96 18 129/78 97 03/07/17 07:34 03/07/17 07:34 03/07/17 07:46 03/07/17 07:34 03/07/17 07:46 General appearance: cooperative, no acute distress, obese - Head Head exam: Present: atraumatic, normal inspection, normocephalic - Eye Eye exam: Present: EOMI, normal appearance, PERRL Pupils: Present: normal accommodation Additional comments: No subconjunctival hemorrhage noted. - ENT ENT exam: Present: mucous membranes moist - Neck Neck exam: Present: normal inspection - Respiratory Respiratory exam: Present: decreased breath sounds (bilateral bases), CTAB. Absent: rales, respiratory distress, rhonchi, wheezes Additional comments: Midsternal incision OZZY with wound edges well approximated except for a small area at the inferior aspect. No drainage noted. Dressing over previous chest tube site is C/D/I. - Cardiovascular Cardiovascular exam: Present: +S1, +S2, tachycardia - GI/Abdominal GI/Abdominal exam: Present: normal bowel sounds, soft. Absent: distended, tenderness - Extremities Exam Extremities exam: Present: normal inspection, pedal edema (1+ BLE). Absent: joint swelling, tenderness - Back Exam Back exam: Present: normal inspection. Absent: paraspinal tenderness, vertebral tenderness - Neurological Exam Neurological exam: Present: alert, oriented X3, no focal deficits - Psychiatric Psychiatric exam: Present: normal affect, normal mood - Skin Skin exam: Present: dry, intact, normal color, warm Additional comments: No endocarditis stigmata noted. - Additional findings Additional findings: Midline noted to the LUE with transparent dressing C/D/I. - VTE Documentation of Mechanical Device: Graduated compression elastic hosiery Consult Discharge Plan - Plan Referrals: Ketty Cade, VETERANS' COUNSELOR [Primary Care Provider] - (PATIENT IS GOING TO [facility] FOR ANTIBIOTICS, NO PCP APPOINTMENT NEEDED) Bruno Zambrano MD [Partnered Physician] - 04/03/17 2:30 pm () Rosalia Travis CNP [Advanced Practice Nurse] - 03/24/17 9:30 am Prescriptions: Cefazolin Sodium/D5w [Cefazolin 2 G/50 ml-D5w Bag] 2 gm IV Q8H #102 piggyback
[2017-03-07] MEDS ORDERED: 0.9 % Sodium Chloride 250 ML ONE (10:08)
--- NOTE | 2017-03-07 10:49 | IR Procedure Note ---
Date of procedure: 03/07/17 Consent Obtained: Written consent Timeout: Correct patient and procedure verified, Correct site verified, Time out performed, Skin prep completed Indications: bilateral pleural effusions Procedure Performed: bilateral thoracentesis Site/Technique: bilateral Results/Findings: moderate effusions Estimated blood loss (cc): 0 Complications: None; Tolerated procedure well Post Procedure Treatment Plan: CXR
[2017-03-07 12:10] LABS: C-Reactive Protein 109 mg/L (Less than 5)
--- NOTE | 2017-03-07 12:15 | Discharge Summary ---
Date of Encounter: 03/10/17 Time of Encounter: 12:12 - Discharge Diagnosis (1) Severe sepsis Priority: Primary Status: Acute Comments: Secondary to MSSA bacteremia and sternal surgical wound infection (2) Infected sternotomy closure wire Priority: Primary Status: Acute Qualifiers: Encounter type: initial encounter Qualified Code(s): T84.7XXA - Infection and inflammatory reaction due to other internal orthopedic prosthetic devices, implants and grafts, initial encounter (3) Acute kidney injury Priority: Secondary Status: Resolved (4) CAD (coronary artery disease) Priority: Secondary Status: Chronic Qualifiers: Coronary Disease-Associated Artery/Lesion type: [place] artery [place] vs. transplanted heart: [place] heart Associated angina: without angina Qualified Code(s): I25.10 - Atherosclerotic heart disease of [place] coronary artery without angina pectoris (5) Bacteremia Priority: Primary Status: Acute (6) Sternal wound infection Priority: Primary Status: Acute (7) Anemia Priority: Secondary Status: Acute Qualifiers: Anemia type: other cause Other causes of anemia: other cause, not classified Qualified Code(s): D64.89 - Other specified anemias (8) Urinary retention Priority: Secondary Status: Acute (9) Diabetes Priority: Secondary Status: Chronic Qualifiers: Diabetes mellitus type: type 2 Diabetes mellitus complication status: with unspecified complications Diabetes mellitus fdc insulin use: with 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 use Qualified Code(s): E11.8 - Type 2 diabetes mellitus with unspecified complications; Z79.4 - half-way (current) use of insulin (10) GERD (gastroesophageal reflux disease) Priority: Secondary Status: Chronic Qualifiers: Esophagitis presence: esophagitis presence not specified Qualified Code(s) : K21.9 - Gastro-esophageal reflux disease without esophagitis (11) Pleural effusion Priority: Primary Status: Acute Comments: Bilateral pleural effusions worse on the right status post thoracentesis by interventional radiology (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 Priority: Primary Status: Acute Comments: Complete total of 6 weeks of antibiotics - Discharge Medications Prescriptions: Cefazolin Sodium/D5w [Cefazolin 2 G/50 ml-D5w Bag] 2 gm IV Q8H #102 piggyback Furosemide [Lasix] 40 mg PO BID #60 tablet HYDROcodone/Acet 5/325 mg [[place] 5-325 mg] 1 tab PO Q4H PRN #25 tab PRN Reason: pain Home Medications: RX: Atorvastatin [Lipitor] 40 mg PO HS 02/06/16 [History] RX: Lansoprazole [Prevacid] 30 mg PO QAM 02/06/16 [History] RX: Alogliptin Keon/Metformin HCl [[place] 12.5-1,000 mg Tablet] 1 each PO BID [History] RX: hydroCHLOROthiazide [Hydrochlorothiazide] 12.5 mg PO DAILY 01/22/17 [History ] RX: HYDROcodone/Acet 5/325 mg [[place] 5-325 mg] 1 tab PO Q4HR PRN #50 tab [Rx] RX: Metoprolol XL (24 HR) Succ [Toprol Xl] 25 mg PO DAILY #30 01/30/17 [Rx] RX: Lisinopril [Zestril] 10 mg PO DAILY 02/25/17 [History] Cefazolin Sodium/D5w [Cefazolin 2 G/50 ml-D5w Bag] 2 gm IV Q8H #102 piggyback [Rx] Furosemide [Lasix] 40 mg PO BID #60 tablet 03/07/17 [Rx] HYDROcodone/Acet 5/325 mg [[place] 5-325 mg] 1 tab PO Q4H PRN #25 tab 03/07/17 [Rx ] RX: Insulin Glargine,Hum.rec.anlog [Basaglar Kwikpen U-100] 40 unit SQ HS #0 [Rx] Allergies/Adverse Reactions: 3 Allergy/AdvReac Type Severity Reaction Status Date / Time Oxycodone AdvReac Depression Verified 02/28/17 11:48 Procedures/tests Complete & Pending: Procedures Performed prior 72 hours Category Date Time Status IR thoracentesis ultrasound [IR] Routine IR 03/07/17 Taken EV SHER transesophageal echo Routine Y 03/06/17 10:18 Completed Date of admission: 02/25/17 14:30 Primary care physician: Ketty Cade CNP Consults: 02/25/17 15:59 Consult to Nutrition [CONS] Routine Comment: Consulting Provider: NUTRITION Reason for Dietary Consult: MST Score 02/26/17 10:02 Consult to Synoptic Meteorologist [CONS] Routine Reason for SW Consult: sternal infection 03/02/17 08:53 Consult to Occupational Therapy [CONS] Routine Comment: Evaluate, develop and implement POC Reason for Consult: eval Consult to Physical Therapy [CONS] Routine Comment: Evaluate, develop and implement POC Reason for Consult: eval 03/03/17 09:12 Consult to Urology [CONS] Routine Consulting Provider: Josh Amaral Reason for Consult: urinary retention Call Completed: Yes 03/06/17 10:40 Consult to Invasive Line Access Team [CONS] Routine Reason for Consult: 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 atb Line Type: Midline 03/06/17 15:02 Consult to Interventional Radiology [CONS] Routine Consulting Provider: Radiology Interventional Cols Reason for Consult: bilateral US guided thoracentesis 03/07, send fluid for culture Call Completed: Yes - Patient Status Disposition: Transfer SNF Condition: Fair Overall status at discharge: patient is progressing back to baseline - Discharge Instructions Instructions: Furosemide (By mouth), Cefazolin/Dextrose Premix (Injection), Endocarditis (DC) Follow Up With: Rosalia Travis CNP [Advanced Practice Nurse] - 03/24/17 9:30 am Ketty Cade CNP [Primary Care Provider] - (PATIENT IS GOING TO [facility] FOR ANTIBIOTICS, NO PCP APPOINTMENT NEEDED) Bruno Zambrano MD [Partnered Physician] - 04/03/17 2:30 pm () Additional Instructions: Follow-up primary care physician after being discharged from rehabilitation facility. Follow-up with infectious diseases service within the next 2 weeks. Continue cefazolin for 32 more days to complete a total of 6 weeks. Continue Lasix. Follow-up with cardiothoracic surgery within the next 2 weeks. If you have questions that are not answered by these instructions, please call your nurse or doctor. * Do not drive for 1 month or until allowed by your surgeon. * If you smoke, STOP SMOKING. Smoking or tobacco use significantly increases your risk of heart disease because nicotine causes the arteries to narrow or constrict. It also causes fats to stick to the artery. Your chances of occluding your new bypasses or having a heart attack are greatly increased if you continue to smoke. For more information call the patient education line for smoking cessation 8-191-VEHT-NOW. * Continue to use your incentive Spirometry about 6 times each day (1 use = 5 to 10 breaths) for 1 month. This important to help prevent pneumonia. * Follow your Phase I Cardiac Rehab Activity Guide. * You may climb stairs, one step at a time, as you are able. * Do not lift more than 10 pounds (1/2 gallon of milk = 5 pounds), vacuum, sweep , shovel snow, rake leaves, or do anything that could pull on the chest for 2 months. * You may resume sexual activity when you feel ready. * Continue to wear ELADIO hose during the day for about 1 month. Remove and wash daily in mild detergent. * Gently wash incision with soap and water daily. Rinse well and pat dry with a clean towel. Do not soak your incisions under water. Do not use any powders, lotions, creams or ointments on your incision. * Chest tube sites may drain fluid for 1-2 weeks and can be covered with dry gauze. They also may become reddened or inflamed as they heal and can be cleaned twice a day with hydrogen peroxide. * Take your pulse once a day. If it is less than 60 or greater than 110 beats per minute at rest, call your Abalone Fisherman, . * Take your temperature by mouth once a day for 2 weeks. Call your surgeon of it is above 101 degrees. * Call the surgeon if you notice drainage or redness at your incision lines. * Weigh yourself each day for 2 weeks. Call your doctor if you notice and increase in your weight of 3 pounds or more in a day or increasing shortness of breath. * If you experience chest pain, shortness of breath, dizziness or extreme tiredness, stop and rest. Please notify your doctor if you experience any of these symptoms. * If you experience any of these symptoms and they are not relieved with rest, please call 911. - Diet and Activity Activity: increase activity as tolerated Diet: diabetic diet Hospital course: Ms. Coyne is a 51 year old female with a past medical history of CAD status post CABG on January 24, 2017, diabetes insulin dep, GERD, and hypertension. The patient was admitted to the hospital February 25 for sternal wound infection. She returned to the ICU after surgery. The patient underwent a CABG 4 (FLORES to the LAD, sequential SVG to D2 and OM1, SVG to PDA) [address] Reynolds. The patient did well postoperatively until a couple of days prior to admission she began to experience some drainage from the wound. She was seen at her PCPs officeand was subsequently advised to go to the emergency department for low blood pressure. Upon arrival, the patient was febrile and tachycardic and hypotensive. Laboratory studies revealed a mildly elevated white blood cell count with bandemia. She also had acute kidney injury and lactic acidosis. Her troponin was elevated. His started on IV fluids to which her blood pressure responded. A chest x-ray showed cardiomegaly with left basilar atelectasis. A CT the abdomen and pelvis and chest showed dehiscence of the intact manubrial sternal wires with widening of the sternotomy. There was also noted to have an abscess within the open manubrial portion of the sternotomy. Blood cultures were obtained 2 sets. The patient was started empiric on IV vancomycin and IV Zosyn. She was admitted to the hospital for further evaluation and treatment. Since admission, the patient continued to have intermittent fevers with a MAXIMUM TEMPERATURE of 102.1. Her WBC has normalized. Cardiothoracic surgery was consulted, took the patient to the operating room y where she underwent incision and drainage of sternal abscess with debridement of the sternum and sternal rewiring. Intra-operative cultures were collected and are pending. CT of the chest showed dehiscence of the intact manubrial sternal wires with widening of the sternotomy. There was also an abscess within the open manubrial portion of the sternotomy. CTS team following. Status post incision and drainage of sternal abscess with debridement of the sternum and sternal re-wiring. Pus noted over the manubrium and over the body of the sternum. No mention of bone abnormalities on the intra- op report. Intra-operative cultures obtained and are positive for MSSA. Anaerobic and fungal cultures are pending. AFB negative. Intra-operative cultures positive for MSSA. Continue wound care as outlined by the CTS team. Chest tubes removed, wound VAC in place Blood cultures drawn 02/25/17 are positive 2/2 sets for MSSA. Repeat blood cultures drawn 02/27/17 are positive 1/2 sets. Blood cultures were positive for MSSA, the same bacteria grew on the sternal surgical wound . Vancomycin was stopped and she was continued on cefazolin (day 10( Was followed by cardiothoracic surgery and infectious diseases Transthoracic echocardiogram showed no evidence of valvular vegetations but SHER showed a small mobile echodensity associated with the right coronary cusp of the aortic valve suggestive of a vegetation. Will require 4-6 weeks of IV antibiotics, infectious disease service recommendations appreciated Developed bilateral pleural effusions worse on the right status post thoracenteses. Hemoglobin dropped to 6.9, no evidence of infection received 2 units of blood prior to being discharged. - Time Spent with Patient Total time spent providing and/or coordinating discharge services: Greater than 30 minutes (40 min) - Constitutional Vitals: Temp Pulse Resp BP Pulse Ox 98.2 F 78 18 113/69 98 03/07/17 11:25 03/07/17 11:25 03/07/17 11:26 03/07/17 11:25 03/07/17 11:26 General appearance: Present: mild distress (due to pain), A&O X 3, obese, answers questions appropriately Exam: - Head Head exam: Present: atraumatic, normal inspection, normocephalic - Eye Eye exam: Present: EOMI, normal appearance, PERRL Pupils: Present: normal accommodation Additional comments: No subconjunctival hemorrhage noted. - ENT ENT exam: Present: mucous membranes moist - Neck Neck exam: Present: normal inspection - Respiratory Respiratory exam: Present: decreased breath sounds (bilateral bases), CTAB. Absent: rales, respiratory distress, rhonchi, wheezes Additional comments: Midsternal incision CARDIOTHORACIC PHYSIOTHERAPIST with wound edges well approximated except for a small area at the inferior aspect. No drainage noted. Dressing over previous chest tube site is C/D/I. - Cardiovascular Cardiovascular exam: Present: +S1, +S2, tachycardia - GI/Abdominal GI/Abdominal exam: Present: normal bowel sounds, soft. Absent: distended, tenderness - Extremities Exam Extremities exam: Present: normal inspection, pedal edema (1+ BLE). Absent: joint swelling, tenderness - Back Exam Back exam: Present: normal inspection. Absent: paraspinal tenderness, vertebral tenderness - Neurological Exam Neurological exam: Present: alert, oriented X3, no focal deficits - Psychiatric Psychiatric exam: Present: normal affect, normal mood - Skin Skin exam: Present: dry, intact, normal color, warm Additional comments: No endocarditis stigmata noted. - Additional findings Additional findings: Midline noted to the LUE with transparent dressing C/D/I. - VTE Documentation of Mechanical Device: Graduated compression elastic hosiery
[2017-03-07] MEDS ORDERED: Furosemide 40 MG/4 ML VIAL IVP ONE (12:17)
--- NOTE | 2017-03-07 12:31 | Physician Discharge Referral ---
ExtendedCare Referral Info Provider in Charge after Transfer: PCP Institutional Level of Care: Skilled - Diagnosis (1) Severe sepsis Status: Acute (2) HTN (hypertension) Status: Chronic (3) Infected sternotomy closure wire Status: Acute (4) Acute kidney injury Status: Resolved (5) CAD (coronary artery disease) Status: Chronic (6) Bacteremia Status: Acute (7) Sternal wound infection Status: Acute (8) Anemia Status: Acute (9) Urinary retention Status: Acute (10) Diabetes Status: Chronic (11) GERD (gastroesophageal reflux disease) Status: Chronic (12) Pleural effusion Status: Acute (13) Endocarditis due to Staphylococcus Status: Acute - Transfer Medications Prescriptions: Cefazolin Sodium/D5w [Cefazolin 2 G/50 ml-D5w Bag] 2 gm IV Q8H #102 piggyback Furosemide [Lasix] 40 mg PO BID #60 tablet Home Medications: Atorvastatin [Lipitor] 40 mg PO HS 02/06/16 [History] Lansoprazole [Prevacid] 30 mg PO QAM 02/06/16 [History] Alogliptin Keon/Metformin HCl [[place] 12.5-1,000 mg Tablet] 1 each PO BID [History] hydroCHLOROthiazide [Hydrochlorothiazide] 12.5 mg PO DAILY 01/22/17 [History] HYDROcodone/Acet 5/325 mg [[place] 5-325 mg] 1 tab PO Q4HR PRN #50 tab 01/30/17 [ Rx] Metoprolol XL (24 HR) Succ [Toprol Xl] 25 mg PO DAILY #30 01/30/17 [Rx] Lisinopril [Zestril] 10 mg PO DAILY 02/25/17 [History] Cefazolin Sodium/D5w [Cefazolin 2 G/50 ml-D5w Bag] 2 gm IV Q8H #102 piggyback [Rx] Furosemide [Lasix] 40 mg PO BID #60 tablet 03/07/17 [Rx] Insulin Glargine,Hum.rec.anlog [Basaglar Kwikpen U-100] 40 unit SQ HS #0 [Rx] Allergies/Adverse Reactions: 3 Allergy/AdvReac Type Severity Reaction Status Date / Time Oxycodone AdvReac Depression Verified 02/28/17 11:48 - Respiratory Orders Smoking Cessation: Smoking cessation has been advised. For more information, call the [place] Tobacco Quit Line at 4-919-WTKP-NOW. - Advance Directives Code Status: Full Code - Diet Orders No Added Salt (TOBI) House Supplement per Dietary: Follow-up primary care physician after being discharged from rehabilitation facility. Follow-up with infectious diseases service within the next 2 weeks. Continue cefazolin for 32 more days to complete a total of 6 weeks. Continue Lasix. Follow-up with cardiothoracic surgery within the next 2 weeks. CERTIFICATION: I certify that the transfer of the above named patient to an Extended Care Facility is necessary for the continuing treatment of the diagnosis listed. The above information is true and accurate reflection of patient's current condition. Confidential - Redisclosure prohibited without a patient's written consent.
[2017-03-07 14:20] LABS: RBC,Pleural Fluid 0.011 M/mcL
[2017-03-07 14:28] LABS: Glucose,Pleural Fluid 165 mg/dL (No Ref Range); LDH,Pleural Fluid 275 Units/L (No Ref Range); Total Protein,Pleural Fluid 2.8 g/dL (No Ref Range)
[2017-03-07 15:39] LABS: Appearance of Pleural Fl Hazy (Clear)
[2017-03-07 17:33] VITALS: BP 137/74
== END 2017-03-07 19:15 | DRG 856 ==
LOC: EMEROO 10:25 → SUATTDRO 14:30 → 2NNU 14:30 → ICNU 02-26 09:14 → 2NNU 03-02 12:08
PROVIDERS: ADMIT Internal Medicine; ATTEND Internal Medicine